=== PATIENT | female | born 1955 | race Caucasian/White ===

== ENCOUNTER 2019-12-11 12:59 | Outpatient (CLI) | payer BC, MEDICARE, SELFPAY ==
--- NOTE | 2019-12-11 13:24 | XR_ITS ---
WS: [id number] LEFT WRIST: 3 VIEW(S) TECHNIQUE: PA, oblique and lateral. HISTORY: PAIN IN LEFT HAND COMPARISON: None available. No acute fracture or dislocation. Very mild narrowing of the radiocarpal joint and the first carpometacarpal joint. No soft tissue swelling. XR/XR wrist LT min 3V* [id number] IMPRESSION: Mild osteoarthritis.
== END 2019-12-11 13:00 | disposition home or self-care (01) ==
PROVIDERS: Family Provider Family Medicine; PCP Family Medicine; Visit Provider Nurse Practitioner
DX: M19.042 Primary osteoarthritis, left hand (principal)
CPT/HCPCS: 73110

== ENCOUNTER 2020-04-04 14:51 | Emergency (ER) | payer BC, MEDICARE, SELFPAY ==
--- NOTE | 2020-04-04 14:53 | XR_ITS ---
WS: [id number] PORTABLE CHEST HISTORY: cp COMPARISON: 02/24/2015 Mild emphysema and chronic interstitial lung disease. No pneumonia. Linear scar atelectasis at the LE FT lung base. No pleural effusion or pneumothorax. Cardiac size: Normal. Mediastinum/Aorta: Normal mediastinum. No osseous abnormality seen. XR/XR chest 1V portable [id number] IMPRESSION: Chronic emphysema with LEFT basilar subsegmental atelectasis.
--- NOTE | 2020-04-04 14:53 | ECG_ITS ---
Measurements Intervals [place] Rate: 83 P: 17 TN: 141 QRS: -22 QRSD: 104 T: 81 QT: 401 QTc: 472 SINUS RHYTHM BORDERLINE LEFT AXIS DEVIATION [QRS AXIS < -20] POSSIBLE RIGHT VENTRICULAR CONDUCTION DELAY [RSR (QR) IN V1/V2] LEFT VENTRICULAR HYPERTROPHY AND ST-T CHANGE Compared to ECG 02/24/2015 16:46:58 Ventricular premature complex(es) now present Left ventricular hypertrophy now present ST (T wave) deviation now present T-wave abnormality no longer present Possible ischemia no longer present Electronically Signed On 04-05-2020 22:06:57 CDT by Malka Jones M.D. [email or web address]
[2020-04-04 14:58] VITALS: BP 123/72; PULSE 75; RESP 14; TEMP 36.6; O2SAT 98; BMI 22.2
--- NOTE | 2020-04-04 15:21 | ED_ITS ---
HPI - Chest Pain General: Chief Complaint: Chest Pain Stated Complaint: heavy chest Time Seen by Provider: 04/04/20 15:12 Source: patient Mode of arrival: ambulatory Limitations: no limitations History of Present Illness: HPI narrative: 64-year-old female who has had chest pain since last night. States the pain is been a pressure type pain in the center of her chest. She denies any shortness of breath or fever. Patient denies any worsening or improving factors. MD complaint: chest pain and chest heaviness Onset (ago): day(s) Timing of current episode: episodic Pain location: substernal and left chest Pain radiation: none Severity: moderate Quality: tightness Relieving factors: nothing Associated symptoms: Deny abdominal pain, dyspnea, fever(s), nausea or vomiting Review of Systems Const: Denies: fever(s), chills, body aches or change in appetite Eyes: Denies: blurry vision or eye discomfort ENMT: Denies: throat pain or dental pain Card: Reports: chest pain Resp: Denies: dyspnea GI: Denies: abdominal pain, nausea, vomiting or diarrhea : Denies: dysuria Musc: Denies: neck pain or back pain Skin/Breast: Denies: rash Neuro: Denies: headache(s) Psych: Denies: depression Lorenzo/Lymph: Denies: easy bruising All/Imm: Denies: urticaria PFSH ED PFSH: Family History Family/Other Hypertension CAD (coronary artery disease) Cancer Social History Smoking and tobacco status: current every day smoker cigarettes Packs smoked per day: 1 Second hand smoke exposure: No Alcohol intake: never Desire information about alcohol rehabilitation?: No Desire information about substance/drug rehabilitation?: No History of recent travel: No Current gender identity: Female Physical Exam Const: COMMON NORMALS: no acute distress, patient oriented x3 and healthy appearing HENMT: COMMON NORMALS: normocephalic and atraumatic HEAD & SCALP: normocephalic and atraumatic Eye: COMMON NORMALS: Equal, round and reactive pupils present and EOMs intact bilaterally PUPIL: Yes Equal, round and reactive pupils present Neck/C-Spine: COMMON NORMALS: full ROM and supple Chest: COMMONS NORMALS: normal inspection of the chest and normal palpation of entire chest wall Resp: COMMON NORMALS: normal respiratory effort, No retractions, No use of accessory muscles and clear to auscultation bilaterally AUSCULTATION: clear to auscultation bilaterally Cardio: COMMON NORMALS: regular rate, regular rhythm and No murmurs present (Cardio) RATE: regular rate RHYTHM: regular rhythm GI: COMMON NORMALS: Normal to inspection, nondistended, normoactive bowel sounds present, Soft to palpation, non-tender and no masses PALPATION: Yes Soft to palpation Extremity: COMMON NORMALS: normal to inspection and full ROM Neuro: COMMON NORMALS: patient oriented x3, moves all extremities and no focal motor deficits Psych: COMMON NORMALS: mental status grossly normal, Normal thought process present and cooperative THOUGHT PROCESS: Normal thought process present Skin: COMMON NORMALS: no rashes or lesions noted and no wounds GENERAL SKIN EXAM: no rashes or lesions noted Course Vital Signs: Vital signs: Vital Signs Temperature 97.8 F 04/04/20 14:58 Pulse Rate 74 04/04/20 17:12 Respiratory Rate 15 04/04/20 17:12 Blood Pressure 121/77 04/04/20 17:12 Pulse Oximetry 94 04/04/20 17:12 MDM - Chest Pain MDM Narrative: Medical decision making narrative: 171 patient's past chest pain is resolved. I spoke to her and it about her initial results and recommended admission due to her risk factors. She states she feels much improved and does not want to be admitted at this time. I did talk her into staying for 2-hour troponin level and will plan on discharging if normal. 175 patient presents with chest pain that is since resolved. Second troponin is normal as well. Patient still adamant about going home. And directed her she needs to limit activity and to follow-up with her primary care doctor in 1 to 3 days and return to the ER if worsening. She has no signs of pulmonary embolism. Lab Data: Labs: Lab Results 04/04/20 04/04/20 04/04/20 Range/Units 15:23 15:23 15:23 WBC 8.6 (4.0-10.0) 10^3/ uL RBC 4.50 (4.1-5.3) 10^6/u L Hgb 12.4 (11.5-15.3) g/dL Hct 39.6 (37.0-47.0) % MCV 88.0 (81-99) fL MCH 27.6 L (28.0-34.0) pg MCHC 31.3 (30.0-36.0) g/dL RDW 14.7 (12.1-15.1) % Plt Count 439 H (130-400) 10^3/c mm MPV 9.3 (7.4-10.4) fL Neut % (Auto) 37.5 % Lymph % (Auto) 48.7 % [place] % (Auto) 8.4 % Eos % (Auto) 4.3 % Baso % (Auto) 0.9 % Neut # (Auto) 3.2 (1.8-7.7) 10^3/u L Lymph # (Auto) 4.2 (0.8-4.8) 10^3/u L [place] # (Auto) 0.7 (0.2-0.9) 10^3/u L Eos # (Auto) 0.4 (0.0-0.8) 10^3/u L Baso # (Auto) 0.1 (0.0-0.1) 10^3/u L Nucleated RBC % (a uto) 0 % Nucleated RBCs # 0.0 /100WBC Sodium 139 (136-145) mmol/L Potassium 4.1 (3.5-5.1) mmol/L Chloride 101 (98-107) mmol/L Carbon Dioxide 24 (22-29) mmol/L Anion Gap 18.1 (5-19) BUN 18 (8-23) mg/dL Creatinine 1.1 H (0.5-0.9) mg/dL GFR Calculation 50.0 L (90-130) mL/min Glucose 100 (65-115) mg/dL Calculated Osmolal ity 285 (285-295) mOsm/k g Calcium 9.5 (8.5-10.5) mg/dL Total Bilirubin 0.2 (0.15-1.2) mg/dL AST 20 (0-32) U/L ALT 12 (0-33) U/L Alkaline Phosphata se 68 (35-105) IU/L Troponin T Baselin e 6 (0-10) ng/mL Troponin T 120 Min [place] (0-10) ng/mL Total Protein 6.6 (6.6-8.7) g/dL Albumin 4.3 (3.5-5.2) g/dL Globulin 2.3 (1.3-4.6) g/dL 05/25/20 Range/Units 17:07 WBC (4.0-10.0) 10^3/ uL RBC (4.1-5.3) 10^6/u L Hgb (11.5-15.3) g/dL Hct (37.0-47.0) % MCV (81-99) fL MCH (28.0-34.0) pg MCHC (30.0-36.0) g/dL RDW (12.1-15.1) % Plt Count (130-400) 10^3/c mm MPV (7.4-10.4) fL Neut % (Auto) % Lymph % (Auto) % [place] % (Auto) % Eos % (Auto) % Baso % (Auto) % Neut # (Auto) (1.8-7.7) 10^3/u L Lymph # (Auto) (0.8-4.8) 10^3/u L [place] # (Auto) (0.2-0.9) 10^3/u L Eos # (Auto) (0.0-0.8) 10^3/u L Baso # (Auto) (0.0-0.1) 10^3/u L Nucleated RBC % (a uto) % Nucleated RBCs # /100WBC Sodium (136-145) mmol/L Potassium (3.5-5.1) mmol/L Chloride (98-107) mmol/L Carbon Dioxide (22-29) mmol/L Anion Gap (5-19) BUN (8-23) mg/dL Creatinine (0.5-0.9) mg/dL GFR Calculation (90-130) mL/min Glucose (65-115) mg/dL Calculated Osmolal ity (285-295) mOsm/k g Calcium (8.5-10.5) mg/dL Total Bilirubin (0.15-1.2) mg/dL AST (0-32) U/L ALT (0-33) U/L Alkaline Phosphata se (35-105) IU/L Troponin T Baselin e (0-10) ng/mL Troponin T 120 Min [place] 6.00 (0-10) ng/mL Total Protein (6.6-8.7) g/dL Albumin (3.5-5.2) g/dL Globulin (1.3-4.6) g/dL Imaging Data^: CXR: Attestation: I personally reviewed and interpreted this imaging study as follows: My impression: no acute abnormality EKG Data^: EKG 1: Attestation: I personally reviewed and interpreted this EKG as follows: EKG interpretation date: 04/04/20 EKG interpretation time: 15:03 Interpretation: nsr hr [address] changes no stemi qrs 104 qtc 441 EKG 2: Attestation: I personally reviewed and interpreted this EKG as follows: EKG interpretation date: 04/04/20 EKG interpretation time: 17:15 Interpretation: nsr hr 70 no acute change from previous ekg, no stemi, Discharge Plan Discharge Patient Disposition: Home, Self-Care Clinical Impression: Chest pain Qualifiers: Chest pain type: unspecified Qualified Code(s): R07.9 - Chest pain, unspecified Condition: Stable Prescriptions: No Action gabapentin 300 mg capsule 300 mg PO TID RF: 0 dicyclomine 20 mg tablet 20 mg PO TID RF: 0 lisinopril 10 mg tablet 10 mg PO DAILY RF: 0 duloxetine 60 mg capsule,delayed release(DR/EC) 60 mg PO BID RF: 0 nitroglycerin 0.4 mg tablet, sublingual 0.4 mg SUBLINGUAL Q5M PRN (Reason: CHEST PAINS) RF: 0 cyclobenzaprine 10 mg tablet 10 mg PO TID RF: 0 lansoprazole 30 mg capsule,delayed release(DR/EC) 30 mg PO DAILY RF: 0 bupropion HCl 300 mg tablet extended release 24 hr 300 mg PO QAM RF: 0 atorvastatin [Lipitor] 40 mg tablet 40 mg PO DAILY RF: 0 naproxen sodium [Aleve] 220 mg tablet 220 mg PO BID PRN (Reason: Pain) RF: 0 Discharge Orders: Discharge Order (Routine); Ordered 04/04/20 Ordered By: Archie Anderson Referrals: Mamadou Arevalo MD [Primary Care Provider] - 1-3 days Lary Martinez DO [Family Provider] - Discharge Diet: Advance as tolerated Discharge Activity: Resume usual activity Patient Instructions: Chest Pain (ED) Coding Level of Care Code ED Gang Punch Operator for [facility] Fwd Exam Comprehensive
[2020-04-04] MEDS: aspirin 81 mg Chew Tablet 324 MG PO (15:28)
[2020-04-04] MEDS: nitroglycerin 0.4 mg sublingual Tablet SUBLINGUAL (15:28)
[2020-04-04 15:31] LABS: Basophils # 0.1 10^3/uL (0.0-0.1); Basophils % 0.9 %; Eosinophils # 0.4 10^3/uL (0.0-0.8); Eosinophils % 4.3 %; Hematocrit 39.6 % (37.0-47.0); Hemoglobin 12.4 g/dL (11.5-15.3); Lymphocytes # 4.2 10^3/uL (0.8-4.8); Lymphocytes % 48.7 %; Mean Corpuscular HGB Conc 31.3 g/dL (30.0-36.0); Mean Corpuscular Hemoglobin 27.6 pg (28.0-34.0); Mean Platelet Volume 9.3 fL (7.4-10.4); Monocytes # 0.7 10^3/uL (0.2-0.9); Monocytes % 8.4 %; Neutrophils # 3.2 10^3/uL (1.8-7.7); Neutrophils % 37.5 %; Nucleated Red Blood Cells % 0 %; Platelet Count 439 10^3/cmm (130-400); Red Cell Distribution Width 14.7 % (12.1-15.1); White Blood Count 8.6 10^3/uL (4.0-10.0)
--- NOTE | 2020-04-04 15:43 | PC.NURSE ---
Unable to document 2nd dose of nitros sublingual on JAN. Patient rates pain 3:10 after 1st dose. 0.4 mg repeated
[2020-04-04 15:45] VITALS: BP 128/61; PULSE 76; RESP 16; O2SAT 95
--- NOTE | 2020-04-04 15:48 | PC.NURSE ---
pt wanted blanket.
[2020-04-04 17:01] LABS: Alanine Aminotransferase 12 U/L (0-33); Albumin Level 4.3 g/dL (3.5-5.2); Alkaline Phosphatase 68 IU/L (35-105); Anion Gap 18.1 (5-19); Aspartate Amino Transferase 20 U/L (0-32); Blood Urea Nitrogen 18 mg/dL (8-23); Calcium 9.5 mg/dL (8.5-10.5); Carbon Dioxide 24 mmol/L (22-29); Chloride 101 mmol/L (98-107); Creatinine Clr Calc Pharmacy 40.6972; Globulin 2.3 g/dL (1.3-4.6); Glucose 100 mg/dL (65-115); Osmolality Calculated 285 mOsm/kg (285-295); Potassium 4.1 mmol/L (3.5-5.1); Sodium 139 mmol/L (136-145); Total Bilirubin 0.2 mg/dL (0.15-1.2); Total Protein 6.6 g/dL (6.6-8.7); Troponin(5th) Baseline 6 ng/mL (0-10)
[2020-04-04 17:12] VITALS: BP 121/77; PULSE 74; RESP 15; O2SAT 94
--- NOTE | 2020-04-04 17:49 | PC.NURSE ---
Read and agree with assessment
[2020-04-04 17:51] LABS: Troponin 5 2HR Delta 0 ABS# (0-10)
[2020-04-04 18:04] VITALS: BP 144/81; PULSE 92; RESP 18; O2SAT 98
--- NOTE | 2020-04-04 20:53 | ECG_ITS ---
Measurements Intervals [place] Rate: 70 P: 48 IN: 141 QRS: -25 QRSD: 105 T: 61 QT: 411 QTc: 444 SINUS RHYTHM BORDERLINE LEFT AXIS DEVIATION [QRS AXIS < -20] POSSIBLE RIGHT VENTRICULAR CONDUCTION DELAY [RSR (QR) IN V1/V2] MODERATE VOLTAGE CRITERIA FOR LVH, CONSIDER NORMAL VARIANT MODERATE T-WAVE ABNORMALITY, CONSIDER LATERAL ISCHEMIA Compared to ECG 02/24/2015 16:46:58 No significant changes Electronically Signed On 04-05-2020 22:13:57 CDT by Malka Jones M.D. [email or web address]
== END 2020-04-04 18:05 | disposition home or self-care (01) ==
PROVIDERS: Emergency Provider Emergency Medicine; Family Provider Family Medicine; PCP Family Medicine
DX: R07.9 Chest pain, unspecified (principal); F17.210 Nicotine dependence, cigarettes, uncomplicated
CPT/HCPCS: 12345; 36415; 71045; 80053; 84484; 85025; 87040; 93005; 99283; 99284

== ENCOUNTER 2020-07-26 16:39 | Emergency (ER) | payer BC, MEDICARE, SELFPAY ==
[2020-07-26] VITALS (8 sets, daily range): BP systolic 105–151; BP diastolic 58–110; PULSE 98–112; RESP 14–24; TEMP 36.9; O2SAT 84–99; BMI 21.8
[2020-07-26] MEDS: HYDROcodone-acetaminophen 5-325 mg Tablet 1 TAB PO (17:00)
--- NOTE | 2020-07-26 17:00 | XR_ITS ---
WS: [id number] EXAM: RIGHT ANKLE: 3 VIEWS DATE OF EXAMINATION: 07/26/2020, 1719 hours COMPARISON: None. HISTORY: Patient is 65 years old with ankle pain status post fall FINDINGS: There are findings of fracture and dislocation of the ankle. The talus is 100% displaced dorsally in relation to the tibial plafond. Posterior tibial malleolar fracture is displaced by several centimete rs both posteriorly and superiorly. Medial malleolar fracture stays with the talus. The distal fibula r fracture which appears to be a Gonzales B fracture also stays with the talus. There is widening of the inner syndesmotic ligament region suggesting disruption of this ligament as well. Soft tissue swelli ng around the ankle is demonstrated. Please correlate for neurovascular integrity. XR/XR ankle RT min 3V* [id number] IMPRESSION: Trimalleolar fracture dislocation as described.
[2020-07-26] MEDS: HYDROmorphone 1 mg/mL INJ 1 mL IVP (17:05)
[2020-07-26] MEDS: ondansetron 2 mg/ML SDV 2 mL 4 MG IVP (17:05)
--- NOTE | 2020-07-26 17:53 | W.ED.EXTPRO ---
HPI - Extremity Problem General: Chief complaint: Extremity Injury, Lower Stated complaint: FALL, RT FOOT AND ANKLE PAIN Time Seen by Provider: 07/26/20 17:29 Source: patient and EMS Mode of arrival: EMS Limitations: no limitations History of Present Illness: HPI Narrative: 65-year-old female who states she tripped over some sticks today and fell and injured her right ankle. She has an obvious deformity to her right ankle. She states she is unable to ambulate and states she has pain she rates a 7 out of 10. Denies hitting her head denies any other injuries. Patient does have distal pulses intact. Denies chest or abdomen pain Associated symptoms: Deny chest pain, fever(s) or rash Review of Systems Const: Denies: fever(s), chills, body aches or change in appetite Eyes: Denies: blurry vision or eye discomfort ENMT: Denies: throat pain or dental pain Card: Denies: chest pain Resp: Denies: dyspnea GI: Denies: abdominal pain, nausea, vomiting or diarrhea : Denies: dysuria Musc: Reports: extremity pain Skin/Breast: Denies: rash Neuro: Denies: headache(s) Psych: Denies: depression Lorenzo/Lymph: Denies: easy bruising All/Imm: Denies: urticaria PFSH ED PFSH: Family History Family/Other Hypertension CAD (coronary artery disease) Cancer Social History Smoking and tobacco status: current every day smoker cigarettes Packs smoked per day: 1 Second hand smoke exposure: No Alcohol intake: never Desire information about alcohol rehabilitation?: No Desire information about substance/drug rehabilitation?: No History of recent travel: No Current gender identity: Female Physical Exam Const: COMMON NORMALS: no acute distress, patient oriented x3 and healthy appearing HENMT: COMMON NORMALS: normocephalic and atraumatic HEAD & SCALP: normocephalic and atraumatic Eye: COMMON NORMALS: Equal, round and reactive pupils present and EOMs intact bilaterally PUPIL: Yes Equal, round and reactive pupils present Neck/C-Spine: COMMON NORMALS: full ROM and supple Chest: COMMONS NORMALS: normal inspection of the chest and normal palpation of entire chest wall Resp: COMMON NORMALS: normal respiratory effort, No retractions, No use of accessory muscles and clear to auscultation bilaterally AUSCULTATION: clear to auscultation bilaterally Cardio: COMMON NORMALS: regular rate, regular rhythm and No murmurs present (Cardio) RATE: regular rate RHYTHM: regular rhythm GI: COMMON NORMALS: Normal to inspection, nondistended, normoactive bowel sounds present, Soft to palpation, non-tender and no masses PALPATION: Yes Soft to palpation Extremity: NARRATIVE EXTREMITY EXAM: Obvious deformity to right ankle. She does have distal pulses intact. Neuro: COMMON NORMALS: patient oriented x3, moves all extremities and no focal motor deficits Psych: COMMON NORMALS: mental status grossly normal, Normal thought process present and cooperative THOUGHT PROCESS: Normal thought process present Skin: COMMON NORMALS: no rashes or lesions noted and no wounds GENERAL SKIN EXAM: no rashes or lesions noted Procedures Orthopedic Joint Reduction Joint #1: Time Out Performed: Yes Side: right Joint Reduction Location: ankle Analgesia: procedural sedation Shoulder Technique Used (if applicable): traction/counter-traction Post-reduction neuro exam: intact Post-reduction vascular: intact Post Reduction X-Ray Obtained: Yes Post Reduction X-Ray Results: reduced Splint Applied: Yes Patient Tolerated Procedure: well Procedural Sedation Indication: fracture/dislocation reduction ASA Class: II Time of Last PO Intake: 18:25 Preparation: equipment monitor phototypesetting applied, pulse oximeter and supplemental O2 applied IV Propofol dose (mg): 50 Patient Tolerated Procedure: well Complications: none Course Vital Signs: Vital signs: Vital Signs Temperature 98.4 F 07/26/20 16:44 Pulse Rate 99 07/26/20 18:09 Respiratory Rate 18 07/26/20 18:09 Blood Pressure 124/70 07/26/20 18:09 Pulse Oximetry 97 07/26/20 18:09 MDM - Extremity (Nontraumatic) MDM Narrative: Medical decision making narrative: Patient presents here with trimalleolar fracture from a fall. I manually reduce the fracture and patient placed in a splint. Patient is good distal sensation intact after splint placement. Patient stable for discharge and is to follow-up with Dr. Sykes. She is return if worsening. Imaging Data^: Other Xray: Attestation: I personally reviewed and interpreted this imaging study as follows: My impression: Trimalleolar fracture to right ankle with dislocation Discharge Plan Discharge Patient Disposition: Home Clinical Impression: Ankle fracture Qualifiers: Encounter type: initial encounter Fracture type: closed Laterality: right Qualified Code(s): S82.891A - Other fracture of right lower leg, initial encounter for closed fracture Condition: Stable Prescriptions: [place] 5-325 mg tablet 1 tab PO Q6H PRN (Reason: pain) Qty: 14 RF: 0 ondansetron 4 mg tablet,disintegrating 4 mg PO Q6H PRN (Reason: nausea and vomiting) Qty: 14 RF: 0 No Action gabapentin 300 mg capsule 300 mg PO TID RF: 0 dicyclomine 20 mg tablet 20 mg PO TID RF: 0 lisinopril 10 mg tablet 10 mg PO DAILY RF: 0 duloxetine 60 mg capsule,delayed release(DR/EC) 60 mg PO BID RF: 0 nitroglycerin 0.4 mg tablet, sublingual 0.4 mg SUBLINGUAL Q5M PRN (Reason: CHEST PAINS) RF: 0 cyclobenzaprine 10 mg tablet 10 mg PO TID RF: 0 lansoprazole 30 mg capsule,delayed release(DR/EC) 30 mg PO DAILY RF: 0 bupropion HCl 300 mg tablet extended release 24 hr 300 mg PO QAM RF: 0 atorvastatin [Lipitor] 40 mg tablet 40 mg PO DAILY RF: 0 naproxen sodium [Aleve] 220 mg tablet 220 mg PO BID PRN (Reason: Pain) RF: 0 Discharge Orders: Discharge Order (Routine); Ordered 07/26/20 Ordered By: Archie Anderson Referrals: Mamadou Arevalo MD [Primary Care Provider] - Bere Cristobal MD [Physician] - 1-3 days Discharge Diet: Advance as tolerated Discharge Activity: Resume usual activity Patient Instructions: Ankle Fracture (ED) Coding Level of Care Code ED Building Construction Contractor for [facility] Fwd Exam Comprehensive
[2020-07-26] MEDS: propofol 10 mg/mL SDV 20 mL 100 MG IVP (18:11)
--- NOTE | 2020-07-26 18:11 | XR_ITS ---
WS: [id number] EXAM: RIGHT ANKLE: 2 VIEWS DATE OF EXAMINATION: 07/26/2020, 1808 hours COMPARISON: Same-day examination from 1719 hours. HISTORY: Patient is 65 years old with post reduction ankle dislocation. FINDINGS: Since the earlier examination there has been interval reduction of the ankle dislocation. The talus i s now situated below the tibial plafond. Posterior tibial malleolar fracture as well as the distal fi bular fracture remain displaced. Orthopedic surgeon evaluation and treatment recommended. Fiberglass splint in place. XR/XR ankle RT 2V [id number] IMPRESSION: Interval reduction of ankle dislocation. Still some degree of displacement of f racture fragments.
--- NOTE | 2020-07-27 09:41 | DCPLANNER ---
membership manager had message to schedule a follow up appointment for patient with ortho. membership manager called the ortho clinic, spoke with Ifrah, gave clinic patients information. membership manager was told that patients information would be printed and reviewed. Clinic will call patient with appointment information.
--- NOTE | 2020-07-28 13:49 | DCPLANNER ---
Patient has a follow up appointment scheduled for 07.27.20 with ortho = patient did attend the appointment.
== END 2020-07-26 19:18 | disposition home or self-care (01) ==
PROVIDERS: Emergency Provider Emergency Medicine; PCP Family Medicine
DX: S82.851A Displaced trimalleolar fracture of right lower leg, initial encounter for closed fracture (principal); S93.04XA Dislocation of right ankle joint, initial encounter; W18.09XA Striking against other object with subsequent fall, initial encounter; F17.210 Nicotine dependence, cigarettes, uncomplicated
CPT/HCPCS: 12345; 27818; 73600; 73610; 96374; 96375; 99283; 99284; E0114; J1170; J2405; J2704

== ENCOUNTER 2020-07-27 18:16 | Inpatient (IN) | payer BC, MEDICARE, SELFPAY ==
[2020-07-27] VITALS (7 sets, daily range): BP systolic 110–149; BP diastolic 59–89; PULSE 88–106; RESP 18–22; TEMP 37.3; O2SAT 90–97; BMI 21.8
[2020-07-27] MEDS: HYDROmorphone 1 mg/mL INJ 1 mL IVP (18:54)
--- NOTE | 2020-07-27 19:19 | ED_ITS ---
HPI - Extremity Problem General: Chief complaint: Extremity Injury, Lower Stated complaint: SEVERE PAIN, ANKLE FX Time Seen by Provider: 07/27/20 18:29 History of Present Illness: HPI Narrative: This patient presents with severe pain in her right lower extremity. She was seen here yesterday for a ankle fracture dislocation. Review of Systems Const: Reports: body aches (History of fibromyalgia) Musc: Reports: extremity pain and extremity swelling PFSH ED PFSH: Medical History Arnold-Chiari malformation, type I Breast mass in female Burkitts lymphoma Cervical disc disease Chronic back pain Chronic neck pain Depression Fibromyalgia Hypercholesteremia Hypertension IBS (irritable bowel syndrome) Migraine aura without headache Other spondylosis with radiculopathy, cervical region Polymyalgia rheumatica Vitamin D deficiency Surgical History (Updated 07/27/20 @ 22:43 by Olinda Gerardo MD) H/O: hysterectomy Hx of colonoscopy Hx of tonsillectomy Family History Family/Other Hypertension CAD (coronary artery disease) Cancer Social History (Updated 07/27/20 @ 22:43 by Olinda Gerardo MD) Smoking and tobacco status: current every day smoker cigarettes Packs smoked per day: 1 Second hand smoke exposure: No Alcohol intake: never Desire information about alcohol rehabilitation?: No Desire information about substance/drug rehabilitation?: No Lives independently: Yes Housing: House History of recent travel: No Current gender identity: Female Physical Exam Const: COMMON NORMALS: patient oriented x3, no limitations and alert GENERAL APPEARANCE: cooperative HENMT: HEAD & SCALP: normal to inspection FACE & SINUS: normal facial exam Eye: GENERAL EYE: appearance normal, both eyes and all related structures Neck/C-Spine: COMMON NORMALS: supple, no meningeal signs and no JVD Chest: COMMONS NORMALS: normal inspection of the chest Resp: COMMON NORMALS: normal respiratory effort, No use of accessory muscles and clear to auscultation bilaterally AUSCULTATION: clear to auscultation bilaterally Cardio: COMMON NORMALS: no JVD, regular rate, regular rhythm and No murmurs present (Cardio) RATE: regular rate RHYTHM: regular rhythm GI: COMMON NORMALS: Normal to inspection, nondistended, normoactive bowel sounds present, Soft to palpation and non-tender INSPECTION: Yes normal to inspection AUSCULTATION: Yes normoactive bowel sounds PALPATION: Yes Soft to palpation Back/Pelvis: COMMON NORMALS: thoracic and lumbar spine normal to inspection Extremity: NARRATIVE EXTREMITY EXAM: Right lower extremity in a splint with a stirrup and posterior short leg. I remove the wrap and there was a significant amount of swelling and the splints were quite tight on the foot. There was noted extra layer of padding, just the Ortho-Glass. Pain was relieved by removing the [place] wrap's. Normal sensation and good pulses. Cap refill may have been slightly delayed prior to removing the wraps but returned to normal. Neuro: COMMON NORMALS: patient oriented x3, moves all extremities, no focal motor deficits and no sensory deficits noted SENSORIUM/ORIENTATION: Yes alert MENINGEAL SIGNS: Yes no meningeal signs Psych: COMMON NORMALS: mental status grossly normal, cooperative and normal affect Skin: COMMON NORMALS: no rashes or lesions noted and turgor normal GENERAL SKIN EXAM: no rashes or lesions noted and turgor normal Procedures Orthopedic Splinting/Casting Injury #1: Side: right Lower Extremity Injury Location: lower leg and ankle Lower Extremity Immobilizer: posterior splint (Well-padded), stirrup splint (Well-padded) and [place] wrap Course ED course: I replaced the splint which did give the patient some pain relief. She is very concerned about going home. She lives alone and does not think she will be able to get herself around. She is continuing to have severe pain. I gave her IV Dilaudid which helped some but then she threw up. I spoke with Dr. Gerardo and he suggested some p.o. Dilaudid but after she started vomiting that did not seem like a good option. She will be admitted for pain control. Vital Signs: Vital signs: Vital Signs Temperature 99.2 F 07/28/20 07:47 Pulse Rate 110 H 07/28/20 07:47 Respiratory Rate 16 07/28/20 07:47 Blood Pressure 97/52 07/28/20 07:47 Pulse Oximetry 91 07/28/20 07:47 Discharge Plan Discharge Patient Disposition: Placed in Observation Admit Provider: Olinda Gerardo Clinical Impression: Intractable pain Ankle fracture Qualifiers: Encounter type: subsequent encounter Fracture type: closed Laterality: right Fracture healing: with routine healing Qualified Code(s): S82.891D - Other fracture of right lower leg, subsequent encounter for closed fracture with routine healing Condition: Stable Referrals: Mamadou Arevalo MD [Primary Care Provider] - Discharge Date/Time: 07/27/20 23:03 Coding Level of Care Code ED Highway Construction Inspector for [facility] Fwd Exam Comprehensive
--- NOTE | 2020-07-27 19:21 | XRR_ITS ---
PROCEDURE INFORMATION: Exam: XR Right Ankle Exam date and time: 07/27/2020 7:36 PM Age: 65 years old Clinical indication: Injury or trauma; Initial encounter; Blunt trauma; Ankle; Right; Injury date: 07/26/20; Patient HX: Fall 07/26, splint replacement; Additional info: Splint replaced TECHNIQUE: Imaging protocol: XR Right ankle. Views: 3 or more views. COMPARISON: CR XR ankle RT 2V [id number] 07/26/2020 6:07 PM FINDINGS: Bones/joints: Status post closed reduction of trimalleolar fracture with prominent lateral displacement of the major distal fibular fracture fragment. Mild asymmetric widening of the medial ankle mortise. Soft tissues: Soft tissue swelling. Overlying cast obscures fine bony detail. XR/XR ankle RT min 3V* [id number] IMPRESSION: 1. Status post closed reduction of trimalleolar fracture with prominent lateral displacement of the major distal fibular fracture fragment. 2. Mild asymmetric widening of the medial ankle mortise.
[2020-07-27] MEDS: ondansetron 2 mg/ML SDV 2 mL 4 MG IVP (20:26)
[2020-07-27] MEDS: alum-mag-hydroxide-sime 30 mL UDC PO (20:26)
--- NOTE | 2020-07-27 21:12 | XRR_ITS ---
PROCEDURE INFORMATION: Exam: XR Chest, 1 View Exam date and time: 07/27/2020 9:51 PM Age: 65 years old Clinical indication: Other: Hypoxia TECHNIQUE: Imaging protocol: XR of the chest Views: 1 view. COMPARISON: CR XR chest 1V portable [id number] 04/04/2020 3:32 PM FINDINGS: Lungs: Emphysematous change and interstitial prominence. Pleural space: No pleural effusion. Heart/Mediastinum: No cardiomegaly. Bones/joints: Mild degenerative change. When correlating with the previous study, no significant interval changes are present. XR/XR chest 1V portable [id number] IMPRESSION: Stable appearance of the chest, not significantly changed from 04/04/20.
[2020-07-27] MEDS: ketorolac 30 mg/mL INJ 15 MG IVP (21:40)
--- NOTE | 2020-07-27 22:09 | PM.HP ---
Providers/Chief Complaint Primary Care Provider: Mamadou Arevalo MD Chief Complaint: SEVERE PAIN, ANKLE FX History of Present Illness Julia Arzola is a 65 year old female who is currently scheduled for an ankle surgery on 07/[address] Cristobal, came in today for intractable ankle pain. Patient is stating that she tripped over some sticks in the yard and fell, was not able to bear weight on right foot after twisting it twice, she was evaluated by Dr. Cristobal. At home she has been taking [place] but her pain was unbearable hence decided to come to the hospital. In the ER she received analgesic but her pain was not being controlled, decision was made to admit the patient for pain control. Normal hemodynamics, I will start her on Dilaudid along senna S. Patient is stating that she has irritable bowel syndrome and would not need bowel regimen. In the ER her splint was loosened slightly. Review of Systems Const: Denies: fever(s) or chills Eyes: Denies: change in vision ENMT: Denies: throat pain Card: Denies: chest pain Resp: Denies: dyspnea GI: Denies: abdominal pain : Denies: flank pain Musc: Denies: neck pain Skin/Breast: Denies: rash Neuro: Reports: difficulty walking Psych: Reports: anxiety and depression Endo: Denies: polyuria Lorenzo/Lymph: Denies: easy bruising All/Imm: Denies: urticaria Medications/Allergies Home Medications Medication Instructions Recorded Confirmed Last Taken Type atorvastatin 40 mg tablet 40 mg PO DAILY 04/04/20 07/27/20 07/27/20 History bupropion HCl 300 mg 24 hr tablet, 300 mg PO QAM 04/04/20 07/27/20 07/27/20 History extended release cyclobenzaprine 10 mg tablet 10 mg PO TID 04/04/20 07/27/20 07/27/20 History dicyclomine 20 mg tablet 20 mg PO TID 04/04/20 07/27/20 07/27/20 History duloxetine 60 mg capsule,delayed 60 mg PO BID 04/04/20 07/27/20 07/27/20 History release gabapentin 300 mg capsule 300 mg PO TID 04/04/20 07/27/20 07/27/20 History lansoprazole 30 mg capsule,delayed 30 mg PO DAILY 04/04/20 07/27/20 07/27/20 History release lisinopril 10 mg tablet 10 mg PO DAILY 04/04/20 07/27/20 07/27/20 History naproxen sodium 220 mg tablet 220 mg PO BID PRN 04/04/20 07/27/20 07/27/20 History nitroglycerin 0.4 mg sublingual 0.4 mg SUBLINGUAL Q5M PRN 04/04/20 07/27/20 04/04/20 History tablet hydrocodone-acetaminophen [[place]] 1 tab PO Q6H PRN #14 tab 07/26/20 07/27/20 07/27/20 Rx ondansetron 4 mg PO Q6H PRN #14 tab 07/26/20 07/27/20 Unknown Rx WHEEL CHAIR WITH LEG ELEVATORS #1 ea NS 07/27/20 07/27/20 Unknown Rx Allergies Allergy/AdvReac Type Severity Reaction Status Date / Time erythromycin base Allergy Mild ALGY-RASH Verified 07/27/20 18:30 Iodinated Contrast Media Allergy Mild ALGY-RASH; Verified 07/27/20 18:30 DIFFICULTY BREATHING Iodine and Iodide Containing Allergy Mild ALGY-RASH Verified 07/27/20 18:30 Produc meperidine [From Demerol] Allergy Mild ALGY-VOMITI Verified 07/27/20 18:30 NG;RASH morphine Allergy Mild ALGY-RASH;V Verified 07/27/20 18:30 OMITING Penicillins Allergy Mild ALGY-RASH Verified 07/27/20 18:30 Sulfa (Sulfonamide Allergy Mild ALGY-RASH Verified 07/27/20 18:30 Antibiotics) metronidazole [From Flagyl] Allergy Unknown UNKNOWN Verified 07/27/20 18:30 PFSH Acute PFSH: Medical History Arnold-Chiari malformation, type I Breast mass in female Burkitts lymphoma Cervical disc disease Chronic back pain Chronic neck pain Depression Fibromyalgia Hypercholesteremia Hypertension IBS (irritable bowel syndrome) Migraine aura without headache Other spondylosis with radiculopathy, cervical region Polymyalgia rheumatica Vitamin D deficiency Surgical History (Updated 07/27/20 @ 22:43 by Olidna Gerardo MD) H/O: hysterectomy Hx of colonoscopy Hx of tonsillectomy Family History Family/Other Hypertension CAD (coronary artery disease) Cancer Social History (Updated 07/27/20 @ 22:43 by Olinda Gerardo MD) Smoking and tobacco status: current every day smoker cigarettes Packs smoked per day: 1 Second hand smoke exposure: No Alcohol intake: never Desire information about alcohol rehabilitation?: No Desire information about substance/drug rehabilitation?: No Lives independently: Yes Housing: House History of recent travel: No Current gender identity: Female Vitals/I&O/Wt Last Vital Signs Temp 99.1 F 07/27/20 18:18 Pulse 88 07/27/20 20:52 Resp 22 H 07/27/20 21:00 BP 149/89 07/27/20 20:52 Pulse Ox 90 07/27/20 20:52 Weight last 48 hrs Weight 48.988 kg Physical Exam Narrative: EXAM NARRATIVE: Malnourished elderly female Seems in distress because of right ankle pain, her right ankle splint was loosened in the ER No vascular compromise S1, S2 no tachycardia heart failure Abdomen soft nontender bowel sound present EOMI, PERRLA GCS 15 No neurological deficit Lungs are clear to auscultation Appropriate mood and affect Complaining of intractable pain right ankle A&P Assessment and plan (1) Intractable pain: Status: Acute (2) Ankle fracture: Status: Acute Qualifiers: Encounter type: subsequent encounter Fracture healing: with routine healing Fracture type: closed Laterality: right Qualified Code(s): S82.891D - Other fracture of right lower leg, subsequent encounter for closed fracture with routine healing Additional A&P Information Right ankle fracture after mechanical fall Intractable pain, not responding to [place] home regimen Right ankle splint Analgesic with IV Dilaudid along senna S DVT prophylaxis with Lovenox Might ask Dr. Cristobal if we could plan for intervention while she is in the hospital if her swelling has substantially subsided We will get coagulation profile and BMP in the morning I will hold lisinopril for now 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 I would continue her antipsychotics and antidepressants at this point Will obtain an EKG in the morning to monitor QTc interval especially when using Zofran DVT prophylaxis Lovenox Cardiac diet Full code Attestations Medical Necessity Statement*: For now I am admitting patient for pain control she is scheduled for surgical intervention on Saturday, if orthopedic surgeon plans for early intervention her clinical stay might change currently I am anticipating discharge in less than 48 hours if no intervention Time Spent in Patient Care: (>than 50% of time spent in counselling and/or direct pt care on unit). 35mins Coding Level of Care Code Acute Photograph Finisher for Zeke Low Diagnoses Intractable pain R52 Ankle fracture S82.891D Encounter type: subsequent encounter Fracture healing: with routine healing Fracture type: closed Laterality: right
[2020-07-28] VITALS (11 sets, daily range): BP systolic 90–116; BP diastolic 44–60; PULSE 90–115; RESP 14–20; TEMP 36.6–37.7; O2SAT 19–93
[2020-07-28] MEDS: HYDROmorphone 1 mg/mL INJ 1 mL 2 MG IVP ×2 (01:20→10:56)
[2020-07-28] MEDS: ondansetron 2 mg/ML SDV 2 mL 4 MG IVP ×2 (01:22→20:33)
[2020-07-28] MEDS: enoxaparin 40 mg/0.4 mL Syringe SUBCUT (02:28)
[2020-07-28 06:20] LABS: INR 0.95 (0.8-1.2); Partial Thromboplastin Time 29.6 SECONDS (23.9-36.7)
[2020-07-28 06:21] LABS: Fibrinogen 464 mg/dL (174-498)
[2020-07-28 06:35] LABS: Anion Gap 15.8 (5-19); Blood Urea Nitrogen 19 mg/dL (8-23); Calcium 8.9 mg/dL (8.5-10.5); Carbon Dioxide 23 mmol/L (22-29); Chloride 103 mmol/L (98-107); Glomerular Filtration Rate 55.6 mL/min (90-130); Glucose 92 mg/dL (65-115); Osmolality Calculated 288 mOsm/kg (285-295); Potassium 3.8 mmol/L (3.5-5.1); Sodium 138 mmol/L (136-145)
[2020-07-28 07:27] LABS: Platelet Count 391 10^3/cmm (130-400)
--- NOTE | 2020-07-28 07:39 | PC.NURSE ---
In room because aide states that patient said if she does not get water she is leaving. Updated patient that she will probably have surgery today unless she drinks then she will not be able to have surgery and they might even send her home. Offered patient swabs to moisten her mouth and patient states, No I want a gallon of water I have not had anything for 2 days. Explained to patient that the surgery would more then likely fix her pain though and we should try the swabs. Patient is still wanting water. Water to be given at patient request.
--- NOTE | 2020-07-28 07:59 | PC.NURSE ---
i reported bp and low o2 to nurse weston
[2020-07-28] MEDS: gabapentin 300 mg Capsule PO ×3 (08:23→20:27)
[2020-07-28] MEDS: buPROPion XL (24 HR) 300 mg Tablet PO (08:23)
[2020-07-28] MEDS: cyclobenzaprine 10 mg Tablet PO ×3 (08:24→20:27)
[2020-07-28] MEDS: pantoprazole DR 40 mg Tablet PO (08:24)
[2020-07-28] MEDS: sennosides-docusate Tablet 1 TAB PO (08:24)
[2020-07-28] MEDS: atorvastatin 40 mg Tablet PO (08:24)
--- NOTE | 2020-07-28 09:00 | ECG_ITS ---
[facility] Test Date: 2020-07-28 Pat Name: Julia Arzola Department: Room: 276 Gender: Female College Director: : 1955 Requested By: Olinda Gerardo Order Number: [id number] Arianna MD: Elisabeth Jeffrey M.D. Measurements Intervals [place] Rate: 104 P: 50 OR: 131 QRS: -9 QRSD: 102 T: 166 QT: 335 QTc: 442 Interpretive Statements SINUS TACH[address] DEVIATION AND MODERATE T-WAVE ABNORMALITY, CONSIDER LATERAL ISCHEMIA [-0.1+ mV T WAVE IN I/aVL/V5/V6] Compared to ECG 04/04/2020 17:15:01 Sinus rhythm no longer present T-wave abnormality still present Possible ischemia still present Electronically Signed On 07-28-2020 19:47:55 CDT by Elisabeth Jeffrey M.D. [id number]
[2020-07-28] MEDS: duloxetine 60 mg Capsule PO ×2 (10:13→17:59)
[2020-07-28] MEDS: dicyclomine 20 mg Tablet PO ×3 (10:13→20:29)
--- NOTE | 2020-07-28 15:14 | P.CONIM_ITS ---
Providers/Reason For Consult Consulting Physican/Specialty*: Dr. Bere Cristobal- Orthopedic Surgery Reason for Consult*: Pain and inablility to ambulate secondary to Trimalleolar ankle fracture Attending Physician: Brittany Duron MD Primary Care Provider: Mamadou Arevalo MD History of Present Illness History of Present Illness Julia Arzola is a 65 year old female who was seen in my office with a trimalleolar ankle fracture. She returned to the emergency department last evening with intractable pain and was deemed unsafe to ambulate. She lives alone and was admitted to the hospital for pain management and is requiring IV narcaotics. Review of Systems Const: Reports: body aches (History of fibromyalgia); Denies: fever(s) or chills Eyes: Denies: change in vision ENMT: Denies: throat pain Card: Denies: chest pain Resp: Denies: dyspnea GI: Denies: abdominal pain : Denies: flank pain Musc: Reports: extremity pain and extremity swelling; Denies: neck pain Skin/Breast: Denies: rash Neuro: Reports: difficulty walking Psych: Reports: anxiety and depression Endo: Denies: polyuria Lorenzo/Lymph: Denies: easy bruising All/Imm: Denies: urticaria Meds/Allergies Home Medications and Allergies Home Medications Medication Instructions Recorded Confirmed Last Taken Type atorvastatin 40 mg tablet 40 mg PO DAILY 04/04/20 07/27/20 07/27/20 History bupropion HCl 300 mg 24 hr tablet, 300 mg PO QAM 04/04/20 07/27/20 07/27/20 History extended release cyclobenzaprine 10 mg tablet 10 mg PO TID 04/04/20 07/27/20 07/27/20 History dicyclomine 20 mg tablet 20 mg PO TID 04/04/20 07/27/20 07/27/20 History duloxetine 60 mg capsule,delayed 60 mg PO BID 04/04/20 07/27/20 07/27/20 History release gabapentin 300 mg capsule 300 mg PO TID 04/04/20 07/27/20 07/27/20 History lansoprazole 30 mg capsule,delayed 30 mg PO DAILY 04/04/20 07/27/20 07/27/20 History release lisinopril 10 mg tablet 10 mg PO DAILY 04/04/20 07/27/20 07/27/20 History naproxen sodium 220 mg tablet 220 mg PO BID PRN 04/04/20 07/27/20 07/27/20 History nitroglycerin 0.4 mg sublingual 0.4 mg SUBLINGUAL Q5M PRN 04/04/20 07/27/20 0 04/04/20 History tablet hydrocodone-acetaminophen [Mondamin] 1 tab PO Q6H PRN #14 tab 07/26/20 07/27/20 07/27/20 Rx ondansetron 4 mg PO Q6H PRN #14 tab 07/26/20 07/27/20 Unknown Rx WHEEL CHAIR WITH LEG ELEVATORS #1 ea NS 07/27/20 07/27/20 Unknown Rx Allergies Allergy/AdvReac Type Severity Reaction Status Date / Time erythromycin base Allergy Mild ALGY-RASH Verified 07/27/20 18:30 Iodinated Contrast Media Allergy Mild ALGY-RASH; Verified 07/27/20 18:30 DIFFICULTY BREATHING Iodine and Iodide Containing Allergy Mild ALGY-RASH Verified 07/27/20 18:30 Produc meperidine [From Demerol] Allergy Mild ALGY-VOMITI Verified 07/27/20 18:30 NG;RASH morphine Allergy Mild ALGY-RASH;V Verified 07/27/20 18:30 OMITING Penicillins Allergy Mild ALGY-RASH Verified 07/27/20 18:30 Sulfa (Sulfonamide Allergy Mild ALGY-RASH Verified 07/27/20 18:30 Antibiotics) metronidazole [From Flagyl] Allergy Unknown UNKNOWN Verified 07/27/20 18:30 Current Medications Current Medications Generic Name Dose Route Start Last Admin Trade Name Luisq PRN Reason Stop Dose Admin Atorvastatin Calcium 40 mg 07/28/20 09:00 07/28/20 08:24 Lipitor PO 40 mg DAILY KIM Administration Bupropion HCl 300 mg 07/28/20 06:00 07/28/20 08:23 Wellbutrin Xl (24 Hr) PO 300 mg QAM KIM Administration Cyclobenzaprine HCl 10 mg 07/28/20 09:00 07/28/20 08:24 Flexeril PO 10 mg TID KIM Administration Dicyclomine HCl 20 mg 07/28/20 09:00 07/28/20 10:13 Bentyl PO 20 mg TID KIM Administration Duloxetine HCl 60 mg 07/28/20 09:00 07/28/20 10:13 Cymbalta PO 60 mg BID KIM Administration Enoxaparin Sodium 40 mg 07/28/20 01:00 07/28/20 02:28 Lovenox SUBCUT 40 mg Q24H KIM Administration Gabapentin 300 mg 07/28/20 09:00 07/28/20 08:23 Neurontin PO 300 mg TID KIM Administration Hydromorphone HCl 2 mg 07/28/20 01:00 07/28/20 10:56 Dilaudid Inj IVP 2 mg Q4H PRN Administration Ankle pain Ondansetron HCl 4 mg 07/28/20 01:00 07/28/20 01:22 Zofran IVP 4 mg Q6H PRN Administration NAUSEA AND VOMITING Pantoprazole Sodium 40 mg 07/28/20 09:00 07/28/20 08:24 Protonix PO 40 mg DAILY KIM Administration Senna/Docusate Sodium 1 tab 07/28/20 09:00 07/28/20 08:24 Senna-S PO 1 tab DAILY KIM Administration PFSH Acute PFSH: Medical History (Updated 07/28/20 @ 15:18 by Bere Cristobal MD) Arnold-Chiari malformation, type I Breast mass in female Burkitts lymphoma Cervical disc disease Chronic back pain Chronic neck pain Depression Fibromyalgia Hypercholesteremia Hypertension IBS (irritable bowel syndrome) Migraine aura without headache Other spondylosis with radiculopathy, cervical region Polymyalgia rheumatica Vitamin D deficiency Surgical History H/O: hysterectomy Hx of colonoscopy Hx of tonsillectomy Family History Family/Other Hypertension CAD (coronary artery disease) Cancer Social History Smoking and tobacco status: current every day smoker cigarettes Packs smoked per day: 1 Second hand smoke exposure: No Alcohol intake: never Desire information about alcohol rehabilitation?: No Desire information about substance/drug rehabilitation?: No Lives independently: Yes Housing: House History of recent travel: No Current gender identity: Female Dietary Habits: Current diet type/program: regular Caffeine: Yes Exercise: Physical activity functional status: independent ambulation and normal ROM and activity Personal Safety: Do you feel safe at home: Yes Victim of physical abuse: No Victim of emotional abuse: No Victim of sexual abuse: No Would you like help information on resources?: No Vitals/I&O/Wt Last Vital Signs Temp 98.6 F 07/28/20 11:00 Pulse 115 H 07/28/20 11:00 Resp 16 07/28/20 11:00 BP 105/58 07/28/20 11:00 Pulse Ox 89 L 07/28/20 11:00 07/28/20 07/28/20 07/28/20 06:59 14:59 22:59 Intake Total 360 / 360 Balance 360 / 360 Weight last 48 hrs Weight 108 lb Physical Exam Const: COMMON NORMALS: no acute distress, average body habitus, patient oriented x3 and alert GENERAL APPEARANCE: cooperative ORIENTATION/CONSCIOUSNESS: Yes awake HENMT: COMMON NORMALS: normocephalic and atraumatic HEAD & SCALP: normocephalic and atraumatic Eye: GENERAL EYE: appearance normal, both eyes and all related structures Chest: COMMONS NORMALS: normal inspection of the chest Resp: COMMON NORMALS: normal respiratory effort EFFORT & INSPECTION: Yes able to speak in complete sentences and Yes symmetric chest movement Extremity: RIGHT LOWER EXTREMITY: Yes foot & digits Right ankle: Yes inspection (Splint is in place.), Yes palpation (Patient complains of pain to palpation anywhere about the right lower extremity below the knee), Yes ROM (Not evaluated) and Yes neurovascular exam (Appears intact) Neuro: COMMON NORMALS: patient oriented x3 SENSORIUM/ORIENTATION: Yes alert Psych: COMMON NORMALS: mental status grossly normal APPEARANCE: Yes grossly normal ATTITUDE: Yes calm and Yes engaged ATTENTION/CONCENTRATION: Yes attention grossly intact Skin: COMMON NORMALS: no rashes or lesions noted GENERAL SKIN EXAM: no rashes or lesions noted A&P Assessment and plan (1) Closed trimalleolar fracture of right ankle: Patient was seen in my office earlier on the day of admission. She subsequently returned to the emergency department stating she was in severe pain. Once again, her splint was readjusted, but she was not felt safe to return home and that she was unable to ambulate and required IV narcotics for pain management. The patient therefore was brought into the hospital. We will plan to proceed with operative intervention as originally scheduled. This is planned for tomorrow, . Status: Acute Consult Attestations Medical Necessity Statement: Pain requiring IV narcotics, ambulatory instability and deemed unsafe for independent home living. Coding Level of Care Code Acute Quality Assurance Qa Lab Technician for Zeke Low Diagnoses Closed trimalleolar fracture of right ankle S82.851A
--- NOTE | 2020-07-28 15:17 | PC.CHAP ---
Pastoral Care Encounter/Spiritual Assessment Type of Contact [] Declined print graphic designer visit [] Patient/Family/Request visit [] Outpatient visit [] Follow-up visit [] Physician referral [] Code/Alert [x] Routine visit [] Staff referral [] Actively dying [] Patient sleeping [] Family support [] [] Out of room [] Palliative care [] [x] Receiving care in room [] Pre-surgical visit [] Trauma [] Long length of stay [] ICU visit [] Other: Relational/Emotional Strength [] Patient feels connected with others/family/visitors/staff [x] Distress [] Loneliness/isolation [] Abandonment Spirituality of Patient [] Person of Asuncion [] Attends Jew of their Asuncion [] Believes in Prayer [] Reads Bible or Mandaen materials [] There are Spiritual issues to be addressed Field Sales Associate Interventions [] Prayer [] Active listening [] Non-anxious presence [] Spiritual/emotional support [] Crisis/trauma care [] Spiritual counseling [] Bereavement support [] Provided bereavement packet [] Provided Bible/devotional materials [] Provided toy/stuffed animal, coloring book to patient or family member [] Provided Communion [] Anointing/[place] [] Salvation [] Completed spiritual assessment [] Other: Impact on Illness or Injury [] Angry [] Fearful [] Anxious [] Often cries [] Exhaustion [] Unable to work [] Unable to attend uatsdin [] Unable to walk/stand [] Unable to read [] Unable to drive [] Unable to eat/drink [] Unable to sleep [] Unable to be with family [] Patient intubated [] Other: Summary Was unable to communicate her feeings Time spent with patient 10 mins
[2020-07-28] MEDS: HYDROmorphone 1 mg/mL INJ 1 mL IVP ×2 (16:14→20:33)
--- NOTE | 2020-07-28 17:18 | PM.PN ---
Subjective Subjective: Interval history: seen at 12 pm earlier today. 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: no focal neuro deficits Data : 07/28/20 04:53 07/28/20 04:53 A&P Assessment and plan (1) Trimalleolar fracture of ankle, closed: Status: Acute (2) Ankle fracture: Status: Acute Qualifiers: Encounter type: subsequent encounter Fracture healing: with routine healing Fracture type: closed Laterality: right Qualified Code(s): S82.891D - Other fracture of right lower leg, subsequent encounter for closed fracture with routine healing (3) Intractable pain: Status: Acute (4) Hypertension: Status: Acute Additional A&P Information Right ankle fracture after mechanical fall Intractable pain, not responding well to opiates alone Add toradol 15mg q8h prn Right ankle splint already placed Consult placed with Dr. Cristobal, likely surgery tomorrow NPO after midnight, IVF D5NS @75cc/hr post midnight tmax noted to be 99.8, no localizing signs of infection, CXR without infiltrates, check UA. Check CBC with am labs change to inpatient admission, patient would need surgery, post op monitoring and PT/OT and optimal pain control 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 Continue home medications for the same SInus tachycardia: add metoprolol 2.5 mg iv q4h prn DVT prophylaxis : Lovenox Cardiac diet, NPO post midniht Full code Attestations Medical Necessity Statement*: needs optimal pain control, ankle surgery likely tomorrow morning Coding Level of Care Code Acute Office Asst for g Fwd Diagnoses Trimalleolar fracture of ankle, closed S82.853A Ankle fracture S82.893D Encounter type: subsequent encounter Fracture healing: with routine healing Fracture type: closed Laterality: right Intractable pain R52 Hypertension I10
[2020-07-28] MEDS: cefTRIAXone 1,000 MG in sodium chloride 0.9% (plus) 50 ML 100 MG IV (22:58)
[2020-07-28] MEDS: dextrose 5%-sod chloride 0.9% 1,000 ML 75 ML IV (23:01)
[2020-07-29] VITALS (10 sets, daily range): BP systolic 92–111; BP diastolic 42–64; PULSE 91–104; RESP 17–20; TEMP 36.3–37.7; O2SAT 91–95
[2020-07-29] MEDS: enoxaparin 40 mg/0.4 mL Syringe SUBCUT (00:17)
--- NOTE | 2020-07-29 01:03 | PC.NURSE ---
O2 SATS Having trouble keeping O2 sat up tonight. Dropped into low 80's and required O2 up to 5l NC to get into low 90's. Have had discussion with pt and enc cough and deep breathing. Says she is a smoker and has been getting SOB with exertion for some time now. Provided IS for pt to start using. She is worried about surgery. Have also discussed reasoning for not receiving more IV Dilaudid for pain. Going to get a dose of IV Toradol
[2020-07-29 01:06] LABS: Add Urine Microscopic? YES; Bacteria Urine 1+ /hpf; Bilirubin Urine Neg (Negative); Blood Urine Neg (Negative); Glucose Urine UA Norm (Normal); Ketones Urine 1+ (Negative); Leukocyte Esterase Urine Negative (Negative); Nitrate Urine Negative (Negative); Protein Urine Neg (Negative); RBC Urine 0-4 /hpf (0-2); Specific Gravity, Urine 1.025 (1.005-1.030); Squamous Epithelial Cell Urine 0-4 /hpf (0-5); Urine Appearance SL Hazy (CLEAR); Urine Color Dark Yellow (Yellow); Urobilinogen Urine Norm (Negative); pH Urine 5 (5-7)
[2020-07-29] MEDS: ketorolac 30 mg/mL INJ 15 MG IVP (01:14)
[2020-07-29] MEDS: ipratropium-albuterol 3 mL Neb INHALATION (01:20)
[2020-07-29 02:31] LABS: Hematocrit 29.2 % (37.0-47.0); Hemoglobin 8.9 g/dL (11.5-15.3); Mean Corpuscular HGB Conc 30.5 g/dL (30.0-36.0); Mean Corpuscular Hemoglobin 27.1 pg (28.0-34.0); Platelet Count 327 10^3/cmm (130-400); Red Blood Count 3.28 10^6/uL (4.1-5.3); White Blood Count 9.8 10^3/uL (4.0-10.0)
[2020-07-29 03:12] LABS: Alanine Aminotransferase 15 U/L (0-33); Albumin Level 3.2 g/dL (3.5-5.2); Alkaline Phosphatase 39 IU/L (35-105); Anion Gap 13.1 (5-19); Aspartate Amino Transferase 27 U/L (0-32); Blood Urea Nitrogen 27 mg/dL (8-23); Calcium 8.2 mg/dL (8.5-10.5); Carbon Dioxide 25 mmol/L (22-29); Chloride 96 mmol/L (98-107); Creatinine Clr Calc Pharmacy 48.1942; Globulin 2.8 g/dL (1.3-4.6); Glomerular Filtration Rate 62.8 mL/min (90-130); Glucose 101 mg/dL (65-115); Osmolality Calculated 275 mOsm/kg (285-295); Potassium 4.1 mmol/L (3.5-5.1); Sodium 130 mmol/L (136-145); Total Bilirubin 0.2 mg/dL (0.15-1.2)
[2020-07-29 04:07] LABS: Slide Review Slide Review Perform
[2020-07-29 04:08] LABS: Absolute Eosinophils 0.3 10^3/cmm (0.0-0.7); Absolute Segmented Neutrophil 2.8 10/cmm (1.6-7.1); Band Neutrophils Absolute 2.2 10^3/cmm (0.0-1.2); Eosinophils 4 %; Lymphocytes 34 %; Monocytes Absolute 0.6 10^3/cmm (0.1-0.6); Platelet Estimate Normal (Normal); Segmented Neutrophils 29 %; Total Cells Counted 100 (0-100)
[2020-07-29] MEDS: HYDROmorphone 1 mg/mL INJ 1 mL 0.5 MG IVP (04:09)
[2020-07-29] MEDS: buPROPion XL (24 HR) 300 mg Tablet PO (06:01)
--- NOTE | 2020-07-29 11:41 | PC.NURSE ---
Patient is requesting to speak with the surgeon before signing the consent. Patient washed with the cleansing wipes.
--- NOTE | 2020-07-29 12:01 | PC.NURSE ---
Patient to surgery at this time.
--- NOTE | 2020-07-29 12:20 | XRR_ITS ---
PROCEDURE INFORMATION: Exam: XR Chest, 1 View Exam date and time: 07/29/2020 12:30 PM Age: 65 years old Clinical indication: Shortness of breath TECHNIQUE: Imaging protocol: XR of the chest Views: 1 view. COMPARISON: CR XR chest 1V portable [id number] 07/27/2020 9:42 PM FINDINGS: Lungs: Parenchymal densities are present in the right perihilar region and right upper lobe and the left lower lobe these findings were not present on prior examination and are consistent with pneumonia Pleural space: Unremarkable. No pleural effusion. No pneumothorax. Heart/Mediastinum: Unremarkable. No cardiomegaly. Bones/joints: Unremarkable. XR/XR chest 1V portable [id number] IMPRESSION: Right upper lobe and left lower lobe pneumonia
--- NOTE | 2020-07-29 12:32 | ANES.PREANE2 ---
Pre-Anesthetic Assessment Pre-Anesthetic Assessment: Height/Weight: Height 1.5 m Weight 48.988 kg Temp Pulse Resp BP Pulse Ox 98.8 F 102 H 17 111/56 91 07/29/20 07:00 07/29/20 08:57 07/29/20 08:57 07/29/20 07:00 07/29/20 08:57 Proposed Procedure: Operation Date: 07/29/20 13:00 Proposed Procedures p ORIF Ankle trimalleolar(Right) - Bere Cristobal MD Last intake: NPO > 8 hrs Social: Social History: Tobacco Exam: Pre-Anes Outpt Exam: alert, oriented x 3, clear to auscultation bilaterally and regular rate & rhythm Airway: Cervical ROM: WNL MP: 3 Dentition: Other (no teeth) Pulmonary: Comments: Heavy smoker - has been satting low 90s on 3-5 L NC development of b/l consolidation in setting of high O2 requirements - will need to have several days of antibiotics and retest for covid CV/HEM: CV/HEM: HTN GI: GI: GERD Metabolic: Metabolic: Hyperlipidemia Comments: hx burkitt's lymphoma Musc/skel: Musc/skel: Fibromyalgia Anesthetic Plan: ASA status: 3 Anesthesia: Regional (specify below) Risk of > 500 ml blood loss (7ml/kg in children): No Meds/Allergies Current Medications: Current Medications Generic Name Dose Route Start Last Admin Trade Name Freq PRN Reason Stop Dose Admin Albuterol/Ipratrop ium 3 ml 07/28/20 22:30 07/29/20 01:20 Duoneb INHALATION 3 ml Q4H.RESPIRATORY P RN Administration SHORTNESS OF JOHNNIE TH Atorvastatin Calci um 40 mg 07/28/20 09:00 07/28/20 08:24 Lipitor PO 40 mg DAILY KIM Administration Bupropion HCl 300 mg 07/28/20 06:00 07/29/20 06:01 Wellbutrin Xl (2 4 Hr) PO 300 mg QAM KIM Administration Cyclobenzaprine HC l 10 mg 07/28/20 09:00 07/28/20 20:27 Flexeril PO 10 mg TID KIM Administration Dicyclomine HCl 20 mg 07/28/20 09:00 07/28/20 20:29 Bentyl PO 20 mg TID KIM Administration Duloxetine HCl 60 mg 07/28/20 09:00 07/28/20 17:59 Cymbalta PO 60 mg BID KIM Administration Enoxaparin Sodium 40 mg 07/28/20 01:00 07/29/20 00:17 Lovenox SUBCUT 40 mg Q24H KIM Administration Gabapentin 300 mg 07/28/20 09:00 07/28/20 20:27 Neurontin PO 300 mg TID KIM Administration Hydromorphone HCl 0.5 mg 07/29/20 03:51 07/29/20 04:09 Dilaudid Inj IVP 0.5 mg Q4H PRN Administration severe pain Ceftriaxone Sodium 1,000 mg/ 50 mls @ 100 mls/ hr 07/28/20 22:30 07/28/20 22:58 Sodium Chloride IV 100 mls/hr Q24H KIM Administration Protocol Dextrose/Sodium Ch loride 1,000 mls @ 75 ml s/hr 07/29/20 00:01 07/28/20 23:01 Dextrose 5%-Sod Chloride 0.9% IV 75 mls/hr .[id number] KIM Administration Ketorolac Trometha mine 15 mg 07/28/20 22:28 07/29/20 01:14 Toradol IVP 08/02/20 22:27 15 mg Q8H PRN Administration MODERATE PAIN Ondansetron HCl 4 mg 07/28/20 01:00 07/28/20 20:33 Zofran IVP 4 mg Q6H PRN Administration NAUSEA AND VOMITI NG Pantoprazole Sodiu m 40 mg 07/28/20 09:00 07/28/20 08:24 Protonix PO 40 mg DAILY KIM Administration Senna/Docusate Sod ium 1 tab 07/28/20 09:00 07/28/20 08:24 Senna-S PO 1 tab DAILY KIM Administration PFSH Anesthesia PFSH: Medical History (Updated 07/28/20 @ 22:36 by Brittany Duron MD) Arnold-Chiari malformation, type I Breast mass in female Burkitts lymphoma Cervical disc disease Chronic back pain Chronic neck pain Depression Fibromyalgia Hypercholesteremia Hypertension IBS (irritable bowel syndrome) Migraine aura without headache Other spondylosis with radiculopathy, cervical region Polymyalgia rheumatica Vitamin D deficiency Surgical History H/O: hysterectomy Hx of colonoscopy Hx of tonsillectomy Family History Family/Other Hypertension CAD (coronary artery disease) Cancer Social History Smoking and tobacco status: current every day smoker cigarettes Packs smoked per day: 1 Second hand smoke exposure: No Alcohol intake: never Desire information about alcohol rehabilitation?: No Desire information about substance/drug rehabilitation?: No Lives independently: Yes Housing: House History of recent travel: No Current gender identity: Female Data Anesthesia CBC & Chem 7: 07/29/20 01:46 07/29/20 01:46 Other Labs: Laboratory Results - last 48 hr 07/28/20 07/28/20 07/29/20 04:53 04:53 00:20 WBC RBC Hgb Hct MCV MCH MCHC RDW Plt Count 391 MPV Lymph % (Auto) [place] % (Auto) Lymph # (Auto) [place] # (Auto) Total Counted Absolute Neutrophils Segmented Neutrophils Abs Segm Neuts (Man) Band Neutrophils Abs Band Neuts (Man) Lymphocytes (Manual) Monocytes (Manual) Absolute Monocytes Eosinophils (Manual) Absolute Eosinophils Metamyelocytes Nucleated RBCs Platelet Estimate PT 12.90 INR 0.95 APTT 29.6 Fibrinogen 464 Sodium 138 Potassium 3.8 Chloride 103 Carbon Dioxide 23 Anion Gap 15.8 BUN 19 Creatinine 1.0 H GFR Calculation 55.6 L Glucose 92 Calculated Osmolality 288 Calcium 8.9 Total Bilirubin AST ALT Alkaline Phosphatase Total Protein Albumin Globulin Urine Color Dark yellow Urine Appearance Sl hazy Urine pH 5 Ur Specific [place] 1.025 Urine Protein Neg Urine Glucose (UA) Norm Urine Ketones 1+ H Urine Blood Neg Urine Nitrate Negative Urine Bilirubin Neg Urine Urobilinogen Norm Ur Leukocyte Esterase Negative Urine RBC 0-4 H Urine WBC 5-10 H Ur Squamous Epith Cells 0-4 H Amorphous Sediment Not Reportable Urine Bacteria 1+ H 07/29/20 07/29/20 01:46 01:46 WBC 9.8 RBC 3.28 L Hgb 8.9 L Hct 29.2 L MCV 89.0 MCH 27.1 L MCHC 30.5 RDW 16.0 H Plt Count 327 MPV 10.0 Lymph % (Auto) Not Reportable [place] % (Auto) Not Reportable Lymph # (Auto) Not Reportable [place] # (Auto) Not Reportable Total Counted 100 Absolute Neutrophils 5.0 Segmented Neutrophils 29 Abs Segm Neuts (Man) 2.8 Band Neutrophils 22.0 Abs Band Neuts (Man) 2.2 H Lymphocytes (Manual) 34 Monocytes (Manual) 6.0 Absolute Monocytes 0.6 Eosinophils (Manual) 4 Absolute Eosinophils 0.3 Metamyelocytes 5.0 Nucleated RBCs 1.0 Platelet Estimate Normal PT INR APTT Fibrinogen Sodium 130 L Potassium 4.1 Chloride 96 L Carbon Dioxide 25 Anion Gap 13.1 BUN 27 H Creatinine 0.9 GFR Calculation 62.8 L Glucose 101 Calculated Osmolality 275 L Calcium 8.2 L Total Bilirubin 0.2 AST 27 ALT 15 Alkaline Phosphatase 39 Total Protein 6.0 L Albumin 3.2 L Globulin 2.8 Urine Color Urine Appearance Urine pH Ur Specific [place] Urine Protein Urine Glucose (UA) Urine Ketones Urine Blood Urine Nitrate Urine Bilirubin Urine Urobilinogen Ur Leukocyte Esterase Urine RBC Urine WBC Ur Squamous Epith Cells Amorphous Sediment Urine Bacteria Micro: Microbiology 07/29/20 01:46 Blood Culture - Preliminary Blood SPECIMEN COLLECTED 07/29/20 01:48 Blood Culture - Preliminary Blood SPECIMEN COLLECTED Cardiac Studies: No Data to Display
[2020-07-29 12:48] LABS: ABG PCO2 37.8 mmHg (35-45); Alveolar-Arterial Oxygen Gradi 0.2 mmHg (5-10); Arterial Blood Gas Hematocrit 26.9 % (37-47); Base Excess ABG -1.2 mmol/L (-2.0-2.0); Blood Gas Operator Identificat GD; Blood Gas Sample Site Brachial, left; Blood Gas Sample Type Arterial; Carboxyhemoglobin 1.1 %THgb (0.4-20.1); HCO3 ABG 23.4 mmol/L (22-26); HGB O2 Sat 96.4 % (95-100); Ionized Calcium Level - ABG 1.2 mmol/L (1.1-1.4); Methemoglobin 1.1 % (0.4-1.5); Oxygen Device SIMPLE MASK; Oxygen Saturation ABG 98.6; Potassium Level - ABG 3.9 mmol/L (3.5-5.0); Total Hemoglobin 8.8 g/dL (12-16)
--- NOTE | 2020-07-29 13:12 | CT_ITS ---
WS: [id number] CT CHEST ANGIOGRAPHY WITH REFORMATS HISTORY: evalute for PE TECHNIQUE: Contiguous axial images are obtained through the chest during arterial injection of intrav enous contrast. Images are reconstructed to evaluate the pulmonary arteries. MIP imaging also reviewe d. All CT scans at [facility] use at least one of these dose optimization techniques: aut omated exposure control; mA and/or kV adjustment per patient size (includes targeted exams where dose is matched to clinical indication); or iterative reconstruction. CONTRAST: Visipaque 320; 95 mL IV. DLP: 495.01 mGy.cm COMPARISON: 07/29/2020 Good opacification of the pulmonary arteries. No filling defects are identified. Beyond the segmental branches opacification in the lower lung blood is limited due to airspace disease. Normal-sized tho racic aorta. Very mild enlargement of the LEFT heart chambers. No pericardial effusion. Multi lobar scattered groundglass areas of opacification. Increasing areas of consolidation in the lo wer lungs bilaterally. Airspace disease has significantly progressed since 07/27/2020. Mediastinal and hilar lymphadenopathy. Largest lymph node at the RIGHT hilum measures 1.5 cm transver sely. There is additional adenopathy RIGHT paratracheal, para-aortic, LEFT paratracheal, subcarinal a nd bilateral hilar. Mild thickening of the distal esophagus. Moderate size hiatal hernia. Mildly distended gallbladder. No adjacent inflammation or wall thickening. Moderate degenerative disc disease and endplate sclerosis at T9 8. CT/CT angio chest PE protcl [id number] IMPRESSION: 1. No pulmonary embolism. 2. Bilateral pulmonary opacifications and groundglass opacifications, signific antly progressed since 07/27/2020. Correlate for possible Covid 19 if that has n ot been obtained already. Otherwise multifocal pneumonia and additional interst itial edema. 3. Mediastinal and hilar lymphadenopathy may be reactive.
[2020-07-29] MEDS: hydrocortisone 100 mg/2 mL SDV IVP (13:49)
[2020-07-29] MEDS: diphenhydrAMINE 50 mg/mL SDV 1mL IVP (13:50)
[2020-07-29] MEDS: iodixanol 320 mg/mL 100mL Btl IV (14:50)
[2020-07-29] MEDS: FUROsemide 10 mg/mL SDV 2mL 20 MG IVP (14:59)
--- NOTE | 2020-07-29 15:30 | USCV_ITS ---
[facility] Age: 65 Gender: F : 1955 Exam Date: 07/29/2020 16:27 Ordering Phys: Brittany Duron MD Technologist: Cary Villalta [place] [facility] [place]: [place] EF BP: / HR: 101 Rhythm: Sinus Technical Quality: LIMITED WINDOWS - TECH DIFFICULT MEASUREMENTS (Male / Female) Normal Values 2D ECHO LV Diastolic Diameter PLAX 2.2 cm 4.2 - 5.9 / 3.9 - 5.3 cm LV Systolic Diameter PLAX 1.6 cm LV Chamber Size 1.8 cm IVS Diastolic Thickness 1.2 cm 0.6 - 1.0 / 0.6 - 0.9 cm IVS Systolic Thickness 1.3 cm LVPW Diastolic Thickness 1.2 cm 0.6 - 1.0 / 0.6 - 0.9 cm LVPW Systolic Thickness 1.5 cm RV Chamber Size 2.3 cm LVOT Diameter 2.0 cm LV Ejection Fraction 2D Teich 55.1 % LV Ejection Fraction MOD 2C 53.8 % LV Ejection Fraction 2C AL 53.3 % LA Width 2.7 cm LA Height 3.5 cm RA Width 3.2 cm RA Height 2.8 cm DOPPLER AV Peak Velocity 157.0 cm/s LVOT Peak Velocity 116.0 cm/s AV Area Cont Eq vti 2.8 cm squared AV Area Cont Eq pk 2.3 cm squared MV Area PHT 5.0 cm squared Mitral E to A Ratio 0.7 MV E' Velocity 13.0 cm/s Mitral E to MV E' Ratio 9.0 Mitral E to LV E' Lateral Ratio 8.2 Mitral E to LV E' Septal Ratio 10.0 TR Peak Velocity 145.0 cm/s TR Peak Gradient 8.4 mmHg TV Peak E Velocity 64.0 cm/s Right Atrial Pressure 3.0 mmHg Pulmonary Artery Systolic Pressu 11.4 mmHg FINDINGS Left Ventricle Normal left ventricular size, systolic function and wall thickness, with no regional wall motion abnormalities. LVEF is 55 to 60%. Normal left ventricular wall thickness. Grade 1 diastolic dysfunction is noted. Right Ventricle The right ventricle is normal in size and function. Right Atrium The right atrium is normal in size. Left Atrium The left atrium is enlarged. Mitral Valve Structurally normal mitral valve without significant stenosis or prolapse. There is no mitral regurgitation. Aortic Valve Grossly normal. No significant aortic stenosis or regurgitation is noted. Tricuspid Valve Tricuspid valve is not well-visualized. Pulmonic Valve Pulmonic valve is not well-visualized. Pericardium Normal pericardium without effusion. Aorta Normal ascending aorta dimension. CONCLUSIONS Technically limited study. Grossly LV systolic function is normal with EF of 55 to 60%. Grade 1 diastolic dysfunction. Joshua Banks MD (Electronically Signed) Final Date: 29 July 2020 18:30 S
--- NOTE | 2020-07-29 16:09 | PC.NURSE ---
Patient returned from surgery at this time.
--- NOTE | 2020-07-29 16:39 | PM.PN ---
Subjective Subjective: Interval history: Patient was planned to undergo an ankle repair surgery today, however she was noted to have escalating oxygen requirement up to 5 L/min this morning therefore the surgery was deferred. She underwent a CTA of the chest to evaluate for cause of new hypoxia and increasing oxygen requirements. This study was negative for PE, however showed developing consolidation and possible pleural effusion. There was also additional concern for possible covert pneumonia, however patient did test negative on the PCR recently on the . She is endorsing some cough today. T-max was 99.8 overnight. Ceftriaxone had been added at that time. She is received 20 mg of IV Lasix to help her diurese. She does not report any history of COPD, however chest x-ray and CT is showing emphysematous changes. She states that her primary has asked her to be on inhalers in the past but she has not taken it before. Medications: Reviewed: Yes Vitals/I&O/Wt Last Vital Signs Temp 98.1 F 07/29/20 16:06 Pulse 98 07/29/20 16:06 Resp 20 H 07/29/20 16:06 BP 111/60 07/29/20 16:06 Pulse Ox 91 07/29/20 16:06 07/29/20 07/29/20 07/29/20 06:59 14:59 22:59 Intake Total 200 / 920 Output Total 350 / 650 Balance -150 / 270 Weight last 48 hrs Weight 48.988 kg Physical Exam Narrative: EXAM NARRATIVE: GEN: Awake, alert and oriented, no acute distress CVS: S1S2 N RS: CTA B/L Abd: Soft, nt/nd , bs+ PODODERMATOLOGIST: no focal neuro deficits Data : 07/29/20 01:46 07/29/20 01:46 Micro: Microbiology 07/29/20 01:46 Blood Culture - Preliminary Blood SPECIMEN COLLECTED 07/29/20 01:48 Blood Culture - Preliminary Blood SPECIMEN COLLECTED A&P Assessment and plan (1) Trimalleolar fracture of ankle, closed: Status: Acute (2) Ankle fracture: Status: Acute Qualifiers: Encounter type: subsequent encounter Fracture healing: with routine healing Fracture type: closed Laterality: right Qualified Code(s): S82.891D - Other fracture of right lower leg, subsequent encounter for closed fracture with routine healing (3) Intractable pain: Status: Acute (4) Hypertension: Status: Acute (5) Hypoxia: Status: Acute (6) COPD (chronic obstructive pulmonary disease): Status: Acute Additional A&P Information Newly developed hypoxic respiratory failure requiring up to 5 L/min nasal cannula which is a new requirement for patient Several etiologies include COPD exacerbation given emphysematous changes seen on chest x-ray. Add duo nebs every 4 hour respiratory inhalation. Start steroids without Pred 30 IV every 8 hour then taper over the next 2 to 3 days. Also possible that patient may be retaining fluid secondary to fluid resuscitation since admission. Check BNP. Lasix 20 mg IV given in the PACU. CTA chest negative for PE. Radiology concern for possible covert pneumonia, recent PCR was negative on the , however there may be a time lag on 2 positivity therefore we will repeat this testing. Maintain isolation precautions until this testing is obtained. Cardiogram to estimate EF. Denies any chest pain, no acute ST-T changes on EKG. Empiric ceftriaxone and azithromycin added for empiric pneumonia treatment Right ankle fracture after mechanical fall Intractable pain, not responding well to opiates alone Add toradol 15mg q8h prn Right ankle splint already placed Plan was to have patient have surgery today, however this has now been deferred because of new increased oxygen requirement. 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 Continue home medications for the same SInus tachycardia: add metoprolol 2.5 mg iv q4h prn DVT prophylaxis : Lovenox Full code Attestations Medical Necessity Statement*: New hypoxia, newly developed chest infiltrates, cancellation surgery Coding Level of Care Code Acute Telecommunications Technician for [facility] Diagnoses Trimalleolar fracture of ankle, closed S82.853A Ankle fracture S82.891D Encounter type: subsequent encounter Fracture healing: with routine healing Fracture type: closed Laterality: right Intractable pain R52 Hypertension I10 Hypoxia R09.02 COPD (chronic obstructive pulmonary disease) J44.9
[2020-07-29 17:45] LABS: Troponin T (5th) Once 8 ng/L (0-10)
[2020-07-29] MEDS: levoFLOXacin 750 mg Tablet PO (18:21)
[2020-07-29] MEDS: sodium chloride 0.9% 1,000 ML 30 ML IV (18:22)
--- NOTE | 2020-07-29 18:34 | P.PN_ITS ---
Subjective Subjective: Interval history: The patient was brought to the holding area for surgery today. She was found to have respiratory issues, and the hospitalist team evaluated her. X-ray imaging shows probable pneumonia, and the patient was canceled for several days of IV antibiotics prior to proceeding with operative intervention. Medications: Reviewed: Yes Vitals/I&O/Wt Last Vital Signs Temp 98.1 F 07/29/20 16:06 Pulse 98 07/29/20 16:06 Resp 20 H 07/29/20 16:06 BP 111/60 07/29/20 16:06 Pulse Ox 91 07/29/20 16:06 07/29/20 07/29/20 07/29/20 06:59 14:59 22:59 Intake Total 200 / 920 100 / 100 Output Total 350 / 650 Balance -150 / 270 100 / 100 Physical Exam Const: COMMON NORMALS: no acute distress, average body habitus, patient oriented x3 and alert GENERAL APPEARANCE: cooperative ORIENTATION/CONSCIOUSNESS: Yes awake HENMT: COMMON NORMALS: normocephalic and atraumatic HEAD & SCALP: normocephalic and atraumatic Eye: GENERAL EYE: appearance normal, both eyes and all related structures Chest: COMMONS NORMALS: normal inspection of the chest Resp: COMMON NORMALS: normal respiratory effort EFFORT & INSPECTION: Yes able to speak in complete sentences and Yes symmetric chest movement Extremity: RIGHT LOWER EXTREMITY: Yes foot & digits (Remains in a splint for elevation. Neurovascular status remains intact.) Neuro: COMMON NORMALS: patient oriented x3 SENSORIUM/ORIENTATION: Yes alert Psych: COMMON NORMALS: mental status grossly normal APPEARANCE: Yes grossly normal ATTITUDE: Yes calm and Yes engaged ATTENTION/CONCENTRATION: Yes attention grossly intact Skin: COMMON NORMALS: no rashes or lesions noted GENERAL SKIN EXAM: no rashes or lesions noted Data : 07/29/20 01:46 07/29/20 01:46 Micro: Microbiology 07/29/20 01:46 Blood Culture - Preliminary Blood SPECIMEN COLLECTED 07/29/20 01:48 Blood Culture - Preliminary Blood SPECIMEN COLLECTED A&P Assessment and plan (1) Closed trimalleolar fracture of right ankle: Surgery was scheduled for today, however, upon presentation to the preoperative area, the patient was found to have fever and decreased oxygenation. Chest x-ray demonstrated consolidation consistent with pneumonia. Per the hospitalist team, her surgery will be put on hold until at least 2 to 3 days of IV antibiotics. We have rescheduled her for August 02. Status: Acute Attestations Medical Necessity Statement*: Per hospitalist team Coding Level of Care Code Acute Flight Engineer Performance Qualified for [facility] Diagnoses Closed trimalleolar fracture of right ankle S82.851A
--- NOTE | 2020-07-29 19:10 | PC.NURSE ---
report to Clementine ABBOTT
[2020-07-29] MEDS: gabapentin 300 mg Capsule PO (20:15)
[2020-07-29] MEDS: dicyclomine 20 mg Tablet PO (20:15)
[2020-07-29] MEDS: cyclobenzaprine 10 mg Tablet PO (20:15)
[2020-07-29] MEDS: cefTRIAXone 1,000 MG in sodium chloride 0.9% (plus) 50 ML 100 MG IV (22:52)
[2020-07-30] VITALS (10 sets, daily range): BP systolic 98–127; BP diastolic 62–84; PULSE 83–96; RESP 16–18; TEMP 36.7–37.2; O2SAT 91–95
[2020-07-30] MEDS: enoxaparin 40 mg/0.4 mL Syringe SUBCUT (00:19)
[2020-07-30] MEDS: ketorolac 30 mg/mL INJ 15 MG IVP ×3 (00:20→22:02)
[2020-07-30] MEDS: buPROPion XL (24 HR) 300 mg Tablet PO (05:53)
[2020-07-30] MEDS: HYDROmorphone 1 mg/mL INJ 1 mL 0.5 MG IVP ×3 (06:08→16:20)
[2020-07-30 07:04] LABS: NT Pro B Type Natriuretic Pept 1840 pg/mL (0-125)
--- NOTE | 2020-07-30 07:54 | P.PN_ITS ---
Subjective Subjective: Interval history: oxygen saturation down to 84% earlier this mornign when patient removed 02 accidentally, has been counselled to keep it on. No acute events otherwise. COVID PCR remains pending Medications: Reviewed: Yes Vitals/I&O/Wt Last Vital Signs Temp 98.9 F 07/30/20 04:06 Pulse 90 07/30/20 04:06 Resp 18 07/30/20 04:06 BP 119/69 07/30/20 04:06 Pulse Ox 91 07/30/20 04:06 07/29/20 07/30/20 07/30/20 22:59 06:59 14:59 Intake Total 100 / 100 480 / 580 Output Total 300 / 300 400 / 700 Balance -200 / -200 80 / -120 Physical Exam Narrative: EXAM NARRATIVE: GEN: Awake, alert and oriented, no acute distress CVS: S1S2 N RS: CTA B/L Abd: Soft, nt/nd , bs+ SENIOR MAINFRAME PROGRAMMER ANALYST: no focal neuro deficits Data : 07/29/20 01:46 07/29/20 01:46 Micro: Microbiology 07/29/20 18:30 Legionella Urinary Antigen - Final Urine,Voided 07/29/20 01:46 Blood Culture - Preliminary Blood NEGATIVE TO DATE 07/29/20 01:48 Blood Culture - Preliminary Blood NEGATIVE TO DATE A&P Assessment and plan (1) Trimalleolar fracture of ankle, closed: Status: Acute (2) Ankle fracture: Status: Acute Qualifiers: Encounter type: subsequent encounter Fracture healing: with routine healing Fracture type: closed Laterality: right Qualified Code(s): S82.891D - Other fracture of right lower leg, subsequent encounter for closed fracture with routine healing (3) Intractable pain: Status: Acute (4) Hypertension: Status: Acute (5) Hypoxia: Status: Acute (6) COPD (chronic obstructive pulmonary disease): Status: Acute Additional A&P Information # hypoxic respiratory failure requiring up to 5 L/min nasal cannula which is a new requirement for patient Several possible etiologies include COPD exacerbation given emphysematous changes seen on chest x-ray. Duo nebs every 4 hour respiratory inhalation. Started steroids without Pred 30 IV every 8 hour then taper over the next 2 to 3 days. Also possible that patient may be retaining fluid secondary to fluid resuscitation since admission. Total lasix 40mg iv given yesterday, will repeat 20mg iv today. BNP elavted at 1800. Echo with Gr1 diastolic dysfnction, LVEF normal. CTA chest negative for PE. Radiology concern for possible covid pneumonia, recent PCR was negative on the , however there may be a time lag on 2 positivity therefore we will repeat this testing. Maintain isolation precautio ns until this testing is obtained. Denies any chest pain, no acute ST-T changes on EKG. Empiric Levaquin added for pneumonia treatment Blood cx negative to date Right ankle fracture after mechanical fall Intractable pain, on opiates and toradol Right ankle splint already placed Plan was to have patient have surgery 07/29, however this has now been deferred because of new increased oxygen requirement. Likely to go back to OR on [facility] if active medical issues resolve. Patient states she will be unable to go home without the surgery as she is currently unable to ambulate and lives alone, the refore cannot perform ADLs. Once surgery is done, she plans to move to [place] to live with her , with whom she has recently reconciled after being separted for a few years 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 Continue home medications for the same SInus tachycardia: metorpolol prn for now DVT prophylaxis : Lovenox Full code Attestations Medical Necessity Statement*: hypoxic respiratory failure, ankle fracture, need for optimization prior to planned surgery Coding Level of Care Code Acute Security Control Assessor for [facility] Diagnoses Trimalleolar fracture of ankle, closed S82.853A Ankle fracture S82.891D Encounter type: subsequent encounter Fracture healing: with routine healing Fracture type: closed Laterality: right Intractable pain R52 Hypertension I10 Hypoxia R09.02 COPD (chronic obstructive pulmonary disease) J44.9
[2020-07-30] MEDS: gabapentin 300 mg Capsule PO ×3 (08:33→20:39)
[2020-07-30] MEDS: cyclobenzaprine 10 mg Tablet PO ×3 (08:33→20:39)
[2020-07-30] MEDS: dicyclomine 20 mg Tablet PO ×3 (08:33→20:39)
[2020-07-30] MEDS: atorvastatin 40 mg Tablet PO (08:33)
[2020-07-30] MEDS: duloxetine 60 mg Capsule PO ×2 (08:33→17:36)
[2020-07-30] MEDS: pantoprazole DR 40 mg Tablet PO (08:34)
[2020-07-30] MEDS: azithromycin 250 mg Tablet 500 MG PO (08:34)
--- NOTE | 2020-07-30 12:59 | PM.MISC ---
Miscellaneous Note Purpose of Documentation: Rounds Visit Note: Patient is seen in her bed. She is eating well. She is still awaiting final COVID status. She appears better with regards to her pneumonia. We are planning surgical intervention on August 02 provided she is medically cleared at that time.
[2020-07-30] MEDS: levoFLOXacin 750 mg Tablet PO (14:24)
[2020-07-30] MEDS: FUROsemide 10 mg/mL SDV 2mL 20 MG IVP (17:36)
--- NOTE | 2020-07-30 18:20 | PC.NURSE ---
SHIFT SUMMARY PATIENT'S PAIN HAS BEEN CONTROLLED TODAY. SPLINT STILL IN PLACE WITH RIGHT LEG ELEVATED. PATIENT HAD 500ML OF URINE OUTPUT. PATIENT WAS TAKING OXYGEN OFF AND LEAVING OFF. THIS NURSE CHECKED OXYGEN SATURATION WITHOUT OXYGEN IN PLACE AND SATURATION WAS 84%. THIS NURSE ASKED PATIENT TO KEEP OXYGEN ON AND EDUCATED THE PATIENT OF THE IMPORTANCE. PATIENT STATED SHE UNDERSTOOD AND HAS KEPT HER OXYGEN ON SINCE THAT TIME. CONTINUING TO MONITOR.
[2020-07-31] VITALS (11 sets, daily range): BP systolic 105–151; BP diastolic 63–72; PULSE 55–89; RESP 16–20; TEMP 36.6–37.6; O2SAT 90–95
[2020-07-31] MEDS: enoxaparin 40 mg/0.4 mL Syringe SUBCUT (01:44)
[2020-07-31] MEDS: buPROPion XL (24 HR) 300 mg Tablet PO (06:01)
[2020-07-31] MEDS: ketorolac 30 mg/mL INJ 15 MG IVP ×2 (06:15→14:13)
[2020-07-31] MEDS: cyclobenzaprine 10 mg Tablet PO ×3 (07:07→20:40)
[2020-07-31] MEDS: gabapentin 300 mg Capsule PO ×2 (07:07→14:13)
[2020-07-31] MEDS: atorvastatin 40 mg Tablet PO (07:07)
[2020-07-31] MEDS: pantoprazole DR 40 mg Tablet PO (07:08)
[2020-07-31] MEDS: duloxetine 60 mg Capsule PO ×2 (07:08→17:55)
[2020-07-31] MEDS: azithromycin 250 mg Tablet 500 MG PO (07:08)
[2020-07-31] MEDS: dicyclomine 20 mg Tablet PO ×3 (07:10→20:41)
[2020-07-31 07:11] LABS: Basophils # 0.1 10^3/uL (0.0-0.1); Basophils % 0.4 %; Eosinophils # 0.1 10^3/uL (0.0-0.8); Eosinophils % 0.8 %; Hematocrit 30.1 % (37.0-47.0); Hemoglobin 9.1 g/dL (11.5-15.3); Lymphocytes # 1.9 10^3/uL (0.8-4.8); Lymphocytes % 10.8 %; Mean Corpuscular HGB Conc 30.2 g/dL (30.0-36.0); Mean Corpuscular Hemoglobin 26.8 pg (28.0-34.0); Mean Corpuscular Volume 88.5 fL (81-99); Mean Platelet Volume 10.1 fL (7.4-10.4); Monocytes % 5.8 %; Neutrophils # 14.06 10^3/uL (1.8-7.7); Neutrophils % 80.9 %; Nucleated Red Blood Cells % 0.2 %; Platelet Count 367 10^3/cmm (130-400); Red Cell Distribution Width 16.5 % (12.1-15.1); White Blood Count 17.4 10^3/uL (4.0-10.0)
[2020-07-31 07:31] LABS: Alanine Aminotransferase 11 U/L (0-33); Albumin Level 2.7 g/dL (3.5-5.2); Alkaline Phosphatase 51 IU/L (35-105); Aspartate Amino Transferase 15 U/L (0-32); Blood Urea Nitrogen 41 mg/dL (8-23); Calcium 9.4 mg/dL (8.5-10.5); Carbon Dioxide 21 mmol/L (22-29); Chloride 101 mmol/L (98-107); Globulin 3.5 g/dL (1.3-4.6); Glomerular Filtration Rate 49.8 mL/min (90-130); Glucose 139 mg/dL (65-115); Osmolality Calculated 288 mOsm/kg (285-295); Sodium 133 mmol/L (136-145); Total Bilirubin 0.2 mg/dL (0.15-1.2); Total Protein 6.2 g/dL (6.6-8.7)
[2020-07-31 08:03] LABS: Anion Gap 15.3 (5-19); Potassium 4.3 mmol/L (3.5-5.1)
[2020-07-31] MEDS: oxyCODONE 5 mg IR Tab/Cap PO ×2 (09:10→20:44)
--- NOTE | 2020-07-31 11:21 | PC.SOCIAL ---
Pg 2 IMM Explained to pt Pg 2 IMM via phone. Pt verbally understands. No questions voiced. Provided the nurse a copy to give to pt. Signed, dated, & timed a copy & placed in chart.
[2020-07-31] MEDS: HYDROmorphone 1 mg/mL INJ 1 mL 0.5 MG IVP (11:22)
--- NOTE | 2020-07-31 11:55 | P.PN_ITS ---
Subjective Subjective: Interval history: Patient states her breathing is improving today. Remains in oxygen saturation and containing sats of 95%. Covert PCR is pending. Noted leukocytosis of 17, likely from steroids. Medications: Reviewed: Yes Vitals/I&O/Wt Last Vital Signs Temp 98.6 F 07/31/20 11:09 Pulse 89 07/31/20 11:09 Resp 16 07/31/20 11:22 BP 126/65 07/31/20 11:09 Pulse Ox 95 07/31/20 11:09 07/30/20 07/31/20 07/31/20 22:59 06:59 14:59 Intake Total 250 / 670 Output Total 800 / 1000 300 / 1300 200 / 200 Balance -550 / -330 -300 / -630 -200 / -200 Physical Exam Narrative: EXAM NARRATIVE: GEN: Awake, alert and oriented, no acute distress CVS: S1S2 N RS: CTA B/L Abd: Soft, nt/nd , bs+ FLOWER POT PRESS OPERATOR: no focal neuro deficits Data : 07/31/20 06:53 07/31/20 06:53 Micro: Microbiology 07/30/20 10:50 Urine Culture - Preliminary Urine,Voided 07/29/20 18:30 Legionella Urinary Antigen - Final Urine,Voided Bacterial Antigens - Final A&P Assessment and plan (1) Trimalleolar fracture of ankle, closed: Status: Acute (2) Ankle fracture: Status: Acute Qualifiers: Encounter type: subsequent encounter Fracture healing: with routine he aling Fracture type: closed Laterality: right Qualified Code(s): S82.891D - Other fracture of right lower leg, subsequent encounter for closed fracture with routine healing (3) Intractable pain: Status: Acute (4) Hypertension: Status: Acute (5) Hypoxia: Status: Acute (6) COPD (chronic obstructive pulmonary disease): Status: Acute Additional A&P Information # hypoxic respiratory failure requiring up to 5 L/min nasal cannula which is a new requirement for patient Several possible etiologies include COPD exacerbation given emphysematous changes seen on chest x-ray. Duo nebs every 4 hour respiratory inhalation. Was on methylprednisolone 30 mg IV every 8, discontinued today as respiratory status appears to be improving. Also possible that patient may be retaining fluid secondary to fluid resuscitation since admission. Additional 20 mg iv today. BNP elavted at 1800. Echo with Gr1 diastolic dysfnction, LVEF normal. CTA chest negative for PE. Radiology concern for possible covid pneumonia, recent PCR was negative on the , however there may be a time lag on 2 positivity therefore we will repeat this testing. Maintain isolation precautions until this testing is obtained. Denies any chest pain, no acute ST-T changes on EKG. Empiric Levaquin added for pneumonia treatment Blood cx negative to date Right ankle fracture after mechanical fall Intractable pain, on opiates and toradol. Change IV Dilaudid to p.o. [place]. Right ankle splint already placed Plan was to have patient have surgery 07/29, however this has now been deferred because of new increased oxygen requirement. Likely to go back to OR on [facility] if active medical issues resolve. Patient states she will be unable to go home w ithout the surgery as she is currently unable to ambulate and lives alone, therefore cannot perform ADLs. Once surgery is done, she plans to move to [place] to live with her , with whom she has recently reconciled after being separted for a few years. Also amenable to SNF if needed at that point. 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 Continue home medications for the same SInus tachycardia: This is now resolved. Overnight heart rate was noted to be 55. Will discontinue PRN metoprolol. Leukocytosis up to 17, likely related to margination from steroids as otherwise no signs of worsening infection. Patient remains afebrile and hemodynamically stable. Clinically appears to be improving DVT prophylaxis : Lovenox Full code Attestations Medical Necessity Statement*: Respiratory status appears to be improving, discontinue steroids and monitor closely Coding Level of Care Code Acute Deli Department Manager for [facility] Diagnoses Trimalleolar fracture of ankle, closed S82.853A Ankle fracture S82.891D Encounter type: subsequent encounter Fracture healing: with routine healing Fracture type: closed Laterality: right Intractable pain R52 Hypertension I10 Hypoxia R09.02 COPD (chronic obstructive pulmonary disease) J44.9
[2020-07-31] MEDS: HYDROcodone-acetaminophen 5-325 mg Tablet 1 TAB PO (17:55)
[2020-07-31] MEDS: FUROsemide 10 mg/mL SDV 2mL 20 MG IVP (17:56)
[2020-08-01] VITALS (13 sets, daily range): BP systolic 116–158; BP diastolic 62–73; PULSE 67–82; RESP 16–18; TEMP 36.7–37.4; O2SAT 92–97
[2020-08-01 04:15] LABS: Basophils % 0.2 %; Eosinophils # 0.1 10^3/uL (0.0-0.8); Eosinophils % 0.4 %; Hemoglobin 9.1 g/dL (11.5-15.3); Lymphocytes # 3.2 10^3/uL (0.8-4.8); Lymphocytes % 19.4 %; Mean Corpuscular HGB Conc 32.5 g/dL (30.0-36.0); Mean Corpuscular Hemoglobin 27.4 pg (28.0-34.0); Mean Corpuscular Volume 84.3 fL (81-99); Mean Platelet Volume 10.3 fL (7.4-10.4); Monocytes # 1.3 10^3/uL (0.2-0.9); Monocytes % 7.9 %; Neutrophils # 11.51 10^3/uL (1.8-7.7); Neutrophils % 69.3 %; Nucleated Red Blood Cells # 0.1 /100WBC; Nucleated Red Blood Cells % 0.4 %; Platelet Count 365 10^3/cmm (130-400); Red Blood Count 3.32 10^6/uL (4.1-5.3); Red Cell Distribution Width 16.2 % (12.1-15.1); White Blood Count 16.6 10^3/uL (4.0-10.0)
[2020-08-01 04:41] LABS: Alanine Aminotransferase 12 U/L (0-33); Albumin Level 2.8 g/dL (3.5-5.2); Alkaline Phosphatase 58 IU/L (35-105); Anion Gap 12.9 (5-19); Aspartate Amino Transferase 11 U/L (0-32); Blood Urea Nitrogen 43 mg/dL (8-23); Calcium 9.5 mg/dL (8.5-10.5); Carbon Dioxide 25 mmol/L (22-29); Chloride 102 mmol/L (98-107); Globulin 3.3 g/dL (1.3-4.6); Glomerular Filtration Rate 49.8 mL/min (90-130); Glucose 127 mg/dL (65-115); Osmolality Calculated 294 mOsm/kg (285-295); Potassium 3.9 mmol/L (3.5-5.1); Sodium 136 mmol/L (136-145); Total Bilirubin 0.2 mg/dL (0.15-1.2); Total Protein 6.1 g/dL (6.6-8.7)
[2020-08-01] MEDS: buPROPion XL (24 HR) 300 mg Tablet PO (06:05)
--- NOTE | 2020-08-01 07:54 | PC.RESP ---
Smoking Cessation information sent to patient.
[2020-08-01] MEDS: oxyCODONE 5 mg IR Tab/Cap PO ×3 (08:04→21:57)
[2020-08-01] MEDS: atorvastatin 40 mg Tablet PO (08:04)
[2020-08-01] MEDS: duloxetine 60 mg Capsule PO ×2 (08:04→17:36)
[2020-08-01] MEDS: cyclobenzaprine 10 mg Tablet PO ×3 (08:04→20:38)
[2020-08-01] MEDS: pantoprazole DR 40 mg Tablet PO (08:04)
[2020-08-01] MEDS: dicyclomine 20 mg Tablet PO ×3 (08:54→20:38)
[2020-08-01 09:57] LABS: Coronavirus Lab Test PTC Negative
[2020-08-01] MEDS: ketorolac 30 mg/mL INJ 15 MG IVP (10:51)
--- NOTE | 2020-08-01 11:19 | PC.NURSE ---
rcvd verbal order from Dr Sandoval to discontinue isolation precautions because Covid test was negative.
[2020-08-01] MEDS: ipratropium-albuterol 3 mL Neb INHALATION ×2 (11:30→20:46)
[2020-08-01] MEDS: HYDROcodone-acetaminophen 5-325 mg Tablet 1 TAB PO (13:11)
[2020-08-01 14:01] LABS: Lyme AB Screen <0.90 index
[2020-08-01] MEDS: levoFLOXacin 750 mg Tablet PO (14:34)
[2020-08-01] MEDS: magnesium hydroxide 30 mL UDC PO (15:27)
[2020-08-01] MEDS: FUROsemide 10 mg/mL SDV 2mL 20 MG IVP (17:36)
[2020-08-01] MEDS: docusate sodium 100 mg Capsule PO (17:36)
--- NOTE | 2020-08-01 18:22 | P.PN_ITS ---
Subjective Subjective: Interval history: The patient is doing well. She is ready for the surgery. A little bit anxious. Denies any uncontrolled pain. Denies chest pain. Denies shortness of breath or cough. No fever or chills. Medications: Reviewed: Yes Medication Review Details: Generic Name Dose Route Start Last Admin Trade Name Freq PRN Reason Stop Dose Admin Hydrocodone Bitart /Acetaminophen 1 tab 07/31/20 16:56 08/01/20 13:11 [place] 5-325 Mg PO 1 tab Q4H PRN Administration MODERATE PAIN Albuterol/Ipratrop ium 3 ml 07/28/20 22:30 08/01/20 11:30 Duoneb INHALATION 3 ml Q4H.RESPIRATORY P RN Administration SHORTNESS OF JOHNNIE TH Atorvastatin Calci um 40 mg 07/28/20 09:00 08/01/20 08:04 Lipitor PO 40 mg DAILY KIM Administration Bupropion HCl 300 mg 07/28/20 06:00 08/01/20 06:05 Wellbutrin Xl (2 4 Hr) PO 300 mg QAM KIM Administration Cyclobenzaprine HC l 10 mg 07/28/20 09:00 08/01/20 14:34 Flexeril PO 10 mg TID KIM Administration Dicyclomine HCl 20 mg 07/28/20 09:00 08/01/20 14:34 Bentyl PO 20 mg TID KIM Administration Docusate Sodium 100 mg 08/01/20 18:00 08/01/20 17:36 Colace PO 100 mg BID KIM Administration Duloxetine HCl 60 mg 07/28/20 09:00 08/01/20 17:36 Cymbalta PO 60 mg BID KIM Administration Furosemide 20 mg 07/29/20 18:00 08/01/20 17:36 Lasix IVP 20 mg Q24H KIM Administration Hydromorphone HCl 0.5 mg 07/29/20 03:51 07/31/20 11:22 Dilaudid Inj IVP 0.5 mg Q4H PRN Administration severe pain Ketorolac Trometha mine 15 mg 07/31/20 16:56 08/01/20 10:51 Toradol IVP 08/02/20 22:27 15 mg Q12H PRN Administration MODERATE PAIN Levofloxacin 750 mg 08/01/20 16:00 08/01/20 14:34 Levaquin PO 750 mg Q48H KIM Administration Protocol Magnesium Hydroxid e 30 ml 08/01/20 10:29 08/01/20 15:27 Milk Of Magnesia PO 30 ml Q8H PRN Administration CONSTIPATION Ondansetron HCl 4 mg 07/28/20 01:00 07/28/20 20:33 Zofran IVP 4 mg Q6H PRN Administration NAUSEA AND VOMITI NG Oxycodone HCl 5 mg 07/30/20 12:53 08/01/20 17:37 Oxycodone Ir PO 5 mg Q4H PRN Administration MODERATE PAIN Pantoprazole Sodiu m 40 mg 07/28/20 09:00 08/01/20 08:04 Protonix PO 40 mg DAILY KIM Administration Vitals/I&O/Wt Last Vital Signs Temp 98.2 F 08/01/20 15:44 Pulse 74 08/01/20 15:44 Resp 16 08/01/20 17:37 BP 147/72 08/01/20 15:44 Pulse Ox 96 08/01/20 17:37 08/01/20 08/01/20 08/01/20 06:59 14:59 22:59 Intake Total 600 / 600 Balance 600 / 600 Physical Exam Narrative: EXAM NARRATIVE: Awake alert oriented. No acute distress. Mood and affect are appropriate. Responses are adequate. Skin is warm and dry. Moist mucous membranes. Neck no JVD Lungs clear to auscultation bilaterally. No respiratory distress Heart S1, S2, regular Abdomen soft, nontender, bowel sounds are present Extremities no peripheral cyanosis. The right lower extremity is in immobilization cast. The dressing is dry and clean. Data : 08/01/20 03:34 08/01/20 03:34 Micro: Microbiology 07/30/20 10:50 Urine Culture - Final Urine,Voided A&P Assessment and plan (1) Trimalleolar fracture of ankle, closed: Status: Acute (2) Ankle fracture: Status: Acute Qualifiers: Encounter type: subsequent encounter Fracture healing: with routine healing Fracture type: closed Laterality: right Qualified Code(s): S82.891D - Other fracture of right lower leg, subsequent encounter for closed fracture with routine healing (3) Intractable pain: Status: Acute (4) Hypertension: Status: Acute (5) Hypoxia: Status: Acute (6) COPD (chronic obstructive pulmonary disease): Status: Acute Additional A&P Information # hypoxic respiratory failure requiring up to 5 L/min nasal cannula which is a n ew requirement for patient Several possible etiologies include COPD exacerbation given emphysematous changes seen on chest x-ray. Duo nebs every 4 hour respiratory inhalation. Was on methylprednisolone 30 mg IV every 8, discontinued today as respiratory status appears to be improving. Also possible that patient may be retaining fluid secondary to fluid resuscitation since admission. Additional 20 mg iv today. BNP elavted at 1800. Echo with Gr1 diastolic dysfnction, LVEF normal. CTA chest negative for PE. Radiology concern for possible covid pneumonia, recent PCR was negative on the , however there may be a time lag on 2 positivity therefore we will repeat this testing. Maintain isolation precautions until this testing is obtained. Denies any chest pain, no acute ST-T changes on EKG. Empiric Levaquin added for pneumonia treatment Blood cx negative to date Right ankle fracture after mechanical fall Intractable pain, on opiates and toradol. Change IV Dilaudid to p.o. [place]. Right ankle splint already placed Plan was to have patient have surgery 07/29, however this has now been deferred because of new increased oxygen requirement. Likely to go back to OR on [facility] if active medical issues resolve. Patient states she will be unable to go home without the surgery as she is currently unable to ambulate and lives alone, therefore cannot perform ADLs. Once surgery is done, she plans to move to [place] to live with her , with whom she has recently reconciled after being separted for a few years. Also amenable to SNF if needed at that point. 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 Continue home medications for the same SInus tachycardia: This is now resolved. Overnight heart rate was noted to be 55. Will discontinue PRN metoprolol. Leukocytosis up to 17, likely related to margination from steroids as otherwise no signs of worsening infection. Patient remains afebrile and hemodynamically stable. Clinically appears to be improving DVT prophylaxis : Lovenox Full code [place] Acute hypoxic respiratory failure probably combination of COPD acute exacerbation and suspected pneumonia and fluid overload. Currently improved and stable. Steroids are discontinued. Continue respiratory treatments and levofloxacin for suspected pneumonia. Mild diastolic congestive heart failure. Improved symptoms. Continue furosemide. Echo is reviewed. Medically cleared for the surgery. Overall risk is intermediate. However the patient is currently in most optimized cardiac condition for the surgery. Will need outpatient follow-up with a marketing strategy manager. DVT prophylaxis. She is on Lovenox which I will stop today prior to her surgery. Possible CKD. I will stop her ketorolac. We will continue other pain medications. We will continue monitoring her renal function. GI prophylaxis. She is on Protonix. Anemia. We will monitor this. Some worsening is expected due to fracture and the surgery. The plan of care was discussed with the patient, multidisciplinary team. They verbalized understanding and agreement. Attestations Medical Necessity Statement*: Remaining in the hospital for upcoming surgery. Coding Level of Care Code Acute Test Deskman for [facility] Fwd Diagnoses Trimalleolar fracture of ankle, closed S82.853A Ankle fracture S82.891D Encounter type: subsequent encounter Fracture healing: with routine healing Fracture type: closed Laterality: right Intractable pain R52 Hypertension I10 Hypoxia R09.02 COPD (chronic obstructive pulmonary disease) J44.9
[2020-08-02] VITALS (18 sets, daily range): BP systolic 113–167; BP diastolic 60–82; PULSE 72–94; RESP 12–20; TEMP 36.4–37.3; O2SAT 92–99
--- NOTE | 2020-08-02 | XR_ITS ---
WS: [id number] INTRAOPERATIVE TECHNIQUE: 4 Spot fluoroscopic images for intraoperative purposes. FLUOROSCOPY TIME: 157.8 seconds CLINICAL INFORMATION: ROBERTA PICS COMPARISON: None. FINDINGS: Intraoperative changes plate and screw fixation distal fibula and lateral malleolus. Screw fixation a cross the tibial plafond and medial malleolus. XR/XR ankle RT 1V [id number] IMPRESSION: Images obtained for intraoperative purposes.
--- NOTE | 2020-08-02 | SCC_ITS ---
Procedure Done: Open reduction internal fixation right trimalleolar ankle fracture utilizing the Iqra lateral fibular 3 hole plate as well as two4.0 headed screws with washers to fix the medial malleolus and one 4.0 headless screw with washer from medial to lateral to fix the medial cortex above the medial malleolus 157.8 seconds of fluoroscopic guidance, for a cumulative dose of 2.80 mGy, was provided to Dr. Cristobal by the radiology department. C-arm images of the RIGHT ankle were saved for the patient's permanent record. JEREMIAS
[2020-08-02] MEDS: buPROPion XL (24 HR) 300 mg Tablet PO (05:37)
[2020-08-02] MEDS: docusate sodium 100 mg Capsule PO (07:49)
[2020-08-02] MEDS: cyclobenzaprine 10 mg Tablet PO ×2 (07:49→20:36)
[2020-08-02] MEDS: duloxetine 60 mg Capsule PO (07:49)
[2020-08-02] MEDS: magnesium hydroxide 30 mL UDC PO (07:50)
[2020-08-02] MEDS: oxyCODONE 5 mg IR Tab/Cap PO (07:50)
[2020-08-02] MEDS: dicyclomine 20 mg Tablet PO ×2 (07:50→20:36)
[2020-08-02] MEDS: pantoprazole DR 40 mg Tablet PO (07:50)
[2020-08-02] MEDS: atorvastatin 40 mg Tablet PO (07:50)
--- NOTE | 2020-08-02 08:47 | PC.NURSE ---
Patient complains of pain in right leg. Oxycodone given for pain. Patient assisted to BSC. Patient has still not had BM. Miralax and Colace given for constipation. Patient assisted back to bed by commercial loan underwriter and leg elevated. Call light within reach, bedside table within reach.
[2020-08-02] MEDS: ipratropium-albuterol 3 mL Neb INHALATION (09:15)
--- NOTE | 2020-08-02 09:25 | PC.SOCIAL ---
IMM Updated Page 2 of IMM updated and given to patient. Initialed, dated, and timed and placed back in chart.
[2020-08-02] MEDS: fentaNYL 50 mcg/mL INJ 2mL 100 MCG IVP (13:50)
[2020-08-02] MEDS: midazolam 1 mg/mL INJ 2 mL 2 MG IVP (13:50)
[2020-08-02] MEDS: sodium chloride 0.9% 1,000 ML 30 ML IV (14:00)
--- NOTE | 2020-08-02 14:00 | ANES.PAUD2 ---
Pre-Anesthetic Update Pre-Anesthetic Assessment: Date of Surgery/Procedure: 08/02/20 Preop Diagnosis: Comminuted trimalleolar ankle fracture dislocation Proposed Procedure: Operation Date: 07/29/20 18:15 Proposed Procedures p ORIF Ankle trimalleolar(Right) - Bere Cristobal MD Operation Date: 08/02/20 15:05 Proposed Procedures p ORIF Ankle trimalleolar(Right) - Bere Cristobal MD Any changes to Pre-Anesthetic Assessment?: Yes Changes from Pre-Anesthetic Assessment: improved respiratory status Last Intake: Intake Last Liquid Date 08/01/20 Last Liquid Time 23:59 Last Solid Date 08/01/20 Last Solid Time 18:30 Labs Last 48hrs: Laboratory Results - last 48 hr 07/29/20 07/30/20 08/01/20 16:46 09:01 03:34 WBC 16.6 H RBC 3.32 L Hgb 9.1 L Hct 28.0 L MCV 84.3 MCH 27.4 L MCHC 32.5 D RDW 16.2 H Plt Count 365 MPV 10.3 Neut % (Auto) 69.3 Lymph % (Auto) 19.4 [place] % (Auto) 7.9 Eos % (Auto) 0.4 Baso % (Auto) 0.2 Neut # (Auto) 11.51 H Lymph # (Auto) 3.2 [place] # (Auto) 1.3 H Eos # (Auto) 0.1 Baso # (Auto) 0.0 Nucleated RBC % (a uto) 0.4 Nucleated RBCs # 0.1 Sodium Potassium Chloride Carbon Dioxide Anion Gap BUN Creatinine GFR Calculation Glucose Calculated Osmolal ity Calcium Total Bilirubin AST ALT Alkaline Phosphata se Total Protein Albumin Globulin Lyme Ab (Western B lot) <0.90 Nasal/Oral COVID-1 9 PCR Negative 08/01/20 03:34 WBC RBC Hgb Hct MCV MCH MCHC RDW Plt Count MPV Neut % (Auto) Lymph % (Auto) [place] % (Auto) Eos % (Auto) Baso % (Auto) Neut # (Auto) Lymph # (Auto) [place] # (Auto) Eos # (Auto) Baso # (Auto) Nucleated RBC % (a uto) Nucleated RBCs # Sodium 136 Potassium 3.9 Chloride 102 Carbon Dioxide 25 Anion Gap 12.9 BUN 43 H Creatinine 1.1 H GFR Calculation 49.8 L Glucose 127 H Calculated Osmolal ity 294 Calcium 9.5 Total Bilirubin 0.2 AST 11 ALT 12 Alkaline Phosphata se 58 Total Protein 6.1 L Albumin 2.8 L Globulin 3.3 Lyme Ab (Western B lot) Nasal/Oral COVID-1 9 PCR Vitals: Temperature 97.5 F L 08/02/20 13:36 Temperature Source Temporal Artery S can 08/02/20 13:36 Pulse Rate 81 08/02/20 13:36 Pulse Rhythm 08/02/20 07:56 Pulse Strength 3+ Normal 08/02/20 07:56 Respiratory Rate 20 H 08/02/20 13:36 Respiratory Effort Non-Labored 08/02/20 07:56 Respiratory Depth Normal 08/02/20 07:56 Respiratory Patter n 08/02/20 07:56 Blood Pressure 133/71 08/02/20 13:36 Blood Pressure Nadeen n 91 08/02/20 13:36 Blood Pressure Pos ition Semi Fowlers 08/01/20 04:00 Pulse Oximetry 95 08/02/20 13:36 Oxygen Delivery Me thod 08/02/20 13:36 Oxygen Flow Rate 2 08/02/20 13:36 Sepsis Recent Feve r Within 48 Hours No 07/27/20 18:18 Exam: Pre-Anes Outpt Exam: alert, oriented x 3, clear to auscultation bilaterally and regular rate & rhythm Cardiac Studies: No Data to Display
--- NOTE | 2020-08-02 14:01 | ANES.PROC ---
Anesthesia Procedures Procedure/Date: 08/02/20 Nerve Block ^: Nerve Block 1: Main Anesthesia: general anesthesia Time Out Performed: Yes Consent: requested by attending/covering physician, from patient, from other, risks and benefits reviewed and patient agrees to proceed Nerve block location: popliteal (R) Anesthesia monitors applied: pulse oximetry, EKG, BP cuff and oxygen Nerve block position: supine Anesthetic Used: ropivicaine 0.5% and with decadron (4 mg) Amount of anesthesia used (mL): 30 Ultrasound used to: recognize landmarks Nerve Stimulator Used?: No Interscalene/Femoral BLK: 4 stimuplex 21 g needle used for position and inplane approach, visualize local anesthetic spread and no vascular puncture identified Injection: neg aspiration of heme and paresthesia +/- Patient Tolerated Procedure: well and no complications Complications: none
--- NOTE | 2020-08-02 15:52 | P.PN_ITS ---
Subjective Subjective: Interval history: The patient is doing well. No significant changes or events. Denies any uncontrolled pain. Denies chest pain. Denies shortness of breath or cough. No fever or chills. Medications: Reviewed: Yes Vitals/I&O/Wt Last Vital Signs Temp 97.5 F L 08/02/20 13:36 Pulse 81 08/02/20 13:36 Resp 20 H 08/02/20 13:36 BP 133/71 08/02/20 13:36 Pulse Ox 95 08/02/20 13:36 08/02/20 08/02/20 08/02/20 06:59 14:59 22:59 Output Total 400 / 1300 650 / 650 Balance -400 / -340 -650 / -650 Physical Exam Narrative: EXAM NARRATIVE: Awake alert oriented. No acute distress. Mood and affect are appropriate. Responses are adequate. Skin is warm and dry. Moist mucous membranes. Neck no JVD Lungs clear to auscultation bilaterally. No respiratory distress Heart S1, S2, regular Abdomen soft, nontender, bowel sounds are present Extremities no peripheral cyanosis. The right lower extremity is in immobilization cast. The dressing is dry and clean. Data : 08/01/20 03:34 08/01/20 03:34 A&P Assessment and plan (1) Trimalleolar fracture of ankle, closed: Status: Acute (2) Ankle fracture: Status: Acute Qualifiers: Encounter type: subsequent encounter Fracture healing: with routine healing Fracture type: closed Laterality: right Qualified Code(s): S82.891D - Other fracture of right lower leg, subsequent encounter for closed fracture with routine healing (3) Intractable pain: Status: Acute (4) Hypertension: Status: Acute (5) Hypoxia: Status: Acute (6) COPD (chronic obstructive pulmonary disease): Status: Acute Additional A&P Information # hypoxic respiratory failure requiring up to 5 L/min nasal cannula which is a new requirement for patient Several possible etiologies include COPD exacerbation given emphysematous changes seen on chest x-ray. Duo nebs every 4 hour respiratory inhalation. Was on methylprednisolone 30 mg IV every 8, discontinued today as respiratory status appears to be improving. Also possible that patient may be retaining fluid secondary to fluid resuscitation since admission. Additional 20 mg iv today. BNP elavted at 1800. Echo with Gr1 diastolic dysfnction, LVEF normal. CTA chest negative for PE. Radiology concern for possible covid pneumonia, recent PCR was negative on the , however there may be a time lag on 2 positivity therefore we will repeat this testing. Maintain isolation precautions until this testing is obtained. Denies any chest pain, no acute ST-T changes on EKG. Empiric Levaquin added for pneumonia treatment Blood cx negative to date Right ankle fracture after mechanical fall Intractable pain, on opiates and toradol. Change IV Dilaudid to p.o. [place]. Right ankle splint already placed Plan was to have patient have surgery 07/29, however this has now been deferred because of new increased oxygen requirement. Likely to go back to OR on [facility] if active medical issues resolve. Patient states she will be unable to go home without the surgery as she is currently unable to ambulate and lives alone, therefore cannot perform ADLs. Once surgery is done, she plans to move to [place] to live with her , with whom she has recently reconciled after being separted for a few years. Also amenable to SNF if needed at that po int. 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 Continue home medications for the same SInus tachycardia: This is now resolved. Overnight heart rate was noted to be 55. Will discontinue PRN metoprolol. Leukocytosis up to 17, likely related to margination from steroids as otherwise no signs of worsening infection. Patient remains afebrile and hemodynamically stable. Clinically appears to be improving DVT prophylaxis : Lovenox Full code [place] Acute hypoxic respiratory failure probably combination of COPD acute exacerbation and suspected pneumonia and fluid overload. Currently improved and stable. Steroids are discontinued. Continue respiratory treatments and levofloxacin for suspected pneumonia. Mild diastolic congestive heart failure. Improved symptoms. Continue f urosemide. Echo is reviewed. Will need outpatient follow-up with a mattress and foundation sewer. Ankle fracture. Successfully underwent open reduction and internal fixation by Dr. Sykes. Will need placement assessment. Will ask case management consult. Continue pain management. Nonweightbearing through the surgical extremity. DVT prophylaxis. We will resume Lovenox tomorrow. Discussed with Dr. Rich. Possible CKD. Continue monitoring renal function. GI prophylaxis. She is on Protonix. Anemia. We will monitor this. Some worsening is expected due to fracture and the surgery. The plan of care was discussed with the patient, multidisciplinary team. They verbalized understanding and agreement. Attestations Medical Necessity Statement*: Patient requires inpatient hospitalization for plan of care. Coding Level of Care Code Acute Pharmacoepidemiologist for [facility] Fwd Diagnoses Trimalleolar fracture of ankle, closed S82.853A Ankle fracture S82.891D Encounter type: subsequent encounter Fracture healing: with routine healing Fracture type: closed Laterality: right Intractable pain R52 Hypertension I10 Hypoxia R09.02 COPD (chronic obstructive pulmonary disease) J44.9
[2020-08-02] MEDS: vancomycin 1,000 MG in sodium chloride 0.9% 250 ML 250 MG IV ×2 (16:30→20:35)
--- NOTE | 2020-08-02 16:48 | P.HPUD_ITS ---
Surgery/Procedure H&P Update DATE OF PROCEDURE: August 02, 2020 DATE H&P PERFORMED: 07/27/20 H&P UPDATE INFORMATION: I have reviewed H&P completed within last 30 days, I have examined patient prior to procedure, No changes to prior documentation and H&P is in [facility] EMR on date indicated PREOP DIAGNOSIS: Comminuted trimalleolar ankle fracture dislocation PRIMARY INDICATION FOR PROCEDURE: Right trimalleolar ankle fracture PLANNED PROCEDURE: Operation Date: 08/02/20 15:05 Proposed Procedures p ORIF Ankle trimalleolar(Right) - Bere Cristobal MD Related Problem List Diagnoses (1) Closed trimalleolar fracture of right ankle: Qualifiers: Encounter type: initial encounter Qualified Code(s): S82.851A - Displaced trimalleolar fracture of right lower leg, initial encounter for closed fracture
[2020-08-02] MEDS: vancomycin 1,000 MG SDV 1000 MG IRRIGATION (18:20)
[2020-08-02] MEDS: silvasorb gel 44.4 mL 1 APPLIC TOPICAL (18:35)
--- NOTE | 2020-08-02 19:07 | P.OP_ITS ---
Operative Report Date of procedure: August 02, 2020 Pre-op Diagnosis: Comminuted right trimalleolar ankle fracture dislocation Post-op diagnosis: same Post-op Findings: Significant comminution of the medial malleolus extending up into the distal tibia Procedure Done: Open reduction internal fixation right trimalleolar ankle fracture utilizing the [place] lateral fibular 3 hole plate as well as two4.0 headed screws with washers to fix the medial malleolus and one 4.0 headless screw with washer from medial to lateral to fix the medial cortex above the medial malleolus Specimens removed/disposition: None Pathology: none sent Surgeon: Bere Cristobal [employer] Inspector: [facility] OR technicians Anesthesia: General (ASA 3, intubated with preoperative regional block, supplemental) Estimated blood loss (mL): 25 Tourniquet time (min): 65 Tourniquet time: At 250 mmHg IV fluids (mL): 1,300 Urine output (mL): 0 Complications: None Findings: Severe osteopenia throughout the right ankle. Additionally, there were large fracture blisters anteriorly about the ankle. These were unroofed and treated with silver sorb. There was significant comminution of the fracture particularly medially. There is a question of extension up into the more distal tibia, however, the patient's skin condition would not allow for medial plate placement. The fracture did appear stable. Condition: stable Disposition: PACU (Then return to floor.) Brief History: This 65-year-old woman presented to my office in severe pain following a fall resulting in a trimalleolar ankle fracture dislocation. Patient was treated in the emergency department. Subsequently, she was splinted and she was to have surgery last week. The day prior to surgery, the patient came to the hospital with intractable pain, and she subsequently was admitted. Symptoms worsen and she was diagnosed with pneumonia treated by the hospitalist team. Today, she was felt to be recovered enough to proceed with surgical intervention. Therefore she underwent the open reduction internal fixation outlined above. Procedure: Patient was seen in the preoperative holding area and leg was marked. Patient was brought to the operating theater and placed on the operating room table. After undergoing adequate general intubated anesthesia, asa 3, the patient's right lower extremity was prepped and draped in usual fashion utilizing DuraPrep. The leg was draped free. Fluoroscopy was used throughout the surgical procedure. We did have a tourniquet high on the right lower extremity. This was elevated to 250 mmHg and total tourniquet time was 65 minutes. Tourniquet elevation followed exsanguination of the leg. A surgical pause was performed. At the time of the surgical pause we identified the site and side of surgery as well as the patient's identity and availability of equipment. We also confirmed appropriate administration of IV antibiotics, vancomycin 1 g. Following the above, an incision was made centering over the patient's distal fibular fracture. The incision was continued proximally and distally as necessary to allow access to the fracture. Upon entry into this area, the bone was noted to be quite osteopenic. There was significant hematoma as anticipated secondary to the age of the patient's fracture as well. We were able to reduce the fracture anatomically. This was held with a clamp while we contoured a plate to appropriately fit the patient's lateral malleolar fracture. The [place] 3- hole lateral fibular plate plate was attached with standard technique. We used a combination of locking as well as one nonlocking screw. Once the plate was appropriately attached, we irrigated the wound. We then closed the wound with 0 Vicryl in the fascial tissues, 2-0 Monocryl in the subcutaneous tissues, and the skin was closed with skin dion. Attention was then directed to the medial aspect of the ankle. Once again, we used fluoroscopy to determine the appropriate level of the incision as well as palpation over the fracture. K wires were placed from the tip of the malleolus into the distal tibia. An incision was made around these K wires so that we could place a headed screw with washer. 2 guidewires were placed in appropriate position as visualized in AP and lateral planes. We were then able to place cannulated screws, each with a washer over the guidewire to hold the medial malleolus as well as the distal tibial medial wall nicely reduced. This latter was accomplished by using a third cannulated screw with washer from medial to lateral close to the joint level. Throughout the surgical procedure and at the conclusion of the procedure we did use fluoroscopy. Fluoroscopy was utilized to determine appropriate positioning of the plate as well as the fractures. At the conclusion we did obtain AP and lateral images demonstrating the fracture was anatomically reduced. The medial small incisions were closed with skin dion. Sterile dressing was placed consisting of Xeroform gauze, 4 x 4's, sterile soft roll and an Kingsley wrap. Over the unroofed fracture blisters, we placed silver sorb followed by Adaptic. This was covered with a sterile soft roll and Kingsley wrap along with the incisions. The patient was placed in a Cam Walker boot and is to remain nonweightbearing. The procedure was well tolerated without complication. Tourniquet time was 65 minutes at 250 mmHg. The patient will be discharged to the floor for further medical management to follow-up in my office as scheduled. Associated Problem List Diagnoses (1) Closed trimalleolar fracture of right ankle: Qualifiers: Encounter type: initial encounter Qualified Code(s): S82.851A - Displaced trimalleolar fracture of right lower leg, initial encounter for closed fracture
--- NOTE | 2020-08-02 19:20 | PM.PACU ---
PACU note Post-Anesthesia Exam: awake and vital signs stable Disposition: back to floor
[2020-08-02 21:05] LABS: Glucose Point of Care 136 mg/dL (70-110)
[2020-08-03] VITALS (12 sets, daily range): BP systolic 109–130; BP diastolic 47–67; PULSE 69–81; RESP 16–20; TEMP 36.9–37; O2SAT 90–97
[2020-08-03] MEDS: HYDROmorphone 1 mg/mL INJ 1 mL 0.5 MG IVP ×2 (03:46→19:20)
[2020-08-03] MEDS: acetaminophen 500 mg Tablet 1000 MG PO ×2 (03:47→11:24)
[2020-08-03 05:23] LABS: Basophils % 0.2 %; Eosinophils % 0.1 %; Hematocrit 28.7 % (37.0-47.0); Lymphocytes # 3.1 10^3/uL (0.8-4.8); Lymphocytes % 20.9 %; Mean Corpuscular HGB Conc 31.4 g/dL (30.0-36.0); Mean Corpuscular Hemoglobin 26.6 pg (28.0-34.0); Mean Corpuscular Volume 84.9 fL (81-99); Mean Platelet Volume 9.8 fL (7.4-10.4); Monocytes # 1.2 10^3/uL (0.2-0.9); Monocytes % 8.5 %; Neutrophils # 9.35 10^3/uL (1.8-7.7); Neutrophils % 64.1 %; Nucleated Red Blood Cells % 0.1 %; Platelet Count 445 10^3/cmm (130-400); Red Blood Count 3.38 10^6/uL (4.1-5.3); Red Cell Distribution Width 16.4 % (12.1-15.1); White Blood Count 14.6 10^3/uL (4.0-10.0)
--- NOTE | 2020-08-03 05:39 | PC.NURSE ---
time temp hr rr o2 bp 1930 97.9 75 18 92 124/67 1999 97.8 81 18 98 146/68 2029 98.7 74 18 91 137/59 0230 98.1 76 18 96 118/66
[2020-08-03 05:50] LABS: Anion Gap 12.9 (5-19); Blood Urea Nitrogen 23 mg/dL (8-23); Calcium 8.1 mg/dL (8.5-10.5); Carbon Dioxide 24 mmol/L (22-29); Chloride 103 mmol/L (98-107); Glucose 114 mg/dL (65-115); Phosphorus 4.6 mg/dL (2.5-4.5); Potassium 4.9 mmol/L (3.5-5.1); Sodium 135 mmol/L (136-145)
[2020-08-03 05:52] LABS: Magnesium 2.3 mg/dL (1.7-2.3)
[2020-08-03] MEDS: buPROPion XL (24 HR) 300 mg Tablet PO (05:57)
[2020-08-03] MEDS: calcium carbonate 500 mg Chew Tablet PO (05:57)
[2020-08-03 06:13] LABS: Slide Review Slide Review Perform
--- NOTE | 2020-08-03 06:41 | ANE.PACU2 ---
Inpatient post-anesthesia follow up: Airway intact: Yes Vital signs: Temperature 97.8 F Pulse Rate [Apical ] 106 Pulse Rate 69 Respiratory Rate 18 Blood Pressure [Ri ght Arm] 110/87 Blood Pressure 123/67 Pulse Oximetry 96 Oxygen Delivery Me thod Nasal Cannula Oxygen Flow Rate 2 Fraction of Inspir ed Oxygen Hydration adequate: Yes Nausea and vomiting: No Pain level: 2 Mental status: Baseline Additional Comments: nerve block still providing some relief
[2020-08-03 07:58] LABS: Add Urine Microscopic? NO
[2020-08-03] MEDS: HYDROcodone-acetaminophen 5-325 mg Tablet 1 TAB PO ×2 (08:03→20:49)
[2020-08-03] MEDS: magnesium hydroxide 30 mL UDC PO ×2 (08:03→21:10)
[2020-08-03] MEDS: duloxetine 60 mg Capsule PO ×2 (08:03→18:25)
[2020-08-03] MEDS: cyclobenzaprine 10 mg Tablet PO ×3 (08:03→20:49)
[2020-08-03] MEDS: docusate sodium 100 mg Capsule PO ×2 (08:04→18:25)
[2020-08-03] MEDS: aspirin 325 mg EC Tablet PO (08:04)
[2020-08-03] MEDS: dicyclomine 20 mg Tablet PO ×3 (08:04→20:51)
[2020-08-03] MEDS: pantoprazole DR 40 mg Tablet PO (08:05)
[2020-08-03] MEDS: atorvastatin 40 mg Tablet PO (08:05)
[2020-08-03 08:24] LABS: Bilirubin Urine Neg (Negative); Blood Urine Neg (Negative); Glucose Urine UA Norm (Normal); Ketones Urine Negative (Negative); Leukocyte Esterase Urine Negative (Negative); Nitrate Urine Negative (Negative); Protein Urine Neg (Negative); Specific Gravity, Urine 1.015 (1.005-1.030); Urine Appearance Clear (CLEAR); Urine Color Yellow (Yellow); Urobilinogen Urine Norm (Negative); pH Urine 6.5 (5-7)
[2020-08-03] MEDS: oxyCODONE 5 mg IR Tab/Cap PO ×3 (13:15→23:46)
--- NOTE | 2020-08-03 14:29 | PM.PN ---
Subjective Subjective: Interval history: status post ORIF for 3 malleolar ankle fracture. Postoperative day 1. The patient is doing well. No significant changes or events. Denies any uncontrolled pain. Denies chest pain. Denies shortness of breath or cough. No fever or chills. Medications: Reviewed: Yes Vitals/I&O/Wt Last Vital Signs Temp 98.6 F 08/03/20 07:26 Pulse 79 08/03/20 13:04 Resp 17 08/03/20 13:15 BP 129/67 08/03/20 07:26 Pulse Ox 95 08/03/20 13:15 08/02/20 08/03/20 08/03/20 22:59 06:59 14:59 Intake Total 1550 / 1550 300 / 1850 360 / 360 Output Total 25 / 5 350 / 1025 550 / 550 Balance 1525 / 875 -50 / 825 -190 / -190 Physical Exam Narrative: EXAM NARRATIVE: Awake alert oriented. No acute distress. Mood and affect are appropriate. Responses are adequate. Skin is warm and dry. Moist mucous membranes. Neck no JVD Lungs clear to auscultation bilaterally. No respiratory distress Heart S1, S2, regular Abdomen soft, nontender, bowel sounds are present Extremities no peripheral cyanosis. The right lower extremity is in immobilization cast. The dressing is dry and clean. Data : 08/03/20 05:10 08/03/20 05:10 Micro: Microbiology 07/29/20 01:46 Blood Culture - Final Blood NO GROWTH AFTER 5 DAYS 07/29/20 01:48 Blood Culture - Final Blood NO GROWTH AFTER 5 DAYS A&P Assessment and plan (1) Trimalleolar fracture of ankle, closed: Status: Acute (2) Ankle fracture: Status: Acute Qualifiers: Encounter type: subsequent encounter Fracture healing: with routine healing Fracture type: closed Laterality: right Qualified Code(s): S82.891D - Other fracture of right lower leg, subsequent encounter for closed fracture with routine healing (3) Intractable pain: Status: Acute (4) Hypertension: Status: Acute (5) Hypoxia: Status: Acute (6) COPD (chronic obstructive pulmonary disease): Status: Acute Additional A&P Information # hypoxic respiratory failure requiring up to 5 L/min nasal cannula which is a new requirement for patient Several possible etiologies include COPD exacerbation given emphysematous changes seen on chest x-ray. Duo nebs every 4 hour respiratory inhalation. Was on methylprednisolone 30 mg IV every 8, discontinued today as respiratory status appears to be improving. Also possible that patient may be retaining fluid secondary to fluid resuscitation since admission. Additional 20 mg iv today. BNP elavted at 1800. Echo with Gr1 diastolic dysfnction, LVEF normal. CTA chest negative for PE. Radiology concern for possible covid pneumonia, recent PCR was negative on the , however there may be a time lag on 2 positivity therefore we will repeat this testing. Maintain isolation precautions until this testing is obtained. Denies any chest pain, no acute ST-T changes on EKG. Empiric Levaquin added for pneumonia treatment Blood cx negative to date Right ankle fracture after mechanical fall Intractable pain, on opiates and toradol. Change IV Dilaudid to p.o. [place]. Right ankle splint already placed Plan was to have patient have surgery 07/29, however this has now been deferred because of new increased oxygen requirement. Likely to go back to OR on [facility] if active medical issues resolve. Patient states she will be unable to go home without the surgery as she is currently unable to ambulate and lives alone, therefore cannot perform ADLs. Once surgery is done, she plans to move to [place] to live with her , with whom she has recently reconciled after being separted for a few years. Also amenable to SNF if needed at that point. 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 Continue home medications for the same SInus tachycardia: This is now resolved. Overnight heart rate was noted to be 55. Will discontinue PRN metoprolol. Leukocytosis up to 17, likely related to margination from steroids as otherwise no signs of worsening infection. Patient remains afebrile and hemodynamically stable. Clinically appears to be improving DVT prophylaxis : Lovenox Full code [place] Acute hypoxic respiratory failure probably combination of COPD acute exacerbation and suspected pneumonia and fluid overload. Currently improved and stable. Steroids are discontinued. Continue respiratory treatments and levofloxacin for suspected pneumonia. Mild diastolic congestive heart failure. Improved symptoms. Continue furosemide. Echo is reviewed. Will need outpatient follow-up with a street contractor. Ankle fracture. postoperative day 1. Successfully underwent open reduction and internal fixation by Dr. Sykes. Will need placement assessment. case management is working on her rehabilitation placement. Continue pain management. Nonweightbearing through the surgical extremity. DVT prophylaxis. on aspirin per Dr. Sykes. Possible CKD. Continue monitoring renal function. GI prophylaxis. She is on Protonix. Anemia. stable. The plan of care was discussed with the patient, multidisciplinary team. They verbalized understanding and agreement. Attestations Medical Necessity Statement*: Will be discharged when acute rehabilitation facility is arranged. Coding Level of Care Code Acute Industry Segment Specialist for [facility] Diagnoses Trimalleolar fracture of ankle, closed S82.853A Ankle fracture S82.891D Encounter type: subsequent encounter Fracture healing: with routine healing Fracture type: closed Laterality: right Intractable pain R52 Hypertension I10 Hypoxia R09.02 COPD (chronic obstructive pulmonary disease) J44.9
[2020-08-03] MEDS: levoFLOXacin 750 mg Tablet PO (15:38)
[2020-08-03] MEDS: vancomycin 1,000 MG in sodium chloride 0.9% 250 ML 250 MG IV (15:38)
[2020-08-03 16:17] LABS: E. Chaffeensis AB IGG <1:64; E. Chaffeensis AB IGM <1:20
[2020-08-03 17:18] LABS: RMSF IGG NOT DETECTED; RMSF IGM NOT DETECTED
[2020-08-03] MEDS: ondansetron 2 mg/ML SDV 2 mL 4 MG IVP (21:03)
[2020-08-04] VITALS (14 sets, daily range): BP systolic 108–134; BP diastolic 61–69; PULSE 77–89; RESP 16–22; TEMP 36.5–37.1; O2SAT 89–98
[2020-08-04] MEDS: HYDROmorphone 1 mg/mL INJ 1 mL 0.5 MG IVP ×3 (03:07→15:31)
[2020-08-04] MEDS: HYDROmorphone 1 mg/mL INJ 1 mL IVP (04:04)
[2020-08-04 05:12] LABS: Albumin Level 3.1 g/dL (3.5-5.2); Anion Gap 11.9 (5-19); Blood Urea Nitrogen 19 mg/dL (8-23); Calcium 8.9 mg/dL (8.5-10.5); Carbon Dioxide 27 mmol/L (22-29); Chloride 102 mmol/L (98-107); Glomerular Filtration Rate 55.6 mL/min (90-130); Glucose 95 mg/dL (65-115); Potassium 3.9 mmol/L (3.5-5.1); Sodium 137 mmol/L (136-145)
[2020-08-04 05:13] LABS: Magnesium 2.3 mg/dL (1.7-2.3)
[2020-08-04 05:24] LABS: D Dimer 1.25 ug/mIFEU (0-0.59)
[2020-08-04] MEDS: buPROPion XL (24 HR) 300 mg Tablet PO (06:39)
[2020-08-04] MEDS: oxyCODONE 5 mg IR Tab/Cap PO ×3 (07:41→21:36)
[2020-08-04] MEDS: FUROsemide 20 mg Tablet PO (08:40)
[2020-08-04] MEDS: dicyclomine 20 mg Tablet PO ×3 (08:40→22:07)
[2020-08-04] MEDS: atorvastatin 40 mg Tablet PO (08:40)
[2020-08-04] MEDS: pantoprazole DR 40 mg Tablet PO (08:40)
[2020-08-04] MEDS: cyclobenzaprine 10 mg Tablet PO ×3 (08:40→21:36)
[2020-08-04] MEDS: duloxetine 60 mg Capsule PO ×2 (08:41→17:33)
[2020-08-04] MEDS: docusate sodium 100 mg Capsule PO ×2 (08:41→17:33)
[2020-08-04] MEDS: enoxaparin 40 mg/0.4 mL Syringe SUBCUT (08:54)
--- NOTE | 2020-08-04 10:43 | PC.SOCIAL ---
IMM Update Pg. 2 of IMM updated and reviewed with patient who verbalized understanding. Copy provided.
--- NOTE | 2020-08-04 11:45 | PC.NURSE ---
rcvd order from Dr Sandoval for regular diet.
--- NOTE | 2020-08-04 11:46 | USCV_ITS ---
[facility] Age: 65 Gender: F : 1955 Exam Date: 08/04/2020 14:40 Ordering Phys: Tirso Sandoval MD Technologist: Supa Cox [place] [facility] [place]: CHECK FOR DVT PROCEDURES: Venous duplex imaging was performed in only the right lower extremity. The following venous structures were evaluated: common femoral vein, profunda vein, proximal portion of the greater saphenous vein, superficial femoral vein, and the popliteal vein. In addition, the posterior tibial and peroneal trunk were evaluated. Serial compression, augmentation maneuvers, and spectral Doppler flow evaluation were performed. FINDINGS: Normal 2-D Doppler and augmentation and compressibility throughout the lower extremity venous structures. Additional imaging through the proximal calf veins also reveals no thrombus. Limited evaluation of the greater saphenous vein is patent with no thrombus.. CONCLUSIONS No evidence of right lower extremity DVT. Randal Chapman MD (Electronically Signed) Final Date: 04 August 2020 15:47 S
--- NOTE | 2020-08-04 11:53 | PM.PN ---
Subjective Subjective: Interval history: status post ORIF for 3 malleolar ankle fracture. Postoperative day 2. The patient reports increased pain in the surgical area. No other significant changes or events. Denies chest pain. Denies shortness of breath or cough. No fever or chills. Medications: Reviewed: Yes Medication Review Details: Generic Name Dose Route Start Last Admin Trade Name Freq PRN Reason Stop Dose Admin Acetaminophen 1,000 mg 08/02/20 20:14 08/04/20 11:52 Tylenol PO Not Given Q8H KIM Hydrocodone Bitart /Acetaminophen 1 tab 07/31/20 16:56 08/03/20 20:49 [place] 5-325 Mg PO 1 tab Q4H PRN Administration MODERATE PAIN Albuterol/Ipratrop ium 3 ml 07/28/20 22:30 08/02/20 09:15 Duoneb INHALATION 3 ml Q4H.RESPIRATORY P RN Administration SHORTNESS OF JOHNNIE TH Atorvastatin Calci um 40 mg 07/28/20 09:00 08/04/20 08:40 Lipitor PO 40 mg DAILY KIM Administration Bupropion HCl 300 mg 07/28/20 06:00 08/04/20 06:39 Wellbutrin Xl (2 4 Hr) PO 300 mg QAM KIM Administration Calcium Carbonate 500 mg 08/03/20 05:48 08/03/20 05:57 Tums PO 500 mg Q4H PRN Administration INDIGESTION Cyclobenzaprine HC l 10 mg 07/28/20 09:00 08/04/20 08:40 Flexeril PO 10 mg TID KIM Administration Dicyclomine HCl 20 mg 07/28/20 09:00 08/04/20 08:40 Bentyl PO 20 mg TID KIM Administration Docusate Sodium 100 mg 08/01/20 18:00 08/04/20 08:41 Colace PO 100 mg BID KIM Administration Duloxetine HCl 60 mg 07/28/20 09:00 08/04/20 08:41 Cymbalta PO 60 mg BID KIM Administration Enoxaparin Sodium 40 mg 08/04/20 08:45 08/04/20 08:54 Lovenox SUBCUT 40 mg Q24H KIM Administration Furosemide 20 mg 08/04/20 08:00 08/04/20 08:40 Lasix PO 20 mg DAILY@0800 KIM Administration Hydromorphone HCl 0.5 mg 07/29/20 03:51 08/04/20 08:41 Dilaudid Inj IVP 0.5 mg Q4H PRN Administration severe pain Levofloxacin 750 mg 08/01/20 16:00 08/03/20 15:38 Levaquin PO 750 mg Q48H KIM Administration Protocol Magnesium Hydroxid e 30 ml 08/01/20 10:29 08/03/20 21:10 Milk Of Magnesia PO 30 ml Q8H PRN Administration CONSTIPATION Ondansetron HCl 4 mg 07/28/20 01:00 08/03/20 21:03 Zofran IVP 4 mg Q6H PRN Administration NAUSEA AND VOMITI NG Oxycodone HCl 5 mg 07/30/20 12:53 08/04/20 11:50 Oxycodone Ir PO 5 mg Q4H PRN Administration MODERATE PAIN Pantoprazole Sodiu m 40 mg 07/28/20 09:00 08/04/20 08:40 Protonix PO 40 mg DAILY KIM Administration Vitals/I&O/Wt Last Vital Signs Temp 98.4 F 08/04/20 11:33 Pulse 87 08/04/20 11:33 Resp 17 08/04/20 11:50 BP 112/65 08/04/20 11:33 Pulse Ox 92 08/04/20 11:50 08/03/20 08/04/20 08/04/20 22:59 06:59 14:59 Intake Total 240 / 600 Output Total 425 / 425 Balance 240 / 50 -425 / -425 Physical Exam Narrative: EXAM NARRATIVE: Awake alert oriented. No acute distress. Mood and affect are appropriate. Responses are adequate. Skin is warm and dry. Moist mucous membranes. Neck no JVD Lungs clear to auscultation bilaterally. No respiratory distress Heart S1, S2, regular Abdomen soft, nontender, bowel sounds are present Extremities no peripheral cyanosis. The right lower extremity is in dry and clean dressed. Data : 08/03/20 05:10 08/04/20 04:23 A&P Assessment and plan (1) Trimalleolar fracture of ankle, closed: Status: Acute (2) Ankle fracture: Status: Acute Qualifiers: Encounter type: subsequent encounter Fracture healing: with routine healing Fracture type: closed Laterality: right Qualified Code(s): S82.891D - Other fracture of right lower leg, subsequent encounter for closed fracture with routine healing (3) Intractable pain: Status: Acute (4) Hypertension: Status: Acute (5) Hypoxia: Status: Acute (6) COPD (chronic obstructive pulmonary disease): Status: Acute Additional A&P Information # hypoxic respiratory failure requiring up to 5 L/min nasal cannula which is a new requirement for patient Several possible etiologies include COPD exacerbation given emphysematous changes seen on chest x-ray. Duo nebs every 4 hour respiratory inhalation. Was on methylprednisolone 30 mg IV every 8, discontinued today as respiratory status appears to be improving. Also possible that patient may be retaining fluid secondary to fluid resuscitation since admission. Additional 20 mg iv today. BNP elavted at 1800. Echo with Gr1 diastolic dysfnction, LVEF normal. CTA chest negative for PE. Radiology concern for possible covid pneumonia, recent PCR was negative on the , however there may be a time lag on 2 positivity therefore we will repeat this testing. Maintain isolation precautions until this testing is obtained. Denies any chest pain, no acute ST-T changes on EKG. Empiric Levaquin added for pneumonia treatment Blood cx negative to date Right ankle fracture after mechanical fall Intractable pain, on opiates and toradol. Change IV Dilaudid to p.o. [place]. Right ankle splint already placed Plan was to have patient have surgery 07/29, however this has now been deferred because of new increased oxygen requirement. Likely to go back to OR on [facility] if active medical issues resolve. Patient states she will be unable to go home without the surgery as she is currently unable to ambulate and lives alone, therefore cannot perform ADLs. Once surgery is done, she plans to move to [place] to live with her , with whom she has recently reconciled after being separted for a few years. Also amenable to SNF if needed at that point. 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 Continue home medications for the same SInus tachycardia: This is now resolved. Overnight heart rate was noted to be 55. Will discontinue PRN metoprolol. Leukocytosis up to 17, likely related to margination from steroids as otherwise no signs of worsening infection. Patient remains afebrile and hemodynamically stable. Clinically appears to be improving DVT prophylaxis : Lovenox Full code [place] Acute hypoxic respiratory failure probably combination of COPD acute exacerbation and suspected pneumonia and fluid overload. Currently improved and stable. Steroids are discontinued. Continue respiratory treatments and levofloxacin for suspected pneumonia. Mild diastolic congestive heart failure. Improved symptoms. Continue furosemide. Echo is reviewed. Will need outpatient follow-up with a cat cracker operator. Ankle fracture. postoperative day 2. Successfully underwent open reduction and internal fixation by Dr. Sykes. Will need placement assessment. case management is working on her rehabilitation placement. Continue pain management. Nonweightbearing through the surgical extremity. DVT prophylaxis. Doppler ultrasound is ordered due to concerns of possible DVT. Changing her from aspirin to Lovenox. Possible CKD. Slightly worsened creatinine. Maintain oral hydration. Continue monitoring renal function. GI prophylaxis. She is on Protonix. Anemia. stable. The plan of care was discussed with the patient, multidisciplinary team. They verbalized understanding and agreement. 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
--- NOTE | 2020-08-04 16:26 | PC.OT ---
Therapist attempted treatment around 2:00 and pt was getting an ultra sound on her right leg for suspicion of DVT. OT came back at 4:25 and pt declined treatment today stating I've really been through it today . Will try treatment again tomorrow. Co sign: CYNTHIA Varma/Chantelle
[2020-08-04] MEDS: acetaminophen 500 mg Tablet 1000 MG PO (21:36)
[2020-08-05] VITALS (11 sets, daily range): BP systolic 113–147; BP diastolic 56–77; PULSE 68–83; RESP 12–18; TEMP 36.3–37; O2SAT 92–100
[2020-08-05] MEDS: HYDROmorphone 1 mg/mL INJ 1 mL 0.5 MG IVP (01:29)
[2020-08-05] MEDS: lidocaine 2% viscous 15 ML, aluminum-mag hydrox-simethicon 30 ML, sucralfate oral liq 1 GM PO (02:16)
[2020-08-05] MEDS: acetaminophen 500 mg Tablet 1000 MG PO ×2 (05:08→12:04)
[2020-08-05] MEDS: buPROPion XL (24 HR) 300 mg Tablet PO (05:08)
[2020-08-05 06:45] LABS: Albumin Level 2.6 g/dL (3.5-5.2); Blood Urea Nitrogen 16 mg/dL (8-23); Calcium 9.2 mg/dL (8.5-10.5); Chloride 99 mmol/L (98-107); Glomerular Filtration Rate 55.6 mL/min (90-130); Glucose 93 mg/dL (65-115); Phosphorus 4.7 mg/dL (2.5-4.5); Sodium 134 mmol/L (136-145)
[2020-08-05 06:47] LABS: Magnesium 2.4 mg/dL (1.7-2.3)
[2020-08-05 07:05] LABS: Carbon Dioxide 23 mmol/L (22-29)
[2020-08-05] MEDS: pantoprazole DR 40 mg Tablet PO (08:13)
[2020-08-05] MEDS: enoxaparin 40 mg/0.4 mL Syringe SUBCUT (08:13)
[2020-08-05] MEDS: cyclobenzaprine 10 mg Tablet PO ×3 (08:13→20:51)
[2020-08-05] MEDS: oxyCODONE 5 mg IR Tab/Cap PO ×3 (08:13→16:22)
[2020-08-05] MEDS: FUROsemide 20 mg Tablet PO (08:13)
[2020-08-05] MEDS: docusate sodium 100 mg Capsule PO ×2 (08:13→17:21)
[2020-08-05] MEDS: atorvastatin 40 mg Tablet PO (08:13)
[2020-08-05] MEDS: duloxetine 60 mg Capsule PO ×2 (08:13→17:21)
[2020-08-05] MEDS: dicyclomine 20 mg Tablet PO ×3 (08:47→20:51)
[2020-08-05] MEDS: HYDROcodone-acetaminophen 5-325 mg Tablet 1 TAB PO ×2 (13:44→20:50)
[2020-08-05] MEDS: levoFLOXacin 750 mg Tablet PO (16:22)
--- NOTE | 2020-08-05 18:28 | P.PN_ITS ---
Subjective Subjective: Interval history: Doing well. The pain is well controlled. Denies any other complaints. No chest pain, shortness of breath, cough, palpitations Vitals/I&O/Wt Last Vital Signs Temp 98.5 F 08/07/20 15:20 Pulse 72 08/07/20 15:20 Resp 18 08/07/20 15:20 BP 117/64 08/07/20 15:20 Pulse Ox 99 08/07/20 15:20 08/07/20 08/07/20 08/07/20 06:59 14:59 22:59 Intake Total 240 / 1450 680 / 680 360 / 1040 Output Total 300 / 1800 Balance -60 / -350 680 / 680 360 / 1040 Physical Exam Narrative: EXAM NARRATIVE: Awake alert oriented. No acute distress. Mood and affect are appropriate. Responses are adequate. Skin is warm and dry. Moist mucous membranes. Neck no JVD Lungs clear to auscultation bilaterally. No respiratory distress Heart S1, S2, regular Abdomen soft, nontender, bowel sounds are present Extremities no peripheral cyanosis. The right lower extremity is in dry and clean dressed. Data : 08/03/20 05:10 08/05/20 04:30 A&P Assessment and plan (1) Trimalleolar fracture of ankle, closed: Status: Acute (2) Ankle fracture: Status: Acute Qualifiers: Encounter type: subsequent encounter Fracture healing: with routine healing Fracture type: closed Laterality: right Qualified Code(s): S82.891D - Other fracture of right lower leg, subsequent encounter for closed fracture with routine healing (3) Intractable pain: Status: Acute (4) Hypertension: Status: Acute (5) Hypoxia: Status: Acute (6) COPD (chronic obstructive pulmonary disease): Status: Acute Additional A&P Information # hypoxic respiratory failure requiring up to 5 L/min nasal cannula which is a new requirement for patient Several possible etiologies include COPD exacerbation given emphysematous changes seen on chest x-ray. Duo nebs every 4 hour respiratory inhalation. Was on methylprednisolone 30 mg IV every 8, discontinued today as respiratory status appears to be improving. Also possible that patient may be retaining fluid secondary to fluid resuscitation since admission. Additional 20 mg iv today. BNP elavted at 1800. Echo with Gr1 diastolic dysfnction, LVEF normal. CTA chest negative for PE. Radiology concern for possible covid pneumonia, recent PCR was negative on the , however there may be a time lag on 2 positivity therefore we will repeat this testing. Maintain isolation precautions until this testing is obtained. Denies any chest pain, no acute ST-T changes on EKG. Empiric Levaquin added for pneumonia treatment Blood cx negative to date Right ankle fracture after mechanical fall Intractable pain, on opiates and toradol. Change IV Dilaudid to p.o. [place]. Right ankle splint already placed Plan was to have patient have surgery 07/29, however this has now been deferred because of new increased oxygen requirement. Likely to go back to OR on [facility] if active medical issues resolve. Patient states she will be unable to go home without the surgery as she is currently unable to ambulate and lives alone, therefore cannot perform ADLs. Once surgery is done, she plans to move to [place] to live with her , with whom she has recently reconciled after being separted for a few years. Also amenable to SNF if needed at that point. 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 Continue home medications for the same SInus tachycardia: This is now resolved. Overnight heart rate was noted to be 55. Will discontinue PRN metoprolol. Leukocytosis up to 17, likely related to margination from steroids as otherwise no signs of worsening infection. Patient remains afebrile and hemodynamically stable. Clinically appears to be improving DVT prophylaxis : Lovenox Full code [place] Acute hypoxic respiratory failure probably combination of COPD acute exacerbation and suspected pneumonia and fluid overload. Currently improved and stable. Steroids and antibiotic are discontinued. Continue respiratory treatme nts and supplemental oxygen. Pending placement to acute rehab facility Mild diastolic congestive heart failure. Improved symptoms. Continue furosemide. Echo is reviewed. Will need outpatient follow-up with a senior construction manager. Ankle fracture. Successfully underwent open reduction and internal fixation by Dr. Sykes. Pending placement to acute rehab facility. Continue pain management. PT OT per Ortho instructions DVT prophylaxis. Doppler ultrasound was ordered due to concerns of possible D VT. It came back negative. Continue Lovenox. Possible CKD. Stable creatinine currently. GI prophylaxis. She is on Protonix. Anemia. stable. The plan of care was discussed with the patient, multidisciplinary team. They verbalized understanding and agreement. Attestations Medical Necessity Statement*: Pending placement to acute rehab facility Coding Level of Care Code Acute Clinical Science Liaison for Chg Fwd Diagnoses Trimalleolar fracture of ankle, closed S82.853A Ankle fracture S82.892F Encounter type: subsequent encounter Fracture healing: with routine healing Fracture type: closed Laterality: right Intractable pain R52 Hypertension I10 Hypoxia R09.02 COPD (chronic obstructive pulmonary disease) J44.9
[2020-08-05] MEDS: ipratropium-albuterol 3 mL Neb INHALATION (20:13)
[2020-08-06] VITALS (11 sets, daily range): BP systolic 117–155; BP diastolic 62–74; PULSE 60–78; RESP 12–18; TEMP 36.6–37.2; O2SAT 93–99
[2020-08-06] MEDS: oxyCODONE 5 mg IR Tab/Cap PO ×3 (02:12→15:55)
[2020-08-06] MEDS: buPROPion XL (24 HR) 300 mg Tablet PO (06:15)
[2020-08-06] MEDS: acetaminophen 500 mg Tablet 1000 MG PO ×3 (06:15→20:59)
[2020-08-06] MEDS: cyclobenzaprine 10 mg Tablet PO ×3 (08:24→21:00)
[2020-08-06] MEDS: duloxetine 60 mg Capsule PO ×2 (08:24→18:00)
[2020-08-06] MEDS: atorvastatin 40 mg Tablet PO (08:24)
[2020-08-06] MEDS: pantoprazole DR 40 mg Tablet PO (08:24)
[2020-08-06] MEDS: FUROsemide 20 mg Tablet PO (08:24)
[2020-08-06] MEDS: docusate sodium 100 mg Capsule PO ×2 (08:24→18:00)
[2020-08-06] MEDS: enoxaparin 40 mg/0.4 mL Syringe SUBCUT (08:26)
[2020-08-06] MEDS: dicyclomine 20 mg Tablet PO ×3 (08:28→21:00)
--- NOTE | 2020-08-06 10:23 | PC.SOCIAL ---
IMM Update Pg. 2 of IMM updated with patient and copy provided.
--- NOTE | 2020-08-06 14:55 | P.PN_ITS ---
Subjective Subjective: Interval history: status post ORIF for trimalleolar ankle fracture. Postoperative day 3. The patient reports improved pain in the surgical area. No other significant changes or events. Denies chest pain. Denies shortness of breath or cough. No fever or chills. Medications: Reviewed: Yes Medication Review Details: Generic Name Dose Route Start Last Admin Trade Name Freq PRN Reason Stop Dose Admin Acetaminophen 1,000 mg 08/02/20 20:14 08/06/20 12:13 Tylenol PO 1,000 mg Q8H KIM Administration Hydrocodone Bitart /Acetaminophen 1 tab 07/31/20 16:56 08/05/20 20:50 Kathryn 5-325 Mg PO 1 tab Q4H PRN Administration MODERATE PAIN Albuterol/Ipratrop ium 3 ml 07/28/20 22:30 08/05/20 20:13 Duoneb INHALATION 3 ml Q4H.RESPIRATORY P RN Administration SHORTNESS OF JOHNNIE TH Atorvastatin Calci um 40 mg 07/28/20 09:00 08/06/20 08:24 Lipitor PO 40 mg DAILY KIM Administration Bupropion HCl 300 mg 07/28/20 06:00 08/06/20 06:15 Wellbutrin Xl (2 4 Hr) PO 300 mg QAM KIM Administration Calcium Carbonate 500 mg 08/03/20 05:48 08/03/20 05:57 Tums PO 500 mg Q4H PRN Administration INDIGESTION Cyclobenzaprine HC l 10 mg 07/28/20 09:00 08/06/20 08:24 Flexeril PO 10 mg TID KIM Administration Dicyclomine HCl 20 mg 07/28/20 09:00 08/06/20 08:28 Bentyl PO 20 mg TID KIM Administration Docusate Sodium 100 mg 08/01/20 18:00 08/06/20 08:24 Colace PO 100 mg BID KIM Administration Duloxetine HCl 60 mg 07/28/20 09:00 08/06/20 08:24 Cymbalta PO 60 mg BID KIM Administration Enoxaparin Sodium 40 mg 08/04/20 08:45 08/06/20 08:26 Lovenox SUBCUT 40 mg Q24H KIM Administration Furosemide 20 mg 08/04/20 08:00 08/06/20 08:24 Lasix PO 20 mg DAILY@0800 KIM Administration Hydromorphone HCl 0.5 mg 07/29/20 03:51 08/05/20 01:29 Dilaudid Inj IVP 0.5 mg Q4H PRN Administration severe pain Magnesium Hydroxid e 30 ml 08/01/20 10:29 08/03/20 21:10 Milk Of Magnesia PO 30 ml Q8H PRN Administration CONSTIPATION Ondansetron HCl 4 mg 07/28/20 01:00 08/03/20 21:03 Zofran IVP 4 mg Q6H PRN Administration NAUSEA AND VOMITI NG Oxycodone HCl 5 mg 07/30/20 12:53 08/06/20 08:49 Oxycodone Ir PO 5 mg Q4H PRN Administration MODERATE PAIN Pantoprazole Sodiu m 40 mg 07/28/20 09:00 08/06/20 08:24 Protonix PO 40 mg DAILY KIM Administration Vitals/I&O/Wt Last Vital Signs Temp 98.9 F 08/06/20 11:51 Pulse 65 08/06/20 11:51 Resp 18 08/06/20 11:51 BP 155/74 08/06/20 11:51 Pulse Ox 99 08/06/20 11:51 08/05/20 08/06/20 08/06/20 22:59 06:59 14:59 Intake Total 240 / 600 840 / 1440 450 / 450 Output Total 450 / 1400 600 / 2000 1100 / 1100 Balance -210 / -800 240 / -560 -650 / -650 Physical Exam Narrative: EXAM NARRATIVE: Awake alert oriented. No acute distress. Mood and affect are appropriate. Responses are adequate. Skin is warm and dry. Moist mucous membranes. Neck no JVD Lungs clear to auscultation bilaterally. No respiratory distress Heart S1, S2, regular Abdomen soft, nontender, bowel sounds are present Extremities no peripheral cyanosis. The right lower extremity is in dry and clean dressed. Data : 08/03/20 05:10 08/05/20 04:30 A&P Assessment and plan (1) Trimalleolar fracture of ankle, closed: Status: Acute (2) Ankle fracture: Status: Acute Qualifiers: Encounter type: subsequent encounter Fracture healing: with routine healing Fracture type: closed Laterality: right Qualified Code(s): S82.891D - Other fracture of right lower leg, subsequent encounter for closed fracture with routine healing (3) Intractable pain: Status: Acute (4) Hypertension: Status: Acute (5) Hypoxia: Status: Acute (6) COPD (chronic obstructive pulmonary disease): Status: Acute Additional A&P Information # hypoxic respiratory failure requiring up to 5 L/min nasal cannula which is a new requirement for patient Several possible etiologies include COPD exacerbation given emphysematous changes seen on chest x-ray. Duo nebs every 4 hour respiratory inhalation. Was on methylprednisolone 30 mg IV every 8, discontinued today as respiratory status appears to be improving. Also possible that patient may be retaining fluid secondary to fluid resuscitation since admission. Additional 20 mg iv today. BNP elavted at 1800. Echo with Gr1 diastolic dysfnction, LVEF normal. CTA chest negative for PE. Radiology concern for possible covid pneumonia, recent PCR was negative on the , however there may be a time lag on 2 positivity therefore we will repeat this testing. Maintain isolation precautions until this testing is obtained. Denies any chest pain, no acute ST-T changes on EKG. Empiric Levaquin added for pneumonia treatment Blood cx negative to date Right ankle fracture after mechanical fall Intractable pain, on opiates and toradol. Change IV Dilaudid to p.o. [place]. Right ankle splint already placed Plan was to have patient have surgery 07/29, however this has now been deferred because of new increased oxygen requirement. Likely to go back to OR on [facility] if active medical issues resolve. Patient states she will be unable to go home without the surgery as she is currently unable to ambulate and lives alone, therefore cannot perform ADLs. Once surgery is done, she plans to move to [place] to live with her , with whom she has recently reconciled after being separted for a few years. Also amenable to SNF if needed at that point. 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 Continue home medications for the same SInus tachycardia: This is now resolved. Overnight heart rate was noted to be 55. Will discontinue PRN metoprolol. Leukocytosis up to 17, likely related to margination from steroids as otherwise no signs of worsening infection. Patient remains afebrile and hemodynamically stable. Clinically appears to be improving DVT prophylaxis : Lovenox Full code [place] Acute hypoxic respiratory failure probably combination of COPD acute exacerbation and suspected pneumonia and fluid overload. Currently improved and stable. Steroids and antibiotic are discontinued. Continue respiratory treatments and supplemental oxygen. Mild diastolic congestive heart failure. Improved symptoms. Continue furosemide. Echo is reviewed. Will need outpatient follow-up with a planning associate. Ankle fracture. postoperative day 3. Successfully underwent open reduction and internal fixation by Dr. Sykes. Pending placement to acute rehab facility. Continue pain management. Nonweightbearing through the surgical extremity. DVT prophylaxis. Doppler ultrasound was ordered due to concerns of possible DVT. It came back negative. Continue Lovenox. Possible CKD. Stable creatinine currently. GI prophylaxis. She is on Protonix. Anemia. stable. The plan of care was discussed with the patient, multidisciplinary team. They verbalized understanding and agreement. Attestations Medical Necessity Statement*: Waiting for insurance approval for acute rehab placement. Coding Level of Care Code Acute Electronic Scanner Operator for Zeke Low Diagnoses Trimalleolar fracture of ankle, closed S82.853A Ankle fracture S82.891D Encounter type: subsequent encounter Fracture healing: with routine healing Fracture type: closed Laterality: right Intractable pain R52 Hypertension I10 Hypoxia R09.02 COPD (chronic obstructive pulmonary disease) J44.9
[2020-08-06] MEDS: HYDROcodone-acetaminophen 5-325 mg Tablet 1 TAB PO (21:06)
[2020-08-06] MEDS: calcium carbonate 500 mg Chew Tablet PO (21:07)
[2020-08-07] VITALS (7 sets, daily range): BP systolic 105–137; BP diastolic 62–72; PULSE 69–81; RESP 16–20; TEMP 36.8–37.1; O2SAT 95–99
[2020-08-07] MEDS: buPROPion XL (24 HR) 300 mg Tablet PO (04:56)
--- NOTE | 2020-08-07 04:58 | PC.NURSE ---
08/07/20 0414 acetaminophen 1000 mg Q8H dose not administered due to maximum dosage of 4g per 24 hours already reached.
--- NOTE | 2020-08-07 06:45 | PC.NURSE ---
this nurse went to the patient's room to assist patient to bedside commode, upon entering the room this nurse noticed a pill bottle sitting on the bedside table. This nurse informed the patient that policy does not allow for home meds to be kept in patient rooms. This nurse asked if the patient had any more medications in the room and patient said yes in my blue bag This nurse explained to the patient that the meds would be put into the pixis with her name on them and would be returned at discharge. The patient agreed to allow this nurse to lock up meds. Patient denied taking any home medications in her room. Patient also had previously told nurse during assessment that she did not smoke cigarettes, upon inspecting the contents of the blue bag cigarettes were found. 10 hydrocodone 5 mg tablets counted with Charlotte Horner RN. home meds locked in [employer].
[2020-08-07] MEDS: enoxaparin 40 mg/0.4 mL Syringe SUBCUT (08:02)
[2020-08-07] MEDS: docusate sodium 100 mg Capsule PO ×2 (08:03→17:52)
[2020-08-07] MEDS: atorvastatin 40 mg Tablet PO (08:03)
[2020-08-07] MEDS: FUROsemide 20 mg Tablet PO (08:03)
[2020-08-07] MEDS: cyclobenzaprine 10 mg Tablet PO ×3 (08:03→19:56)
[2020-08-07] MEDS: duloxetine 60 mg Capsule PO ×2 (08:03→17:52)
[2020-08-07] MEDS: pantoprazole DR 40 mg Tablet PO (08:03)
[2020-08-07] MEDS: dicyclomine 20 mg Tablet PO ×3 (08:06→19:56)
[2020-08-07] MEDS: HYDROcodone-acetaminophen 5-325 mg Tablet 1 TAB PO (08:11)
[2020-08-07] MEDS: HYDROcodone-acetaminophen 5-325 mg Tablet PO ×2 (13:29→19:55)
--- NOTE | 2020-08-07 15:39 | PM.PN ---
Subjective Subjective: Interval history: status post ORIF for trimalleolar ankle fracture. Postoperative day 4. Currently having acute pain in the surgical area after physical therapy.we will controlled with medications. No other significant changes or events. Denies chest pain. Denies shortness of breath or cough. No fever or chills. Medications: Reviewed: Yes Vitals/I&O/Wt Last Vital Signs Temp 98.5 F 08/07/20 15:20 Pulse 72 08/07/20 15:20 Resp 18 08/07/20 15:20 BP 117/64 08/07/20 15:20 Pulse Ox 99 08/07/20 15:20 08/07/20 08/07/20 08/07/20 06:59 14:59 22:59 Intake Total 240 / 1450 680 / 680 Output Total 300 / 1800 Balance -60 / -350 680 / 680 Physical Exam Narrative: EXAM NARRATIVE: Awake alert oriented. No acute distress. Mood and affect are appropriate. Responses are adequate. Skin is warm and dry. Moist mucous membranes. Neck no JVD Lungs clear to auscultation bilaterally. No respiratory distress Heart S1, S2, regular Abdomen soft, nontender, bowel sounds are present Extremities no peripheral cyanosis. The right lower extremity is in dry and clean dressed. Data : 08/03/20 05:10 08/05/20 04:30 A&P Assessment and plan (1) Trimalleolar fracture of ankle, closed: Status: Acute (2) Ankle fracture: Status: Acute Qualifiers: Encounter type: subsequent encounter Fracture healing: with routine healing Fracture type: closed Laterality: right Qualified Code(s): S82.891D - Other fracture of right lower leg, subsequent encounter for closed fracture with routine healing (3) Intractable pain: Status: Acute (4) Hypertension: Status: Acute (5) Hypoxia: Status: Acute (6) COPD (chronic obstructive pulmonary disease): Status: Acute Additional A&P Information # hypoxic respiratory failure requiring up to 5 L/min nasal cannula which is a new requirement for patient Several possible etiologies include COPD exacerbation given emphysematous changes seen on chest x-ray. Duo nebs every 4 hour respiratory inhalation. Was on methylprednisolone 30 mg IV every 8, discontinued today as respiratory status appears to be improving. Also possible that patient may be retaining fluid secondary to fluid resuscitation since admission. Additional 20 mg iv today. BNP elavted at 1800. Echo with Gr1 diastolic dysfnction, LVEF normal. CTA chest negative for PE. Radiology concern for possible covid pneumonia, recent PCR was negative on the , however there may be a time lag on 2 positivity therefore we will repeat this testing. Maintain isolation precautions until this testing is obtained. Denies any chest pain, no acute ST-T changes on EKG. Empiric Levaquin added for pneumonia treatment Blood cx negative to date Right ankle fracture after mechanical fall Intractable pain, on opiates and toradol. Change IV Dilaudid to p.o. [place]. Right ankle splint already placed Plan was to have patient have surgery 07/29, however this has now been deferred because of new increased oxygen requirement. Likely to go back to OR on [facility] if active medical issues resolve. Patient states she will be unable to go home without the surgery as she is currently unable to ambulate and lives alone, therefore cannot perform ADLs. Once surgery is done, she plans to move to [place] to live with her , with whom she has recently reconciled after being separted for a few years. Also amenable to SNF if needed at that point. 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 Continue home medications for the same SInus tachycardia: This is now resolved. Overnight heart rate was noted to be 55. Will discontinue PRN metoprolol. Leukocytosis up to 17, likely related to margination from steroids as otherwise no signs of worsening infection. Patient remains afebrile and hemodynamically stable. Clinically appears to be improving DVT prophylaxis : Lovenox Full code [place] Acute hypoxic respiratory failure probably combination of COPD acute exacerbation and suspected pneumonia and fluid overload. Currently improved and stable. Steroids and antibiotic are discontinued. Continue respiratory treatments and supplemental oxygen. Mild diastolic congestive heart failure. Improved symptoms. Continue furosemide. Echo is reviewed. Will need outpatient follow-up with a sql server dba. Ankle fracture. postoperative day 4. Successfully underwent open reduction and internal fixation by Dr. Sykes. Pending placement to acute rehab facility. Continue pain management. PT OT per Ortho instructions DVT prophylaxis. Doppler ultrasound was ordered due to concerns of possible DVT. It came back negative. Continue Lovenox. Possible CKD. Stable creatinine currently. GI prophylaxis. She is on Protonix. Anemia. stable. The plan of care was discussed with the patient, multidisciplinary team. They verbalized understanding and agreement. Attestations Medical Necessity Statement*: Still waiting for insurance authorization for rehab placement. Hopefully tomorrow. Coding Level of Care Code Acute Tracing Lathe Set Up Operator for marta Fwd Diagnoses Trimalleolar fracture of ankle, closed S82.853A Ankle fracture S82.891D Encounter type: subsequent encounter Fracture healing: with routine healing Fracture type: closed Laterality: right Intractable pain R52 Hypertension I10 Hypoxia R09.02 COPD (chronic obstructive pulmonary disease) J44.9
[2020-08-08 05:21] LABS: Basophils % 0.5 %; Eosinophils # 0.3 10^3/uL (0.0-0.8); Eosinophils % 3.2 %; Hematocrit 32.1 % (37.0-47.0); Hemoglobin 9.8 g/dL (11.5-15.3); Lymphocytes # 3.2 10^3/uL (0.8-4.8); Lymphocytes % 38.4 %; Mean Corpuscular HGB Conc 30.5 g/dL (30.0-36.0); Mean Corpuscular Hemoglobin 26.6 pg (28.0-34.0); Mean Platelet Volume 9.3 fL (7.4-10.4); Monocytes # 0.8 10^3/uL (0.2-0.9); Neutrophils # 3.94 10^3/uL (1.8-7.7); Neutrophils % 46.9 %; Nucleated Red Blood Cells % 0 %; Platelet Count 706 10^3/cmm (130-400); Red Blood Count 3.69 10^6/uL (4.1-5.3); White Blood Count 8.4 10^3/uL (4.0-10.0)
[2020-08-08] MEDS: buPROPion XL (24 HR) 300 mg Tablet PO (05:34)
[2020-08-08 05:50] LABS: Magnesium 2.5 mg/dL (1.7-2.3)
[2020-08-08 06:12] LABS: Albumin Level 3.3 g/dL (3.5-5.2); Anion Gap 14.1 (5-19); Blood Urea Nitrogen 14 mg/dL (8-23); Calcium 9.2 mg/dL (8.5-10.5); Carbon Dioxide 25 mmol/L (22-29); Chloride 100 mmol/L (98-107); Glomerular Filtration Rate 55.6 mL/min (90-130); Glucose 102 mg/dL (65-115); Phosphorus 4.2 mg/dL (2.5-4.5); Potassium 4.1 mmol/L (3.5-5.1); Sodium 135 mmol/L (136-145)
[2020-08-08] MEDS: HYDROcodone-acetaminophen 5-325 mg Tablet PO ×3 (06:20→19:09)
[2020-08-08 07:17] VITALS: BP 120/72; PULSE 74; RESP 18; TEMP 36.8; O2SAT 94
[2020-08-08 08:06] VITALS: PULSE 72; RESP 16; O2SAT 96
[2020-08-08] MEDS: pantoprazole DR 40 mg Tablet PO (08:21)
[2020-08-08] MEDS: enoxaparin 40 mg/0.4 mL Syringe SUBCUT (08:21)
[2020-08-08] MEDS: cyclobenzaprine 10 mg Tablet PO ×3 (08:21→20:47)
[2020-08-08] MEDS: atorvastatin 40 mg Tablet PO (08:21)
[2020-08-08] MEDS: FUROsemide 20 mg Tablet PO (08:21)
[2020-08-08] MEDS: duloxetine 60 mg Capsule PO ×2 (08:21→17:43)
[2020-08-08] MEDS: docusate sodium 100 mg Capsule PO ×2 (08:21→17:43)
[2020-08-08] MEDS: dicyclomine 20 mg Tablet PO ×3 (08:21→20:47)
--- NOTE | 2020-08-08 11:14 | PC.NURSE ---
patient refuses enema. notified Dr Duron. Rcvd order from Dr Duron for miralax. magnetic tape typewriter operator put orders in for miralax.
[2020-08-08] MEDS: polyethylene glycol 3350 Pkt 17 gm PO (11:33)
[2020-08-08 11:35] VITALS: BP 101/65; PULSE 80; RESP 20; TEMP 36.9; O2SAT 96
[2020-08-08 15:08] VITALS: BP 94/58; PULSE 77; RESP 18; TEMP 36.8; O2SAT 96
[2020-08-08] MEDS: magnesium hydroxide 30 mL UDC PO (16:30)
--- NOTE | 2020-08-08 17:02 | PC.NURSE ---
notified Dr Duron that patient has not had BM yet and is requesting additional pain medications.
--- NOTE | 2020-08-08 17:31 | P.PN_ITS ---
Subjective Subjective: Interval history: no new complaints, on 1lpm NC today, on RA drops to 88%, feels well otherwise Medications: Reviewed: Yes Vitals/I&O/Wt Last Vital Signs Temp 98.3 F 08/08/20 15:08 Pulse 77 08/08/20 15:08 Resp 18 08/08/20 15:08 BP 94/58 08/08/20 15:08 Pulse Ox 96 08/08/20 15:08 08/08/20 08/08/20 08/08/20 06:59 14:59 22:59 Intake Total 200 / 1440 360 / 360 Output Total 400 / 400 400 / 800 Balance 200 / 1440 -40 / -40 -400 / -440 Physical Exam Narrative: EXAM NARRATIVE: GEN: Awake, alert and oriented, no acute distress CVS: S1S2 N RS: CTA B/L Abd: Soft, nt/nd , bs+ BOND MANAGER: no focal neuro deficits Data : 08/08/20 04:50 08/08/20 04:50 A&P Assessment and plan (1) Trimalleolar fracture of ankle, closed: Status: Acute (2) Ankle fracture: Status: Acute Qualifiers: Encounter type: subsequent encounter Fracture healing: with routine healing Fracture type: closed Laterality: right Qualified Code(s): S82.891D - Other fracture of right lower leg, subsequent encounter for closed fracture with routine healing (3) Intractable pain: Status: Acute (4) Hypertension: Status: Acute (5) Hypoxia: Status: Acute (6) COPD (chronic obstructive pulmonary disease): Status: Acute Additional A&P Information # hypoxic respiratory failure, now improving Several possible etiologies include COPD exacerbation given emphysematous changes seen on chest x-ray Duo nebs every 4 hour respiratory inhalation. Was on methylprednisolone 30 mg IV every 8, discontinued subsequenlty. Treated for pneumonia additionally CTA chest negative for PE. COVID PCR negative Right ankle fracture after mechanical fall, POD 5, Successfully underwent open reduction and internal fixation by Dr. Sykes. Pending placement to acute rehab facility. Continue pain management. PT OT per Ortho instructions. 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 Continue home medications for the same DVT prophylaxis : Lovenox Full code Attestations Medical Necessity Statement*: Awaiting placement at SNF, improving Coding Level of Care Code Acute Planning Lead for g Fwd Diagnoses Trimalleolar fracture of ankle, closed S82.854X Ankle fracture S82.183G Encounter type: subsequent encounter Fracture healing: with routine healing Fracture type: closed Laterality: right Intractable pain R52 Hypertension I10 Hypoxia R09.02 COPD (chronic obstructive pulmonary disease) J44.9
[2020-08-08 20:00] VITALS: BP 108/72; PULSE 83; RESP 20; TEMP 36.9; O2SAT 96
[2020-08-09] VITALS (8 sets, daily range): BP systolic 95–132; BP diastolic 58–66; PULSE 70–85; RESP 14–20; TEMP 36.4–36.9; O2SAT 90–97
[2020-08-09] MEDS: HYDROcodone-acetaminophen 5-325 mg Tablet PO ×4 (02:21→21:04)
[2020-08-09] MEDS: magnesium hydroxide 30 mL UDC PO (02:22)
[2020-08-09] MEDS: buPROPion XL (24 HR) 300 mg Tablet PO (05:19)
--- NOTE | 2020-08-09 06:37 | PC.NURSE ---
SHIFT SUMMARY Has done well tonight. c/o pain in right foot and has received po Hydrocodone. Dressing/cam boot in place to right foot. Is hoping to get to go to shelter today. Has still not had a BM. Given another dose of MOM per pt request tonight.
[2020-08-09] MEDS: pantoprazole DR 40 mg Tablet PO (08:25)
[2020-08-09] MEDS: duloxetine 60 mg Capsule PO ×2 (08:58→18:08)
[2020-08-09] MEDS: dicyclomine 20 mg Tablet PO ×3 (08:58→22:27)
[2020-08-09] MEDS: cyclobenzaprine 10 mg Tablet PO ×3 (08:58→22:27)
[2020-08-09] MEDS: FUROsemide 20 mg Tablet PO (08:59)
[2020-08-09] MEDS: atorvastatin 40 mg Tablet PO (08:59)
[2020-08-09] MEDS: docusate sodium 100 mg Capsule PO ×2 (08:59→18:08)
[2020-08-09] MEDS: enoxaparin 40 mg/0.4 mL Syringe SUBCUT (08:59)
--- NOTE | 2020-08-09 15:12 | PC.OT ---
OT treatment attempted twice today. Once this morning and she declined but said to come back in the afternoon. When attempted again in the afternoon pt declined stating I don't want to do it now therapist explained that they wouldn't be able to come back later and pt stated understanding of this. Will try treatment again tomorrow. Co sign: CYNTHIA Varma/Chantelle
--- NOTE | 2020-08-09 17:54 | PM.PN ---
Subjective Subjective: Interval history: Patient continues to feel well. On 1 L/min nasal cannula. She is feeling well except for some pain at the site. We were told that she could discharge today in the shelter where she was supposed to go had authorization to receive her, however it appears she was later declined. Medications: Reviewed: Yes Vitals/I&O/Wt Last Vital Signs Temp 97.5 F L 08/09/20 15:11 Pulse 85 08/09/20 15:11 Resp 16 08/09/20 15:11 BP 102/65 08/09/20 15:11 Pulse Ox 97 08/09/20 15:11 08/09/20 08/09/20 08/09/20 06:59 14:59 22:59 Intake Total 240 / 600 480 / 480 Output Total 750 / 1550 300 / 300 Balance -510 / -950 180 / 180 Physical Exam Narrative: EXAM NARRATIVE: GEN: Awake, alert and oriented, no acute distress CVS: S1S2 N RS: CTA B/L Abd: Soft, nt/nd , bs+ CAN MARKER: no focal neuro deficits Data : 08/08/20 04:50 08/08/20 04:50 A&P Assessment and plan (1) Trimalleolar fracture of ankle, closed: Status: Acute (2) Ankle fracture: Status: Acute Qualifiers: Encounter type: subsequent encounter Fracture healing: with routine healing Fracture type: closed Laterality: right Qualified Code(s): S82.891D - Other fracture of right lower leg, subsequent encounter for closed fracture with routine healing (3) Intractable pain: Status: Acute (4) Hypertension: Status: Acute (5) Hypoxia: Status: Acute (6) COPD (chronic obstructive pulmonary disease): Status: Acute Additional A&P Information # hypoxic respiratory failure, now improving Several possible etiologies include COPD exacerbation given emphysematous changes seen on chest x-ray Duo nebs every 4 hour respiratory inhalation. Was on methylprednisolone 30 mg IV every 8, discontinued subsequenlty. Treated for pneumonia additionally CTA chest negative for PE. COVID PCR negative Respiratory status now stable, she is requiring 1 L/min nasal cannula oxygen, which I suspect is secondary to underlying COPD. Once she is discharged we would encourage follow-up with PCP to get PFTs Right ankle fracture after mechanical fall, POD 5, Successfully underwent open reduction and internal fixation by Dr. Sykes. Pending placement to acute rehab facility. Continue pain management. PT OT per Ortho instructions. was originally planned to be discharged today, however subsequently it appears transfer was declined. 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 Continue home medications for the same DVT prophylaxis : Lovenox Disposition patient is awaiting placement at acute rehab facility. She lives by herself. She is to be strictly nonweightbearing per Ortho instructions. She is unable to get around and ambulate by herself to take care of her daily needs at home. She has no family that can live with her or take care of her at this present time therefore SNF would be most appropriate Full code Attestations Medical Necessity Statement*: pending disposiiton and SNF placement Coding Level of Care Code Acute Book Jacket Cover Machine Operator for Zeke Low Diagnoses Trimalleolar fracture of ankle, closed S82.853A Ankle fracture S82.891D Encounter type: subsequent encounter Fracture healing: with routine healing Fracture type: closed Laterality: right Intractable pain R52 Hypertension I10 Hypoxia R09.02 COPD (chronic obstructive pulmonary disease) J44.9
[2020-08-10] VITALS (8 sets, daily range): BP systolic 98–126; BP diastolic 60–68; PULSE 71–85; RESP 14–20; TEMP 36.6–37.2; O2SAT 90–99
[2020-08-10] MEDS: calcium carbonate 500 mg Chew Tablet PO (03:39)
[2020-08-10] MEDS: HYDROcodone-acetaminophen 5-325 mg Tablet PO ×3 (03:39→18:19)
[2020-08-10] MEDS: buPROPion XL (24 HR) 300 mg Tablet PO (06:28)
[2020-08-10] MEDS: duloxetine 60 mg Capsule PO ×2 (08:47→18:17)
[2020-08-10] MEDS: dicyclomine 20 mg Tablet PO ×3 (08:47→21:59)
[2020-08-10] MEDS: docusate sodium 100 mg Capsule PO ×2 (08:47→18:17)
[2020-08-10] MEDS: enoxaparin 40 mg/0.4 mL Syringe SUBCUT (08:47)
[2020-08-10] MEDS: pantoprazole DR 40 mg Tablet PO (08:47)
[2020-08-10] MEDS: atorvastatin 40 mg Tablet PO (08:47)
[2020-08-10] MEDS: FUROsemide 20 mg Tablet PO (08:47)
[2020-08-10] MEDS: cyclobenzaprine 10 mg Tablet PO ×3 (08:47→21:59)
--- NOTE | 2020-08-10 09:32 | PC.OT ---
OT Note: discussed with patient for 15 min the importance of therapy to regain strength to be able to go home. Patient reported she is unsure if she should go home or go to a SNF prior to returning home. Therapist told patient that social services manager will be in contact with her to discuss discharge planning. Patient refused therapy this morning reported she just finished with physical therapy and requested that OT should try again in the afternoon. Patient verbalized understanding of the importance of regaining strength prior to returning home because she feels she may not be able to complete her ADLs and IADLs at home independently.
--- NOTE | 2020-08-10 10:44 | DCPLANNER ---
Pg 2 of IM updated and reviewed with pt. No questions, copy provided.
--- NOTE | 2020-08-10 16:13 | PM.PN ---
Subjective Subjective: Interval history: Patient continues to feel well. Trial of weaning off oxygen to room air this morning at rest. Patient getting frustarted with delays in transition to SNF, states she wants to return home, however also states that since she is to b enon weight bearing it would not be possible for her to manage ADLs such as getting groceries, making meals, taking care of 5 year old grandson by herself. Medications: Reviewed: Yes Medication Review Details: Generic Name Dose Route Start Last Admin Trade Name Freq PRN Reason Stop Dose Admin Acetaminophen 1,000 mg 08/02/20 20:14 08/06/20 12:13 Tylenol PO 1,000 mg Q8H KIM Administration Hydrocodone Bitart /Acetaminophen 1 tab 07/31/20 16:56 08/05/20 20:50 [place] 5-325 Mg PO 1 tab Q4H PRN Administration MODERATE PAIN Albuterol/Ipratrop ium 3 ml 07/28/20 22:30 08/05/20 20:13 Duoneb INHALATION 3 ml Q4H.RESPIRATORY P RN Administration SHORTNESS OF JOHNNIE TH Atorvastatin Calci um 40 mg 07/28/20 09:00 08/06/20 08:24 Lipitor PO 40 mg DAILY KIM Administration Bupropion HCl 300 mg 07/28/20 06:00 08/06/20 06:15 Wellbutrin Xl (2 4 Hr) PO 300 mg QAM KIM Administration Calcium Carbonate 500 mg 08/03/20 05:48 08/03/20 05:57 Tums PO 500 mg Q4H PRN Administration INDIGESTION Cyclobenzaprine HC l 10 mg 07/28/20 09:00 08/06/20 08:24 Flexeril PO 10 mg TID KIM Administration Dicyclomine HCl 20 mg 07/28/20 09:00 08/06/20 08:28 Bentyl PO 20 mg TID KIM Administration Docusate Sodium 100 mg 08/01/20 18:00 08/06/20 08:24 Colace PO 100 mg BID KIM Administration Duloxetine HCl 60 mg 07/28/20 09:00 08/06/20 08:24 Cymbalta PO 60 mg BID KIM Administration Enoxaparin Sodium 40 mg 08/04/20 08:45 08/06/20 08:26 Lovenox SUBCUT 40 mg Q24H KIM Administration Furosemide 20 mg 08/04/20 08:00 08/06/20 08:24 Lasix PO 20 mg DAILY@0800 KIM Administration Hydromorphone HCl 0.5 mg 07/29/20 03:51 08/05/20 01:29 Dilaudid Inj IVP 0.5 mg Q4H PRN Administration severe pain Magnesium Hydroxid e 30 ml 08/01/20 10:29 08/03/20 21:10 Milk Of Magnesia PO 30 ml Q8H PRN Administration CONSTIPATION Ondansetron HCl 4 mg 07/28/20 01:00 08/03/20 21:03 Zofran IVP 4 mg Q6H PRN Administration NAUSEA AND VOMITI NG Oxycodone HCl 5 mg 07/30/20 12:53 08/06/20 08:49 Oxycodone Ir PO 5 mg Q4H PRN Administration MODERATE PAIN Pantoprazole Sodiu m 40 mg 07/28/20 09:00 08/06/20 08:24 Protonix PO 40 mg DAILY KIM Administration Vitals/I&O/Wt Last Vital Signs Temp 98.7 F 08/10/20 15:10 Pulse 80 08/10/20 15:10 Resp 18 08/10/20 15:10 BP 100/64 08/10/20 15:10 Pulse Ox 93 08/10/20 15:10 08/10/20 08/10/20 08/10/20 06:59 14:59 22:59 Intake Total 360 / 360 Output Total 0 / 300 Balance 0 / 180 360 / 360 Physical Exam Narrative: EXAM NARRATIVE: GEN: Awake, alert and oriented, no acute distress CVS: S1S2 N RS: CTA B/L Abd: Soft, nt/nd , bs+ COMPLEX MANAGER: no focal neuro deficits Data : 08/08/20 04:50 08/08/20 04:50 A&P Assessment and plan (1) Trimalleolar fracture of ankle, closed: Status: Acute (2) Ankle fracture: Status: Acute Qualifiers: Encounter type: subsequent encounter Fracture healing: with routine healing Fracture type: closed Laterality: right Qualified Code(s): S82.891D - Other fracture of right lower leg, subsequent encounter for closed fracture with routine healing (3) Intractable pain: Status: Acute (4) Hypertension: Status: Acute (5) Hypoxia: Status: Acute (6) COPD (chronic obstructive pulmonary disease): Status: Acute Additional A&P Information # hypoxic respiratory failure, now improved Several possible etiologies include COPD exacerbation given emphysematous changes seen on chest x-ray Duo nebs every 4 hour respiratory inhalation. Was on methylprednisolone 30 mg IV every 8, discontinued subsequenlty. Treated for pneumonia additionally, no current active signs of infection CTA chest negative for PE. COVID PCR negative Respiratory status now stable, she is requiring 1 L/min nasal cannula oxygen,attempts to wean down to room air this morning. Once she is discharged we would encourage follow-up with PCP to get PFTs # Right ankle fracture after mechanical fall, POD 5, Successfully underwent open reduction and internal fixation by Dr. Cristobal. Pending placement to acute rehab facility. Continue pain management. PT OT per Ortho instructions. # 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 Continue home medications for the same DVT prophylaxis : Lovenox Disposition patient is awaiting placement at acute rehab facility. Full code Attestations Medical Necessity Statement*: awaiting SNF placement given patient likely to have restricted ADLs if discharged home, needs ongoing PT/OT Coding Level of Care Code Acute Desk Maker for [facility] Fwd Diagnoses Trimalleolar fracture of ankle, closed S82.853A Ankle fracture S82.891D Encounter type: subsequent encounter Fracture healing: with routine healing Fracture type: closed Laterality: right Intractable pain R52 Hypertension I10 Hypoxia R09.02 COPD (chronic obstructive pulmonary disease) J44.9
[2020-08-11] VITALS (8 sets, daily range): BP systolic 99–109; BP diastolic 60–67; PULSE 74–90; RESP 16–18; TEMP 36.6–37.1; O2SAT 92–98
[2020-08-11] MEDS: HYDROcodone-acetaminophen 5-325 mg Tablet PO ×4 (00:44→21:44)
[2020-08-11] MEDS: buPROPion XL (24 HR) 300 mg Tablet PO (06:41)
[2020-08-11] MEDS: ipratropium-albuterol 3 mL Neb INHALATION (07:50)
[2020-08-11] MEDS: pantoprazole DR 40 mg Tablet PO (08:50)
[2020-08-11] MEDS: dicyclomine 20 mg Tablet PO ×3 (08:50→21:44)
[2020-08-11] MEDS: enoxaparin 40 mg/0.4 mL Syringe SUBCUT (08:50)
[2020-08-11] MEDS: duloxetine 60 mg Capsule PO ×2 (08:50→17:23)
[2020-08-11] MEDS: FUROsemide 20 mg Tablet PO (08:50)
[2020-08-11] MEDS: atorvastatin 40 mg Tablet PO (08:50)
[2020-08-11] MEDS: cyclobenzaprine 10 mg Tablet PO ×3 (08:50→21:44)
[2020-08-11] MEDS: docusate sodium 100 mg Capsule PO ×2 (08:51→17:23)
--- NOTE | 2020-08-11 12:10 | PC.CHAP ---
Pastoral Care Encounter/Spiritual Assessment Type of Contact [] Declined cloth carrier visit [] Patient/Family/Request visit [] Outpatient visit [] Follow-up visit [] Physician referral [] Code/Alert [x] Routine visit [] Staff referral [] Actively dying [] Patient sleeping [] Family support [] [] Out of room [] Palliative care [] [x] Receiving care in room [] Pre-surgical visit [] Trauma [] Long length of stay [] ICU visit [] Other: Relational/Emotional Strength [x] Patient feels connected with others/family/visitors/staff [] Distress [] Loneliness/isolation [] Abandonment Spirituality of Patient [x] Person of Asuncion [] Attends Episcopalian of their Asuncion [x] Believes in Prayer [] Reads Bible or Taoism materials [] There are Spiritual issues to be addressed Media Coordinator Interventions [x] Prayer [x] Active listening [x] Non-anxious presence [x] Spiritual/emotional support [] Crisis/trauma care [x] Spiritual counseling [] Bereavement support [] Provided bereavement packet [] Provided Bible/devotional materials [] Provided toy/stuffed animal, coloring book to patient or family member [] Provided Communion [] Anointing/[place] [] Salvation [x] Completed spiritual assessment [] Other: Impact on Illness or Injury [] Angry [] Fearful [x] Anxious [] Often cries [] Exhaustion [] Unable to work [] Unable to attend yazidi [] Unable to walk/stand [] Unable to read [] Unable to drive [] Unable to eat/drink [] Unable to sleep [] Unable to be with family [] Patient intubated [] Other: Summary Has surgery on ankle she was in pain, Has a good attitude hops to go home soon Time spent with patient 10 mins
--- NOTE | 2020-08-11 12:16 | PC.CHAP ---
Pastoral Care Encounter/Spiritual Assessment Type of Contact [] Declined director of web marketing visit [] Patient/Family/Request visit [] Outpatient visit [] Follow-up visit [] Physician referral [] Code/Alert [x] Routine visit [] Staff referral [] Actively dying [] Patient sleeping [] Family support [] [] Out of room [] Palliative care [] [x] Receiving care in room [] Pre-surgical visit [] Trauma [] Long length of stay [] ICU visit [] Other: Relational/Emotional Strength [x] Patient feels connected with others/family/visitors/staff [] Distress [] Loneliness/isolation [] Abandonment Spirituality of Patient [x] Person of Asuncion [] Attends Jehovah'S Witness of their Asuncion [x] Believes in Prayer [] Reads Bible or Christian materials [] There are Spiritual issues to be addressed Medical Or Surgical Instrument Maker Interventions [x] Prayer [x] Active listening [x] Non-anxious presence [x] Spiritual/emotional support [] Crisis/trauma care [x] Spiritual counseling [] Bereavement support [] Provided bereavement packet [] Provided Bible/devotional materials [] Provided toy/stuffed animal, coloring book to patient or family member [] Provided Communion [] Anointing/[place] [] Salvation [x] Completed spiritual assessment [] Other: Impact on Illness or Injury [] Angry [] Fearful [x] Anxious [] Often cries [] Exhaustion [] Unable to work [] Unable to attend synagogue [] Unable to walk/stand [] Unable to read [] Unable to drive [] Unable to eat/drink [] Unable to sleep [] Unable to be with family [] Patient intubated [] Other: Summary He is feeling better in some pain has a good attitude going home tomorrow, has a son to help her Time spent with patient 10 mins
--- NOTE | 2020-08-11 13:51 | PM.PN ---
Subjective Subjective: Interval history: Patient remains in the hospital secondary to COVID concerns at the outlying intermediate facility, and the feeling has been, appropriately so, that she would not be able to manage well at home. Today, she has worked with physical therapy. She is 2 weeks from her surgical intervention. She is able to safely use a scooter. Plans are being made for discharge to home if she is unable to be transferred to an appropriate intermediate unit. Medications: Reviewed: Yes Medication Review Details: Generic Name Dose Route Start Last Admin Trade Name Freq PRN Reason Stop Dose Admin Acetaminophen 1,000 mg 08/02/20 20:14 08/06/20 12:13 Tylenol PO 1,000 mg Q8H KIM Administration Hydrocodone Bitart /Acetaminophen 1 tab 07/31/20 16:56 08/05/20 20:50 [place] 5-325 Mg PO 1 tab Q4H PRN Administration MODERATE PAIN Albuterol/Ipratrop ium 3 ml 07/28/20 22:30 08/05/20 20:13 Duoneb INHALATION 3 ml Q4H.RESPIRATORY P RN Administration SHORTNESS OF JOHNNIE TH Atorvastatin Calci um 40 mg 07/28/20 09:00 08/06/20 08:24 Lipitor PO 40 mg DAILY KIM Administration Bupropion HCl 300 mg 07/28/20 06:00 08/06/20 06:15 Wellbutrin Xl (2 4 Hr) PO 300 mg QAM KIM Administration Calcium Carbonate 500 mg 08/03/20 05:48 08/03/20 05:57 Tums PO 500 mg Q4H PRN Administration INDIGESTION Cyclobenzaprine HC l 10 mg 07/28/20 09:00 08/06/20 08:24 Flexeril PO 10 mg TID KIM Administration Dicyclomine HCl 20 mg 07/28/20 09:00 08/06/20 08:28 Bentyl PO 20 mg TID KIM Administration Docusate Sodium 100 mg 08/01/20 18:00 08/06/20 08:24 Colace PO 100 mg BID KIM Administration Duloxetine HCl 60 mg 07/28/20 09:00 08/06/20 08:24 Cymbalta PO 60 mg BID KIM Administration Enoxaparin Sodium 40 mg 08/04/20 08:45 08/06/20 08:26 Lovenox SUBCUT 40 mg Q24H KIM Administration Furosemide 20 mg 08/04/20 08:00 08/06/20 08:24 Lasix PO 20 mg DAILY@0800 KIM Administration Hydromorphone HCl 0.5 mg 07/29/20 03:51 08/05/20 01:29 Dilaudid Inj IVP 0.5 mg Q4H PRN Administration severe pain Magnesium Hydroxid e 30 ml 08/01/20 10:29 08/03/20 21:10 Milk Of Magnesia PO 30 ml Q8H PRN Administration CONSTIPATION Ondansetron HCl 4 mg 07/28/20 01:00 08/03/20 21:03 Zofran IVP 4 mg Q6H PRN Administration NAUSEA AND VOMITI NG Oxycodone HCl 5 mg 07/30/20 12:53 08/06/20 08:49 Oxycodone Ir PO 5 mg Q4H PRN Administration MODERATE PAIN Pantoprazole Sodiu m 40 mg 07/28/20 09:00 08/06/20 08:24 Protonix PO 40 mg DAILY KIM Administration Vitals/I&O/Wt Last Vital Signs Temp 97.9 F 08/11/20 07:41 Pulse 77 08/11/20 07:54 Resp 17 08/11/20 07:52 BP 103/61 08/11/20 07:41 Pulse Ox 92 08/11/20 13:10 08/10/20 08/11/20 08/11/20 22:59 06:59 14:59 Intake Total 360 / 720 360 / 1080 580 / 580 Output Total 100 / 100 825 / 925 Balance 260 / 620 -465 / 155 580 / 580 Physical Exam Const: COMMON NORMALS: no acute distress, average body habitus, patient oriented x3 and alert GENERAL APPEARANCE: cooperative ORIENTATION/CONSCIOUSNESS: Yes awake HENMT: COMMON NORMALS: normocephalic and atraumatic HEAD & SCALP: normocephalic and atraumatic Eye: GENERAL EYE: appearance normal, both eyes and all related structures Chest: COMMONS NORMALS: normal inspection of the chest Resp: COMMON NORMALS: normal respiratory effort EFFORT & INSPECTION: Yes able to speak in complete sentences and Yes symmetric chest movement Extremity: RIGHT LOWER EXTREMITY: Yes foot & digits Right ankle: Yes inspection (Incision is benign and well-healed. [place] are intact. There is fracture blistering across the anterior aspect of the ankle.), Yes palpation (The ankle is tender to palpation.), Yes ROM (Limited secondary to fracture.) and Yes neurovascular exam (Intact.) Neuro: COMMON NORMALS: patient oriented x3 SENSORIUM/ORIENTATION: Yes alert Psych: COMMON NORMALS: mental status grossly normal APPEARANCE: Yes grossly normal ATTITUDE: Yes calm and Yes engaged ATTENTION/CONCENTRATION: Yes attention grossly intact Skin: COMMON NORMALS: no rashes or lesions noted GENERAL SKIN EXAM: no rashes or lesions noted Data : 08/08/20 04:50 08/08/20 04:50 A&P Assessment and plan (1) Closed trimalleolar fracture of right ankle: Incisions appear benign. There is no evidence of infection. To save the patient a visit to the office, we will plan for staple removal today with Steri-Strips. The patient is to remain nonweightbearing until she is seen and evaluated in the office. Plans are being made for her discharge to home if we are unable to place her in a intermediate facility. This is been difficult secondary to COVID concerns. The patient is working with physical therapy with a scooter, and she does appear safe with this mode of transportation. Status: Acute Qualifiers: Encounter type: initial encounter Qualified Code(s): S82.851A - Displaced trimalleolar fracture of right lower leg, initial encounter for closed fracture Attestations Medical Necessity Statement*: Patient has been participating in formal physical therapy to assess safety concerns. Coding Level of Care Code Acute Hot Baller for Zeke Low Diagnoses Closed trimalleolar fracture of right ankle S82.851A Encounter type: initial encounter
--- NOTE | 2020-08-11 14:28 | PC.NURSE ---
DRESSING CHANGE DR. BRANDON ROUNDED THIS AFTERNOON. SHE REQUESTED ANNA TO BE REMOVED ON SURGICAL INCISIONS AND STERI-STRIPS TO BE PLACED. FRANCISCO J ABBOTT REMOVED ANNA AND PLACED STERI-STRIPS. AN OPTIFOAM WAS PLACED ON TOP OF FOOT WHERE SURGICAL BOOT HAS RUBBED SKIN. SMALLER BOOT PLACED.
[2020-08-11] MEDS: calcium carbonate 500 mg Chew Tablet PO (15:06)
--- NOTE | 2020-08-11 15:23 | PC.OT ---
As agreed yesterday with pt, OT arrived at 8:30 am to decide what time she wants a shower and pt requested OT return at 1:30. At 1:30 pt states she is to tired and requests OT return at 3:00. At 3:00 pt declined treatment even after encouragement and education. Will attempt treatment again tomorrow. Co sign: CYNTHIA Varma/Chantelle
--- NOTE | 2020-08-11 17:32 | P.PN_ITS ---
Subjective Subjective: Interval history: remains admitted as awaiting SNF transfer. patient expresses frustration at still being in the hospital Medications: Reviewed: Yes Medication Review Details: Generic Name Dose Route Start Last Admin Trade Name Freq PRN Reason Stop Dose Admin Acetaminophen 1,000 mg 08/02/20 20:14 08/06/20 12:13 Tylenol PO 1,000 mg Q8H KIM Administration Hydrocodone Bitart /Acetaminophen 1 tab 07/31/20 16:56 08/05/20 20:50 [place] 5-325 Mg PO 1 tab Q4H PRN Administration MODERATE PAIN Albuterol/Ipratrop ium 3 ml 07/28/20 22:30 08/05/20 20:13 Duoneb INHALATION 3 ml Q4H.RESPIRATORY P RN Administration SHORTNESS OF JOHNNIE TH Atorvastatin Calci um 40 mg 07/28/20 09:00 08/06/20 08:24 Lipitor PO 40 mg DAILY KIM Administration Bupropion HCl 300 mg 07/28/20 06:00 08/06/20 06:15 Wellbutrin Xl (2 4 Hr) PO 300 mg QAM KIM Administration Calcium Carbonate 500 mg 08/03/20 05:48 08/03/20 05:57 Tums PO 500 mg Q4H PRN Administration INDIGESTION Cyclobenzaprine HC l 10 mg 07/28/20 09:00 08/06/20 08:24 Flexeril PO 10 mg TID KIM Administration Dicyclomine HCl 20 mg 07/28/20 09:00 08/06/20 08:28 Bentyl PO 20 mg TID KIM Administration Docusate Sodium 100 mg 08/01/20 18:00 08/06/20 08:24 Colace PO 100 mg BID KIM Administration Duloxetine HCl 60 mg 07/28/20 09:00 08/06/20 08:24 Cymbalta PO 60 mg BID KIM Administration Enoxaparin Sodium 40 mg 08/04/20 08:45 08/06/20 08:26 Lovenox SUBCUT 40 mg Q24H KIM Administration Furosemide 20 mg 08/04/20 08:00 08/06/20 08:24 Lasix PO 20 mg DAILY@0800 KIM Administration Hydromorphone HCl 0.5 mg 07/29/20 03:51 08/05/20 01:29 Dilaudid Inj IVP 0.5 mg Q4H PRN Administration severe pain Magnesium Hydroxid e 30 ml 08/01/20 10:29 08/03/20 21:10 Milk Of Magnesia PO 30 ml Q8H PRN Administration CONSTIPATION Ondansetron HCl 4 mg 07/28/20 01:00 08/03/20 21:03 Zofran IVP 4 mg Q6H PRN Administration NAUSEA AND VOMITI NG Oxycodone HCl 5 mg 07/30/20 12:53 08/06/20 08:49 Oxycodone Ir PO 5 mg Q4H PRN Administration MODERATE PAIN Pantoprazole Sodiu m 40 mg 07/28/20 09:00 08/06/20 08:24 Protonix PO 40 mg DAILY KIM Administration Vitals/I&O/Wt Last Vital Signs Temp 98.3 F 08/11/20 15:12 Pulse 89 08/11/20 15:12 Resp 18 08/11/20 15:12 BP 109/67 08/11/20 15:12 Pulse Ox 95 08/11/20 15:12 08/11/20 08/11/20 08/11/20 06:59 14:59 22:59 Intake Total 360 / 1080 580 / 580 Output Total 825 / 925 Balance -465 / 155 580 / 580 Physical Exam Narrative: EXAM NARRATIVE: GEN: Awake, alert and oriented, no acute distress CVS: S1S2 N RS: CTA B/L Abd: Soft, nt/nd , bs+ ENVIRONMENTAL COMPLIANCE INSPECTOR: no focal neuro deficits Data : 08/08/20 04:50 08/08/20 04:50 A&P Assessment and plan (1) Trimalleolar fracture of ankle, closed: Status: Acute (2) Ankle fracture: Status: Acute Qualifiers: Encounter type: subsequent encounter Fracture healing: with routine healing Fracture type: closed Laterality: right Qualified Code(s): S82.891D - Other fracture of right lower leg, subsequent encounter for closed fracture with routine healing (3) Intractable pain: Status: Acute (4) Hypertension: Status: Acute (5) Hypoxia: Status: Acute (6) COPD (chronic obstructive pulmonary disease): Status: Acute Additional A&P Information # Right ankle fracture after mechanical fall, Successfully underwent open reduction and internal fixation by Dr. Cristobal. Pending placement to acute rehab facility. However this is been extremely challenging given covert concerns and inability to be accepted at any facility till now. Patient does understandably very upset and frustrated at this course of events. We will get a repeat orthopedic assessment today. Patient appears to be stable with a scooter and is working with physical therapy. States that she would wish to return home with a scooter and wheelchair to be able to ambulate. He will hire extra help to be with her at home in order to arrange for meals and help her within the house. # hypoxic respiratory failure, now improved Several possible etiologies include COPD exacerbation given emphysematous changes seen on chest x-ray Duo nebs every 4 hour respiratory inhalation. Was on methylprednisolone 30 mg IV every 8, discontinued subsequenlty. Treated for pneumonia additionally, no current active signs of infection CTA chest negative for PE. COVID PCR negative Respiratory status now stable, she has been able to be weaned off of oxygen s uccessfully. Recommend PFTs as outpatient # 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 Continue home medications for the same DVT prophylaxis : Lovenox Disposition: Patient stable for discharge, however has been unable to be placed at the SNF till date. We are now considering discharge home with appropriate mobility and safety devices such as a scooter. Full code Attestations Medical Necessity Statement*: Pending disposition Coding Level of Care Code Acute Instrumentation Manager for marta Low Diagnoses Trimalleolar fracture of ankle, closed S82.853A Ankle fracture S82.891D Encounter type: subsequent encounter Fracture healing: with routine healing Fracture type: closed Laterality: right Intractable pain R52 Hypertension I10 Hypoxia R09.02 COPD (chronic obstructive pulmonary disease) J44.9
[2020-08-12 00:26] VITALS: BP 101/63; PULSE 86; RESP 12; TEMP 36.9; O2SAT 92
[2020-08-12 04:11] VITALS: BP 105/62; PULSE 82; RESP 12; TEMP 36.9; O2SAT 92
[2020-08-12] MEDS: HYDROcodone-acetaminophen 5-325 mg Tablet PO (06:10)
[2020-08-12] MEDS: buPROPion XL (24 HR) 300 mg Tablet PO (06:10)
[2020-08-12 07:37] VITALS: BP 119/65; PULSE 84; RESP 18; TEMP 36.5; O2SAT 92
[2020-08-12] MEDS: dicyclomine 20 mg Tablet PO (08:14)
[2020-08-12] MEDS: duloxetine 60 mg Capsule PO (08:14)
[2020-08-12] MEDS: atorvastatin 40 mg Tablet PO (08:14)
[2020-08-12] MEDS: pantoprazole DR 40 mg Tablet PO (08:14)
[2020-08-12] MEDS: FUROsemide 20 mg Tablet PO (08:14)
[2020-08-12] MEDS: enoxaparin 40 mg/0.4 mL Syringe SUBCUT (08:14)
[2020-08-12] MEDS: docusate sodium 100 mg Capsule PO (08:14)
[2020-08-12] MEDS: cyclobenzaprine 10 mg Tablet PO (08:14)
[2020-08-12] MEDS: calcium carbonate 500 mg Chew Tablet PO (10:32)
[2020-08-12 11:45] VITALS: BP 127/68; PULSE 79; RESP 18; TEMP 36.9; O2SAT 90
--- NOTE | 2020-08-12 11:48 | DCPLANNER ---
Pg 2 of IM updated and reviewed with pt. No questions, she is delighted to be leaving today. Copy provided.
[2020-08-12 13:46] VITALS: BP 127/68; PULSE 79; RESP 18; TEMP 36.9; O2SAT 90
--- NOTE | 2020-08-13 19:40 | PM.DCS ---
Discharge Providers Date of Admission: 07/28/20 22:30 Date of Discharge: August 13, 2020 Attending Provider at Admission: Olinda Gerardo MD Attending Provider at Discharge: Brittany Duron MD Primary Care Provider: Mamadou Arevalo MD Diagnoses at Discharge Discharge Diagnosis (1) Trimalleolar fracture of ankle, closed: Status: Acute (2) Ankle fracture: Status: Acute Qualifiers: Encounter type: subsequent encounter Fracture healing: with routine healing Fracture type: closed Laterality: right Qualified Code(s): S82.891D - Other fracture of right lower leg, subsequent encounter for closed fracture with routine healing (3) Intractable pain: Status: Acute (4) Hypertension: Status: Acute (5) Hypoxia: Status: Acute (6) COPD (chronic obstructive pulmonary disease): Status: Acute Reason for Visit Reason for Visit: SEVERE PAIN, ANKLE FX Hospital Course Discharge Summary: Julia Arzola is a 65 year old female who presented with intractable pain poorly controlled with opiates after sustaining a mechanical fall resulting in ankle fracture. # Right ankle fracture after mechanical fall Successfully underwent open reduction and internal fixation by Dr. Cristobal. Was being planned to discharge to SNF, however this was extremely challenging given covis concerns and inability to be accepted at any facility till now. She recived PT/OT during her admission course. She eventually elected to return home. Patient appears to be stable with a scooter and is working with physical therapy. States that she would wish to return home with a scooter and wheelchair to be able to ambulate. SHe will hire extra help to be with her at home in order to arrange for meals and help her within the house. # hypoxic respiratory failure, now improved Several possible etiologies include COPD exacerbation given emphysematous changes seen on chest x-ray Duo nebs every 4 hour respiratory inhalation. Was on methylprednisolone 30 mg IV every 8, discontinued subsequenlty. Treated for pneumonia additionally, no current active signs of infection CTA chest negative for PE. COVID PCR negative Respiratory status now stable, she has been able to be weaned off of oxygen successfully. Recommend PFTs as outpatient # 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 Continue home medications for the same Physical Exam Narrative: EXAM NARRATIVE: GEN: Awake, alert and oriented, no acute distress CVS: S1S2 N RS: CTA B/L Abd: Soft, nt/nd , bs+ [employer]: no focal neuro deficits Discharge Data Data Completed and Pending: Completed Studies During Hospitalization Category Date Time Status CT angio chest PE protcl [id number] Stat Cat Scan 07/29/20 13:12 Completed XR ankle RT 1V 73 [id number] Routine Exams 08/02/20 Completed XR ankle RT min 3 V* [id number] Stat Exams 07/27/20 19:21 Completed XR chest 1V hernán ble [id number] Routine Exams 07/29/20 12:20 Completed XR chest 1V hernán ble [id number] Stat Exams 07/27/20 21:12 Completed CV echo complete* [id number] Routine Ultrasound 07/29/20 15:30 [place] [id number] Routin e Ultrasound 08/04/20 11:46 Completed Vitals: Last Vital Signs Temp 98.5 F 08/12/20 13:46 Pulse 79 08/12/20 13:46 Resp 18 08/12/20 13:46 BP 127/68 08/12/20 13:46 Pulse Ox 90 08/12/20 13:46 Discharge Plan Discharge Patient Disposition: Home Health Service Condition: Stable Prescriptions: New Milk of Magnesia 400 mg/5 mL Suspension 30 ml PO Q8H PRN (Reason: Constipation) 30 Days Qty: 30 RF: 0 calcium carbonate 200 mg calcium (500 mg) Tablet,Chewable 500 mg PO Q4H PRN (Reason: Indigestion) Qty: 0 RF: 0 docusate sodium 100 mg Capsule 100 mg PO BID Qty: 0 RF: 0 Advair Diskus 250-50 mcg/dose blister with device 1 inh INHALATION BID 30 Days Qty: 60 RF: 0 Continued gabapentin 300 mg capsule 300 mg PO TID RF: 0 dicyclomine 20 mg tablet 20 mg PO TID RF: 0 duloxetine 60 mg capsule,delayed release(DR/EC) 60 mg PO BID RF: 0 nitroglycerin 0.4 mg tablet, sublingual 0.4 mg SUBLINGUAL Q5M PRN (Reason: CHEST PAINS) RF: 0 cyclobenzaprine 10 mg tablet 10 mg PO TID RF: 0 lansoprazole 30 mg capsule,delayed release(DR/EC) 30 mg PO DAILY RF: 0 bupropion HCl 300 mg tablet extended release 24 hr 300 mg PO QAM RF: 0 atorvastatin [Lipitor] 40 mg tablet 40 mg PO DAILY RF: 0 (DME) WHEEL CHAIR WITH LEG ELEVATORS See Rx Instructions .Route .MEDSUPPLY Qty: 1 RF: 0 hydrocodone-acetaminophen [[place]] 5-325 mg tablet 1 tab PO Q6H PRN (Reason: pain) Qty: 14 RF: 0 ondansetron 4 mg tablet,disintegrating 4 mg PO Q6H PRN (Reason: nausea and vomiting) Qty: 14 RF: 0 Discontinued lisinopril 10 mg tablet 10 mg PO DAILY RF: 0 naproxen sodium [Aleve] 220 mg tablet 220 mg PO BID PRN (Reason: Pain) RF: 0 Discharge Orders: Discharge Order (Routine); Ordered 08/12/20 Ordered By: Bere Cristobal Other Ambulatory Orders: DME: Miscellaneous (Order) Location: None Selected Ordered By: Brittany Duron Referrals: [facility] [place] [Outside] [facility] [place] Home Care ([facility]) [Outside] Mamadou Arevalo MD [Primary Care Provider] - (Please call Dr Arevalo's office at [phone] to set up an appointment to be see within one week.) Bere Cristobal MD [Physician] - 08/18/20 11:30 am Discharge Diet: Usual diet Discharge Activity: Limit activity as instructed, Use walker/crutches as instructed, As per PT/OT instructions and Oxygen as instructed Activity Restrictions/Additional Instructions: Elevate right lower extremity. Non-weight bearing right lower extremity. Change dressing prn. Wear boot at all times. Discharge Date/Time: 08/12/20 13:10 Discharge Attestations Time Spent in Discharge Care*: greater than 30 min Specific Discharge Activities: Specific discharge activities: educating patient, discussing with correctional case manager/social workers/dc planners and documenting/other paperwork Quality Metrics Clinical Quality Measures During this hospital stay, did patient experience: None Coding Level of Care Code Acute Or Director for [facility] Fwd Diagnoses Trimalleolar fracture of ankle, closed S82.853A Ankle fracture S82.893L Encounter type: subsequent encounter Fracture healing: with routine healing Fracture type: closed Laterality: right Intractable pain R52 Hypertension I10 Hypoxia R09.02 COPD (chronic obstructive pulmonary disease) J44.9
== END 2020-08-12 13:10 | disposition home health service (06) | DRG 492 ==
LOC: ER 21:50 → MEDSURG 23:02
PROVIDERS: Anesthesiology; Internal Medicine; Specialist; Admitting Provider Internal Medicine; PCP Family Medicine; Visit Provider Student in an Organized Health Care Education/Training Program
PROC: 0SSF04Z Reposition Right Ankle Joint with Internal Fixation Device, Open Approach (ICD-10-PCS; principal; 2020-08-02 15:05)
DX: S82.851A Displaced trimalleolar fracture of right lower leg, initial encounter for closed fracture (principal); J96.01 Acute respiratory failure with hypoxia; J18.9 Pneumonia, unspecified organism; I50.30 Unspecified diastolic (congestive) heart failure; I13.0 Hypertensive heart and chronic kidney disease with heart failure and stage 1 through stage 4 chronic kidney disease, or unspecified chronic kidney disease; F32.2 Major depressive disorder, single episode, severe without psychotic features; J44.0 Chronic obstructive pulmonary disease with (acute) lower respiratory infection; J44.1 Chronic obstructive pulmonary disease with (acute) exacerbation; R00.0 Tachycardia, unspecified; W19.XXXA Unspecified fall, initial encounter; N18.9 Chronic kidney disease, unspecified; Y92.007 Garden or yard of unspecified non-institutional (private) residence as the place of occurrence of the external cause; M79.7 Fibromyalgia; G89.29 Other chronic pain; M54.9 Dorsalgia, unspecified; M54.2 Cervicalgia; M35.3 Polymyalgia rheumatica; F17.210 Nicotine dependence, cigarettes, uncomplicated; Z20.828 Contact with and (suspected) exposure to other viral communicable diseases
CPT/HCPCS: 12345; 36415; 36416; 36600; 71045; 71275; 73600; 73610; 76000; 80048; 80051; 80053; 80069; 81001; 81003; 82810; 82962; 83735; 83880; 83986; 84484; 85007; 85025; 85049; 85378; 85384; 85610; 85730; 86403; 86618; 86666; 86757; 87040; 87086; 87449; 87635; 93005; 93306; 93971; 94640; 96372; 96374; 96375; 97110; 97116; 97161; 97164; 97165; 97530; 97535; 99283; C1713; G0378; J0131; J0330; J0696; J1100; J1170; J1200; J1650; J1720; J1885; J1940; J2250; J2370; J2405; J2704; J2710; J2795; J2920; J3010; J3370; J3490; J7030; J7050; Q0144; Q9967

== ENCOUNTER → 2020-08-18 11:23 | Outpatient (BNVA) | payer BC, MEDICARE, SELFPAY | PROVIDERS: PCP Family Medicine; Visit Provider Specialist | DX: S82.851A Displaced trimalleolar fracture of right lower leg, initial encounter for closed fracture (principal); X58.XXXA Exposure to other specified factors, initial encounter; Z98.890 Other specified postprocedural states | CPT/HCPCS: 73610 ==

== ENCOUNTER → 2020-09-12 14:09 | Outpatient (BNVA) | payer BC, MEDICARE, SELFPAY | PROVIDERS: PCP Family Medicine; Visit Provider Specialist | DX: S82.851A Displaced trimalleolar fracture of right lower leg, initial encounter for closed fracture (principal); X58.XXXA Exposure to other specified factors, initial encounter; M76.61 Achilles tendinitis, right leg | CPT/HCPCS: 73610 ==

== ENCOUNTER 2020-09-24 18:58 | Emergency (ER) | payer BC, MEDICARE, SELFPAY ==
[2020-09-24 19:13] VITALS: BP 138/86; PULSE 115; RESP 18; TEMP 37; O2SAT 97; BMI 21.8
--- NOTE | 2020-09-24 19:31 | XRR_ITS ---
PROCEDURE INFORMATION: Exam: XR Right Foot Complete Exam date and time: 09/24/2020 8:32 PM Age: 65 years old Clinical indication: Injury or trauma; Fall; Blunt trauma; Foot; Right; Injury details: Int fix ankle FX 8 weeks ago; Prior surgery; Surgery date: 1-6 months; Additional info: 8 weeks post op triaml FX, fell on it tonight TECHNIQUE: Imaging protocol: XR Right foot. Views: 3 or more views. COMPARISON: CR (LOW EXM, ) 09/12/2020 2:15 PM FINDINGS: Bones/joints: Stable trimalleolar fracture of the right ankle with compression plate and screw fixation of the distal fibula fracture as well as screw arthrodesis of the distal tibia fractures. Satisfactory anatomic alignment and apposition for healing. Ankle mortise intact. Osteopenia/osteoporosis. Soft tissues: Unremarkable. XR/XR foot RT min 3V* [id number] IMPRESSION: Stable trimalleolar fracture right ankle status post ORIF.
[2020-09-24] MEDS: HYDROcodone-acetaminophen 5-325 mg Tablet 1 TAB PO (19:42)
--- NOTE | 2020-09-24 20:29 | XRR_ITS ---
PROCEDURE INFORMATION: Exam: XR Right Ankle Exam date and time: 09/24/2020 8:32 PM Age: 65 years old Clinical indication: Injury or trauma; Fall; Blunt trauma; Right; Prior surgery; Surgery date: 1-6 months; Surgery type: Int fix ankle FX 8 weeks ago; Additional info: Pain TECHNIQUE: Imaging protocol: XR Right ankle. Views: 3 or more views. COMPARISON: CR (LOW EXM, ) 09/12/2020 2:15 PM FINDINGS: Bones/joints: Stable trimalleolar fracture of the right ankle with compression plate and screw fixation of the distal fibula fracture as well as screw arthrodesis of the distal tibia fractures. Satisfactory anatomic alignment and apposition for healing. Ankle mortise intact. Osteopenia/osteoporosis. Soft tissues: Unremarkable. XR/XR ankle RT min 3V* [id number] IMPRESSION: Stable trimalleolar fracture right ankle status post ORIF.
--- NOTE | 2020-09-24 20:30 | ED_ITS ---
HPI - Extremity Problem General: Chief complaint: Extremity Injury, Lower Stated complaint: R ANKLE INJURY, COVID+/IN COVID TRIAGE Time Seen by Provider: 09/24/20 19:02 History of Present Illness: HPI Narrative: This patient is a 65-year-old female who comes in today with right foot and ankle pain. About 8 weeks ago she had a trimalleolar fracture and had surgery with Dr. Sykes. She has been having issues with pain since then. She said the boot causes her pain so she was not wearing it today. She was outside on her scooter and fell. She said she stepped right down on the right foot and now is having severe pain along the lateral aspect of the foot and around the Achilles area. She said she does not have any pain medicine at home. She took 2 Tylenol but said they do not help her because she has had a history of cancer and has taken a lot of pain medicine in the past. She also has been diagnosed with Covid. She had a procedure scheduled this week and had a Covid test done on Saturday simply as a preop precaution. On Saturday she found out that she was positive. Also on Saturday she started having some cough and shortness of breath. She has not really had a fever. Her was also sick before that she thinks she probably got it from him. Complaint: extremity pain Onset (ago): hour(s) (2) Pain Consistency: constant Location: right and lower extremity Severity scale (1-10): >10 Quality: aching and sharp Relieving factors: nothing Exacerbating factors: range of motion, weight bearing and palpation Associated symptoms: Reports myalgias (Cough fatigue); Deny chest pain, fever(s) or rash Context: recent surgery/procedure and other (Positive Covid test on Saturday) Review of Systems General: Reports: 10 or more systems reviewed and unremarkable except in HPI and below Const: Reports: fatigue and malaise; Denies: fever(s) or chills Eyes: Denies: change in vision ENMT: Denies: odynophagia Card: Denies: chest pain or swelling of feet/ankles Resp: Reports: dyspnea and non-productive cough; Denies: productive cough GI: Denies: abdominal pain, nausea or vomiting : Denies: flank pain or difficulty voiding Musc: Reports: extremity pain and limited range of motion; Denies: neck pain or back pain Skin/Breast: Denies: rash Neuro: Denies: headache(s), numbness in extremities or weakness in extremities Lorenzo/Lymph: Denies: easy bruising or easy bleeding PFSH ED PFSH: Medical History (Updated 09/26/20 @ 13:23 by JESUS Mendoza) Arnold-Chiari malformation, type I Breast mass in female Burkitts lymphoma Cervical disc disease Chronic back pain Chronic neck pain Depression Fibromyalgia Hypercholesteremia Hypertension IBS (irritable bowel syndrome) Migraine aura without headache Other spondylosis with radiculopathy, cervical region Polymyalgia rheumatica Vitamin D deficiency Surgical History H/O: hysterectomy Hx of colonoscopy Hx of tonsillectomy Family History Family/Other Hypertension CAD (coronary artery disease) Cancer Social History Smoking and tobacco status: current every day smoker cigarettes Packs smoked per day: 1 Second hand smoke exposure: No Alcohol intake: never Desire information about alcohol rehabilitation?: No Desire information about substance/drug rehabilitation?: No Lives independently: Yes Housing: House History of recent travel: No Current gender identity: Female Physical Exam Const: COMMON NORMALS: patient oriented x3, no limitations and alert GENERAL APPEARANCE: cooperative and comfortable HENMT: HEAD & SCALP: normal to inspection FACE & SINUS: normal facial exam Eye: GENERAL EYE: appearance normal, both eyes and all related structures Neck/C-Spine: COMMON NORMALS: supple, no meningeal signs and no JVD Chest: COMMONS NORMALS: normal inspection of the chest Resp: COMMON NORMALS: normal respiratory effort, No use of accessory muscles and clear to auscultation bilaterally AUSCULTATION: clear to auscultation bilaterally Cardio: COMMON NORMALS: no JVD, regular rate, regular rhythm and No murmurs present (Cardio) RATE: regular rate RHYTHM: regular rhythm GI: COMMON NORMALS: Normal to inspection, nondistended, normoactive bowel sounds present, Soft to palpation and non-tender INSPECTION: Yes normal to inspection AUSCULTATION: Yes normoactive bowel sounds PALPATION: Yes Soft to palpation Back/Pelvis: COMMON NORMALS: thoracic and lumbar spine normal to inspection Extremity: GENERAL: Yes normal exam except as noted RIGHT LOWER EXTREMITY: Yes foot & digits and Yes foot & digits (Limited range of motion, healing surgical incisions. ) Right foot and digits: Yes other (Tender to palpation mainly over the lateral foot and around the Achilles te) Neuro: COMMON NORMALS: patient oriented x3, moves all extremities, no focal motor deficits and no sensory deficits noted SENSORIUM/ORIENTATION: Yes alert MENINGEAL SIGNS: Yes no meningeal signs Psych: COMMON NORMALS: mental status grossly normal, cooperative and normal affect Skin: COMMON NORMALS: no rashes or lesions noted and turgor normal GENERAL SKIN EXAM: no rashes or lesions noted and turgor normal Course ED course: This patient had a trimalleolar fracture and surgical repair nearly 2 months ago. She fell on it today without her boot on and had increased pain. X-rays did not show any new injuries or fractures. She also is Covid positive but seems to be doing pretty well from that standpoint. She did not require any oxygen or other interventions while here. Vital Signs: Vital signs: Vital Signs Temperature 98.6 F 09/24/20 19:13 Pulse Rate 78 09/24/20 21:49 Respiratory Rate 16 09/24/20 21:49 Blood Pressure 134/78 09/24/20 21:49 Pulse Oximetry 99 09/24/20 21:49 Discharge Plan Discharge Patient Disposition: Home Clinical Impression: Postoperative pain, COVID-19 Condition: Stable Prescriptions: New hydrocodone-acetaminophen 5-325 mg tablet 1 tab PO Q4H PRN (Reason: pain) Qty: 10 RF: 0 No Action gabapentin 300 mg capsule 300 mg PO TID RF: 0 dicyclomine 20 mg tablet 20 mg PO TID RF: 0 duloxetine 60 mg capsule,delayed release(DR/EC) 60 mg PO BID RF: 0 nitroglycerin 0.4 mg tablet, sublingual 0.4 mg SUBLINGUAL Q5M PRN (Reason: CHEST PAINS) RF: 0 cyclobenzaprine 10 mg tablet 10 mg PO TID RF: 0 lansoprazole 30 mg capsule,delayed release(DR/EC) 30 mg PO DAILY RF: 0 bupropion HCl 300 mg tablet extended release 24 hr 300 mg PO QAM RF: 0 atorvastatin [Lipitor] 40 mg tablet 40 mg PO DAILY RF: 0 (DME) WHEEL CHAIR WITH LEG ELEVATORS See Rx Instructions .Route .MEDSUPPLY Qty: 1 RF: 0 hydrocodone-acetaminophen [[place]] 5-325 mg tablet 1 tab PO Q6H PRN (Reason: pain) 10 Days Qty: 30 RF: 0 (DME) Walker with front wheels See Rx Instructions .Route .MEDSUPPLY Qty: 1 RF: 0 ondansetron 4 mg tablet,disintegrating 4 mg PO Q6H PRN (Reason: nausea and vomiting) Qty: 14 RF: 0 calcium carbonate 200 mg calcium (500 mg) Tablet,Chewable 500 mg PO Q4H PRN (Reason: Indigestion) Qty: 0 RF: 0 docusate sodium 100 mg Capsule 100 mg PO BID Qty: 0 RF: 0 Discharge Orders: Discharge Order (Routine); Ordered 09/24/20 Ordered By: Gricel Eng Referrals: Mamadou Arevalo MD [Primary Care Provider] - Bere Cristobal MD [Physician] - Discharge Diet: Usual diet Discharge Activity: Resume usual activity Patient Instructions: Viral Syndrome (ED), Arthralgia (ED) Activity Restrictions/Additional Instructions: Continue to restrict activity as directed. Do not bear weight on your foot unless instructed to do so by Dr. Cristobal. Follow-up with her if not improving. Use the prescribed pain medicine only as needed for severe pain. Coding Level of Care Code ED Extension Service Agent for [facility] Fwd Exam Comprehensive
[2020-09-24 20:52] VITALS: BP 132/78; PULSE 78; RESP 16; O2SAT 99
[2020-09-24 21:49] VITALS: BP 134/78; PULSE 78; RESP 16; O2SAT 99
== END 2020-09-24 21:50 | disposition home or self-care (01) ==
PROVIDERS: Emergency Provider Emergency Medicine; PCP Family Medicine
DX: G89.18 Other acute postprocedural pain (principal); U07.1 COVID-19; I10 Essential (primary) hypertension; F17.210 Nicotine dependence, cigarettes, uncomplicated
CPT/HCPCS: 12345; 73610; 73630; 99281; 99283

== ENCOUNTER → 2020-10-05 10:21 | Outpatient (BNVA) | payer BC, MEDICARE, SELFPAY | PROVIDERS: PCP Family Medicine; Visit Provider Specialist | DX: S82.851A Displaced trimalleolar fracture of right lower leg, initial encounter for closed fracture (principal); Z98.890 Other specified postprocedural states; X58.XXXA Exposure to other specified factors, initial encounter | CPT/HCPCS: 73610 ==

== ENCOUNTER → 2020-10-20 15:37 | Outpatient (BNVA) | payer BC, MEDICARE, SELFPAY | PROVIDERS: PCP Nurse Practitioner; Referring Provider Nurse Practitioner; Visit Provider Nurse Practitioner Family | DX: R31.9 Hematuria, unspecified (principal) | CPT/HCPCS: 81003; 87086; 88112 ==

== ENCOUNTER → 2020-10-26 14:23 | Outpatient (BNVA) | payer BC, MEDICARE, SELFPAY | PROVIDERS: PCP Nurse Practitioner; Visit Provider Specialist | DX: S82.851A Displaced trimalleolar fracture of right lower leg, initial encounter for closed fracture (principal); S82.853A Displaced trimalleolar fracture of unspecified lower leg, initial encounter for closed fracture; X58.XXXA Exposure to other specified factors, initial encounter | CPT/HCPCS: 73610 ==

== ENCOUNTER 2020-11-01 14:37 | Emergency (ER) | payer BC, MEDICARE, SELFPAY ==
--- NOTE | 2020-11-01 14:42 | XRR_ITS ---
PROCEDURE INFORMATION: Exam: XR Chest, 1 View Exam date and time: 11/01/2020 3:14 PM Age: 65 years old Clinical indication: Condition or disease; Other: Covid; Cough and dyspnea; Prior surgery; Additional info: Dyspnea/cough TECHNIQUE: Imaging protocol: XR of the chest Views: 1 view. COMPARISON: CR XR chest 1V portable [id number] 07/29/2020 12:39 PM FINDINGS: Lungs: Mildly hyperaerated lungs consistent with deep inspiratory effort vs reactive airway disease vs mild COPD . Near complete resolution of bilateral pulmonary opacities with mild residual in the medial lung bases consistent with residual and/or recurrent mild bibasilar pneumonia. Pleural space: Unremarkable. No pleural effusion. No pneumothorax. Heart/Mediastinum: Unremarkable. No cardiomegaly. Bones/joints: Moderate thoracic spondylosis. XR/XR chest 1V portable [id number] IMPRESSION: 1. Mildly hyperaerated lungs consistent with deep inspiratory effort vs reactive airway disease vs mild COPD . 2. Near complete resolution of bilateral pulmonary opacities with mild residual in the medial lung bases consistent with residual and/or recurrent mild bibasilar pneumonia.
[2020-11-01 14:45] VITALS: BP 110/80; PULSE 104; RESP 16; TEMP 36.7; O2SAT 96; BMI 21.8
--- NOTE | 2020-11-01 14:51 | W.ED.GENADLT ---
HPI - General Adult General: Chief complaint: General Medical Stated complaint: WEAK/ SOB/ COVID + A MONTH AGO Time Seen by Provider: 11/01/20 14:37 History of Present Illness: HPI narrative: 65-year-old female presents emergency room with a complaint of generalized weakness and aching. She tells me she tested positive for Covid about a month ago she tested as part of the screening process before a pulmonary function test was in [place] she does not recall the date other than saying it was a month ago. Recently here she is complaining of shortness of breath and generally not feeling well being very weak. She had a ankle fracture on the right in July she has a wound that is healing on the lateral aspect of the right ankle. There is no sign of swelling erythema or drainage she has not had any falls or recent injuries. Onset (ago): hour(s) Severity: mild Quality: aching Pain Consistency: constant Relieving factors: none Exacerbating factors: none Associated symptoms: Reports decreased appetite, dyspnea, malaise, short of breath and weakness; Deny chest pain, confusion, cough, diaphoresis, fevers/chills, headache(s), nausea, rash, palpitations, seizures, syncope or vomiting Review of Systems Const: Reports: malaise; Denies: diaphoresis ENMT: Denies: throat pain, ear or mastoid pain, nasal discharge or nasal congestion Card: Denies: chest pain, palpitations or syncope Resp: Reports: dyspnea GI: Denies: nausea or vomiting : Denies: flank pain, difficulty voiding, dysuria, urinary frequency or urinary urgency Skin/Breast: Denies: rash Neuro: Denies: headache(s) or confusion [facility] ED PFSH: Medical History Arnold-Chiari malformation, type I Breast mass in female Burkitts lymphoma Cervical disc disease Chronic back pain Chronic neck pain Depression Fibromyalgia Gross hematuria Hypercholesteremia Hypertension IBS (irritable bowel syndrome) Migraine aura without headache Other spondylosis with radiculopathy, cervical region Polymyalgia rheumatica Vitamin D deficiency Surgical History H/O: hysterectomy Hx of colonoscopy Hx of tonsillectomy Family History Family/Other Hypertension CAD (coronary artery disease) Cancer Social History Smoking and tobacco status: current every day smoker cigarettes Packs smoked per day: 1 Second hand smoke exposure: No Alcohol intake: never Desire information about alcohol rehabilitation?: No Desire information about substance/drug rehabilitation?: No Lives independently: Yes Housing: House History of recent travel: No Current gender identity: Female Physical Exam Const: COMMON NORMALS: no acute distress GENERAL APPEARANCE: cooperative and comfortable ORIENTATION/CONSCIOUSNESS: Yes awake, Yes oriented to person, Yes oriented to place and Yes oriented to time HENMT: COMMON NORMALS: normocephalic, atraumatic and hearing grossly normal bilaterally HEAD & SCALP: normocephalic and atraumatic Neck/C-Spine: COMMON NORMALS: no JVD Resp: COMMON NORMALS: normal respiratory effort, No retractions, No use of accessory muscles and clear to auscultation bilaterally AUSCULTATION: clear to auscultation bilaterally Cardio: COMMON NORMALS: no JVD, regular rate, regular rhythm and No murmurs present (Cardio) RATE: regular rate RHYTHM: regular rhythm GI: COMMON NORMALS: Soft to palpation and No hepatosplenomegaly present AUSCULTATION: Yes normoactive bowel sounds PALPATION: Yes Soft to palpation, No Tenderness to palpation present (GI), No Guarding due to palpation present (GI) and Yes No hepatosplenomegaly present Extremity: COMMON NORMALS: normal to inspection, capillary refill normal, no clubbing, cyanosis or edema, no calf tenderness and no pedal edema Neuro: SENSORIUM/ORIENTATION: Yes oriented to person, Yes oriented to place and Yes oriented to time Skin: COMMON NORMALS: no rashes or lesions noted GENERAL SKIN EXAM: no rashes or lesions noted Course Vital Signs: Vital signs: Vital Signs Temperature 98.1 F 11/01/20 14:45 Pulse Rate 98 11/01/20 17:56 Respiratory Rate 20 H 11/01/20 17:56 Blood Pressure 138/72 11/01/20 17:56 Pulse Oximetry 92 11/01/20 17:56 MDM - General Adult MDM Narrative: Medical decision making narrative: Care turned over to Dr. Anderson at change of shift see his notes for final diagnosis and disposition. Lab Data: Labs: Lab Results 11/01/20 11/01/20 11/01/20 Range/Units 12:00 12:00 12:00 WBC 10.6 H (4.0-10.0) 10^3/ uL RBC 4.83 (4.1-5.3) 10^6/u L Hgb 11.6 (11.5-15.3) g/dL Hct 37.7 (37.0-47.0) % MCV 78.1 L (81-99) fL MCH 24.0 L (28.0-34.0) pg MCHC 30.8 (30.0-36.0) g/dL RDW 16.7 H (12.1-15.1) % Plt Count 553 H (130-400) 10^3/c mm MPV 9.5 (7.4-10.4) fL Neut % (Auto) 53.0 % Lymph % (Auto) 30.7 % Mcclain % (Auto) 9.3 % Eos % (Auto) 6.1 % Baso % (Auto) 0.3 % Neut # (Auto) 5.62 (1.8-7.7) 10^3/u L Lymph # (Auto) 3.2 (0.8-4.8) 10^3/u L Mcclain # (Auto) 1.0 H (0.2-0.9) 10^3/u L Eos # (Auto) 0.6 (0.0-0.8) 10^3/u L Baso # (Auto) 0.0 (0.0-0.1) 10^3/u L Nucleated RBC % (a uto) 0 % Nucleated RBCs # 0.0 /100WBC D-Dimer 0.90 H (0-0.59) ug/mIFE U Sodium 140 (136-145) mmol/L Potassium 4.2 (3.5-5.1) mmol/L Chloride 102 (98-107) mmol/L Carbon Dioxide 24 (22-29) mmol/L Anion Gap 18.2 (5-19) BUN 20 (8-23) mg/dL Creatinine 0.9 (0.5-0.9) mg/dL GFR Calculation 62.8 L (90-130) mL/min Glucose 95 (65-115) mg/dL Calculated Osmolal ity 292 (285-295) mOsm/k g Calcium 10.0 (8.5-10.5) mg/dL Total Bilirubin 0.2 (0.15-1.2) mg/dL AST 18 (0-32) U/L ALT 10 (0-33) U/L Alkaline Phosphata se 80 (35-105) IU/L Creatine Kinase 126 (26-192) U/L Total Protein 7.3 (6.6-8.7) g/dL Albumin 3.7 (3.5-5.2) g/dL Globulin 3.6 (1.3-4.6) g/dL Urine Color (Yellow) Urine Appearance (CLEAR) Urine pH (5-7) Ur Specific Gravit y (1.005-1.030) Urine Protein (Negative) Urine Glucose (UA) (Normal) Urine Ketones (Negative) Urine Blood (Negative) Urine Nitrate (Negative) Urine Bilirubin (Negative) Urine Urobilinogen (Negative) mg/dL Ur Leukocyte [place]our[place] ase (Negative) Urine RBC (0-2) /hpf Urine WBC (0-5) /hpf Ur Squamous Epith Cells (0-5) /hpf Amorphous Sediment Urine Bacteria (NONE) /hpf 11/01/ Range/Units 15:46 WBC (4.0-10.0) 10^3/ uL RBC (4.1-5.3) 10^6/u L Hgb (11.5-15.3) g/dL Hct (37.0-47.0) % MCV (81-99) fL MCH (28.0-34.0) pg MCHC (30.0-36.0) g/dL RDW (12.1-15.1) % Plt Count (130-400) 10^3/c mm MPV (7.4-10.4) fL Neut % (Auto) % Lymph % (Auto) % Mcclain % (Auto) % Eos % (Auto) % Baso % (Auto) % Neut # (Auto) (1.8-7.7) 10^3/u L Lymph # (Auto) (0.8-4.8) 10^3/u L Mcclain # (Auto) (0.2-0.9) 10^3/u L Eos # (Auto) (0.0-0.8) 10^3/u L Baso # (Auto) (0.0-0.1) 10^3/u L Nucleated RBC % (a uto) % Nucleated RBCs # /100WBC D-Dimer (0-0.59) ug/mIFE U Sodium (136-145) mmol/L Potassium (3.5-5.1) mmol/L Chloride (98-107) mmol/L Carbon Dioxide (22-29) mmol/L Anion Gap (5-19) BUN (8-23) mg/dL Creatinine (0.5-0.9) mg/dL GFR Calculation (90-130) mL/min Glucose (65-115) mg/dL Calculated Osmolal ity (285-295) mOsm/k g Calcium (8.5-10.5) mg/dL Total Bilirubin (0.15-1.2) mg/dL AST (0-32) U/L ALT (0-33) U/L Alkaline Phosphata se (35-105) IU/L Creatine Kinase (26-192) U/L Total Protein (6.6-8.7) g/dL Albumin (3.5-5.2) g/dL Globulin (1.3-4.6) g/dL Urine Color Brown (Yellow) Urine Appearance Hazy A (CLEAR) Urine pH 6.5 (5-7) Ur Specific Gravit y 1.015 (1.005-1.030) Urine Protein 2+ H (Negative) Urine Glucose (UA) Norm (Normal) Urine Ketones 1+ H (Negative) Urine Blood 3+ H (Negative) Urine Nitrate Negative (Negative) Urine Bilirubin 1+ H (Negative) Urine Urobilinogen 4+ H (Negative) mg/dL Ur Leukocyte [place]our[place] ase 1+ H (Negative) Urine RBC Too numerous to c nt H (0-2) /hpf Urine WBC 15-25 H (0-5) /hpf Ur Squamous Epith Cells 5-10 H (0-5) /hpf Amorphous Sediment Not Reportable Urine Bacteria 1+ H (NONE) /hpf Discharge Plan Discharge Prescriptions: No Action gabapentin 300 mg capsule 300 mg PO TID@1030,1500,2200 RF: 0 dicyclomine 20 mg tablet 20 mg PO TID RF: 0 duloxetine 60 mg capsule,delayed release(DR/EC) 60 mg PO BID@1030,2200 RF: 0 nitroglycerin 0.4 mg tablet, sublingual 0.4 mg SUBLINGUAL Q5M PRN (Reason: CHEST PAINS) RF: 0 cyclobenzaprine 10 mg tablet 10 mg PO TID@1030,1200,2200 RF: 0 lansoprazole 30 mg capsule,delayed release(DR/EC) 30 mg PO DAILY@1030 RF: 0 bupropion HCl 300 mg tablet extended release 24 hr 300 mg PO DAILY@1030 RF: 0 (DME) WHEEL CHAIR WITH LEG ELEVATORS See Rx Instructions .Route .MEDSUPPLY Qty: 1 RF: 0 (DME) Walker with front wheels See Rx Instructions .Route .MEDSUPPLY Qty: 1 RF: 0 ondansetron 4 mg tablet,disintegrating 4 mg PO Q6H PRN (Reason: nausea and vomiting) Qty: 14 RF: 0 Macrobid 100 mg capsule 100 mg PO BID@1030,2200 RF: 0 calcium carbonate 200 mg calcium (500 mg) Tablet,Chewable 500 mg PO Q4H PRN (Reason: Indigestion) Qty: 0 RF: 0 Coding Level of Care Code ED Ironer Hand for Chg Fwd Exam Comprehensive
[2020-11-01 17:11] LABS: Basophils % 0.3 %; Eosinophils # 0.6 10^3/uL (0.0-0.8); Eosinophils % 6.1 %; Hematocrit 37.7 % (37.0-47.0); Hemoglobin 11.6 g/dL (11.5-15.3); Lymphocytes # 3.2 10^3/uL (0.8-4.8); Lymphocytes % 30.7 %; Mean Corpuscular HGB Conc 30.8 g/dL (30.0-36.0); Mean Corpuscular Volume 78.1 fL (81-99); Mean Platelet Volume 9.5 fL (7.4-10.4); Monocytes % 9.3 %; Neutrophils # 5.62 10^3/uL (1.8-7.7); Nucleated Red Blood Cells % 0 %; Platelet Count 553 10^3/cmm (130-400); Red Blood Count 4.83 10^6/uL (4.1-5.3); Red Cell Distribution Width 16.7 % (12.1-15.1); White Blood Count 10.6 10^3/uL (4.0-10.0)
[2020-11-01 17:38] LABS: Alanine Aminotransferase 10 U/L (0-33); Albumin Level 3.7 g/dL (3.5-5.2); Alkaline Phosphatase 80 IU/L (35-105); Anion Gap 18.2 (5-19); Aspartate Amino Transferase 18 U/L (0-32); Blood Urea Nitrogen 20 mg/dL (8-23); Carbon Dioxide 24 mmol/L (22-29); Chloride 102 mmol/L (98-107); Creatine Phosphokinase 126 U/L (26-192); Creatinine Clr Calc Pharmacy 48.1942; Globulin 3.6 g/dL (1.3-4.6); Glomerular Filtration Rate 62.8 mL/min (90-130); Glucose 95 mg/dL (65-115); Osmolality Calculated 292 mOsm/kg (285-295); Potassium 4.2 mmol/L (3.5-5.1); Sodium 140 mmol/L (136-145); Total Bilirubin 0.2 mg/dL (0.15-1.2); Total Protein 7.3 g/dL (6.6-8.7)
[2020-11-01 17:56] VITALS: BP 138/72; PULSE 98; RESP 20; O2SAT 92
--- NOTE | 2020-11-01 18:00 | CTR_ITS ---
PROCEDURE INFORMATION: Exam: CT Angiography Chest With Contrast Exam date and time: 11/01/2020 6:09 PM Age: 65 years old Clinical indication: Abnormal findings; Abnormal diagnostic tests; Elevated d-dimer; Shortness of breath; Additional info: Dyspnea /elevated d dimer TECHNIQUE: Imaging protocol: Computed tomographic angiography of the chest with intravenous contrast. 3D rendering (Not supervised by radiologist): MIP and/or 3D reconstructed images were created by the technologist. Radiation optimization: All CT scans at this facility use at least one of these dose optimization techniques: automated exposure control; mA and/or kV adjustment per patient size (includes targeted exams where dose is matched to clinical indication); or iterative reconstruction. Contrast material: VISI 320; Contrast volume: 82 ml; Contrast route: INTRAVENOUS (IV); COMPARISON: CT angio chest PE protcl [id number] 07/29/2020 2:38 PM RADIATION DOSE METRICS: Total DLP (mGy-cm): 481.12 FINDINGS: Pulmonary arteries: No pulmonary embolus or aortic dissection. Aorta: Unremarkable. No aortic aneurysm. No aortic dissection. Great vessels off aortic arch: Calcification of the thoracic aorta and/or great vessels consistent with atherosclerotic vessel disease. Lungs: Moderate centrilobular emphysema. Mild bibasilar atelectasis and/or pneumonia and/or scarring with near complete resolution of previously noted significant bilateral pulmonary opacities. Pleural space: Unremarkable. No pneumothorax. No pleural effusion. Heart: Significant interval decrease in heart size suggesting possible [place]'s disease versus other abnormality. Possible hypertrophic left ventricular hypertrophy. Correlation with nonemergent echocardiogram may be helpful. Interval appearance of small anterior pericardial fluid collection. Severe calcified coronary artery disease. Lymph nodes: Continued borderline to mild right hilar adenopathy which may be reactive. Liver: Stable low attenuation focus in the liver measuring < 5mm which is too small to characterize. Bones/joints: Unremarkable. No acute fracture. Soft tissues: Unremarkable. CT/CT angio chest PE protcl [id number] IMPRESSION: 1. Moderate centrilobular emphysema. 2. Mild bibasilar atelectasis and/or pneumonia and/or scarring with near complete resolution of previously noted significant bilateral pulmonary opacities. 3. Significant interval decrease in heart size suggesting possible [place]'s disease versus other abnormality. 4. Possible hypertrophic left ventricular hypertrophy. Correlation with nonemergent echocardiogram may be helpful. 5. Interval appearance of small anterior pericardial fluid collection. 6. Severe calcified coronary artery disease. 7. No pulmonary embolus or aortic dissection. Radiation Dose CTDIVOL = (mGy): DLP = 481.12 (mGy-cm)
[2020-11-01 18:29] LABS: Blood Urine 3+ (Negative); Glucose Urine UA Norm (Normal); Ketones Urine 1+ (Negative); Protein Urine 2+ (Negative); Specific Gravity, Urine 1.015 (1.005-1.030); Urine Appearance Hazy (CLEAR); Urine Color Brown (Yellow); pH Urine 6.5 (5-7)
[2020-11-01] MEDS: diphenhydrAMINE 50 mg/mL SDV 1mL IVP (18:29)
[2020-11-01] MEDS: hydrocortisone 100 mg/2 mL SDV IVP (18:29)
[2020-11-01 18:30] LABS: Add Urine Culture? Yes; Add Urine Microscopic? YES; Bacteria Urine 1+ /hpf; Bilirubin Urine 1+ (Negative); Leukocyte Esterase Urine 1+ (Negative); Nitrate Urine Negative (Negative); RBC Urine TOO NUMEROUS TO CNT /hpf (0-2); Urobilinogen Urine 4+ mg/dL (Negative); WBC Urine 15-25 /hpf (0-5)
[2020-11-01] MEDS: iodixanol 320 mg/mL 100mL Btl IV (19:11)
[2020-11-01 21:09] VITALS: BP 134/79; PULSE 87; RESP 18; O2SAT 99
== END 2020-11-01 21:11 | disposition home or self-care (01) ==
PROVIDERS: Family Medicine; Emergency Provider Emergency Medicine; PCP Nurse Practitioner
DX: R53.1 Weakness (principal); I10 Essential (primary) hypertension; F17.210 Nicotine dependence, cigarettes, uncomplicated
CPT/HCPCS: 12345; 71045; 71275; 80053; 81001; 82550; 85025; 85378; 87086; 96374; 96375; 99282; 99283; J1200; J1720; Q9967

== ENCOUNTER 2020-11-08 10:18 | Outpatient (CLI) | payer BC, MEDICARE, SELFPAY ==
--- NOTE | 2020-11-08 10:28 | CT_ITS ---
WS: [id number] CT ABDOMEN PELVIS TECHNIQUE: Noncontrast CT of the abdomen and pelvis with coronal and sagittal reformatted images. CLINICAL INFORMATION: GROSS HEMATURIA COMPARISON: CT 10 ,019 DLP: 463.[address] scans at [facility] use at least one of these dose optimization techniques: automat ed exposure control; mA and/or kV adjustment per patient size (includes targeted exams where dose is matched to clinical indication); or iterative reconstruction. FINDINGS: Moderate esophageal hiatal hernia. Prior hysterectomy. Right ventral abdominal wall mesh hernia repai r is unchanged. Noncontrast liver is normal. 6 mm low-attenuation lesion in dome of the liver likely hepatic cyst. Gisselle ng bases are well aerated. Subsegmental atelectasis in the lingula and right middle lobe. Noncontrast spleen is normal. Noncontrast pancreas is normal. Adrenal glands are normal. Aortic calcification. M oderate constipation. No evidence of high-grade small or large bowel obstruction. Gallbladder is decompressed. Adrenal glands are normal. No hydronephrosis in either kidney. No obstru cting renal or ureteral calculi. No periaortic or retroperitoneal lymphadenopathy. No pelvic lymphade nopathy. No inguinal lymphadenopathy. Bladder is decompressed. Stable hemangioma L2 vertebral body. CT/CT kidney stone [id number] IMPRESSION: 1. No obstructing renal or ureteral calculi. No hydronephrosis. 2. Noncontrast kidneys are unremarkable. 3. Tiny low-attenuation lesion in the dome of the liver likely hepatic cyst me asuring 6 mm. 4. Moderate esophageal hiatal hernia. 5. Mild aortic calcification. 6. Prior right ventral abdominal wall mesh hernia repair.
== END 2020-11-08 10:19 | disposition home or self-care (01) ==
LOC: RAD 10:25
PROVIDERS: PCP Nurse Practitioner; Visit Provider Urology
DX: R31.0 Gross hematuria (principal); K44.9 Diaphragmatic hernia without obstruction or gangrene; I70.0 Atherosclerosis of aorta
CPT/HCPCS: 74176; 81003

== ENCOUNTER 2020-11-24 15:16 | Observation (INO) | payer BC, MEDICARE, SELFPAY ==
[2020-11-15 15:20] VITALS: BMI 21.2
[2020-11-15 16:25] LABS: Alanine Aminotransferase 7 U/L (0-33); Albumin Level 3.7 g/dL (3.5-5.2); Alkaline Phosphatase 82 IU/L (35-105); Anion Gap 14.9 (5-19); Aspartate Amino Transferase 17 U/L (0-32); Blood Urea Nitrogen 14 mg/dL (8-23); Carbon Dioxide 25 mmol/L (22-29); Chloride 103 mmol/L (98-107); Globulin 3.1 g/dL (1.3-4.6); Glomerular Filtration Rate 49.8 mL/min (90-130); Glucose 97 mg/dL (65-115); Osmolality Calculated 288 mOsm/kg (285-295); Potassium 3.9 mmol/L (3.5-5.1); Sodium 139 mmol/L (136-145); Total Bilirubin 0.2 mg/dL (0.15-1.2); Total Protein 6.8 g/dL (6.6-8.7)
[2020-11-24] VITALS (16 sets, daily range): BP systolic 99–199; BP diastolic 65–102; PULSE 65–96; RESP 12–24; TEMP 36.2–37.1; O2SAT 78–100
--- NOTE | 2020-11-24 10:39 | XR_ITS ---
WS: [id number] Chest 2 views, 11/24/2020 Clinical Data: diagnosed bladder cancer Comparison: Portable chest, 11/01/2020. Findings: No nodules, masses or effusions are seen. The heart is normal. The pulmonary vascularity is not increased. No pneumonia or pneumothorax is seen. The aortic arch and descending aorta show mild tortuosity XR/XR chest 2V* [id number] Impression: Atherosclerosis.
--- NOTE | 2020-11-24 10:39 | ECG_ITS ---
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 Teacher: TYRESE RENTERIAB: 1955 Requested By: Wilbert Mascorro Order Number: [id number] Arianna MD: HEATH ROSS Measurements Intervals [place] Rate: 91 P: 50 OH: 137 QRS: -27 QRSD: 119 T: 62 QT: 382 QTc: 470 Interpretive Statements SINUS RHYTHM LEFT VENTRICULAR HYPERTROPHY AND ST-T CHANGE [VOLTAGE CRITERIA PLUS ST/T ABNORMALITY] WARNING: DATA QUALITY MAY AFFECT INTERPRETATION Compared to ECG 07/28/2020 09:16:59 Left ventricular hypertrophy now present ST (T wave) deviation now present Sinus tachycardia no longer present T-wave abnormality no longer present Possible ischemia no longer present Electronically Signed On 11-24-2020 20:30:35 DURABLE MEDICAL EQUIPMENT TECHNICIAN by HEATH ROSS [email or web address] general [email or web address] lady [email or web address] mercy [id number]
--- NOTE | 2020-11-24 11:39 | W.PM.OPSUD ---
Surgery/Procedure H&P Update DATE OF PROCEDURE: November 24, 2020 DATE H&P PERFORMED: 11/15/20 H&P UPDATE INFORMATION: I have reviewed H&P completed within last 30 days, I have examined patient prior to procedure and No changes to prior documentation PREOP DIAGNOSIS: screening colonoscopy PLANNED PROCEDURE: Operation Date: 11/24/20 12:00 Proposed Procedures p Transurethral Resection Bladder Tumor 69465 c67.9(Not Applicable) - Wilbert Mascorro MD s Cystoscopy(Not Applicable) - Wilbert Mascorro MD s Colonoscopy 63215 Z12.11(Not Applicable) - Anselmo Tripp MD
--- NOTE | 2020-11-24 11:54 | ANES.PREANE2 ---
Pre-Anesthetic Assessment Pre-Anesthetic Assessment: Height/Weight: Height 1.5 m Weight 47.627 kg Temp Pulse Resp BP Pulse Ox 97.8 F 96 18 151/77 98 11/24/20 10:45 11/24/20 10:45 11/24/20 10:45 11/24/20 10:45 11/24/20 10:45 Preop Diagnosis: screening colonoscopy Proposed Procedure: Operation Date: 11/24/20 12:00 Proposed Procedures p Transurethral Resection Bladder Tumor 18019 c67.9(Not Applicable) - Wilbert Mascorro MD s Cystoscopy(Not Applicable) - Wilbert Mascorro MD s Colonoscopy 42118 Z12.11(Not Applicable) - Anselmo Tripp MD Was Beta Ian taken within 24 hours: N/A Last intake: Intake Last Liquid Date 11/23/20 Last Liquid Time 23:00 Last Solid Date 11/22/20 Last Solid Time 18:00 Social: Social History: Tobacco and No alcohol Exam: Pre-Anes Outpt Exam: alert, oriented x 3 and regular rate & rhythm Airway: Submandibular: WNL Cervical ROM: WNL MP: 2 Dentition: False Pulmonary: Pulmonary: COPD CV/HEM: CV/HEM: Angina (Stable) and CAD Comments: Stents GI: GI: GERD Neuropsych: Neuropsych: Depression Anesthetic Plan: ASA status: 3 Anesthesia: General Risk of > 500 ml blood loss (7ml/kg in children): No PFSH Anesthesia PFSH: Medical History (Updated 11/16/20 @ 16:42 by Anselmo Tripp MD) Arnold-Chiari malformation, type I Burkitts lymphoma Cervical disc disease Chronic back pain Depression Fibromyalgia Hypercholesteremia Hypertension IBS (irritable bowel syndrome) Migraine aura without headache Other spondylosis with radiculopathy, cervical region Polymyalgia rheumatica Vitamin D deficiency Surgical History (Updated 11/16/20 @ 16:42 by Anselmo Tripp MD) H/O hernia repair H/O tubal ligation H/O: hysterectomy History of ankle surgery Hx of section Hx of colonoscopy Hx of tonsillectomy Family History (Updated 11/15/20 @ 16:54 by Lubna Guerrero LPN) Family/Other Hypertension CAD (coronary artery disease) Cancer Mother , at age 83 Heart attack Father , unknown No problems noted. Denies family history of Anesthesia complication Bleeding disorder Social History (Updated 11/15/20 @ 16:54 by Lubna Guerrero LPN) Smoking and tobacco status: current every day smoker cigarettes Packs smoked per day: 1 Second hand smoke exposure: No Alcohol intake: never Desire information about alcohol rehabilitation?: No Desire information about substance/drug rehabilitation?: No Lives independently: Yes Housing: House Marital status: Current occupational status: disabled History of recent travel: No Current gender identity: Female Data Anesthesia CBC & Chem 7: 11/15/20 15:40 11/15/20 15:40 Cardiac Studies: No Data to Display
[2020-11-24] MEDS: sodium chloride 0.9% 1,000 ML 30 ML IV (12:02)
--- NOTE | 2020-11-24 12:20 | P.HPUD_ITS ---
Surgery/Procedure H&P Update DATE OF PROCEDURE: November 24, 2020 DATE H&P PERFORMED: 11/08/20 H&P UPDATE INFORMATION: I have reviewed H&P completed within last 30 days, I have examined patient prior to procedure, No changes to prior documentation and H&P is in [facility] EMR on date indicated PREOP DIAGNOSIS: Bladder Cancer PLANNED PROCEDURE: Operation Date: 11/24/20 12:00 Proposed Procedures p Transurethral Resection Bladder Tumor 76579 c67.9(Not Applicable) - Wilbert Mascorro MD s Cystoscopy(Not Applicable) - Wilbert Mascorro MD s Colonoscopy 42767 Z12.11(Not Applicable) - Anselmo Tripp MD
--- NOTE | 2020-11-24 12:20 | W.PM.OPSUD ---
Surgery/Procedure H&P Update DATE OF PROCEDURE: November 24, 2020 DATE H&P PERFORMED: 11/08/20 H&P UPDATE INFORMATION: I have reviewed H&P completed within last 30 days, I have examined patient prior to procedure, No changes to prior documentation and H&P is in [facility] EMR on date indicated PREOP DIAGNOSIS: Bladder Cancer PLANNED PROCEDURE: Operation Date: 11/24/20 12:00 Proposed Procedures p Transurethral Resection Bladder Tumor 02592 c67.9(Not Applicable) - Wilbert Mascorro MD s Cystoscopy(Not Applicable) - Wilbert Mascorro MD s Colonoscopy 25080 Z12.11(Not Applicable) - Anselmo Tripp MD
[2020-11-24] MEDS: levofloxacin-dextrose 5 % 500 MG/100 ML PREMIX 100 MG IV (12:21)
--- NOTE | 2020-11-24 13:19 | PM.OP ---
Operative Report Date of procedure: November 24, 2020 Pre-op Diagnosis: Bladder Cancer Post-op diagnosis: same Procedure Done: 1. Cystoscopy, transurethral section of bladder tumor large Specimens removed/disposition: Trigone, posterior bladder floor, circumferential bladder neck tumor Pathology: Bladder tumor mostly samples from the trigone Surgeon: Ludwin Anesthesia: General Estimated blood loss: Minimal Urine output: Not measured Complications: None Findings: Mid trigone involvement with papillary tumor no clear evidence of deep involvement. Several areas of the posterior floor cephalad to the trigone also involved and fulgurated. Circumferential tumor at the bladder neck mostly treated with fulguration. Condition: stable Disposition: PACU Brief History: Ms. 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 Trigone was involved in circumferential bladder neck involvement was noted. Admitted for TURBT. Procedure: After routine preoperative evaluation examination and obtaining of informed consent she was taken to the operating suite on 11/24/2020 where general anesthesia was administered without difficulty after appropriate timeout was performed, SCDs confirmed to be functioning, preoperative antibiotics administered, beta-lorene protocol confirmed. Prepped and draped in usual sterile fashion in dorsolithotomy position paying careful attention to avoiding pressure points. 21 Jordanian cystoscope was introduced into the urethral meatus and advanced into the bladder to videoscopy. The bladder was examined with both 30 and 70 degree lenses. Findings as above. The urethra was dilated with Kam sounds and easily accommodated 30 Jordanian. 25 Jordanian continuous-flow resectoscope sheath with [place] obturator in place was advanced blindly into the bladder without difficulty. The gyrus bipolar system was utilized for resection with the super loop for resection and the button probe for fulguration of the base. The orifices were not involved in the tumor and were lateral to the bulk of the trigone tumor that was extending onto the bladder neck and out onto the posterior floor. This tumor was resected with the super loop down to the base with some deep sampling taken. The tumor that was extending to the bladder neck was also resected with the super loop. Several areas along the bladder neck were was resected as well. The button probe was then utilized to fulgurate and vaporize multiple areas along the circumferential aspect of the bladder neck with complete obliteration all visible tumor. There was an extension off of the left bladder neck onto the posterior floor that was also fulgurated to completion. The orifices were confirmed to be well away from the fulguration/resection sites. All visible tumor was treated. The area on the dome previously noted to did not appear to be as suspicious. All chips were evacuated from the bladder with an Briefcase evacuator, final inspection revealed hemostatic resection sites, no residual tumor was identified. Bladder was drained with a 24 Jordanian three-way [place] catheter 30 cc in the balloon and light CBI was run with clear reflux. She tolerated procedure well without complications and was awakened in the operating room and returned recovery room in stable condition. Plans: 1. Admit to observation status to [facility]. 2. Mitomycin tomorrow morning. 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
--- NOTE | 2020-11-24 14:04 | SUR.PHASEI ---
SUGAMMADEX ADMINISTERED PER SARITA HUTCHINSON. O2 SAT QUICKLY RETURNS WITHIN NORMAL LIMITS WITH 10 LPM VIA SIMPLE MASK
--- NOTE | 2020-11-24 14:54 | ANE.PACU2 ---
Inpatient post-anesthesia follow up: Airway intact: Yes Vital signs: Temperature 97.5 F Pulse Rate 68 Respiratory Rate 17 Blood Pressure 123/78 Pulse Oximetry 97 Oxygen Delivery Me thod Nasal Cannula Oxygen Flow Rate 2 Fraction of Inspir ed Oxygen Hydration adequate: Yes Nausea and vomiting: No Pain level: 3 Mental status: Baseline
[2020-11-24] MEDS: HYDROcodone-acetaminophen 5-325 mg Tablet 1 TAB PO ×2 (16:23→21:33)
[2020-11-24] MEDS: gabapentin 300 mg Capsule PO ×2 (16:23→21:33)
[2020-11-24] MEDS: dicyclomine 20 mg Tablet PO ×2 (16:23→21:33)
--- NOTE | 2020-11-24 18:09 | PC.NURSE ---
pt velasquez had 550 output while on medsur floor. around 2400 input total from current bags that was transferred up with pt after surgery. bladder scan show 0 ml in bladder. flow is patent.
[2020-11-24] MEDS: duloxetine 60 mg Capsule PO (21:33)
[2020-11-24] MEDS: cyclobenzaprine 10 mg Tablet PO (21:33)
[2020-11-25 04:28] VITALS: BP 108/59; PULSE 83; RESP 17; TEMP 36.5; O2SAT 95
--- NOTE | 2020-11-25 06:52 | PC.NURSE ---
PATIENT TOLERATED CBI WELL THROUGHOUT THE NIGHT. MARTINEZ BAG CONTENTS MAINTAINED A CLEAR LIGHT YELLOW THROUGHOUT THE SHIFT. PAIN COMPLAINED 1 TIME OF PRESSURE IN HERE BLADDER, MARTINEZ REPOSITIONED AND PATIENT REPORTED RELIEF.
--- NOTE | 2020-11-25 07:07 | PC.NURSE ---
THIS FOUND THAT THE INTERVENTION FOR IV LINE MAINTAINCE WAS NOT ACTIVE. THIS NURSE PERFROMED Q 2 IV MONITORING THROUGHOUT THE SHIFT WITH NO ISSUE.
--- NOTE | 2020-11-25 07:26 | PC.NURSE ---
Dr. Mascorro at bedside, clamped irrigation, instilled mitomycin through syringe push into catheter, clamped catheter drain system and instructed to hold for an hour, if patient unable to tolerate can drain before hour. Patient denies further discomfort at this time.
[2020-11-25 07:33] VITALS: PULSE 82; O2SAT 94
--- NOTE | 2020-11-25 07:38 | P.DS_ITS ---
Discharge Providers Date of Admission: 11/24/20 15:16 Date of Discharge: November 25, 2020 Attending Provider at Admission: Wilbert Mascorro MD Attending Provider at Discharge: Wilbert Mascorro MD Primary Care Provider: Erik Matt Diagnoses at Discharge Discharge Diagnosis (1) Bladder cancer: Status: Acute Qualifiers: Bladder location: overlapping sites Qualified Code(s): C67.8 - Malignant neoplasm of overlapping sites of bladder Reason for Visit Reason for Visit: cystoscopy and resection of bladder tumor Hospital Course Hospital Course She was admitted on the day of procedure which went well. She had a large amount of tumor involving the trigone but not either orifice. Tumor extended onto the posterior floor and into the bladder neck. No overt urethral involvement. All visible tumor was resected or fulgurated. Postoperative day #1 she underwent instillation of MITOMYCIN into the bladder and was held for an hour and drained. Catheter remained in place and after confirmation of adequate clearing of the urine she was discharged the morning of postoperative day #1. Follow-up is planned for next week for voiding trial and pathology report check. She will be trained in [facility] as well. Physical Exam Const: COMMON NORMALS: no acute distress and alert GENERAL APPEARANCE: well kempt and well developed ORIENTATION/CONSCIOUSNESS: not confused HENMT: COMMON NORMALS: normocephalic and atraumatic HEAD & SCALP: normocephalic and atraumatic Resp: COMMON NORMALS: normal respiratory effort EFFORT & INSPECTION: No labored and No Actively coughing Extremity: COMMON NORMALS: no clubbing, cyanosis or edema Neuro: SENSORIUM/ORIENTATION: Yes alert Psych: COMMON NORMALS: mental status grossly normal, Normal thought process present and cooperative APPEARANCE: Yes grossly normal and Yes well kempt ATTITUDE: Yes calm and Yes engaged THOUGHT PROCESS: Normal thought process present Urinary Catheter Management^: 3-way Urethral CBI: Cath Placed During This Visit: yes Reason for Continuing Indwelling Catheter: Perioperative Use in Selected Surgeries Urinary Catheter Date of Insertion: 11/24/20 Urinary Catheter Time of Insertion: 13:07 Discharge Data Data Completed and Pending: Completed Studies During Hospitalization Category Date Time Status XR chest 2V* 7104 6 Routine Exams 11/24/20 10:39 Completed Pending at discharge Category Date Time Status Pathology: Surgic al [PTH] Routine Pth 11/24/20 14:03 Ordered Procedures Performed: Intravesical chemotherapy instillation with MITOMYCIN Vitals: Last Vital Signs Temp 97.7 F 11/25/20 04:28 Pulse 82 11/25/20 07:33 Resp 17 11/25/20 04:28 BP 108/59 11/25/20 04:28 Pulse Ox 94 11/25/20 07:33 Discharge Plan Discharge Patient Disposition: Home Condition: Stable Prescriptions: [place] 5-325 mg tablet 1 tab PO Q8H PRN (Reason: pain) Qty: 18 RF: 0 Continued gabapentin 300 mg capsule 300 mg PO TID@1030,1500,2200 RF: 0 dicyclomine 20 mg tablet 20 mg PO TID RF: 0 duloxetine 60 mg capsule,delayed release(DR/EC) 60 mg PO BID@1030,2200 RF: 0 nitroglycerin 0.4 mg tablet, sublingual 0.4 mg SUBLINGUAL Q5M PRN (Reason: CHEST PAINS) RF: 0 cyclobenzaprine 10 mg tablet 10 mg PO TID@1030,1200,2200 RF: 0 lansoprazole 30 mg capsule,delayed release(DR/EC) 30 mg PO DAILY@1030 RF: 0 bupropion HCl 300 mg tablet extended release 24 hr 300 mg PO DAILY@1030 RF: 0 (DME) Walker with front wheels See Rx Instructions .Route .MEDSUPPLY Qty: 1 RF: 0 Discharge Orders: Discharge Order (Routine); Ordered 11/25/20 Ordered By: Wilbert Mascorro Referrals: Wilbert Mascorro MD [Physician] - 12/09/20 9:30 am (Voiding trial, [facility] instruction) Discharge Diet: Usual diet Discharge Activity: Limit activity as instructed Patient Instructions: Hydrocodone/Acetaminophen (By mouth), [place] Catheter Care, Transurethral Resection of Bladder Tumors (GEN), Urinary Leg Bag (GEN) Activity Restrictions/Additional Instructions: 1. No lifting >10 pounds for 2 to 3 weeks. 2. The catheter will be maintained until follow-up visit in my office. We will do a voiding trial at that time and training in [facility]. 3. Hopefully the pathology report will be available at that time. Discharge Attestations Time Spent in Discharge Care*: greater than 30 min Quality Metrics Clinical Quality Measures During this hospital stay, did patient experience: None Coding Level of Care Code Acute Mash Preparatory Operator for g Fwd Exam Detailed Diagnoses Bladder cancer C67.8 Bladder location: overlapping sites
[2020-11-25 08:00] VITALS: BP 127/63; PULSE 87; RESP 18; TEMP 36.9; O2SAT 94
[2020-11-25] MEDS: dicyclomine 20 mg Tablet PO (08:35)
--- NOTE | 2020-11-25 08:37 | PC.NURSE ---
Addendum entered by Wanda Davila RN 11/25/20 08:38: 0826 Original Note: catheter placed back to free gravity drainage bag, patient denies pain or discomfort, placed stat lock and teaching completed on leg bag, cath bag, cath care, and stat lock, verbalized understanding.
[2020-11-25] MEDS: gabapentin 300 mg Capsule PO (09:57)
[2020-11-25] MEDS: buPROPion XL (24 HR) 300 mg Tablet PO (09:57)
[2020-11-25] MEDS: pantoprazole DR 40 mg Tablet PO (09:57)
[2020-11-25] MEDS: duloxetine 60 mg Capsule PO (09:57)
[2020-11-25] MEDS: cyclobenzaprine 10 mg Tablet PO (09:57)
[2020-11-25] MEDS: HYDROcodone-acetaminophen 5-325 mg Tablet 1 TAB PO (09:58)
--- NOTE | 2020-11-25 10:11 | PC.NURSE ---
[place] catheter bag replaced by leg bag for discharge home, 200mL of clear purple urine noted in bag, leg bag placed clear pale yellow urine noted, no signs of bleeding.
[2020-11-25 11:01] VITALS: BP 127/63; PULSE 87; RESP 18; TEMP 36.9; O2SAT 94
--- NOTE | 2020-11-25 11:03 | PC.NURSE ---
discharge instructions completed with patient, verbalized understanding, denies further questions, prescription sent with patient, belongings sent with patient.
--- NOTE | 2020-11-25 15:36 | PC.RESP ---
Smoking Cessation and Pulmonary Rehab information sent to patient.
== END 2020-11-25 11:03 | disposition home or self-care (01) ==
LOC: MEDSURG 15:21
PROVIDERS: Surgery; Admitting Provider Urology; PCP Family Medicine; Visit Provider Urology
PROC: 0TBB8ZZ Excision of Bladder, Via Natural or Artificial Opening Endoscopic (ICD-10-PCS; CPT 52240; principal; 2020-11-24 12:00)
PROC: 0TJB8ZZ Inspection of Bladder, Via Natural or Artificial Opening Endoscopic (ICD-10-PCS; CPT 52000; 2020-11-24 12:00)
PROC: 0DJD8ZZ Inspection of Lower Intestinal Tract, Via Natural or Artificial Opening Endoscopic (ICD-10-PCS; CPT 45378; 2020-11-24 12:00)
DX: C67.8 Malignant neoplasm of overlapping sites of bladder (principal); Z12.11 Encounter for screening for malignant neoplasm of colon; M79.7 Fibromyalgia; I10 Essential (primary) hypertension; F17.210 Nicotine dependence, cigarettes, uncomplicated
CPT/HCPCS: 52240; 12345; 36415; 71046; 80053; 88305; 93005; G0378; J1956; J2405; J2704; J2710; J3010; J3490; J7030; J9280

== ENCOUNTER → 2020-12-30 11:20 | Outpatient (BNVA) | payer BC, MEDICARE, SELFPAY | PROVIDERS: PCP Family Medicine; Visit Provider Urology | DX: C67.8 Malignant neoplasm of overlapping sites of bladder (principal); N30.90 Cystitis, unspecified without hematuria; N30.80 Other cystitis without hematuria | CPT/HCPCS: 81003 ==

== ENCOUNTER → 2021-01-06 10:37 | Outpatient (BNVA) | payer BC, MEDICARE, SELFPAY | PROVIDERS: PCP Family Medicine; Visit Provider Urology | DX: C67.8 Malignant neoplasm of overlapping sites of bladder (principal) | CPT/HCPCS: 81003 ==

== ENCOUNTER → 2021-01-13 11:26 | Outpatient (BNVA) | payer BC, MEDICARE, SELFPAY | PROVIDERS: PCP Family Medicine; Visit Provider Urology | DX: C67.8 Malignant neoplasm of overlapping sites of bladder (principal) | CPT/HCPCS: 81003 ==

== ENCOUNTER → 2021-01-20 10:45 | Outpatient (BNVA) | payer BC, MEDICARE, SELFPAY | PROVIDERS: PCP Family Medicine; Visit Provider Urology | DX: C67.8 Malignant neoplasm of overlapping sites of bladder (principal) | CPT/HCPCS: 81003 ==

== ENCOUNTER → 2021-01-27 12:09 | Outpatient (BNVA) | payer BC, MEDICARE, SELFPAY | PROVIDERS: PCP Family Medicine; Visit Provider Urology | DX: C67.8 Malignant neoplasm of overlapping sites of bladder (principal) | CPT/HCPCS: 81003 ==

== ENCOUNTER 2021-02-10 12:53 | Outpatient (CLI) | payer BC, MEDICARE, SELFPAY ==
--- NOTE | 2021-02-10 13:26 | XR_ITS ---
WS: [id number] Chest 2 views, 02/10/2021 Clinical Data: LEFT SIDED CHEST WALL PAIN Comparison: PA and lateral chest, 11/24/2010. Findings: No nodules, masses or effusions are seen. The heart is normal. The pulmonary vascularity is not increased. No pneumonia or pneumothorax is seen. The aortic arch and descending aorta shows mild tortuosity. XR/XR chest 2V* 11670 Impression: Atherosclerosis.
--- NOTE | 2021-02-10 13:27 | XR_ITS ---
WS: [id number] Cervical spine, 4 views, 02/10/2021 Clinical Data: CHRONIC NECK PAIN Comparison: Cervical spine, 10/16/2019. Findings: No compression fractures are seen. There is degenerative disc narrowing at C5-C6 with anter ior and posterior spurring.. There is no prevertebral soft tissue swelling. The odontoid is unremarka ble. The soft tissues of the neck and the lung apices are normal. XR/XR cervical spine 3V* 92201 Impression: Degenerative disc narrowing with spurring at C5-C6.
--- NOTE | 2021-02-10 13:28 | XR_ITS ---
WS: [id number] Left shoulder, 2 views, 02/10/2021 Clinical Data: ACUTE PAIN LEFT SHOULDER Comparison: None. Findings: No fractures or dislocations are seen. The AC joint is normal. The adjacent left clavicle, left scapu la and ribs are normal. The soft tissues are unremarkable. XR/XR shoulder LT min 2V* 33132 Impression: Negative left shoulder.
== END 2021-02-10 12:54 | disposition home or self-care (01) ==
LOC: RAD 13:11
PROVIDERS: PCP Family Medicine; Visit Provider Family Medicine
DX: R07.89 Other chest pain (principal); M25.512 Pain in left shoulder; M54.2 Cervicalgia; I70.90 Unspecified atherosclerosis
CPT/HCPCS: 71046; 72040; 73030; 81003

== ENCOUNTER → 2021-02-22 15:33 | Outpatient (BNVA) | payer BC, MEDICARE, SELFPAY | PROVIDERS: PCP Family Medicine; Visit Provider Specialist | DX: S82.891D Other fracture of right lower leg, subsequent encounter for closed fracture with routine healing (principal); X58.XXXA Exposure to other specified factors, initial encounter | CPT/HCPCS: 73610 ==

== ENCOUNTER 2021-03-15 08:51 | Outpatient (CLI) | payer BC, MEDICARE, SELFPAY ==
--- NOTE | 2021-03-15 08:55 | NM_ITS ---
WS: [id number] NUCLEAR MEDICINE BONE SCAN 3 PHASE Radiopharmaceutical: 24.9 Tc-99m MDP mCi IV Injection site: Postinjection imaging delay: 2 hr CLINICAL INFORMATION: S82.853A - Displaced trimalleolar fracture of unspecified lower leg, initial en counter for closed fracture COMPARISON: Radiograph February 22, 2021 FINDINGS: Prior right ankle radiograph reviewed. Postoperative changes plate and screw fixation dista l fibula lateral malleolus with screw fixation across the medial malleolus and tibial plafond. Slight increased blood flow and blood pool activity about the right ankle specifically the distal tib ial plafond and fibula likely due to bony remodeling from relatively recent hardware fixation. Promin ent diffuse increased bony uptake on the delayed images involving the right ankle at the distal tibia l plafond and extending into the talar dome and proximal tarsal bones. Degenerative type uptake involving both first MTP joints bilaterally. Degenerative uptake involving t he mid thoracic spine and left mid cervical spine dorsally. Degenerative type uptake involving both A C joints. Soft tissue contours: Normal. Kidneys: Normal. Other findings: None. NM/NM bone 3 phase 06178 IMPRESSION: 1. Slightly increased blood flow and blood pool activity involving the right a nkle more specifically about the tibial plafond and fibula in the area of hardw are fixation likely due to bony remodeling 2. Diffuse increased bony activity on the delayed images involving the right a nkle at the medial and lateral malleolus, talar dome, and extending into the pr oximal tarsal bones. Diffuse activity is suggestive of bony remodeling from jarred dware fixation with associated stress reaction involving the talus and tarsal b ones. Osteomyelitis would be less likely. 3. Otherwise degenerative uptake as described above.
== END 2021-03-15 08:52 | disposition home or self-care (01) ==
PROVIDERS: PCP Family Medicine; Visit Provider Specialist
DX: S82.851A Displaced trimalleolar fracture of right lower leg, initial encounter for closed fracture (principal); X58.XXXA Exposure to other specified factors, initial encounter
CPT/HCPCS: 78315; A9561

== ENCOUNTER → 2021-04-11 15:51 | Outpatient (BNVA) | payer BC, MEDICARE, SELFPAY | PROVIDERS: PCP Family Medicine; Visit Provider Urology | DX: C67.8 Malignant neoplasm of overlapping sites of bladder (principal); R31.0 Gross hematuria | CPT/HCPCS: 81003; 87086 ==

== ENCOUNTER 2021-04-26 12:28 | Observation (INO) | payer BC, MEDICARE, SELFPAY ==
[2021-04-26] VITALS (10 sets, daily range): BP systolic 134–165; BP diastolic 68–108; PULSE 75–98; RESP 15–25; TEMP 36.8–36.9; O2SAT 95–98; BMI 23.2
--- NOTE | 2021-04-26 12:40 | ECG_ITS ---
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 Measurements Intervals [place] Rate: 88 P: 21 MT: 136 QRS: -19 QRSD: 109 T: 118 QT: 333 QTc: 404 Interpretive Statements SINUS RHYTHM LEFT VENTRICULAR HYPERTROPHY AND ST-T CHANGE [VOLTAGE CRITERIA PLUS ST/T ABNORMALITY] Compared to ECG 11/24/2020 11:37:30 No significant changes Electronically Signed On 04-26-2021 17:46:27 CDT by Elisabeth Jeffrey M.D. [email or web address]2 [employer] Groupriverview [email or web address].[id number] f
--- NOTE | 2021-04-26 13:45 | XR_ITS ---
WS: [id number] Exam: XR chest 1V portable [id number] Date/Time of Exam: 04/26/2021 1:49 PM Reason For Exam: CP Comparison 11/01/2020. The lungs are fully expanded and clear. Cardiomediastinal structures appear normal. Mild pulmonary pa renchymal scarring along the left heart border is stable in appearance. No pleural effusions. The med iastinum and osseous thorax are unremarkable. XR/XR chest 1V portable [id number] IMPRESSION: 1. No acute cardiopulmonary finding. 2. Chronic pulmonary parenchymal scarring along the left heart border.
[2021-04-26 14:14] LABS: Basophils # 0.1 10^3/uL (0.0-0.1); Eosinophils # 0.1 10^3/uL (0.0-0.8); Eosinophils % 1.5 %; Hematocrit 39.3 % (37.0-47.0); Hemoglobin 11.9 g/dL (11.5-15.3); Lymphocytes # 4.4 10^3/uL (0.8-4.8); Lymphocytes % 53.6 %; Mean Corpuscular HGB Conc 30.3 g/dL (30.0-36.0); Mean Corpuscular Hemoglobin 23.9 pg (28.0-34.0); Mean Corpuscular Volume 79.1 fL (81-99); Mean Platelet Volume 9.1 fL (7.4-10.4); Monocytes # 0.9 10^3/uL (0.2-0.9); Monocytes % 11.4 %; Neutrophils # 2.68 10^3/uL (1.8-7.7); Neutrophils % 32.4 %; Nucleated Red Blood Cells % 0 %; Platelet Count 529 10^3/cmm (130-400); Red Blood Count 4.97 10^6/uL (4.1-5.3); Red Cell Distribution Width 18.2 % (12.1-15.1); White Blood Count 8.3 10^3/uL (4.0-10.0)
--- NOTE | 2021-04-26 14:26 | PC.PHAR ---
pt states she takes care of her own medications-pt states she did have a advair diskus inhaler last filled on 08/18/2020 but states she doesnt have it anymore-notes are made in the pharmacy comments -pt states she hasnt picked up her rx from the pharmacy for the cipro ext med history shows last filled on 04/18/21 5d/s-pt states sometimes she has to take prevacid bid but mainly takes 30 mg daily
[2021-04-26 14:42] LABS: Troponin(5th) Baseline 11 ng/L (0-10)
[2021-04-26 14:43] LABS: Alanine Aminotransferase 11 U/L (0-33); Albumin Level 4.3 g/dL (3.5-5.2); Alkaline Phosphatase 89 IU/L (35-105); Anion Gap 14.4 (5-19); Aspartate Amino Transferase 20 U/L (0-32); Blood Urea Nitrogen 16 mg/dL (8-23); Calcium 9.2 mg/dL (8.5-10.5); Carbon Dioxide 25 mmol/L (22-29); Chloride 103 mmol/L (98-107); Globulin 2.7 g/dL (1.3-4.6); Glomerular Filtration Rate 62.8 mL/min (90-130); Glucose 73 mg/dL (65-115); Osmolality Calculated 286 mOsm/kg (285-295); Potassium 4.4 mmol/L (3.5-5.1); Sodium 138 mmol/L (136-145); Total Bilirubin 0.2 mg/dL (0.15-1.2)
--- NOTE | 2021-04-26 16:09 | ED_ITS ---
HPI - Chest Pain General: Chief Complaint: Chest Pain Stated Complaint: CHEST PAINS Time Seen by Provider: 04/26/21 13:42 History of Present Illness: HPI narrative: Patient is complaining of midsternal chest pain there is a pressure or tightness that woke her up out of her sleep today radiated to her back then up her right neck up to her ear she says it was about an 8 out of a 10 she had some leftover nitro from several years ago that she took 2 of them and the pain resolved. She denied any shortness of breath. She denies any gallbladder symptoms all she had yesterday was cottage cheese and some pineapple at 5 PM she denies any epigastric pain or nausea. She has had similar chest discomfort before and was told many years ago that she had 2 heart attacks that one of her lab values was off she was unable to do a chemical stress test so they did an angiogram that said they saw some small blockages and they could not see to part of her heart but they did not feel there was anything significant there for a stent. Patient continues to smoke she was on blood pressure medication until several months ago when they took her off of it when she broke her ankle because they said she did not need it anymore she does have high cholesterol she has a strong family history with her mom having several heart attacks as well as numerous family members. She does not know her father very well or his history. Review of Systems Narrative: General: denies fatigue, fever or chills HEENT: denies ear pain, denies nasal congestion, denies vision changes, denies sore throat Neck: denies masses or pain Resp: denies cough, denies shortness of breath, denies pleuritic pain Cardio: denies current chest pain, denies edema, see HPI GI: denies abdominal pain, denies N/V/D, denies black/tarry or bloody stools : denies hematuria, denies dysuria Neuro: denies headache, denies dizziness, denies motor or sensory changes Musculoskeletal: denies pain, denies swelling Skin: denies rashes Psych: denies SI or HI Endocrine: denies thyroid symptoms, denies lymphadenopathy all over ROS reviewed and patient denies [facility] PFSH: Medical History Arnold-Chiari malformation, type I Burkitts lymphoma Cervical disc disease Chronic back pain Depression Fibromyalgia Hypercholesteremia Hypertension IBS (irritable bowel syndrome) Migraine aura without headache Other spondylosis with radiculopathy, cervical region Polymyalgia rheumatica Vitamin D deficiency Surgical History H/O hernia repair H/O tubal ligation H/O: hysterectomy History of ankle surgery Hx of section Hx of colonoscopy Hx of tonsillectomy Family History Family/Other Hypertension CAD (coronary artery disease) Cancer Mother , at age 83 Heart attack Father , unknown No problems noted. Denies family history of Anesthesia complication Bleeding disorder Social History Smoking and tobacco status: current every day smoker cigarettes Packs smoked per day: 1 Second hand smoke exposure: No Alcohol intake: never Desire information about alcohol rehabilitation?: No Desire information about substance/drug rehabilitation?: No Lives independently: Yes Housing: House Marital status: Current occupational status: disabled History of recent travel: No Current gender identity: Female Physical Exam Narrative: EXAM NARRATIVE: General: a/o/3, no distress Head: atraumatic HEENT: normal eyes, normal conjunctiva, normal hearing, normal external nose, normal mouth, mucous membranes moist Neck: FROM, trachea midline Chest: normal expansion, no gross deformities Resp: normal speech, no retractions, no accessory muscle use, CTA bilaterally Cardio: regular rate and rhythm and no murmur, no peripheral edema, normal peripheral pulses GI: soft, flat non tender, no guarding normal BS : deferred Musculoskeletal: FROM, no pain or gross deformities Neuro: a/o appropriate for age, no gross motor or sensory deficits, CN II-XII grossly intact, normal coordination, normal speech Skin: no rashes Psych: cooperative, normal mood and effect Course Vital Signs: Vital signs: Vital Signs Temperature 98.4 F 04/26/21 12:35 Pulse Rate 81 04/26/21 13:40 Respiratory Rate 18 04/26/21 13:40 Blood Pressure 142/108 04/26/21 13:40 Pulse Oximetry 95 04/26/21 13:40 MDM - Chest Pain MDM Narrative: Medical decision making narrative: Patient denies any current chest pain here in the emergency department. She was initially not given any aspirin because she says it upsets her stomach and she had no current chest pain Her EKG was done on 04/26/2021 at 1245 should was a sinus rhythm normal rate she does have evidence of LVH it was similar to 11/24/[address] there is [address] acute ST elevations or depressions Patient's friend now has shown up in the emergency department and tells us that patient did have chest pain while she was here in the emergency department it was in the center of her chest pressure and tightness not as intense as this morning it resolved on its own. She denies any radiation of the other chest pain she had here in the ER. I did encourage her to allow us to give her some aspirin and chewable she was a little hesitant since she says it upsets her stomach. Patient's initial troponin is negative however she had another episode of chest pain here in the ER therefore she will need at least a 2-hour troponin if not a 6-hour troponin she has multiple risk factors I think patient is downplaying her chest discomfort she continues to smoke strong family history I feel we should admit her for further work-up her EKG does show LVH and I think she at least needs an echo serial troponins and a consult with cardiology. I spoke to the hospital list Dr. Rendon who accepts the patient for admission Medical Records: Attestation: I reviewed the patient's medical records. Lab Data: Attestation: I reviewed the patient's lab results. Labs: Lab Results 04/26/21 04/26/21 04/26/21 Range/Units 14:09 14:09 14:09 WBC 8.3 (4.0-10.0) 10^3/ uL RBC 4.97 (4.1-5.3) 10^6/u L Hgb 11.9 (11.5-15.3) g/dL Hct 39.3 (37.0-47.0) % MCV 79.1 L (81-99) fL MCH 23.9 L (28.0-34.0) pg MCHC 30.3 (30.0-36.0) g/dL RDW 18.2 H (12.1-15.1) % Plt Count 529 H (130-400) 10^3/c mm MPV 9.1 (7.4-10.4) fL Neut % (Auto) 32.4 % Lymph % (Auto) 53.6 % [place] % (Auto) 11.4 % Eos % (Auto) 1.5 % Baso % (Auto) 1.0 % Neut # (Auto) 2.68 (1.8-7.7) 10^3/u L Lymph # (Auto) 4.4 (0.8-4.8) 10^3/u L [place] # (Auto) 0.9 (0.2-0.9) 10^3/u L Eos # (Auto) 0.1 (0.0-0.8) 10^3/u L Baso # (Auto) 0.1 (0.0-0.1) 10^3/u L Nucleated RBC % (a uto) 0 % Nucleated RBCs # 0.0 /100WBC Sodium 138 (136-145) mmol/L Potassium 4.4 (3.5-5.1) mmol/L Chloride 103 (98-107) mmol/L Carbon Dioxide 25 (22-29) mmol/L Anion Gap 14.4 (5-19) BUN 16 (8-23) mg/dL Creatinine 0.9 (0.5-0.9) mg/dL GFR Calculation 62.8 L (90-130) mL/min Glucose 73 (65-115) mg/dL Calculated Osmolal ity 286 (285-295) mOsm/k g Calcium 9.2 (8.5-10.5) mg/dL Total Bilirubin 0.2 (0.15-1.2) mg/dL AST 20 (0-32) U/L ALT 11 (0-33) U/L Alkaline Phosphata se 89 (35-105) IU/L Troponin T Baselin e 11 H (0-10) ng/L Total Protein 7.0 (6.6-8.7) g/dL Albumin 4.3 (3.5-5.2) g/dL Globulin 2.7 (1.3-4.6) g/dL Discharge Plan Discharge Patient Disposition: Placed in Observation Clinical Impression: Chest pain Condition: Stable Prescriptions: No Action dicyclomine 20 mg tablet 20 mg PO QAM RF: 0 duloxetine 60 mg capsule,delayed release(DR/EC) 60 mg PO BID RF: 0 nitroglycerin 0.4 mg tablet, sublingual 0.4 mg SUBLINGUAL Q5M PRN (Reason: CHEST PAINS) RF: 0 cyclobenzaprine 10 mg tablet 10 mg PO TID PRN (Reason: Muscle Spasm) RF: 0 lansoprazole 30 mg capsule,delayed release(DR/EC) 30 mg PO DAILY RF: 0 bupropion HCl 300 mg tablet extended release 24 hr 300 mg PO DAILY@1030 RF: 0 gabapentin 300 mg capsule 900 mg PO TID RF: 0 (DME) Walker with front wheels See Rx Instructions .Route .MEDSUPPLY Qty: 1 RF: 0 Tylenol Extra Strength 500 mg Tablet 1,000 mg PO PRN RF: 0 ciprofloxacin HCl 500 mg tablet 500 mg PO BID RF: 0 Referrals: Erik Matt [Primary Care Provider] - Coding Level of Care Code ED Allied Health Teacher for Zeke Low
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
--- NOTE | 2021-04-26 16:49 | PC.NURSE ---
attempted to call report to CSU at [phone], nurse will call back.
[2021-04-26 17:04] LABS: Troponin 5 2HR 10.27 ng/L (0-10)
[2021-04-26 17:12] LABS: Troponin 5 2HR Delta -0.73 ABS# (0-10)
--- NOTE | 2021-04-26 17:17 | PC.NURSE ---
Report called to [facility] CSU nurse. No further questions.
--- NOTE | 2021-04-26 17:30 | PC.NURSE ---
From ER Received pt from ER. Denies any chest pain. Alert, orientedx4. Oriented pt to staff. call light provided.
[2021-04-26] MEDS: duloxetine 60 mg Capsule PO (18:31)
[2021-04-26] MEDS: pantoprazole DR 40 mg Tablet PO (18:32)
[2021-04-26] MEDS: lidocaine 2% viscous 15 ML, aluminum-mag hydrox-simethicon 30 ML, sucralfate oral liq 1 GM PO (18:32)
[2021-04-26] MEDS: enoxaparin 40 mg/0.4 mL Syringe SUBCUT (18:35)
[2021-04-26] MEDS: aspirin 81 mg Chew Tablet 324 MG PO (18:35)
--- NOTE | 2021-04-26 19:10 | PC.NURSE ---
Received report from MILENA Bradley. Patient resting in bed talking on the phone. Patient denies any chest pain at this time. Patient denies pain or other needs. No distress observed.
[2021-04-26] MEDS: gabapentin 300 mg Capsule 900 MG PO (20:15)
[2021-04-26] MEDS: cyclobenzaprine 10 mg Tablet PO (20:15)
[2021-04-26] MEDS: atorvastatin 40 mg Tablet PO (20:16)
[2021-04-27 04:00] VITALS: BP 124/76; PULSE 92; RESP 22; TEMP 36.6; O2SAT 96
--- NOTE | 2021-04-27 04:14 | PC.NURSE ---
Patient resting with eyes closed. Noted patient to have decreased SpO2 levels while snoring dropping into the low 70s at times. Informed RT. NC was placed at 2 L. Patient SpO2 currently 98%.
[2021-04-27 05:22] LABS: Basophils # 0.1 10^3/uL (0.0-0.1); Basophils % 1.3 %; Eosinophils # 0.2 10^3/uL (0.0-0.8); Eosinophils % 2.3 %; Hematocrit 37.9 % (37.0-47.0); Hemoglobin 11.1 g/dL (11.5-15.3); Lymphocytes # 4.1 10^3/uL (0.8-4.8); Lymphocytes % 58.9 %; Mean Corpuscular HGB Conc 29.3 g/dL (30.0-36.0); Mean Corpuscular Hemoglobin 23.7 pg (28.0-34.0); Mean Platelet Volume 9.5 fL (7.4-10.4); Monocytes # 0.8 10^3/uL (0.2-0.9); Monocytes % 11.4 %; Neutrophils # 1.82 10^3/uL (1.8-7.7); Nucleated Red Blood Cells % 0 %; Platelet Count 472 10^3/cmm (130-400); Red Blood Count 4.68 10^6/uL (4.1-5.3); Red Cell Distribution Width 18.4 % (12.1-15.1)
[2021-04-27 05:42] LABS: Chol HDL Ratio 8.09 mg/dL (0.0-4.40); Cholesterol 267 mg/dL (0-200); HDL Cholesterol 33 mg/dL (60-100); LDL Cholesterol Calculated 184 mg/dL (50-129); LDL HDL Ratio 5.58 RATIO (0.00-3.22); Triglycerides 252 mg/dL (0-150)
[2021-04-27] MEDS: dicyclomine 20 mg Tablet PO (05:44)
[2021-04-27 05:51] LABS: Alanine Aminotransferase 11 U/L (0-33); Albumin Level 3.7 g/dL (3.5-5.2); Alkaline Phosphatase 83 IU/L (35-105); Aspartate Amino Transferase 21 U/L (0-32); Blood Urea Nitrogen 16 mg/dL (8-23); Calcium 8.8 mg/dL (8.5-10.5); Carbon Dioxide 22 mmol/L (22-29); Chloride 103 mmol/L (98-107); Globulin 2.6 g/dL (1.3-4.6); Glomerular Filtration Rate 55.6 mL/min (90-130); Glucose 109 mg/dL (65-115); Magnesium 2.1 mg/dL (1.7-2.3); Osmolality Calculated 286 mOsm/kg (285-295); Phosphorus 4.1 mg/dL (2.5-4.5); Sodium 137 mmol/L (136-145); Thyroid Stimulating Hormone 0.63 uIU/mL (0.27-4.20); Total Bilirubin 0.2 mg/dL (0.15-1.2); Total Protein 6.3 g/dL (6.6-8.7)
[2021-04-27 06:00] VITALS: PULSE 85
--- NOTE | 2021-04-27 06:50 | PC.NURSE ---
Bedside rounding with 2 nurses performed. Patient A&Ox4. Patient denies any pain at this time. Call light within reach, bed in low locked position. Nurse to continue to monitor.
[2021-04-27 07:36] VITALS: BP 124/76; PULSE 67; RESP 18; TEMP 36.6; O2SAT 95
[2021-04-27] MEDS: duloxetine 60 mg Capsule PO (08:00)
[2021-04-27] MEDS: aspirin 81 mg EC Tablet PO (08:00)
[2021-04-27] MEDS: pantoprazole DR 40 mg Tablet PO (08:00)
[2021-04-27] MEDS: gabapentin 300 mg Capsule 900 MG PO ×2 (08:00→14:37)
--- NOTE | 2021-04-27 09:30 | PC.NURSE ---
Dr. Ty notified that patient procedure history fax was received from [facility]. No new orders received at this time.
[2021-04-27] MEDS: buPROPion XL (24 HR) 300 mg Tablet PO (10:33)
--- NOTE | 2021-04-27 11:26 | PC.CHAP ---
Pastoral Care Encounter/Spiritual Assessment Type of Contact [] Declined judge's clerk visit [] Patient/Family/Request visit [] Outpatient visit [] Follow-up visit [] Physician referral [] Code/Alert [x] Routine visit [] Staff referral [] Actively dying [] Patient sleeping [] Family support [] [] Out of room [] Palliative care [] [x] Receiving care in room [] Pre-surgical visit [] Trauma [] Long length of stay [] ICU visit [] Other: Relational/Emotional Strength [x] Patient feels connected with others/family/visitors/staff [] Distress [] Loneliness/isolation [] Abandonment Spirituality of Patient [x] Person of Asuncion [] Attends Druze of their Asuncion [x] Believes in Prayer [] Reads Bible or Mosque materials [] There are Spiritual issues to be addressed Obstetric Assistant Interventions [x] Prayer [x] Active listening [x] Non-anxious presence [x] Spiritual/emotional support [] Crisis/trauma care [x] Spiritual counseling [] Bereavement support [] Provided bereavement packet [] Provided Bible/devotional materials [] Provided toy/stuffed animal, coloring book to patient or family member [] Provided Communion [] Anointing/[place] [] Salvation [x] Completed spiritual assessment [] Other: Impact on Illness or Injury [] Angry [] Fearful [x] Anxious [] Often cries [] Exhaustion [] Unable to work [] Unable to attend episcopalian [] Unable to walk/stand [] Unable to read [] Unable to drive [] Unable to eat/drink [] Unable to sleep [] Unable to be with family [] Patient intubated [] Other: Summary chest pains feeling better wants to go home soon has a good attitude Time spent with patient 10 mins
[2021-04-27 11:27] VITALS: BP 157/71; PULSE 90; RESP 15; O2SAT 97
[2021-04-27] MEDS: amlodipine 5 mg Tablet PO (11:28)
--- NOTE | 2021-04-27 12:02 | PM.CONSULT ---
Providers/Reason For Consult Consulting Physician/Specialty*: Dr. Jones, cardiology Reason for Consult*: Chest pain Attending Physician: Ruben Ty MD Primary Care Provider: Erik Matt History of Present Illness History of Present Illness Julia Aceves is a 65 year old female who presented with chief complaint of chest discomfort. She has gives history of waking up with retrosternal chest discomfort that radiated to both sides of her chest as well as her back. She has history of hypertension but had an ankle surgery in July of last year and because of low blood pressure her antihypertensives were discontinued. She does not usually check her blood pressure at home. She has recently been in the process of moving from [place] to [place] and thinks that she might have overexerted herself on day prior to her symptoms. She complains of having some chills the night of the symptoms. She has history of migraines but none lately. Complains of intermittent tingling in her upper extremities. Since arrival to the ER she has had few chest twinges but no persistent episodes of chest discomfort. She has chronic active history of smoking and has smoked 1/2 pack/day since age 13. Her maternal grand father and his siblings with heart disease and maternal aunt with heart issues per patient. Blood pressure on arrival was. Baseline troponin T of 11 that at 2 hours decreased to 10.27. EKG on arrival showed sinus rhythm at 88 bpm. Normal axis. Left ventricular hypertrophy and ST-T wave changes. EKG this morning with sinus rhythm with borderline left axis deviation. Left ventricular hypertrophy and secondary ST-T wave changes. At the time of evaluation patient did not have any chest pain. Review of Systems Const: Denies: fever(s), chills, fatigue or malaise Eyes: Denies: eye discomfort ENMT: Denies: nasal congestion Card: Reports: chest pain; Denies: palpitations, irregular heart rhythm, edema, lightheadedness or syncope Resp: Denies: dyspnea, productive cough or wheezing GI: Denies: abdominal pain, nausea, vomiting, hematemesis, diarrhea, constipation or melena : Denies: dysuria or urinary frequency Musc: Reports: back pain Skin/Breast: Denies: rash Neuro: Denies: headache(s), dizziness or vertigo Endo: Denies: polyuria or polydipsia Lorenzo/Lymph: Denies: easy bleeding or petechiae All/Imm: Denies: facial swelling or acute wheezing Meds/Allergies Home Medications and Allergies Home Medications Medication Instructions Recorded Confirmed Last Taken Type bupropion HCl 300 mg 24 hr tablet, 300 mg PO DAILY@1030 04/04/20 04/26/21 04/25/21 History extended release cyclobenzaprine 10 mg tablet 10 mg PO TID PRN 04/04/20 04/26/21 04/25/21 History dicyclomine 20 mg tablet 20 mg PO QAM 04/04/20 04/26/21 04/25/21 History duloxetine 60 mg capsule,delayed 60 mg PO BID 04/04/20 04/26/21 11/23/20 History release lansoprazole 30 mg capsule,delayed 30 mg PO DAILY 04/04/20 04/26/21 04/25/21 History release nitroglycerin 0.4 mg sublingual 0.4 mg SUBLINGUAL Q5M PRN 04/04/20 04/26/21 04/26/21 06:20 History tablet Walker with front wheels #1 ea NS 09/12/20 04/26/21 Unknown Rx gabapentin 300 mg capsule 900 mg PO TID cap 01/13/21 04/26/21 04/25/21 History acetaminophen [Tylenol Extra 1,000 mg PO PRN 04/26/21 04/26/21 04/25/21 History Strength] ciprofloxacin HCl 500 mg PO BID 04/26/21 04/26/21 Unknown History Allergies Allergy/AdvReac Type Severity Reaction Status Date / Time erythromycin base Allergy Mild ALGY-RASH Verified 02/22/21 15:41 Iodinated Contrast Media Allergy Mild ALGY-RASH; Verified 02/22/21 15:41 DIFFICULTY BREATHING Iodine and Iodide Containing Allergy Mild ALGY-RASH Verified 02/22/21 15:41 Produc meperidine [From Demerol] Allergy Mild ALGY-VOMITI Verified 02/22/21 15:41 NG;RASH morphine Allergy Mild ALGY-RASH;V Verified 02/22/21 15:41 OMITING Penicillins Allergy Mild ALGY-RASH Verified 01/27/21 12:05 Sulfa (Sulfonamide Allergy Mild ALGY-RASH Verified 01/27/21 12:05 Antibiotics) metronidazole [From Flagyl] Allergy Unknown UNKNOWN Verified 11/15/20 16:50 Current Medications Current Medications Generic Name Dose Route Start Last Admin Trade Name Freq PRN Reason Stop Dose Admin Amlodipine Besylate 5 mg 04/27/21 11:00 04/27/21 11:28 Amlodipine 5 Mg Tablet PO 5 mg DAILY KIM Administration Aspirin 81 mg 04/27/21 09:00 04/27/21 08:00 Aspirin 81 Mg Ec Tablet PO 81 mg DAILY KIM Administration Atorvastatin Calcium 40 mg 04/26/21 21:00 04/26/21 20:16 Atorvastatin 40 Mg Tablet PO 40 mg BEDTIME KIM Administration Bupropion HCl 300 mg 04/27/21 10:30 04/27/21 10:33 Bupropion Xl (24 Hr) 300 Mg Tablet PO 300 mg DAILY@1030 KIM Administration Cyclobenzaprine HCl 10 mg 04/26/21 18:19 04/26/21 20:15 Cyclobenzaprine 10 Mg Tablet PO 10 mg TID PRN Administration Muscle Spasm Dicyclomine HCl 20 mg 04/27/21 06:00 04/27/21 05:44 Dicyclomine 20 Mg Tablet PO 20 mg QAM KMI Administration Duloxetine HCl 60 mg 04/26/21 18:45 04/27/21 08:00 Duloxetine 60 Mg Capsule PO 60 mg BID KIM Administration Enoxaparin Sodium 40 mg 04/26/21 18:30 04/26/21 18:35 Enoxaparin 40 Mg/0.4 Ml Syringe SUBCUT 40 mg Q24H KIM Administration Gabapentin 900 mg 04/26/21 21:00 04/27/21 08:00 Gabapentin 300 Mg Capsule PO 900 mg TID KIM Administration Pantoprazole Sodium 40 mg 04/26/21 19:00 04/27/21 08:[address] 40 Mg Tablet PO 40 mg BID KIM Administration PFSH Acute PFSH: Medical History (Updated 04/27/21 @ 14:06 by Malka Jones MD) Arnold-Chiari malformation, type I Burkitts lymphoma Cervical disc disease Chronic back pain Depression Fibromyalgia Hypercholesteremia Hypertension IBS (irritable bowel syndrome) Migraine aura without headache Other spondylosis with radiculopathy, cervical region Polymyalgia rheumatica Vitamin D deficiency Surgical History H/O hernia repair H/O tubal ligation H/O: hysterectomy History of ankle surgery Hx of section Hx of colonoscopy Hx of tonsillectomy Family History Family/Other Hypertension CAD (coronary artery disease) Cancer Mother , at age 83 Heart attack Father , unknown No problems noted. Denies family history of Anesthesia complication Bleeding disorder Social History Smoking and tobacco status: current every day smoker cigarettes Packs smoked per day: 1 Second hand smoke exposure: No Alcohol intake: never Desire information about alcohol rehabilitation?: No Desire information about substance/drug rehabilitation?: No Lives independently: Yes Housing: House Marital status: Current occupational status: disabled History of recent travel: No Current gender identity: Female Vitals/I&O/Wt Last Vital Signs Temp 97.9 F 04/27/21 07:36 Pulse 90 04/27/21 11:27 Resp 15 04/27/21 11:27 BP 157/71 04/27/21 11:27 Pulse Ox 97 04/27/21 11:27 04/26/21 04/27/21 04/27/21 22:59 06:59 14:59 Intake Total 100 / 100 240 / 240 Balance 100 / 100 240 / 240 Weight last 48 hrs Weight 115 lb Physical Exam Narrative: EXAM NARRATIVE: GENERAL: Averagely built and averagely nourished in no acute distress HEENT: Extraocular movement intact. Pupils equal round reactive to light. No pallor or icterus. NECK: central trachea, No JVD. No carotid bruit. CARDIOVASCULAR SYSTEM: S1-S2 regular. No S3 or S4 present. Grade 3/6 murmur in aortic area RESPIRATORY SYSTEM: Chest clear to auscultation. No wheezes rhonchi or rubs heard. No use of accessory muscles. ABDOMEN: Soft, nontender and nondistended. Normal bowel sounds present. EXTREMITIES: No cyanosis or clubbing. No edema. No signs of chronic venous insufficiency. EDGE STAINER: Patient is alert oriented ?3. No focal neurological deficits. SKIN: Normal turgor and temperature. No breakdown, rash or nail changes noted. PSYCH: Normal insight and judgment. Data Labs: Other Labs: Lipid panel with total cholesterol of 267, triglyceride 252, calculated LDL of 184 and HDL 33. TSH 0.63. Other Data: Attestation for Other Data: I personally reviewed and interpreted the following: Other data: Chest x-ray with no acute findings. Transthoracic echocardiogram 27 April 2021 CONCLUSIONS 1. Normal left ventricular size and low normal systolic function with no regional wall motion abnormalities. Left ventricular ejection fraction is estimated at 50-55 %. Abnormal septal motion consistent with conduction abnormality. Grade I diastolic dysfunction (abnormal relaxation filling pattern), normal to mildly elevated filling pressures. 2. Normal right ventricular size and systolic function. 3. Mild mitral valve regurgitation. 4. Moderate aortic valve regurgitation. 5. Pulmonary artery pressure estimated at 26 mmHg. Records from [facility]: Echocardiogram 29 Mar 2016: Normal left ventricle size and systolic function. No regional wall motion abnormality. LVEF 55%. Normal right ventricle systolic function. Cardiac catheterization 05 Apr 2016: Normal left main. Mild plaque with no stenosis greater than 20% noted in the LAD and circumflex. Mid RCA 20% stenosis and distal RCA somewhat tubular stenosis of 20%. Dominant RCA and patent PDA. LVEF of 55 to 60% with trivial mitral regurgitation. A&P Assessment and plan (1) Chest pain: EKG without any significant changes. Troponins negative. Echocardiogram with low normal left ventricular systolic function and no regional wall motion abnormality. -Blood pressure is uncontrolled ranging 140s to 160s systolically on arrival. -No further cardiac testing warranted at this point. -Records from [facility] were reviewed. -Patient is stable to be discharged from cardiac standpoint. -Continue aspirin statin and amlodipine on discharge. Status: Acute Qualifiers: Chest pain type: unspecified Qualified Code(s): R07.9 - Chest pain, unspecified (2) Hypertension: See above. Patient was advised to keep a blood pressure and heart rate log for next 2 weeks. -Follow-up in 2 to 4 weeks with me at [place] Status: Acute Qualifiers: Hypertension type: essential hypertension Qualified Code(s): I10 - Essential (primary) hypertension (3) Hypercholesteremia: Status: Acute Additional A&P Information Mild CAD Left ventricle hypertrophy Moderate aortic valve regurgitation Chronic active smoker Chronic back pain Arthritis Thank you for allowing me to participate in patient's care. Please feel free to call with questions or concerns. Stable to discharge from cardiac standpoint. Consult Attestations Time Spent in Patient Care: Greater than 35 minutes (>than 50% of time spent in counselling and/or direct pt care on unit). Coding Level of Care Code Acute Mortgage Sales Manager for [facility] Fwd Diagnoses Chest pain R07.9 Chest pain type: unspecified Hypertension I10 Hypertension type: essential hypertension Hypercholesteremia E78.00
--- NOTE | 2021-04-27 12:26 | ECG_ITS ---
[facility] Test Date: 2021-04-27 Pat Name: Julia Arzola Department: Room: 107 Gender: Female Payroll Manager: : 1955 Requested By: Malka Jones Order Number: [id number] Keller MD: Joshua Banks M.D. Measurements Intervals [place] Rate: 89 P: 20 IN: 134 QRS: -25 QRSD: 106 T: 121 QT: 362 QTc: 442 Interpretive Statements SINUS RHYTHM BORDERLINE LEFT AXIS DEVIATION [QRS AXIS < -20] LEFT VENTRICULAR HYPERTROPHY AND ST-T CHANGE [VOLTAGE CRITERIA PLUS ST/T ABNORMALITY] Compared to ECG 04/26/2021 12:45:37 No significant changes Electronically Signed On 04-27-2021 18:29:18 CDT by Joshua Banks M.D. [id number]
[2021-04-27 14:00] VITALS: PULSE 88
--- NOTE | 2021-04-27 14:10 | PC.NUTR ---
Nutrition assessment completed due to MST score of 3 for weight loss and decreased appetite. Elevated chol/trig/LDL and low HDL noted. Provided nutrition education r/t cholesterol/heart healthy diet. See RD assessment for further details.
--- NOTE | 2021-04-27 14:39 | P.DS_ITS ---
Discharge Providers Date of Admission: 04/26/21 16:07 Date of Discharge: April 27, 2021 Attending Provider at Admission: Ruben Ty MD Attending Provider at Discharge: Ruben Ty MD Primary Care Provider: Erik Matt Diagnoses at Discharge Discharge Diagnosis (1) Chest pain: Status: Acute Qualifiers: Chest pain type: unspecified Qualified Code(s): R07.9 - Chest pain, unspecified (2) Hypertension: Status: Acute Qualifiers: Hypertension type: essential hypertension Qualified Code(s): I10 - Essential (primary) hypertension (3) Hypercholesteremia: Status: Acute Reason for Visit Reason for Visit: CHEST PAINS Hospital Course Hospital Course Julia Arzola is a 65 year old female with a past medical history of hypertension, hyperlipidemia, depression, anxiety, chronic pain, who presents to [facility] due to complaints of chest pain. Patient was admitted to [facility] for chest pain, she did not have any repeat episode of chest pain here in the hospital, EKG no acute ST-T wave changes, no significant delta troponin, cardiac echo showed no wall motion abnormalities, she had a negative cardiac catheterization in 2016 at [facility], she had a reported anaphylactic reaction to adenosine, thus repeat stress testing was not pursued. As she remained symptom-free, no significant delta troponin, no significant telemetry events, cardiology was consulted. Patient was seen by cardiology, patient medically stable to be discharged home. Discharged on aspirin, statin, nitro as needed for chest pain, Norvasc for blood pressure control. Patient should follow-up with cardiology as outpatient in a few weeks, if she has recurrent chest pain go to the emergency room. Follow with primary care provider for recheck blood pressure. Physical Exam Const: COMMON NORMALS: no acute distress and patient oriented x3 Resp: COMMON NORMALS: normal respiratory effort, No retractions, No use of accessory muscles and clear to auscultation bilaterally AUSCULTATION: clear to auscultation bilaterally Cardio: COMMON NORMALS: regular rate, regular rhythm, S1 normal heart sound present and S2 normal heart sound present RATE: regular rate RHYTHM: regular rhythm HEART SOUNDS: S1 normal heart sound present and S2 normal heart sound present GI: COMMON NORMALS: Normal to inspection, nondistended, normoactive bowel sounds present, Soft to palpation and non-tender PALPATION: Yes Soft to palpation Extremity: COMMON NORMALS: no pedal edema Neuro: COMMON NORMALS: patient oriented x3 Psych: COMMON NORMALS: mental status grossly normal Discharge Data Data Completed and Pending: Completed Studies During Hospitalization Category Date Time Status XR chest 1V hernán ble [id number] Stat Exams 04/26/21 13:45 Completed CV echo complete* [id number] Routine Ultrasound 04/27/21 18:19 Completed Pending at discharge Category Date Time Status Complete Blood Co unt w/Auto AM LABS Lab 04/28/21 04:00 Ordered Complete Blood Co unt w/Auto AM LABS Lab 04/29/21 04:00 Ordered Comprehensive Met abolic Panel AM LA BS Lab 04/28/21 04:00 Ordered Comprehensive Met abolic Panel AM LA BS Lab 04/29/21 04:00 Ordered Magnesium AM LABS Lab 04/28/21 04:00 Ordered Magnesium AM LABS Lab 04/29/21 04:00 Ordered Phosphorus AM LAB S Lab 04/28/21 04:00 Ordered Phosphorus AM LAB S Lab 04/29/21 04:00 Ordered Labs from last 24 hours 04/27/21 04/27/21 04/27/21 04:38 04:38 04:38 WBC 7.0 RBC 4.68 Hgb 11.1 L Hct 37.9 MCV 81.0 MCH 23.7 L MCHC 29.3 L RDW 18.4 H Plt Count 472 H MPV 9.5 Neut % (Auto) 26.0 Lymph % (Auto) 58.9 [place] % (Auto) 11.4 Eos % (Auto) 2.3 Baso % (Auto) 1.3 Neut # (Auto) 1.82 Lymph # (Auto) 4.1 [place] # (Auto) 0.8 Eos # (Auto) 0.2 Baso # (Auto) 0.1 Nucleated RBC % (a uto) 0 Nucleated RBCs # 0.0 Sodium 137 Potassium 4.0 Chloride 103 Carbon Dioxide 22 Anion Gap 16.0 BUN 16 Creatinine 1.0 H GFR Calculation 55.6 L Glucose 109 Calculated Osmolal ity 286 Calcium 8.8 Phosphorus 4.1 Magnesium 2.1 Total Bilirubin 0.2 AST 21 ALT 11 Alkaline Phosphata se 83 Troponin T Baselin e Troponin T 120 Min [place] Delta Troponin T Total Protein 6.3 L Albumin 3.7 Globulin 2.6 Triglycerides 252 H Cholesterol 267 H LDL Cholesterol, C alc 184 H HDL Cholesterol 33 L LDL/HDL Ratio 5.58 H Cholesterol/HDL Ra estephania 8.09 H TSH 0.63 04/26/21 04/26/21 04/26/21 16:24 14:09 14:09 WBC RBC Hgb Hct MCV MCH MCHC RDW Plt Count MPV Neut % (Auto) Lymph % (Auto) [place] % (Auto) Eos % (Auto) Baso % (Auto) Neut # (Auto) Lymph # (Auto) [place] # (Auto) Eos # (Auto) Baso # (Auto) Nucleated RBC % (a uto) Nucleated RBCs # Sodium 138 Potassium 4.4 Chloride 103 Carbon Dioxide 25 Anion Gap 14.4 BUN 16 Creatinine 0.9 GFR Calculation 62.8 L Glucose 73 Calculated Osmolal ity 286 Calcium 9.2 Phosphorus Magnesium Total Bilirubin 0.2 AST 20 ALT 11 Alkaline Phosphata se 89 Troponin T Baselin e 11 H Troponin T 120 Min [place] 10.27 H Delta Troponin T -0.73 L Total Protein 7.0 Albumin 4.3 Globulin 2.7 Triglycerides Cholesterol LDL Cholesterol, C alc HDL Cholesterol LDL/HDL Ratio Cholesterol/HDL Ra estephania TSH Vitals: Last Vital Signs Temp 97.9 F 04/27/21 07:36 Pulse 90 04/27/21 11:27 Resp 15 04/27/21 11:27 BP 157/71 04/27/21 11:27 Pulse Ox 97 04/27/21 11:27 Discharge Plan Discharge Patient Disposition: Home Condition: Stable Prescriptions: New atorvastatin 40 mg Tablet 40 mg PO BEDTIME 30 Days Qty: 30 RF: 0 amlodipine 5 mg Tablet 5 mg PO DAILY 30 Days Qty: 30 RF: 0 aspirin 81 mg Tablet,Delayed Release (Dr/Ec) 81 mg PO DAILY 30 Days Qty: 30 RF: 0 Continued dicyclomine 20 mg tablet 20 mg PO QAM RF: 0 duloxetine 60 mg capsule,delayed release(DR/EC) 60 mg PO BID RF: 0 cyclobenzaprine 10 mg tablet 10 mg PO TID PRN (Reason: Muscle Spasm) RF: 0 lansoprazole 30 mg capsule,delayed release(DR/EC) 30 mg PO DAILY RF: 0 bupropion HCl 300 mg tablet extended release 24 hr 300 mg PO DAILY@1030 RF: 0 gabapentin 300 mg capsule 900 mg PO TID RF: 0 (DME) Walker with front wheels See Rx Instructions .Route .MEDSUPPLY Qty: 1 RF: 0 Tylenol Extra Strength 500 mg Tablet 1,000 mg PO PRN RF: 0 nitroglycerin 0.4 mg tablet, sublingual 0.4 mg SUBLINGUAL Q5M PRN (Reason: CHEST PAINS) 30 Days Qty: 30 RF: 0 Discontinued ciprofloxacin HCl 500 mg tablet 500 mg PO BID RF: 0 Discharge Orders: Discharge Order (Routine); Ordered 04/27/21 Ordered By: Ruben Ty Referrals: Erik Matt [Primary Care Provider] - 05/05/21 11:00 am (You have a hospital [facility] with Dr. Matt on May 05 at 11:00am) Malka Jones MD [Physician] - 05/25/21 2:30 am (Please follow up with Dr. Jones on May 25 at 2:30 pm. If you have any conflicts with this appointment, please call to reschedule. Thank you. ) Discharge Diet: Cardiac Discharge Activity: Resume usual activity Patient Instructions: Aspirin (By mouth), Amlodipine (By mouth), Atorvastatin (By mouth), Chest Pain Stoplight, Opioid Safety Activity Restrictions/Additional Instructions: -If you have recurrent chest pain please go to the emergency room -Please follow-up with primary care for blood pressure check in 1 to 2 weeks -Follow-up with cardiology in 1 month Discharge Attestations Time Spent in Discharge Care*: less than 30 min Quality Metrics Clinical Quality Measures During this hospital stay, did patient experience: None Coding Level of Care Code Acute g [facility] note Diagnoses Chest pain R07.9 Chest pain type: unspecified Hypertension I10 Hypertension type: essential hypertension Hypercholesteremia E78.00
--- NOTE | 2021-04-27 14:48 | PC.NURSE ---
Discharge instructions given per the physician's orders. Patient verbalized understanding of teaching and did not have any further questions. IV has been removed. Patient dressed self. D/C medications to be delivered to bedside by pharmacy.
[2021-04-27 14:53] VITALS: BP 158/76
--- NOTE | 2021-04-27 18:19 | USCV_ITS ---
[facility] Age: 65 Gender: F : 1955 Exam Date: 04/27/2021 06:40 Ordering Phys: Ruben Ty MD Technologist: Liliana Gomez Exam Location: [facility] Indication: Shortness of breath BP: 124 / 76 HR: 65 Rhythm: Sinus Technical Quality: Adequate MEASUREMENTS (Male / Female) Normal Values 2D ECHO LV Diastolic Diameter PLAX 2.7 cm 4.2 - 5.9 / 3.9 - 5.3 cm LV Systolic Diameter PLAX 2.2 cm LV Chamber Size 4.2 cm IVS Diastolic Thickness 1.9 cm 0.6 - 1.0 / 0.6 - 0.9 cm IVS Systolic Thickness 1.4 cm LVPW Diastolic Thickness 1.3 cm 0.6 - 1.0 / 0.6 - 0.9 cm LVPW Systolic Thickness 1.7 cm RV Chamber Size 1.9 cm LVOT Diameter 1.8 cm LV Ejection Fraction 2D Teich 39.6 % LV Ejection Fraction MOD 2C 42.0 % LV Ejection Fraction 2C AL 44.7 % LA Diameter 2.9 cm LA Width 2.2 cm LA Height 4.5 cm RA Width 2.1 cm RA Height 3.8 cm Aorta at Sinotubular Diameter 2.3 cm M-MODE LV Diastolic Diameter MM 5.4 cm 4.2 - 5.9 / 3.9 - 5.3 cm LV Systolic Diameter MM 3.9 cm LV Ejection Fraction MM Teich 54.4 % IVS Diastolic Thickness MM 1.2 cm 0.6 - 1.0 / 0.6 - 0.9 cm IVS Systolic Thickness MM 1.7 cm LVPW Diastolic Thickness MM 1.5 cm 0.6 - 1.0 / 0.6 - 0.9 cm LVPW Systolic Thickness MM 1.6 cm Aortic Annulus Diameter 3.0 cm LA Ao Ratio MM 1.2 MV E Point Septal Separation 0.7 cm DOPPLER AV Peak Velocity 122.0 cm/s LVOT Peak Velocity 104.0 cm/s AV Area Cont Eq vti 2.4 cm squared AV Area Cont Eq pk 2.3 cm squared MV Area PHT 4.5 cm squared Mitral E to A Ratio 0.5 MV E' Velocity 33.0 cm/s Mitral E to MV E' Ratio 10.9 Mitral E to LV E' Lateral Ratio 8.7 Mitral E to LV E' Septal Ratio 14.7 TR Peak Velocity 239.0 cm/s TR Peak Gradient 22.8 mmHg TV Peak E Velocity 51.0 cm/s Right Atrial Pressure 3.0 mmHg Pulmonary Artery Systolic Pressu 25.8 mmHg PV Peak Velocity 62.0 cm/s RV Acceleration Time 0.1 s RV Ejection Time 0.3 s RV AcT/ET 0.4 FINDINGS Left Ventricle Normal left ventricular size and low normal systolic function with no regional wall motion abnormalities. Left ventricular ejection fraction is estimated at 50-55 %. Abnormal septal motion consistent with conduction abnormality. Grade I diastolic dysfunction (abnormal relaxation filling pattern), normal to mildly elevated filling pressures. Right Ventricle Normal right ventricular size and systolic function. Right ventricular systolic pressure 25.8 mmHg. Right Atrium Normal right atrial size. Right atrial pressure estimated at 3 mmHg. Left Atrium Normal left atrial size. Mitral Valve Structurally normal mitral valve. No mitral valve stenosis. Mild mitral valve regurgitation. Aortic Valve Aortic valve not well visualized. Probably trileaflet aortic valve. No aortic stenosis. Moderate aortic valve regurgitation. Tricuspid Valve Structurally normal tricuspid valve. Trace tricuspid valve regurgitation. Pulmonic Valve Pulmonic valve not well visualized. Pericardium No pericardial effusion. Aorta Normal-sized aortic root. Normal-sized inferior vena cava. CONCLUSIONS 1. Normal left ventricular size and low normal systolic function with no regional wall motion abnormalities. Left ventricular ejection fraction is estimated at 50-55 %. Abnormal septal motion consistent with conduction abnormality. Grade I diastolic dysfunction (abnormal relaxation filling pattern), normal to mildly elevated filling pressures. 2. Normal right ventricular size and systolic function. 3. Mild mitral valve regurgitation. 4. Moderate aortic valve regurgitation. 5. Pulmonary artery pressure estimated at 26 mmHg. Malka Jones MD (Electronically Signed) Final Date: 27 April 2021 13:51 S
--- NOTE | 2021-04-28 20:21 | PC.RESP ---
Smoking Cessation and Pulmonary Rehab information sent to patient.
== END 2021-04-27 15:40 | disposition home or self-care (01) ==
LOC: ER 16:47 → CSU 17:13
PROVIDERS: Admitting Provider Family Medicine; Emergency Provider Emergency Medicine; PCP Family Medicine; Visit Provider Family Medicine
DX: R07.9 Chest pain, unspecified (principal); C67.8 Malignant neoplasm of overlapping sites of bladder; J44.9 Chronic obstructive pulmonary disease, unspecified; I10 Essential (primary) hypertension; E78.00 Pure hypercholesterolemia, unspecified; Z79.82 Long term (current) use of aspirin; F41.9 Anxiety disorder, unspecified; F32.9 Major depressive disorder, single episode, unspecified; M79.7 Fibromyalgia; Z82.49 Family history of ischemic heart disease and other diseases of the circulatory system; M19.90 Unspecified osteoarthritis, unspecified site
CPT/HCPCS: 36415; 71045; 80053; 80061; 83735; 84100; 84443; 84484; 85025; 93005; 93306; 94664; 96372; 99285; G0378; J1650

== ENCOUNTER 2021-05-11 17:23 | Emergency (ER) | payer BC, MEDICARE, SELFPAY ==
[2021-05-11 17:23] VITALS: BP 132/78; PULSE 83; RESP 14; TEMP 36.6; O2SAT 95; BMI 23.2
--- NOTE | 2021-05-11 17:38 | ECG_ITS ---
[facility] Test Date: 2021-05-11 Pat Name: Julia Arzola Department: Room: Gender: Female [place] [employer]: : 1955 Requested By: Zay Gomez Order Number: [id number] Keller MD: Joshua Banks M.D. Measurements Intervals Sarah Rate: 75 P: 53 VT: 130 QRS: -16 QRSD: 108 T: 11 QT: 417 QTc: 469 Interpretive Statements SINUS RHYTHM LEFT VENTRICULAR HYPERTROPHY AND ST-T CHANGE [VOLTAGE CRITERIA PLUS ST/T ABNORMALITY] Compared to ECG 04/27/2021 13:39:16 No significant changes Electronically Signed On 05-11-2021 20:27:37 CDT by Joshua Banks M.D. [email or web address]
--- NOTE | 2021-05-11 17:38 | XRR_ITS ---
PROCEDURE INFORMATION: Exam: XR Chest Exam date and time: 05/11/2021 5:38 PM Age: 65 years old Clinical indication: Sternal or substernal pain; Additional info: Cp TECHNIQUE: Imaging protocol: XR of the chest. Views: 1 view. COMPARISON: CR XR chest 1V portable [id number] 04/26/2021 1:46 PM FINDINGS: Lungs: Unremarkable. No consolidation. Pleural spaces: Unremarkable. No pleural effusion. No pneumothorax. Heart/Mediastinum: Unremarkable. No cardiomegaly. Bones/joints: Unremarkable. XR/XR chest 1V portable [id number] IMPRESSION: No acute findings.
--- NOTE | 2021-05-11 17:51 | W.ED.CHESTPA ---
HPI - Chest Pain General: Chief Complaint: Chest Pain Stated Complaint: chest pain, now resolved Time Seen by Provider: 05/11/21 17:31 History of Present Illness: HPI narrative: The patient is a 65-year-old female with past medical history hypertension, hypercholesterolemia who comes to the ER complaining of midsternal chest pain that radiated to both sides of her neck. She says she was carrying something heavy when it started and she sat down for 30 minutes and the pain did not go away so she took 2 nitros and the pain resolved. She had a similar episode on 26 April and was admitted, had normal troponins, normal echocardiogram and sent home. She is to see Dr. Jones on May 25 Associated symptoms: Deny abdominal pain, dyspnea or palpitations Review of Systems General: Reports: 10 or more systems reviewed and unremarkable except in HPI and below Const: Denies: fatigue Eyes: Denies: change in vision, blurry vision or eye redness ENMT: Denies: throat pain, swelling of lips/tongue, ear or mastoid pain or nasal congestion Card: Denies: chest pain, palpitations, irregular heart rhythm, edema, dyspnea on exertion or orthopnea Resp: Denies: dyspnea, productive cough or non-productive cough GI: Denies: abdominal pain, diarrhea or GI cramping : Denies: flank pain, difficulty voiding, urinary frequency or urinary urgency Musc: Denies: neck pain, back pain, extremity pain, joint pain, joint redness, limited range of motion or muscle weakness Skin/Breast: Denies: rash, pruritus, erythema, skin pain or skin tenderness Neuro: Denies: headache(s), numbness in extremities, weakness in extremities, sensory changes, difficulty walking, dizziness, confusion or Slurred speech present Psych: Denies: anxiety or depression Endo: Denies: polyuria All/Imm: Denies: urticaria, throat swelling or tongue swelling PFS ED PFSH: Medical History (Updated 05/11/21 @ 22:18 by Zay Gomez MD) Arnold-Chiari malformation, type I Burkitts lymphoma Cervical disc disease Chronic back pain Depression Fibromyalgia Hypercholesteremia Hypertension IBS (irritable bowel syndrome) Migraine aura without headache Other spondylosis with radiculopathy, cervical region Polymyalgia rheumatica Vitamin D deficiency Surgical History H/O hernia repair H/O tubal ligation H/O: hysterectomy History of ankle surgery Hx of section Hx of colonoscopy Hx of tonsillectomy Family History Family/Other Hypertension CAD (coronary artery disease) Cancer Mother , at age 83 Heart attack Father , unknown No problems noted. Denies family history of Anesthesia complication Bleeding disorder Social History Smoking and tobacco status: current every day smoker cigarettes Packs smoked per day: 1 Second hand smoke exposure: No Alcohol intake: never Desire information about alcohol rehabilitation?: No Desire information about substance/drug rehabilitation?: No Lives independently: Yes Housing: House Marital status: Current occupational status: disabled History of recent travel: No Current gender identity: Female Physical Exam Const: COMMON NORMALS: no acute distress, average body habitus, patient oriented x3, no limitations, healthy appearing, alert and well nourished GENERAL APPEARANCE: cooperative, comfortable, well kempt and well developed ORIENTATION/CONSCIOUSNESS: Yes awake, Yes oriented to person, Yes oriented to place and Yes oriented to time HENMT: COMMON NORMALS: normocephalic, external ears normal and Normal external nose present HEAD & SCALP: normal to inspection and normocephalic NOSE: Normal external nose present EXTERNAL EAR: Yes external ears normal MOUTH: Normal oral and palatal mucosa present THROAT: posterior oropharynx normal Eye: COMMON NORMALS: Equal, round and reactive pupils present and EOMs intact bilaterally GENERAL EYE: appearance normal, both eyes and all related structures PUPIL: Yes Equal, round and reactive pupils present Neck/C-Spine: COMMON NORMALS: full ROM, no lymphadenopathy, no meningeal signs and no JVD GENERAL: Yes normal visual inspection Lymph: LYMPHATIC: no lymphadenopathy noted Chest: COMMONS NORMALS: normal inspection of the chest and normal palpation of entire chest wall Resp: COMMON NORMALS: normal respiratory effort, No retractions, No use of accessory muscles, clear to auscultation bilaterally and percussion normal EFFORT & INSPECTION: Yes able to speak in complete sentences AUSCULTATION: clear to auscultation bilaterally PERCUSSION: percussion normal Cardio: COMMON NORMALS: no JVD, regular rate, regular rhythm, S1 normal heart sound present, S2 normal heart sound present and Peripheral pulses 2+ throughout RATE: regular rate RHYTHM: regular rhythm HEART SOUNDS: S1 normal heart sound present and S2 normal heart sound present PERIPHERAL PULSES: Peripheral pulses 2+ throughout GI: COMMON NORMALS: Normal to inspection, nondistended, normoactive bowel sounds present, Soft to palpation, non-tender and no masses INSPECTION: Yes normal to inspection PALPATION: Yes Soft to palpation : COMMON NORMALS: Yes no CVA tenderness BLADDER/KIDNEY EXAM: Yes no CVA tenderness Back/Pelvis: COMMON NORMALS: no CVA tenderness, thoracic and lumbar spine normal to inspection, no thoracic nor lumbar tenderness and thoraco-lumbar ROM normal Extremity: COMMON NORMALS: normal to inspection, full ROM, capillary refill normal, no joint enlargement and no pedal edema GENERAL: Yes normal exam except as noted Neuro: COMMON NORMALS: patient oriented x3, CN's II-XII intact bilaterally, moves all extremities, no focal motor deficits, no sensory deficits noted and gait normal SENSORIUM/ORIENTATION: Yes alert, Yes oriented to person, Yes oriented to place and Yes oriented to time MENINGEAL SIGNS: Yes no meningeal signs Psych: COMMON NORMALS: mental status grossly normal, Normal thought process present, cooperative, normal affect and speech normal APPEARANCE: Yes well kempt ATTITUDE: Yes calm SPEECH: Yes normal speech THOUGHT PROCESS: Normal thought process present Skin: COMMON NORMALS: no rashes or lesions noted GENERAL SKIN EXAM: no rashes or lesions noted Course Vital Signs: Vital signs: Vital Signs Temperature 97.9 F 05/11/21 17:23 Pulse Rate 86 05/11/21 18:23 Respiratory Rate 17 05/11/21 18:23 Blood Pressure 129/69 05/11/21 18:23 Pulse Oximetry 97 05/11/21 18:23 MDM - Chest Pain MDM Narrative: Medical decision making narrative: The patient came in complaining of slightly atypical chest pain midsternal radiating to both sides of her neck. She has been here seen here for this before recently with another negative cardiac work-up. Today's work-up is negative including 2 troponins and normal EKGs. She has an appointment with Dr. Jones on May 25 and this is still an appropriate follow-up plan. She has nitro at home and is on a statin. Blood pressure good control. Lab Data: Labs: Lab Results 05/11/21 05/11/2121 Range/Units 18:55 19:13 19:13 WBC 9.6 (4.0-10.0) 10^3/ uL RBC 4.36 (4.1-5.3) 10^6/u L Hgb 10.4 L (11.5-15.3) g/dL Hct 34.5 L (37.0-47.0) % MCV 79.1 L (81-99) fL MCH 23.9 L (28.0-34.0) pg MCHC 30.1 (30.0-36.0) g/dL RDW 18.3 H (12.1-15.1) % Plt Count 495 H (130-400) 10^3/c mm MPV 9.4 (7.4-10.4) fL Neut % (Auto) 59.4 % Lymph % (Auto) 32.2 % [place] % (Auto) 6.1 % Eos % (Auto) 1.1 % Baso % (Auto) 1.0 % Neut # (Auto) 5.69 (1.8-7.7) 10^3/u L Lymph # (Auto) 3.1 (0.8-4.8) 10^3/u L [place] # (Auto) 0.6 (0.2-0.9) 10^3/u L Eos # (Auto) 0.1 (0.0-0.8) 10^3/u L Baso # (Auto) 0.1 (0.0-0.1) 10^3/u L Nucleated RBC % (a uto) 0 % Nucleated RBCs # 0.0 /100WBC Sodium 140 (136-145) mmol/L Potassium 4.1 (3.5-5.1) mmol/L Chloride 103 (98-107) mmol/L Carbon Dioxide 25 (22-29) mmol/L Anion Gap 16.1 (5-19) BUN 12 (8-23) mg/dL Creatinine 0.9 (0.5-0.9) mg/dL GFR Calculation 62.8 L (90-130) mL/min Glucose 87 (65-115) mg/dL Calculated Osmolal ity 289 (285-295) mOsm/k g Calcium 9.0 (8.5-10.5) mg/dL Total Bilirubin 0.2 (0.15-1.2) mg/dL AST 21 (0-32) U/L ALT 13 (0-33) U/L Alkaline Phosphata se 86 (35-105) IU/L Troponin T Baselin e (0-10) ng/L Troponin T 120 Min yoselin (0-10) ng/L Delta Troponin T (0-10) ABS# NT-Pro-B Natriuret Pep 333 H (0-125) pg/mL Total Protein 6.4 L (6.6-8.7) g/dL Albumin 4.0 (3.5-5.2) g/dL Globulin 2.4 (1.3-4.6) g/dL Urine Color Yellow (Yellow) Urine Appearance Clear (CLEAR) Urine pH 6.5 (5-7) Ur Specific Gravit y 1.015 (1.005-1.030) Urine Protein Neg (Negative) Urine Glucose (UA) Norm (Normal) Urine Ketones Negative (Negative) Urine Blood Neg (Negative) Urine Nitrate Negative (Negative) Urine Bilirubin Neg (Negative) Urine Urobilinogen Norm (Negative) mg/dL Ur Leukocyte [place] Negative (Negative) 05/11/21 05/11/21 Range/Units 19:13 21:16 WBC (4.0-10.0) 10^3/ uL RBC (4.1-5.3) 10^6/u L Hgb (11.5-15.3) g/dL Hct (37.0-47.0) % MCV (81-99) fL MCH (28.0-34.0) pg MCHC (30.0-36.0) g/dL RDW (12.1-15.1) % Plt Count (130-400) 10^3/c mm MPV (7.4-10.4) fL Neut % (Auto) % Lymph % (Auto) % [place] % (Auto) % Eos % (Auto) % Baso % (Auto) % Neut # (Auto) (1.8-7.7) 10^3/u L Lymph # (Auto) (0.8-4.8) 10^3/u L [place] # (Auto) (0.2-0.9) 10^3/u L Eos # (Auto) (0.0-0.8) 10^3/u L Baso # (Auto) (0.0-0.1) 10^3/u L Nucleated RBC % (a uto) % Nucleated RBCs # /100WBC Sodium (136-145) mmol/L Potassium (3.5-5.1) mmol/L Chloride (98-107) mmol/L Carbon Dioxide (22-29) mmol/L Anion Gap (5-19) BUN (8-23) mg/dL Creatinine (0.5-0.9) mg/dL GFR Calculation (90-130) mL/min Glucose (65-115) mg/dL Calculated Osmolal ity (285-295) mOsm/k g Calcium (8.5-10.5) mg/dL Total Bilirubin (0.15-1.2) mg/dL AST (0-32) U/L ALT (0-33) U/L Alkaline Phosphata se (35-105) IU/L Troponin T Baselin e 8 (0-10) ng/L Troponin T 120 Min yoselin 6.20 (0-10) ng/L Delta Troponin T -1.80 L (0-10) ABS# NT-Pro-B Natriuret Pep (0-125) pg/mL Total Protein (6.6-8.7) g/dL Albumin (3.5-5.2) g/dL Globulin (1.3-4.6) g/dL Urine Color (Yellow) Urine Appearance (CLEAR) Urine pH (5-7) Ur Specific Gravit y (1.005-1.030) Urine Protein (Negative) Urine Glucose (UA) (Normal) Urine Ketones (Negative) Urine Blood (Negative) Urine Nitrate (Negative) Urine Bilirubin (Negative) Urine Urobilinogen (Negative) mg/dL Ur Leukocyte [place] (Negative) Discharge Plan Discharge Patient Disposition: Home Clinical Impression: Chest pain Condition: Stable Prescriptions: No Action dicyclomine 20 mg tablet 20 mg PO QAM RF: 0 duloxetine 60 mg capsule,delayed release(DR/EC) 60 mg PO BID RF: 0 cyclobenzaprine 10 mg tablet 10 mg PO TID PRN (Reason: Muscle Spasm) RF: 0 lansoprazole 30 mg capsule,delayed release(DR/EC) 30 mg PO DAILY RF: 0 bupropion HCl 300 mg tablet extended release 24 hr 300 mg PO DAILY@1030 RF: 0 gabapentin 300 mg capsule 900 mg PO TID RF: 0 (DME) Walker with front wheels See Rx Instructions .Route .MEDSUPPLY Qty: 1 RF: 0 acetaminophen [Tylenol Extra Strength] 500 mg Tablet 1,000 mg PO PRN RF: 0 atorvastatin 40 mg Tablet 40 mg PO BEDTIME 30 Days Qty: 30 RF: 0 amlodipine 5 mg Tablet 5 mg PO DAILY 30 Days Qty: 30 RF: 0 aspirin 81 mg Tablet,Delayed Release (Dr/Ec) 81 mg PO DAILY 30 Days Qty: 30 RF: 0 nitroglycerin 0.4 mg tablet, sublingual 0.4 mg SUBLINGUAL Q5M PRN (Reason: CHEST PAINS) 30 Days Qty: 30 RF: 0 Aleve 220 mg Capsule 220 mg PO BID PRN (Reason: Pain) RF: 0 Discharge Orders: Discharge ED (Routine); Ordered 05/11/21 Ordered By: Zay Gomez Referrals: Erik Matt [Primary Care Provider] - Discharge Diet: Advance as tolerated Discharge Activity: Resume usual activity Patient Instructions: Chest Pain (ED), Opioid Safety Activity Restrictions/Additional Instructions: You have had an episode of chest pain resolved by 2 nitroglycerin. Your work-up here in the ER has been normal. You have had 2 normal EKGs and normal troponin checks as well. Please follow-up with Dr. Jones as you have scheduled on May 25 at 2:30 PM. Return to the ER at anytime with worsening symptoms. Otherwise follow-up with your primary care physician in a few days and the life insurance underwriter as directed Coding Level of Care Code ED Head Of Transport Logistics for Chg Fwd Exam Comprehensive
[2021-05-11] MEDS: aspirin 81 mg Chew Tablet 324 MG PO (18:20)
[2021-05-11 18:23] VITALS: BP 129/69; PULSE 86; RESP 17; O2SAT 97
[2021-05-11 19:20] LABS: Basophils # 0.1 10^3/uL (0.0-0.1); Eosinophils # 0.1 10^3/uL (0.0-0.8); Eosinophils % 1.1 %; Hematocrit 34.5 % (37.0-47.0); Hemoglobin 10.4 g/dL (11.5-15.3); Lymphocytes # 3.1 10^3/uL (0.8-4.8); Lymphocytes % 32.2 %; Mean Corpuscular HGB Conc 30.1 g/dL (30.0-36.0); Mean Corpuscular Hemoglobin 23.9 pg (28.0-34.0); Mean Corpuscular Volume 79.1 fL (81-99); Mean Platelet Volume 9.4 fL (7.4-10.4); Monocytes # 0.6 10^3/uL (0.2-0.9); Monocytes % 6.1 %; Neutrophils # 5.69 10^3/uL (1.8-7.7); Neutrophils % 59.4 %; Nucleated Red Blood Cells % 0 %; Platelet Count 495 10^3/cmm (130-400); Red Blood Count 4.36 10^6/uL (4.1-5.3); Red Cell Distribution Width 18.3 % (12.1-15.1); White Blood Count 9.6 10^3/uL (4.0-10.0)
[2021-05-11 19:35] LABS: Add Urine Microscopic? NO; Charge for UA Resulting for Rev
[2021-05-11 19:42] LABS: Urine Appearance Clear (CLEAR); Urine Color Yellow (Yellow); pH Urine 6.5 (5-7)
[2021-05-11 19:43] LABS: Bilirubin Urine Neg (Negative); Blood Urine Neg (Negative); Glucose Urine UA Norm (Normal); Ketones Urine Negative (Negative); Leukocyte Esterase Urine Negative (Negative); Nitrate Urine Negative (Negative); Protein Urine Neg (Negative); Specific Gravity, Urine 1.015 (1.005-1.030); Urobilinogen Urine Norm (Negative)
[2021-05-11 19:48] LABS: Troponin(5th) Baseline 8 ng/L (0-10)
[2021-05-11 19:58] LABS: Alanine Aminotransferase 13 U/L (0-33); Alkaline Phosphatase 86 IU/L (35-105); Anion Gap 16.1 (5-19); Aspartate Amino Transferase 21 U/L (0-32); Blood Urea Nitrogen 12 mg/dL (8-23); Carbon Dioxide 25 mmol/L (22-29); Chloride 103 mmol/L (98-107); Globulin 2.4 g/dL (1.3-4.6); Glomerular Filtration Rate 62.8 mL/min (90-130); Glucose 87 mg/dL (65-115); NT Pro B Type Natriuretic Pept 333 pg/mL (0-125); Osmolality Calculated 289 mOsm/kg (285-295); Potassium 4.1 mmol/L (3.5-5.1); Sodium 140 mmol/L (136-145); Total Bilirubin 0.2 mg/dL (0.15-1.2); Total Protein 6.4 g/dL (6.6-8.7)
[2021-05-11 22:43] VITALS: BP 131/91; PULSE 91; RESP 16; TEMP 36.6; O2SAT 98
== END 2021-05-11 22:49 | disposition home or self-care (01) ==
PROVIDERS: Emergency Provider Family Medicine; PCP Family Medicine
DX: R07.9 Chest pain, unspecified (principal); Z79.82 Long term (current) use of aspirin; I10 Essential (primary) hypertension; F17.210 Nicotine dependence, cigarettes, uncomplicated
CPT/HCPCS: 71045; 80053; 81003; 83880; 84484; 85025; 93005; 99283

== ENCOUNTER → 2021-06-02 17:32 | Outpatient (BNVA) | payer BC, MEDICARE, SELFPAY | PROVIDERS: PCP Family Medicine; Visit Provider Urology | DX: C67.8 Malignant neoplasm of overlapping sites of bladder (principal) | CPT/HCPCS: 81003 ==

== ENCOUNTER → 2021-06-09 07:39 | Outpatient (BNVA) | payer BC, MEDICARE, SELFPAY | PROVIDERS: PCP Family Medicine; Visit Provider Urology | DX: C67.8 Malignant neoplasm of overlapping sites of bladder (principal) | CPT/HCPCS: 81003 ==

== ENCOUNTER → 2021-06-16 10:24 | Outpatient (BNVA) | payer BC, MEDICARE, SELFPAY | PROVIDERS: PCP Family Medicine; Visit Provider Urology | DX: C67.8 Malignant neoplasm of overlapping sites of bladder (principal) | CPT/HCPCS: 81003 ==

== ENCOUNTER 2021-07-05 16:38 | Emergency (ER) | payer BC, MEDICARE, SELFPAY ==
[2021-07-05 16:40] VITALS: BP 148/76; PULSE 87; RESP 19; TEMP 37.1; O2SAT 96; BMI 21.4
[2021-07-05 16:48] VITALS: BP 148/76; PULSE 87; RESP 17; TEMP 37.1; O2SAT 95
--- NOTE | 2021-07-05 16:48 | ECG_ITS ---
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: : 1955 Requested By: Levi Lockhart Order Number: [id number] Reading MD: HEATH ROSS Measurements Intervals [place] Rate: 83 P: 50 [place]: 137 QRS: -13 QRSD: 113 T: 90 QT: 380 QTc: 447 Interpretive Statements SINUS RHYTHM LEFT VENTRICULAR HYPERTROPHY AND ST-T CHANGE [VOLTAGE CRITERIA PLUS ST/T ABNORMALITY] POSSIBLE ANTERIOR MYOCARDIAL INFARCTION , OF INDETERMINATE AGE [30 ms Q WAVE IN V3/V4, OR R < 0.2 mV IN V4] Compared to ECG 05/11/2021 17:43:12 Myocardial infarct finding now present ST (T wave) deviation still present Electronically Signed On 07-05-2021 21:07:18 CDT by HEATH ROSS [id number]
--- NOTE | 2021-07-05 16:48 | XRR_ITS ---
PROCEDURE INFORMATION: Exam: XR Chest Exam date and time: 07/05/2021 4:48 PM Age: 66 years old Clinical indication: Sternal or substernal pain; Additional info: Chest pain TECHNIQUE: Imaging protocol: XR of the chest. Views: 1 view. COMPARISON: CR (CHEST, ) 05/11/2021 5:42 PM FINDINGS: Lungs: Unremarkable. No consolidation. Pleural spaces: Unremarkable. No pleural effusion. No pneumothorax. Heart/Mediastinum: Unremarkable. No cardiomegaly. Bones/joints: Unremarkable. XR/XR chest 1V portable [id number] IMPRESSION: No acute findings.
--- NOTE | 2021-07-05 17:20 | ED_ITS ---
Documented by User: Levi Bella DO 07/11/21 06:11 HPI - Chest Pain General: Chief Complaint: Chest Pain Stated Complaint: CHEST PAIN Time Seen by Provider: 07/05/21 16:40 History of Present Illness: HPI narrative: 66-year-old female presents emergency room via EMS complaining of chest pain. She had chest pain began around 3:00 safranin radiating to her back and her right arm and shoulder. She had previously had episodes like this. She has had a recent coronary angiogram that was negative. She was hospitalized in April of this year for chest pain the rule out was negative they did not do any further testing because she had had some kind of reaction to the Lexiscan sestamibi stress test did not feel an angiogram was indicated. Additionally she has history of cervical cancer and bladder cancer MD complaint: chest pain and chest discomfort Onset (ago): minute(s) Timing of current episode: episodic and now resolved Prior episodes: Yes Onset: during rest Pain location: substernal and left chest Pain radiation: right arm and back Quality: heaviness Relieving factors: nothing Exacerbating factors: nothing Associated symptoms: Deny abdominal pain, diaphoresis, dyspnea, fever(s), leg edema, nausea, palpitations, sense of impending doom, syncope or vomiting Treatment prior to arrival: none Review of Systems Const: Denies: fever(s) or diaphoresis Card: Denies: palpitations or syncope Resp: Denies: dyspnea GI: Denies: abdominal pain, nausea or vomiting PFSH ED PFSH: Medical History Aortic regurgitation Arnold-Chiari malformation, type I Burkitts lymphoma CAD (coronary artery disease) Cervical disc disease Chronic back pain Depression Fibromyalgia Hypercholesteremia Hypertension IBS (irritable bowel syndrome) Migraine aura without headache Other spondylosis with radiculopathy, cervical region Polymyalgia rheumatica Vitamin D deficiency Surgical History H/O hernia repair H/O tubal ligation H/O: hysterectomy History of ankle surgery Hx of section Hx of colonoscopy Hx of tonsillectomy Family History Family/Other Hypertension CAD (coronary artery disease) Cancer Mother , at age 83 Heart attack Father , unknown No problems noted. Denies family history of Anesthesia complication Bleeding disorder Social History Second hand smoke exposure: No Alcohol intake: never Desire information about alcohol rehabilitation?: No Desire information about substance/drug rehabilitation?: No Lives independently: Yes Housing: House Marital status: Current occupational status: disabled History of recent travel: No Current gender identity: Female Physical Exam Const: COMMON NORMALS: no acute distress GENERAL APPEARANCE: cooperative and comfortable ORIENTATION/CONSCIOUSNESS: Yes awake, Yes oriented to person, Yes oriented to place and Yes oriented to time HENMT: COMMON NORMALS: normocephalic, atraumatic and hearing grossly normal bilaterally HEAD & SCALP: normocephalic and atraumatic Neck/C-Spine: COMMON NORMALS: no JVD Lymph: LYMPHATIC: no lymphadenopathy noted and no lymphedema noted Resp: COMMON NORMALS: normal respiratory effort, No retractions, No use of accessory muscles and clear to auscultation bilaterally AUSCULTATION: clear to auscultation bilaterally Cardio: COMMON NORMALS: no JVD, regular rate, regular rhythm and No murmurs present (Cardio) RATE: regular rate RHYTHM: regular rhythm GI: COMMON NORMALS: Soft to palpation and No hepatosplenomegaly present AUSCULTATION: Yes normoactive bowel sounds PALPATION: Yes Soft to palpation, No Tenderness to palpation present (GI), No Guarding due to palpation present (GI) and Yes No hepatosplenomegaly present Extremity: COMMON NORMALS: normal to inspection, capillary refill normal, no clubbing, cyanosis or edema, no calf tenderness and no pedal edema Neuro: SENSORIUM/ORIENTATION: Yes oriented to person, Yes oriented to place and Yes oriented to time Skin: COMMON NORMALS: no rashes or lesions noted GENERAL SKIN EXAM: no rashes or lesions noted Course Vital Signs: Vital signs: Vital Signs Temperature 98.7 F 07/05/21 16:48 Pulse Rate 83 07/05/21 20:48 Respiratory Rate 18 07/05/21 20:48 Blood Pressure 146/69 07/05/21 20:48 Pulse Oximetry 92 07/05/21 20:48 MDM - Chest Pain MDM Narrative: Medical decision making narrative: Care turned Dr. Anderson at change of shift. See his notes for final diagnosis and disposition Lab Data: Labs: Lab Results 07/05/21 07/05/21 07/05/21 Range/Units 17:11 17:11 17:11 WBC 9.2 (4.0-10.0) 10^3/ uL RBC 4.40 (4.1-5.3) 10^6/u L Hgb 10.3 L (11.5-15.3) g/dL Hct 34.0 L (37.0-47.0) % MCV 77.3 L (81-99) fl MCH 23.4 L (28.0-34.0) pg MCHC 30.3 (30.0-36.0) g/dL RDW 18.2 H (12.1-15.1) % Plt Count 547 H (130-400) 10^3/c mm MPV 9.8 (7.4-10.4) fL Neut % (Auto) 47.7 % Lymph % (Auto) 40.7 % [place] % (Auto) 8.4 % Eos % (Auto) 2.1 % Baso % (Auto) 0.9 % Neut # (Auto) 4.40 (1.8-7.7) 10^3/u L Lymph # (Auto) 3.7 (0.8-4.8) 10^3/u L [place] # (Auto) 0.8 (0.2-0.9) 10^3/u L Eos # (Auto) 0.2 (0.0-0.8) 10^3/u L Baso # (Auto) 0.1 (0.0-0.1) 10^3/u L Nucleated RBC % (a uto) 0 % Nucleated RBCs # 0.0 /100WBC Sodium 139 (136-145) mmol/L Potassium 4.1 (3.5-5.1) mmol/L Chloride 103 (98-107) mmol/L Carbon Dioxide 24 (22-29) mmol/L Anion Gap 16.1 (5-19) BUN 14 (8-23) mg/dL Creatinine 0.9 (0.5-0.9) mg/dL GFR Calculation 62.6 L (90-130) mL/min Glucose 86 (65-115) mg/dL Calculated Osmolal ity 288 (285-295) mOsm/k g Calcium 9.2 (8.5-10.5) mg/dL Total Bilirubin 0.2 (0.15-1.2) mg/dL AST 14 (0-32) U/L ALT 8 (0-33) U/L Alkaline Phosphata se 91 (35-105) IU/L Troponin T Baselin e 7 (0-10) ng/L Troponin T 120 Min [place] (0-10) ng/L Delta Troponin T (0-10) ABS# NT-Pro-B Natriuret Pep 494 H (0-125) pg/mL Total Protein 6.3 L (6.6-8.7) g/dL Albumin 3.9 (3.5-5.2) g/dL Globulin 2.4 (1.3-4.6) g/dL 07/05/21 Range/Units 19:54 WBC (4.0-10.0) 10^3/ uL RBC (4.1-5.3) 10^6/u L Hgb (11.5-15.3) g/dL Hct (37.0-47.0) % MCV (81-99) fl MCH (28.0-34.0) pg MCHC (30.0-36.0) g/dL RDW (12.1-15.1) % Plt Count (130-400) 10^3/c mm MPV (7.4-10.4) fL Neut % (Auto) % Lymph % (Auto) % [place] % (Auto) % Eos % (Auto) % Baso % (Auto) % Neut # (Auto) (1.8-7.7) 10^3/u L Lymph # (Auto) (0.8-4.8) 10^3/u L [place] # (Auto) (0.2-0.9) 10^3/u L Eos # (Auto) (0.0-0.8) 10^3/u L Baso # (Auto) (0.0-0.1) 10^3/u L Nucleated RBC % (a uto) % Nucleated RBCs # /100WBC Sodium (136-145) mmol/L Potassium (3.5-5.1) mmol/L Chloride (98-107) mmol/L Carbon Dioxide (22-29) mmol/L Anion Gap (5-19) BUN (8-23) mg/dL Creatinine (0.5-0.9) mg/dL GFR Calculation (90-130) mL/min Glucose (65-115) mg/dL Calculated Osmolal ity (285-295) mOsm/k g Calcium (8.5-10.5) mg/dL Total Bilirubin (0.15-1.2) mg/dL AST (0-32) U/L ALT (0-33) U/L Alkaline Phosphata se (35-105) IU/L Troponin T Baselin e (0-10) ng/L Troponin T 120 Min [place] 6.76 (0-10) ng/L Delta Troponin T -0.24 L (0-10) ABS# NT-Pro-B Natriuret Pep (0-125) pg/mL Total Protein (6.6-8.7) g/dL Albumin (3.5-5.2) g/dL Globulin (1.3-4.6) g/dL Discharge Plan Discharge Patient Disposition: Home Clinical Impression: Chest pain Qualifiers: Chest pain type: unspecified Qualified Code(s): R07.9 - Chest pain, unspecified Condition: Stable Prescriptions: No Action dicyclomine 20 mg tablet See Rx Instructions .ROUTE .COMPLEX RF: 0 duloxetine 60 mg capsule,delayed release(DR/EC) 60 mg PO BID RF: 0 cyclobenzaprine 10 mg tablet 10 mg PO BID PRN (Reason: Muscle Spasm) RF: 0 lansoprazole 30 mg capsule,delayed release(DR/EC) 30 mg PO DAILY RF: 0 bupropion HCl 300 mg tablet extended release 24 hr 300 mg PO DAILY@1030 RF: 0 gabapentin 300 mg capsule 900 mg PO TID RF: 0 amlodipine 5 mg tablet 5 mg PO DAILY Qty: 30 RF: 5 acetaminophen [Tylenol Extra Strength] 500 mg Tablet 1,000 mg PO PRN RF: 0 nitroglycerin 0.4 mg tablet, sublingual 0.4 mg SUBLINGUAL Q5M PRN (Reason: CHEST PAINS) 30 Days Qty: 30 RF: 0 naproxen sodium [Aleve] 220 mg Capsule 220 mg PO BID PRN (Reason: Pain) RF: 0 aspirin 325 mg Tablet 325 mg PO ONCE RF: 0 hydroxyzine HCl 25 mg tablet 25 mg PO TID PRN (Reason: Anxiety) RF: 0 Discharge Orders: Discharge ED (Routine); Ordered 07/05/21 Ordered By: Archie Anderson Referrals: Erik Matt [Primary Care Provider] - 1-3 days Discharge Diet: Advance as tolerated Discharge Activity: Resume usual activity Patient Instructions: Chest Pain (ED) Coding Level of Care Code ED Confectionery Drops Machine Operator for Chg Fwd Exam Comprehensive Documented by User: Archie Anderson MD 07/05/21 20:43 HPI - Chest Pain General: Chief Complaint: Chest Pain Stated Complaint: CHEST PAIN Time Seen by Provider: 07/05/21 16:40 PFSH ED PFSH: Medical History Aortic regurgitation Arnold-Chiari malformation, type I Burkitts lymphoma CAD (coronary artery disease) Cervical disc disease Chronic back pain Depression Fibromyalgia Hypercholesteremia Hypertension IBS (irritable bowel syndrome) Migraine aura without headache Other spondylosis with radiculopathy, cervical region Polymyalgia rheumatica Vitamin D deficiency Surgical History H/O hernia repair H/O tubal ligation H/O: hysterectomy History of ankle surgery Hx of section Hx of colonoscopy Hx of tonsillectomy Family History Family/Other Hypertension CAD (coronary artery disease) Cancer Mother , at age 83 Heart attack Father , unknown No problems noted. Denies family history of Anesthesia complication Bleeding disorder Social History Second hand smoke exposure: No Alcohol intake: never Desire information about alcohol rehabilitation?: No Desire information about substance/drug rehabilitation?: No Lives independently: Yes Housing: House Marital status: Current occupational status: disabled History of recent travel: No Current gender identity: Female Course Vital Signs: Vital signs: Vital Signs Temperature 98.7 F 08/25/21 16:48 Pulse Rate 83 07/05/21 20:48 Respiratory Rate 18 07/05/21 20:48 Blood Pressure 146/69 07/05/21 20:48 Pulse Oximetry 92 07/05/21 20:48 MDM - Chest Pain MDM Narrative: Medical decision making narrative: Patient presents here with chest pain. She has no signs of acute coronary syndrome EKG x-ray and troponins here are all negative. She feels much improved and stable for discharge. She is to follow-up with her lead tinner and return if worsening. She understands and agrees to plan. Lab Data: Labs: Lab Results 07/05/21 07/05/21 07/05/21 Range/Units 17:11 17:11 17:11 WBC 9.2 (4.0-10.0) 10^3/ uL RBC 4.40 (4.1-5.3) 10^6/u L Hgb 10.3 L (11.5-15.3) g/dL Hct 34.0 L (37.0-47.0) % MCV 77.3 L (81-99) fl MCH 23.4 L (28.0-34.0) pg MCHC 30.3 (30.0-36.0) g/dL RDW 18.2 H (12.1-15.1) % Plt Count 547 H (130-400) 10^3/c mm MPV 9.8 (7.4-10.4) fL Neut % (Auto) 47.7 % Lymph % (Auto) 40.7 % [place] % (Auto) 8.4 % Eos % (Auto) 2.1 % Baso % (Auto) 0.9 % Neut # (Auto) 4.40 (1.8-7.7) 10^3/u L Lymph # (Auto) 3.7 (0.8-4.8) 10^3/u L [place] # (Auto) 0.8 (0.2-0.9) 10^3/u L Eos # (Auto) 0.2 (0.0-0.8) 10^3/u L Baso # (Auto) 0.1 (0.0-0.1) 10^3/u L Nucleated RBC % (a uto) 0 % Nucleated RBCs # 0.0 /100WBC Sodium 139 (136-145) mmol/L Potassium 4.1 (3.5-5.1) mmol/L Chloride 103 (98-107) mmol/L Carbon Dioxide 24 (22-29) mmol/L Anion Gap 16.1 (5-19) BUN 14 (8-23) mg/dL Creatinine 0.9 (0.5-0.9) mg/dL GFR Calculation 62.6 L (90-130) mL/min Glucose 86 (65-115) mg/dL Calculated Osmolal ity 288 (285-295) mOsm/k g Calcium 9.2 (8.5-10.5) mg/dL Total Bilirubin 0.2 (0.15-1.2) mg/dL AST 14 (0-32) U/L ALT 8 (0-33) U/L Alkaline Phosphata se 91 (35-105) IU/L Troponin T Baselin e 7 (0-10) ng/L Troponin T 120 Min [place] (0-10) ng/L Delta Troponin T (0-10) ABS# NT-Pro-B Natriuret Pep 494 H (0-125) pg/mL Total Protein 6.3 L (6.6-8.7) g/dL Albumin 3.9 (3.5-5.2) g/dL Globulin 2.4 (1.3-4.6) g/dL 07/05/ Range/Units 19:54 WBC (4.0-10.0) 10^3/ uL RBC (4.1-5.3) 10^6/u L Hgb (11.5-15.3) g/dL Hct (37.0-47.0) % MCV (81-99) fl MCH (28.0-34.0) pg MCHC (30.0-36.0) g/dL RDW (12.1-15.1) % Plt Count (130-400) 10^3/c mm MPV (7.4-10.4) fL Neut % (Auto) % Lymph % (Auto) % [place] % (Auto) % Eos % (Auto) % Baso % (Auto) % Neut # (Auto) (1.8-7.7) 10^3/u L Lymph # (Auto) (0.8-4.8) 10^3/u L [place] # (Auto) (0.2-0.9) 10^3/u L Eos # (Auto) (0.0-0.8) 10^3/u L Baso # (Auto) (0.0-0.1) 10^3/u L Nucleated RBC % (a uto) % Nucleated RBCs # /100WBC Sodium (136-145) mmol/L Potassium (3.5-5.1) mmol/L Chloride (98-107) mmol/L Carbon Dioxide (22-29) mmol/L Anion Gap (5-19) BUN (8-23) mg/dL Creatinine (0.5-0.9) mg/dL GFR Calculation (90-130) mL/min Glucose (65-115) mg/dL Calculated Osmolal ity (285-295) mOsm/k g Calcium (8.5-10.5) mg/dL Total Bilirubin (0.15-1.2) mg/dL AST (0-32) U/L ALT (0-33) U/L Alkaline Phosphata se (35-105) IU/L Troponin T Baselin e (0-10) ng/L Troponin T 120 Min [place] 6.76 (0-10) ng/L Delta Troponin T -0.24 L (0-10) ABS# NT-Pro-B Natriuret Pep (0-125) pg/mL Total Protein (6.6-8.7) g/dL Albumin (3.5-5.2) g/dL Globulin (1.3-4.6) g/dL Imaging Data^: CXR: Attestation: I personally reviewed and interpreted this imaging study as follows: Radiologist's impression: [address] [place] [address] XRay Report Signed Patient: Julia Arzola Unit #: [id number] : 1955 Age/Sex: 66 / F ADM Date: 07/05/21 Loc: ER Room/Bed: Attending Dr: Ordering Provider/Ordering MD: Levi Bella DO Date of Service: 07/05/21 Procedure(s): XR chest 1V portable [id number] Accession Number(s): [id number] Report Number: [id number] PROCEDURE INFORMATION: Exam: XR Chest Exam date and time: 07/05/2021 4:48 PM Age: 66 years old Clinical indication: Sternal or substernal pain; Additional info: Chest pain TECHNIQUE: Imaging protocol: XR of the chest. Views: 1 view. COMPARISON: CR (CHEST, ) 05/11/2021 5:42 PM FINDINGS: Lungs: Unremarkable. No consolidation. Pleural spaces: Unremarkable. No pleural effusion. No pneumothorax. Heart/Mediastinum: Unremarkable. No cardiomegaly. Bones/joints: Unremarkable. XR/XR chest 1V portable [id number] IMPRESSION: No acute findings. Dictated By: Ameya Correa MD Signed By: Ameya Correa MD Signed Date/Time: 07/05/211749 DD/ 47 EKG Data^: EKG 2: Attestation: I personally reviewed and interpreted this EKG as follows: EKG interpretation date: 07/05/21 EKG interpretation time: 19:02 Interpretation: nsr hr [address] or t wave abnormalities qrs 109 qtc 414 Discharge Plan Discharge Patient Disposition: Home Clinical Impression: Chest pain Qualifiers: Chest pain type: unspecified Qualified Code(s): R07.9 - Chest pain, unspecified Condition: Stable Prescriptions: No Action dicyclomine 20 mg tablet See Rx Instructions .ROUTE .COMPLEX RF: 0 duloxetine 60 mg capsule,delayed release(DR/EC) 60 mg PO BID RF: 0 cyclobenzaprine 10 mg tablet 10 mg PO BID PRN (Reason: Muscle Spasm) RF: 0 lansoprazole 30 mg capsule,delayed release(DR/EC) 30 mg PO DAILY RF: 0 bupropion HCl 300 mg tablet extended release 24 hr 300 mg PO DAILY@1030 RF: 0 gabapentin 300 mg capsule 900 mg PO TID RF: 0 amlodipine 5 mg tablet 5 mg PO DAILY Qty: 30 RF: 5 acetaminophen [Tylenol Extra Strength] 500 mg Tablet 1,000 mg PO PRN RF: 0 nitroglycerin 0.4 mg tablet, sublingual 0.4 mg SUBLINGUAL Q5M PRN (Reason: CHEST PAINS) 30 Days Qty: 30 RF: 0 naproxen sodium [Aleve] 220 mg Capsule 220 mg PO BID PRN (Reason: Pain) RF: 0 aspirin 325 mg Tablet 325 mg PO ONCE RF: 0 hydroxyzine HCl 25 mg tablet 25 mg PO TID PRN (Reason: Anxiety) RF: 0 Discharge Orders: Discharge ED (Routine); Ordered 07/05/21 Ordered By: Archie Anderson Referrals: Erik Matt [Primary Care Provider] - 1-3 days Discharge Diet: Advance as tolerated Discharge Activity: Resume usual activity Patient Instructions: Chest Pain (ED) Coding Level of Care Code ED Confectionery Drops Machine Operator for Chg Fwd Exam Comprehensive
[2021-07-05 17:22] LABS: Basophils # 0.1 10^3/uL (0.0-0.1); Basophils % 0.9 %; Eosinophils # 0.2 10^3/uL (0.0-0.8); Eosinophils % 2.1 %; Hemoglobin 10.3 g/dL (11.5-15.3); Lymphocytes # 3.7 10^3/uL (0.8-4.8); Lymphocytes % 40.7 %; Mean Corpuscular HGB Conc 30.3 g/dL (30.0-36.0); Mean Corpuscular Hemoglobin 23.4 pg (28.0-34.0); Mean Corpuscular Volume 77.3 fl (81-99); Mean Platelet Volume 9.8 fL (7.4-10.4); Monocytes # 0.8 10^3/uL (0.2-0.9); Monocytes % 8.4 %; Neutrophils % 47.7 %; Nucleated Red Blood Cells % 0 %; Platelet Count 547 10^3/cmm (130-400); Red Cell Distribution Width 18.2 % (12.1-15.1); White Blood Count 9.2 10^3/uL (4.0-10.0)
--- NOTE | 2021-07-05 17:39 | PC.PHAR ---
PT STATES THAT SHE STILL TAKES LIPITOR, BUT IT HAS NOT BEEN FILLED SINCE NOVEMBER AND IT WAS ONLY FOR 30 DAYS. ON THE PT'S DULOXITINE, SHE STATES SHE STILL HAS SOME BUT SHE SHOULD HAVE RUN OUT LAST MONTH.
[2021-07-05 17:51] LABS: Troponin(5th) Baseline 7 ng/L (0-10)
[2021-07-05 17:56] LABS: Alanine Aminotransferase 8 U/L (0-33); Albumin Level 3.9 g/dL (3.5-5.2); Alkaline Phosphatase 91 IU/L (35-105); Anion Gap 16.1 (5-19); Aspartate Amino Transferase 14 U/L (0-32); Blood Urea Nitrogen 14 mg/dL (8-23); Calcium 9.2 mg/dL (8.5-10.5); Carbon Dioxide 24 mmol/L (22-29); Chloride 103 mmol/L (98-107); Globulin 2.4 g/dL (1.3-4.6); Glomerular Filtration Rate 62.6 mL/min (90-130); Glucose 86 mg/dL (65-115); NT Pro B Type Natriuretic Pept 494 pg/mL (0-125); Osmolality Calculated 288 mOsm/kg (285-295); Potassium 4.1 mmol/L (3.5-5.1); Sodium 139 mmol/L (136-145); Total Bilirubin 0.2 mg/dL (0.15-1.2); Total Protein 6.3 g/dL (6.6-8.7)
[2021-07-05 18:04] VITALS: BP 151/73; PULSE 88; RESP 19; O2SAT 96
--- NOTE | 2021-07-05 18:48 | ECG_ITS ---
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1955 Requested By: Levi Lockhart Order Number: [id number] Reading MD: HEATH ROSS Measurements Intervals [place] Rate: 82 P: 55 MN: 137 QRS: -9 QRSD: 109 T: 90 QT: 375 QTc: 440 Interpretive Statements SINUS RHYTHM LEFT VENTRICULAR HYPERTROPHY AND ST-T CHANGE [VOLTAGE CRITERIA PLUS ST/T ABNORMALITY] POSSIBLE ANTERIOR MYOCARDIAL INFARCTION , OF INDETERMINATE AGE [30 ms Q WAVE IN V3/V4, OR R < 0.2 mV IN V4] Compared to ECG 07/05/2021 16:54:16 No significant changes Electronically Signed On 07-05-2021 21:08:54 CDT by HEATH ROSS [id number]
[2021-07-05 19:51] VITALS: BP 165/78; PULSE 83; RESP 25; O2SAT 92
[2021-07-05 20:16] LABS: Troponin 5 2HR 6.76 ng/L (0-10); Troponin 5 2HR Delta -0.24 ABS# (0-10)
[2021-07-05 20:48] VITALS: BP 146/69; PULSE 83; RESP 18; O2SAT 92
== END 2021-07-05 20:49 | disposition home or self-care (01) ==
PROVIDERS: Family Medicine; Emergency Provider Emergency Medicine; PCP Family Medicine
DX: R07.9 Chest pain, unspecified (principal); I25.10 Atherosclerotic heart disease of native coronary artery without angina pectoris; E78.00 Pure hypercholesterolemia, unspecified; I10 Essential (primary) hypertension; Z79.82 Long term (current) use of aspirin
CPT/HCPCS: 71045; 80053; 83880; 84484; 85025; 93005; 99283

== ENCOUNTER → 2021-08-01 14:37 | Outpatient (BNVA) | payer BC, MEDICARE, SELFPAY | PROVIDERS: PCP Family Medicine; Visit Provider Urology | DX: C67.8 Malignant neoplasm of overlapping sites of bladder (principal) | CPT/HCPCS: 81003 ==

== ENCOUNTER → 2021-12-07 13:08 | Outpatient (BNVA) | payer MEDICARE, SELFPAY | PROVIDERS: PCP Family Medicine; Visit Provider Urology | DX: C67.8 Malignant neoplasm of overlapping sites of bladder (principal) | CPT/HCPCS: 81003 ==

== ENCOUNTER → 2022-01-11 14:06 | Outpatient (BNVA) | payer MEDICARE, SELFPAY | PROVIDERS: PCP Family Medicine; Visit Provider Internal Medicine Cardiovascular Disease | DX: R07.9 Chest pain, unspecified (principal); I35.1 Nonrheumatic aortic (valve) insufficiency; I25.119 Atherosclerotic heart disease of native coronary artery with unspecified angina pectoris; I10 Essential (primary) hypertension; E78.00 Pure hypercholesterolemia, unspecified; F17.210 Nicotine dependence, cigarettes, uncomplicated; C67.9 Malignant neoplasm of bladder, unspecified | CPT/HCPCS: 81003; 99214 ==

== ENCOUNTER → 2022-01-18 15:09 | Outpatient (BNVA) | payer MEDICARE, SELFPAY | PROVIDERS: PCP Family Medicine; Visit Provider Urology | DX: C67.8 Malignant neoplasm of overlapping sites of bladder (principal) | CPT/HCPCS: 81003 ==

== ENCOUNTER → 2022-01-26 10:51 | Outpatient (BNVA) | payer MEDICARE, SELFPAY | PROVIDERS: PCP Family Medicine; Visit Provider Nurse Practitioner Family | DX: C67.8 Malignant neoplasm of overlapping sites of bladder (principal) | CPT/HCPCS: 81003 ==

== ENCOUNTER → 2022-03-16 10:30 | Outpatient (BNVA) | payer MEDICARE, SELFPAY | PROVIDERS: PCP Family Medicine; Visit Provider Urology | DX: C67.9 Malignant neoplasm of bladder, unspecified (principal); C67.8 Malignant neoplasm of overlapping sites of bladder | CPT/HCPCS: 52000; 81003 ==

== ENCOUNTER → 2022-05-10 15:42 | Outpatient (BNVA) | payer BC, SELFPAY | PROVIDERS: PCP Family Medicine; Visit Provider Nurse Practitioner Family | DX: C67.9 Malignant neoplasm of bladder, unspecified (principal) | CPT/HCPCS: 81003 ==

== ENCOUNTER → 2022-07-20 08:50 | Outpatient (BNVA) | payer MEDICARE, SELFPAY | PROVIDERS: PCP Family Medicine; Visit Provider Urology | DX: C67.8 Malignant neoplasm of overlapping sites of bladder (principal) | CPT/HCPCS: 52000 ==

== ENCOUNTER → 2022-08-29 13:37 | Outpatient (BNVA) | payer MEDICARE, SELFPAY | PROVIDERS: PCP Family Medicine; Visit Provider Internal Medicine Cardiovascular Disease | DX: R07.9 Chest pain, unspecified (principal); I35.1 Nonrheumatic aortic (valve) insufficiency; I25.119 Atherosclerotic heart disease of native coronary artery with unspecified angina pectoris; I10 Essential (primary) hypertension; E78.00 Pure hypercholesterolemia, unspecified; F17.210 Nicotine dependence, cigarettes, uncomplicated | CPT/HCPCS: 99214 ==

== ENCOUNTER → 2022-10-24 15:05 | Outpatient (BNVA) | payer MEDICARE, SELFPAY | PROVIDERS: PCP Family Medicine; Visit Provider Urology | DX: N30.90 Cystitis, unspecified without hematuria (principal); C67.8 Malignant neoplasm of overlapping sites of bladder; R31.0 Gross hematuria | CPT/HCPCS: 51798; 52000; 81003; 87086; 88112 ==

== ENCOUNTER → 2022-11-09 11:45 | Outpatient (BNVA) | payer MEDICARE, SELFPAY | PROVIDERS: PCP Family Medicine; Visit Provider Urology | DX: C67.9 Malignant neoplasm of bladder, unspecified (principal); C67.8 Malignant neoplasm of overlapping sites of bladder | CPT/HCPCS: 51720; J9030 ==

== ENCOUNTER → 2022-11-16 11:45 | Outpatient (BNVA) | payer MEDICARE, SELFPAY | PROVIDERS: PCP Family Medicine; Visit Provider Urology | DX: C67.8 Malignant neoplasm of overlapping sites of bladder (principal) | CPT/HCPCS: 51720; J9030 ==

== ENCOUNTER 2022-11-20 07:43 | Outpatient (CLI) | payer MEDICARE, SELFPAY ==
--- NOTE | 2022-11-20 07:49 | NMCV_ITS ---
NM meilssa perf SPECT r/s* [id number] [facility] Age: 67 Gender: F : 1955 Exam Date: 11/20/2022 08:59 Ordering Phys: Malka Jones MD ([email or web address]) Technologist: KAILASH Mccall Exam Location: [facility] Indications: CHEST PAIN STRESS TEST Please see separate stress test report in [facility] for full findings IMAGE PROTOCOL Rest/Stress 1 Radiopharmaceutical Dose (mCi) Administration Site Administered by Rest: Tc-99m 10.8 IV KAILASH Hernandez Sestamibi Stress:Tc-99m 32.7 IV KAILASH Hernandez Sestamirachel Rest: 20-Nov-2022 60 Discovery 630 Stress: 20-Nov-2022 30 Discovery 630 Images obtained in supine and prone position. Images obtained in supine and prone position. SPECT RESULTS Technical Quality: Excellent Raw Data Analysis: Normal Image Corrections: No attenuation or motion correction applied Summed Stress Score: 6 Summed Rest Score: 5 Summed Difference Score: 3 PERFUSION FINDINGS Small sized perfusion abnormality of mild severity of apical inferior and apical lateral lopez on supine stress images with improved tracer uptake in prone stress images. FUNCTIONAL RESULTS (calculated via Gated SPECT) Stress Image LV EF (%): 71 Stress EDV (mL):70 TID: 1.53 Stress ESV (mL):20 FUNCTIONAL FINDINGS: The left ventricle is normal in size. Transient Ischemia Dilatation of 1.5. The left ventricular ejection fraction is normal with a value of 71%. There is normal left ventricular wall thickening. IMPRESSIONS 1. Myocardial perfusion imaging is normal. Attenuation arttifact of apical inferior and apical lateral lopez. 2. Overall left ventricular systolic function is normal without regional wall motion abnormalities, LVEF=71%. 3. EKG portion of the study will be reported separately. 4. Scan indicates low risk for cardiac events. Malka Jones MD (Electronically Signed) Final Date: 20 November 2022 20:37 S
--- NOTE | 2022-11-20 07:49 | ECG_ITS ---
[facility] Test Date: 2022-11-20 Pat Name: Julia Arzola Department: Room: Gender: Female Run Lead: : 1955 Requested By: Malka Jones Order Number: [id number] Keller MD: Malka Jones M.D. Interpretive Statements NAME OF STUDY: LEXISCAN SESTAMIBI STRESS TEST INDICATION: Chest Pain; Shortness of Breath;CAD PROCEDURE: At the baseline, the blood pressure was 135/61 mm Hg with a heart rate of 73 bpm. The electrocardiogram showed sinus rhythm, normal axis. LVH and ST-T wave changes. ??? The Lexiscan was infused over a period of 20 seconds. A total of 0.4 milligrams of Lexiscan was infused. The stress phase was continued for a total of 5 minutes. Heart rate at the end of the stress phase was 86 bpm with a blood pressure of 118/61 mm Hg. The EKG at the peak infusion revealed no significant ST-T wave changes. ??? Sestamibi was injected 20 seconds after the Lexiscan infusion. ??? Blood pressure at the end of the recovery phase was 124/64 mm Hg with a heart rate of 85 beats per minute. ??? CONCLUSION: 1. No significant EKG changes with the LexiScan infusion. 2. No LexiScan induced chest pain or cardiac arrhythmia. 3. Normal blood pressure and heart rate response. 4. Sestamibi/sestamibi perfusion scan pending; see separate report. Electronically Signed On 12-02-2022 10:15:41 THROUGH OPERATOR by Malka Jones M.D. [id number]
[2022-11-20 08:11] VITALS: BMI 25.4
[2022-11-20] MEDS: regadenoson 0.4 Mg/5 ml Syringe IVP (09:30)
[2022-11-20 09:47] VITALS: BP 118/61; PULSE 86
== END 2022-11-20 07:44 | disposition home or self-care (01) ==
PROVIDERS: PCP Family Medicine; Visit Provider Internal Medicine Cardiovascular Disease
DX: R07.9 Chest pain, unspecified (principal); I25.10 Atherosclerotic heart disease of native coronary artery without angina pectoris
CPT/HCPCS: 36415; 78452; 93017; 96374; A9500; J2785

== ENCOUNTER → 2022-11-23 11:30 | Outpatient (BNVA) | payer MEDICARE, SELFPAY | PROVIDERS: PCP Family Medicine; Visit Provider Urology | DX: C67.9 Malignant neoplasm of bladder, unspecified (principal) | CPT/HCPCS: 51720; 81003; J9030 ==

== ENCOUNTER → 2023-05-29 13:44 | Outpatient (BNVA) | payer MEDICARE, SELFPAY | PROVIDERS: PCP Family Medicine; Visit Provider Internal Medicine Cardiovascular Disease | DX: R07.9 Chest pain, unspecified (principal); I35.1 Nonrheumatic aortic (valve) insufficiency; I25.119 Atherosclerotic heart disease of native coronary artery with unspecified angina pectoris; I10 Essential (primary) hypertension; E78.00 Pure hypercholesterolemia, unspecified; Z79.82 Long term (current) use of aspirin; F17.210 Nicotine dependence, cigarettes, uncomplicated | CPT/HCPCS: 99214 ==

== ENCOUNTER 2023-08-11 13:01 | Emergency (ER) | payer MEDICARE, SELFPAY ==
[2023-08-11] VITALS (51 sets, daily range): BP systolic 90–151; BP diastolic 49–97; PULSE 84–117; RESP 14–31; TEMP 37.1; O2SAT 75–100; BMI 26.2
--- NOTE | 2023-08-11 13:12 | ECG_ITS ---
[facility] Test Date: 2023-08-11 Pat Name: Julia Arzola Department: Room: Gender: Female Weight Calculator: : 1955 Requested By: Archie Anderson Order Number: [id number] Arianna MD: Joshua Banks M.D. Measurements Intervals [place] Rate: 94 P: 0 ME: 0 QRS: -10 QRSD: 112 T: 66 QT: 391 QTc: 490 Interpretive Statements SUPRAVENTRICULAR RHYTHM LEFT VENTRICULAR HYPERTROPHY AND ST-T CHANGE [VOLTAGE CRITERIA PLUS ST/T ABNORMALITY] POSSIBLE ANTEROSEPTAL MYOCARDIAL INFARCTION , OF INDETERMINATE AGE [30 ms Q WAVE IN V1-V4] Compared to ECG 07/05/2021 19:02:54 Supraventricular rhythm now present Sinus rhythm no longer present ST (T wave) deviation still present Myocardial infarct finding still present Electronically Signed On 08-11-2023 13:55:19 CDT by Joshua Banks M.D. [email or web address].[employer]/store/[id number]
--- NOTE | 2023-08-11 13:15 | CTR_ITS ---
PROCEDURE INFORMATION: Exam: CT Abdomen And Pelvis Without Contrast Exam date and time: 08/11/2023 1:59 PM Age: 68 years old Clinical indication: Abdominal pain; Other: Tony flank pain lower abd pain; Prior surgery; Surgery date: 6+ months; Surgery type: Hernia hysto; Additional info: Abd and flank pain, allergy to contrast changed to w/o per Dr pierre TECHNIQUE: Imaging protocol: Computed tomography of the abdomen and pelvis without contrast. Radiation optimization: All CT scans at this facility use at least one of these dose optimization techniques: automated exposure control; mA and/or kV adjustment per patient size (includes targeted exams where dose is matched to clinical indication); or iterative reconstruction. REPORTING DATA: Count of CT and Cardiac NM exams in prior 12 months: This patient has received [address] and 0 known cardiac nuclear medicine studies in the 12 months prior to the current study. COMPARISON: CT kidney stone [id number] 11/08/2020 10:27 AM RADIATION DOSE METRICS: Total DLP (mGy-cm): 347.18 FINDINGS: Lungs: Lung windows through the visualized lung bases demonstrate mild ill-defined ground-glass opacity within the mid to posterior lower right lung. Mild chronic anteromedial adhesions. No effusion. Diaphragm: Moderate chronic hiatal hernia. Liver: Small rounded 6 mm low-attenuation lesion in the dome of the liver is unchanged with prior exam, likely tiny cyst. Liver is otherwise unremarkable for unenhanced exam. Gallbladder and bile ducts: Normal. No calcified stones. No ductal dilation. Pancreas: Normal. No ductal dilation. Spleen: Normal. No splenomegaly. Adrenal glands: Normal. No mass. Kidneys and ureters: No urinary tract stone or obstructive uropathy or perinephric stranding. Kidneys appear unremarkable for unenhanced exam. Stomach and bowel: Sigmoid colon diverticulosis with equivocal minimal diverticulitis. Partial fluid content within distal small bowel and right colon, nonspecific. Scattered stool content more prominent in the distal colon. No abnormal mucosal thickening. Appendix: No CT findings of appendicitis. Intraperitoneal space: Unremarkable. No free air. No significant fluid collection. Vasculature: Atherosclerotic vascular calcification without aneurysmal dilatation of the abdominal aorta. Lymph nodes: Unremarkable. No enlarged lymph nodes. Urinary bladder: Unremarkable as visualized. Reproductive: Previous hysterectomy. Bones/joints: Chronic hemangioma L2 vertebra. Soft tissues: Previous right ventral abdominal wall hernia repair. CT/CT abdomen pelvis wo con [id number] IMPRESSION: 1. No urinary tract stone or obstructive uropathy or perinephric stranding. 2. Previous hysterectomy and right ventral abdominal wall hernia repair change. 3. Tiny hypodense lesion within the dome of the right lobe of the liver is unchanged with prior exam, likely tiny cyst. 4. Moderate hiatal hernia. 5. Sigmoid colon diverticulosis with equivocal minimal diverticulitis. 6. Atherosclerotic vascular calcification without aneurysmal dilatation of the abdominal aorta.
--- NOTE | 2023-08-11 13:17 | ED_ITS ---
HPI - General Adult General: Chief complaint: Shortness of Breath/Dyspnea Stated complaint: SOB/fever/vomiting Time Seen by Provider: 08/11/23 13:14 Source: patient and family (Bowels) Mode of arrival: ambulatory Limitations: no limitations History of Present Illness: This patient presented to the emergency department in somewhat of an anxious state. She was seen at triage and immediately brought back to the emergency department because of complaints of feeling breathless having abdominal pain, ba ck pain having 1 bout of emesis. It was somewhat difficult to get initial he history out of her she was very anxious however spouse soon arrived and provided more illuminating history. Currently she has been treated for urinary tract infection for the last several days and is also had some body aches fever and chills the last 24 hours. reports that he was sick few days ago with approximately 2 to 3 days of body aches chills and fever and he thought it might be due to his shingles shot. She has a history of coronary disease had heart attack without stent placement. She is also had Burkitt's lymphoma as well as bladder cancer. She still occasionally smokes cigarettes. He denies any history of kidney stones. She states that she is not having any diarrhea blood in her urine etc. She denies any chest pain per se. [facility] ED PFSH: Medical History Aortic regurgitation Arnold-Chiari malformation, type I Burkitts lymphoma CAD (coronary artery disease) Cervical disc disease Chronic back pain Depression Fibromyalgia Hypercholesteremia Hypertension IBS (irritable bowel syndrome) Migraine aura without headache Other spondylosis with radiculopathy, cervical region Polymyalgia rheumatica Vitamin D deficiency Surgical History H/O hernia repair H/O tubal ligation H/O: hysterectomy History of ankle surgery Hx of section Hx of colonoscopy Hx of tonsillectomy Family History Family/Other Hypertension CAD (coronary artery disease) Cancer Mother , at age 83 Heart attack Father , unknown No problems noted. Denies family history of Anesthesia complication Bleeding disorder Social History Smoking and tobacco status: former smoker Second hand smoke exposure: No Alcohol intake: current Alcohol intake frequency: holidays/special occasions only Desire information about alcohol rehabilitation?: No Substance/Drug Use: never Desire information about substance/drug rehabilitation?: No Lives independently: Yes Housing: House Marital status: Current occupational status: disabled Current gender identity: Female Physical Exam Narrative: EXAM NARRATIVE: Patient is alert but is quite anxious and is only able to answer simple questions in a yes or no answer. Const: COMMON NORMALS: average body habitus and patient oriented x3 GENERAL APPEARANCE: anxious ORIENTATION/CONSCIOUSNESS: Yes awake, Yes oriented to person and Yes oriented to place Neuro: COMMON NORMALS: patient oriented x3 SENSORIUM/ORIENTATION: Yes oriented to person and Yes oriented to place Course Reevaluation(s): Reevaluation #1: Patient states she is feeling some better. She is cold however the room temperature is also cold. Reviewed current findings and their implications with the patient and spouse. Her urinalysis is unrevealing for any signs of infection. Her CAT scan was reassuring without any evidence of obstruction, acute infection or other concerning pathology at this time. He does have a rosalina kocytosis but this is nonspecific and certainly could be related to possible infection versus demargination. Again her was sick with a viral type illness for a few days prior to her onset of her current symptoms so there may in fact be a connection. We will go ahead and check COVID and flu for completeness and get a chest x-ray to establish no others possible signs of infection. Time: 17:46 Reevaluation #2: She continues to look much better objectively and subjectively she feels better. Her COVID-19 and influenza and chest x-ray are also reassuring. She is taking p.o. fluids well and desires to be discharged. I discussed current findings their implications limitations and return precautions with both she and her spouse. Time: 19:15 Vital Signs: Vital signs: Vital Signs Temperature 98.7 F 08/11/23 13:09 Pulse Rate 93 08/11/23 18:44 Respiratory Rate 14 08/11/23 17:00 Blood Pressure 142/86 08/11/23 18:24 Pulse Oximetry 94 08/11/23 18:44 Oxygen Delivery Me thod Room Air 08/11/23 18:44 MDM - General Adult Medical Decision Making This patient presented to the emergency department initially with symptoms of feeling anxious and short of breath. She states she has been suffering fevers and chills over the past 24 hours and also having some abdominal discomfort. She was accompanied by her spouse who provided additional history and information for us Her clinical examination revealed her to be anxious and somewhat limited in her ability to give us much in the way history. She had some abdominal tenderness in addition to her increased respiratory rate and somewhat anxious and confused state. Patient upon her presentation and a broad-based work-up was done to evaluate for potential pathology to include pneumonia, urinary tract infection, intra-abdominal pathology etc. She received the benefit of IV fluids and close monitoring. Imaging was reassuring regarding her abdominal CT scan. She also had laboratories which were reassuring without any evidence of urinary tract infection. She did have a leukocytosis but nonspecific finding. Her EKGs and troponins were also reassuring without any evidence of ACS or acute FL. Additional illuminating history from the revealed that he had a viral illness approximately 3 to 4 days prior to the onset of her symptoms in which she had experienced fever and chills. No known exposure to infectious disease as there is no children or grandchildren in close proximity. A chest x-ray as well as COVID and influenza studies were obtained as well which were also reassu ring and negative. She continues to improve clinically and subjectively. She was taking oral fluid s well remained afebrile, no evidence of hypoxia etc. She does have a history of underlying anxiety as well as a history of irritable bowel syndrome. This may have been a contributing factor her to her presentation. This likely represents an is consistent with a viral illness and she looks clinically improved and was desirous to go home and there is no evidence at this time of an ongoing emergency medical condition. She voiced understanding of her return precautions. Lab Data I reviewed the patient's lab results. 08/11/23 13:25 08/11/23 13:25 Radiology Impressions Abdomen/Pelvis CT 08/11/23 13:15 IMPRESSION: 1. No urinary tract stone or obstructive uropathy or perinephric stranding. 2. Previous hysterectomy and right ventral abdominal wall hernia repair change. 3. Tiny hypodense lesion within the dome of the right lobe of the liver is unchanged with prior exam, likely tiny cyst. 4. Moderate hiatal hernia. 5. Sigmoid colon diverticulosis with equivocal minimal diverticulitis. 6. Atherosclerotic vascular calcification without aneurysmal dilatation of the abdominal aorta. Chest X-Ray 08/11/23 17:47 IMPRESSION: No acute cardiopulmonary abnormality in this patient with COPD. Laboratory Results WBC 18.38 10^3/uL (3.29-11.43) H 08/11/23 13:25 RBC 4.92 10^6/uL (3.85-5.65) 08/11/23 13:25 Hgb 11.60 g/dL (11.27-16.99) 08/11/23 13:25 Hct 37.7 % (36-47) 08/11/23 13:25 MCV 76.6 fl (85-98) L 08/11/23 13:25 MCH 23.6 pg (27-33) L 08/11/23 13:25 MCHC 30.8 g/dL (30-55) 08/11/23 13:25 RDW 20.6 % (12.1-15.1) H 08/11/23 13:25 Plt Count 366 10^3/cmm (157-399) 08/11/23 13:25 MPV 9.5 fL (7.4-10.4) 08/11/23 13:25 Neut % (Auto) 70.0 % 08/11/23 13:25 Lymph % (Auto) 22.6 % 08/11/23 13:25 [place] % (Auto) 5.0 % 08/11/23 13:25 Eos % (Auto) 1.7 % 08/11/23 13:25 Baso % (Auto) 0.3 % 08/11/23 13:25 Neut # (Auto) 12.86 10^3/uL (1.8-7.7) H 08/11/23 13:25 Lymph # (Auto) 4.2 10^3/uL (0.8-4.8) 08/11/23 13:25 [place] # (Auto) 0.9 10^3/uL (0.2-0.9) 08/11/23 13:25 Eos # (Auto) 0.3 10^3/uL (0.0-0.8) 08/11/23 13:25 Baso # (Auto) 0.1 10^3/uL (0.0-0.1) 08/11/23 13:25 Nucleated RBC % (auto) 0 % 08/11/23 13:25 Nucleated RBCs # 0.0 /100WBC 08/11/23 13:25 Sodium 135 mmol/L (136-145) L 08/11/23 13:25 Potassium 4.1 mmol/L (3.5-5.1) 08/11/23 13:25 Chloride 98 mmol/L (98-107) 08/11/23 13:25 Carbon Dioxide 19 mmol/L (22-29) L 08/11/23 13:25 Anion Gap 22.1 (5-19) H 08/11/23 13:25 BUN 17 mg/dL (8-23) 08/11/23 13:25 Creatinine 1.2 mg/dL (0.5-0.9) H 08/11/23 13:25 GFR Calculation 44.7 mL/min (90-130) L 08/11/23 13:25 Glucose 93 mg/dL (65-115) 08/11/23 13:25 Calculated Osmolality 281 mOsm/kg (285-295) L 08/11/23 13:25 Calcium 9.5 mg/dL (8.5-10.5) 08/11/23 13:25 Total Bilirubin 0.6 mg/dL (0.15-1.2) 08/11/23 13:25 AST 22 U/L (0-32) 08/11/23 13:25 ALT 12 U/L (0-33) 08/11/23 13:25 Alkaline Phosphatase 77 U/L (35-105) 08/11/23 13:25 Troponin T Baseline 7 ng/L (0-10) 08/11/23 13:25 Troponin T 120 Minute < 6.0 ng/L (0-10) 08/11/23 15:16 Delta Troponin T -1.0 ABS# (0-10) L 08/11/23 15:16 Total Protein 7.5 g/dL (6.6-8.7) 08/11/23 13:25 Albumin 4.1 g/dL (3.5-5.2) 08/11/23 13:25 Globulin 3.4 g/dL (1.3-4.6) 08/11/23 13:25 Lipase 29 U/L (13-60) 08/11/23 13:25 Urine Color Yellow (Yellow) 08/11/23 17:05 Urine Appearance Clear (CLEAR) 08/11/23 17:05 Urine pH 7 (5-7) 08/11/23 17:05 Ur Specific [place] 1.000 (1.005-1.030) L 08/11/23 17:05 Urine Protein Neg (Negative) 08/11/23 17:05 Urine Glucose (UA) Norm (Normal) 08/11/23 17:05 Urine Ketones Negative (Negative) 08/11/23 17:05 Urine Blood Neg (Negative) 08/11/23 17:05 Urine Nitrate Negative (Negative) 08/11/23 17:05 Urine Bilirubin Neg (Negative) 08/11/23 17:05 Urine Urobilinogen Norm mg/dL (Negative) 08/11/23 17:05 Ur Leukocyte Esterase Negative (Negative) 08/11/23 17:05 Influenza Type A Ag negative (Negative) 08/11/23 18:06 Influenza Type B Ag negative (Negative) 08/11/23 18:06 SARS-CoV-2 Ag (Rapid) negative (Negative) 08/11/23 18:06 All radiology interpretation(s) finalized by discharge EKG Data EKG 1: I personally reviewed and interpreted this EKG as follows: Interpretation: Review of initial EKG reveals a ventricular rate of 94 bpm. AL interval is indeterminate by computer but grossly appears normal. QRS duration is normal. Corrected QT interval is normal. She has normal R axis. She has loss of anterior forces consistent with possible anterior septal FL. This general EKG is unchanged changed from prior tracings within the our system. Computer generated interpretation: Abdomen/Pelvis CT 08/11/23 13:15 IMPRESSION: 1. No urinary tract stone or obstructive uropathy or perinephric stranding. 2. Previous hysterectomy and right ventral abdominal wall hernia repair change. 3. Tiny hypodense lesion within the dome of the right lobe of the liver is unchanged with prior exam, likely tiny cyst. 4. Moderate hiatal hernia. 5. Sigmoid colon diverticulosis with equivocal minimal diverticulitis. 6. Atherosclerotic vascular calcification without aneurysmal dilatation of the abdominal aorta. Chest X-Ray 08/11/23 17:47 IMPRESSION: No acute cardiopulmonary abnormality in this patient with COPD. Discharge Plan Discharge Patient Disposition: Home Clinical Impression: Acute viral syndrome Condition: Stable Prescriptions: No Action dicyclomine 20 mg tablet See Rx Instructions .ROUTE .COMPLEX Rx Instructions: 20 mg orally BEFORE MEALS AND AT BEDTIME duloxetine 60 mg capsule,delayed release(DR/EC) 60 mg PO BID cyclobenzaprine 10 mg tablet 10 mg PO BID PRN (Reason: Muscle Spasm) lansoprazole 30 mg capsule,delayed release(DR/EC) 30 mg PO DAILY bupropion HCl 300 mg tablet extended release 24 hr 300 mg PO DAILY@1030 gabapentin 300 mg capsule 900 mg PO TID atorvastatin 40 mg tablet 40 mg PO DAILY Qty: 90 3RF nitroglycerin 0.4 mg tablet, sublingual 0.4 mg SUBLINGUAL Q5M PRN (Reason: CHEST PAINS) 30 Days Qty: 30 6RF Rx Instructions: do not exceed 3 doses per episode isosorbide mononitrate 30 mg tablet extended release 24 hr 15 mg PO DAILY Qty: 45 2RF aspirin [Adult Low Dose Aspirin] 81 mg tablet,delayed release (DR/EC) 81 mg PO DAILY amlodipine 5 mg tablet 5 mg PO DAILY metoprolol succinate 25 mg tablet extended release 24 hr 12.5 mg PO DAILY varenicline [Chantix] 1 mg tablet 1 mg PO BID hydroxyzine HCl 25 mg tablet 25 mg PO TID PRN (Reason: Anxiety) ondansetron HCl 8 mg tablet 8 mg PO Q8H PRN (Reason: Nausea) albuterol sulfate 90 mcg/actuation HFA aerosol inhaler 2 inh INHALATION Q6H PRN (Reason: Shortness Of Breath) Discharge Orders: Discharge ED (Routine); Ordered 08/11/23 Ordered By: Chino Gonzalez Referrals: Mickey Matt DO [Primary Care Provider] - Discharge Diet: Advance as tolerated Discharge Activity: Increase activity as tolerated Patient Instructions: Opioid Safety, Pain Management Activity Restrictions/Additional Instructions: As we reviewed while you are in the emergency department your evaluation here did not determine any serious condition. You had no evidence of pneumonia, COVID-19 and influenza, heart failure, heart attack bowel obstruction kidney stone etc. Your presentation likely represents the same type of viral illness that her had which preceded your illness by a few days. That being said if you develop new or worsening or persistent or concerning symptoms of any kind you are welcome to return to the emergency department for reevaluation. We recommend you continue oral hydration with at least 2 quarts of fluid daily and advance to a regular diet as soon as you can tolerate it. Coding Level of Care Code ED Carpenter Maintenance for Zeke Low
[2023-08-11 13:34] LABS: Basophils # 0.1 10^3/uL (0.0-0.1); Basophils % 0.3 %; Eosinophils # 0.3 10^3/uL (0.0-0.8); Eosinophils % 1.7 %; Hematocrit 37.7 % (36-47); Lymphocytes # 4.2 10^3/uL (0.8-4.8); Lymphocytes % 22.6 %; Mean Corpuscular HGB Conc 30.8 g/dL (30-55); Mean Corpuscular Hemoglobin 23.6 pg (27-33); Mean Corpuscular Volume 76.6 fl (85-98); Mean Platelet Volume 9.5 fL (7.4-10.4); Monocytes # 0.9 10^3/uL (0.2-0.9); Neutrophils # 12.86 10^3/uL (1.8-7.7); Nucleated Red Blood Cells % 0 %; Platelet Count 366 10^3/cmm (157-399); Red Blood Count 4.92 10^6/uL (3.85-5.65); Red Cell Distribution Width 20.6 % (12.1-15.1); White Blood Count 18.38 10^3/uL (3.29-11.43)
[2023-08-11 13:55] LABS: Alanine Aminotransferase 12 U/L (0-33); Albumin Level 4.1 g/dL (3.5-5.2); Alkaline Phosphatase 77 U/L (35-105); Aspartate Amino Transferase 22 U/L (0-32); Blood Urea Nitrogen 17 mg/dL (8-23); Calcium 9.5 mg/dL (8.5-10.5); Carbon Dioxide 19 mmol/L (22-29); Chloride 98 mmol/L (98-107); Globulin 3.4 g/dL (1.3-4.6); Glomerular Filtration Rate 44.7 mL/min (90-130); Glucose 93 mg/dL (65-115); Lipase 29 U/L (13-60); Osmolality Calculated 281 mOsm/kg (285-295); Sodium 135 mmol/L (136-145); Total Bilirubin 0.6 mg/dL (0.15-1.2); Total Protein 7.5 g/dL (6.6-8.7)
[2023-08-11 14:03] LABS: Troponin(5th) Baseline 7 ng/L (0-10)
[2023-08-11] MEDS: ondansetron 2 mg/ML SDV 2 mL 4 MG IVP (14:10)
[2023-08-11] MEDS: LORazepam 2 mg/mL INJ 1 mL 0.5 MG IVP (14:10)
[2023-08-11] MEDS: sodium chloride 0.9% 1,000 ML 999 ML IV ×2 (14:11→16:07)
[2023-08-11 14:12] LABS: Anion Gap 22.1 (5-19); Potassium 4.1 mmol/L (3.5-5.1)
--- NOTE | 2023-08-11 15:11 | ECG_ITS ---
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 Measurements Intervals [place] Rate: 97 P: 49 NC: 138 QRS: -4 QRSD: 110 T: 77 QT: 371 QTc: 471 Interpretive Statements SINUS RHYTHM INCOMPLETE RIGHT BUNDLE BRANCH BLOCK [90+ ms QRS DURATION, TERMINAL R IN V1/V2, 40+ ms S IN I/aVL/V4/V5/V6] POSSIBLE ANTERIOR MYOCARDIAL INFARCTION , OF INDETERMINATE AGE [30 ms Q WAVE IN V3/V4, OR R < 0.2 mV IN V4] MODERATE T-WAVE ABNORMALITY, CONSIDER LATERAL ISCHEMIA [-0.1+ mV T-WAVE IN I/aVL/V5/V6] Compared to ECG 08/11/2023 13:06:28 Incomplete right bundle-branch block now present T-wave abnormality now present Possible ischemia now present Supraventricular rhythm no longer present Left ventricular hypertrophy no longer present ST (T wave) deviation no longer present Myocardial infarct finding still present Electronically Signed On 08-11-2023 20:34:19 CDT by Joshua Banks M.D. [email or web address] medical [email or web address] [id number]
[2023-08-11 15:59] LABS: Troponin 5 2HR < 6.0 ng/L (0-10)
[2023-08-11 17:21] LABS: Add Urine Microscopic? NO; Charge for UA Resulting for Rev
[2023-08-11 17:23] LABS: Bilirubin Urine Neg (Negative); Blood Urine Neg (Negative); Glucose Urine UA Norm (Normal); Ketones Urine Negative (Negative); Leukocyte Esterase Urine Negative (Negative); Nitrate Urine Negative (Negative); Protein Urine Neg (Negative); Urine Appearance Clear (CLEAR); Urine Color Yellow (Yellow); Urobilinogen Urine Norm (Negative); pH Urine 7 (5-7)
--- NOTE | 2023-08-11 17:47 | XRR_ITS ---
PROCEDURE INFORMATION: Exam: XR Chest Exam date and time: 08/11/2023 6:20 PM Age: 68 years old Clinical indication: Patient HX: Cough; Weakness; Copd; HX cervical/bladder cancer TECHNIQUE: Imaging protocol: Radiologic exam of the chest. Views: 1 view. COMPARISON: CR XR chest 1V portable [id number] 07/05/2021 4:48 PM FINDINGS: Tubes, catheters and devices: Overlying monitor leads. Lungs: Unremarkable. No consolidation. Minimal left basilar scarring. Pleural spaces: Unremarkable. No pleural effusion. No pneumothorax. Heart/Mediastinum: Unremarkable. No cardiomegaly. Bones/joints: Visualized osseous structures show no acute abnormality. Other findings: No significant change with prior exam. XR/XR chest 1V portable [id number] IMPRESSION: No acute cardiopulmonary abnormality in this patient with COPD.
[2023-08-11 18:35] LABS: Influenza A by IFA negative (Negative); Influenza B by IFA negative (Negative); SARS Covid-2 Antigen negative (Negative)
--- NOTE | 2023-08-11 19:16 | ECG_ITS ---
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 Measurements Intervals [place] Rate: 101 P: 56 RI: 139 QRS: 15 QRSD: 112 T: 93 QT: 359 QTc: 466 Interpretive Statements SINUS TACHYCARDIA SEPTAL MYOCARDIAL INFARCTION , OF INDETERMINATE AGE [40+ ms Q WAVE IN V1/V2] MODERATE T-WAVE ABNORMALITY, CONSIDER LATERAL ISCHEMIA [-0.1+ mV T-WAVE IN I/aVL/V5/V6] Compared to ECG 08/11/2023 15:11:18 Sinus rhythm no longer present Incomplete right bundle-branch block no longer present Myocardial infarct finding still present T-wave abnormality still present Possible ischemia still present Electronically Signed On 08-11-2023 20:34:13 CDT by Joshua Banks M.D. [id number]
== END 2023-08-11 19:24 | disposition home or self-care (01) ==
PROVIDERS: Emergency Provider Emergency Medicine; PCP Family Medicine
DX: B34.9 Viral infection, unspecified (principal); Z79.82 Long term (current) use of aspirin; Z11.52 Encounter for screening for COVID-19; K57.32 Diverticulitis of large intestine without perforation or abscess without bleeding; K57.30 Diverticulosis of large intestine without perforation or abscess without bleeding; K44.9 Diaphragmatic hernia without obstruction or gangrene; Z87.891 Personal history of nicotine dependence; I25.10 Atherosclerotic heart disease of native coronary artery without angina pectoris; Z85.72 Personal history of non-Hodgkin lymphomas; I10 Essential (primary) hypertension
CPT/HCPCS: 36415; 71045; 74176; 80053; 81003; 83690; 84484; 85025; 87426; 87804; 93005; 96361; 96374; 96375; 99285; J2060; J2405; J7030

== ENCOUNTER 2023-09-13 13:46 | Outpatient (CLI) | payer MEDICARE, SELFPAY ==
--- NOTE | 2023-09-13 13:51 | MM_ITS ---
WS: [id number] BILATERAL 3D TOMOSYNTHESIS DIGITAL SCREENING MAMMOGRAPHY WITH CAD CLINICAL INFORMATION: SCREENING HISTORY: Screening mammogram. No current complaints. COMPARISON: 2019 TECHNIQUE: Bilateral CC and MLO views. FINDINGS: The breasts are composed of heterogeneous fibroglandular density tissue, which can limit the detectio n of small underlying mass lesions. No suspicious mass, asymmetry, calcifications, or architectural d istortion. No evidence of malignancy. A few incidental punctate calcifications. IMPRESSION: MM/[place] [id number] BI-RADS: 2-Benign FOLLOW UP: 1 Year Follow-up Recommend return to annual screening mammography.
--- NOTE | 2023-09-13 14:00 | XR_ITS ---
WS: [id number] SCREENING DEXA SCAN [employer] CLINICAL INFORMATION: AGE RELATED OSTEOPOROSIS W/O FX; SCREENING COMPARISON: None. FINDINGS: The L1-L4 bone mineral density measures 0.868 g/cm2. This corresponds to a T score score of -2.6 and Z score of -0.6. Left femoral neck bone mineral density measures 0.773 g/cm2. This corresponds to a T score of -1.9 an d Z score of -0.2. Right femoral neck bone mineral density measures 0.717 g/cm2. This corresponds to a T score -2.3of an d Z score of -0.7. Mean femoral neck bone mineral density measures 0.745 g/cm2. This corresponds to a T score of -2.1 an d Z score of -0.5. IMPRESSION: Osteoporosis lumbar spine. Osteopenia femoral necks. Patient's FRAX calculated 10 year probability for major osteoporotic fracture is 25.3% and osteoporot ic hip fracture is 10.0%.
== END 2023-09-13 13:47 | disposition home or self-care (01) ==
LOC: RAD 13:47
PROVIDERS: PCP Family Medicine; Visit Provider Family Medicine
DX: Z12.31 Encounter for screening mammogram for malignant neoplasm of breast (principal); Z78.0 Asymptomatic menopausal state; M81.0 Age-related osteoporosis without current pathological fracture
CPT/HCPCS: 77063; 77067; 77080

== ENCOUNTER 2024-01-13 12:30 | Outpatient (CLI) | payer MEDICARE, SELFPAY ==
--- NOTE | 2024-01-13 13:30 | USCV_ITS ---
[facility] Age: 68 Gender: F : 1955 Exam Date: 01/13/2024 12:48 Ordering Phys: Layla Reid Technologist: CT [place] [facility] [place] Indication: cad BP: 124 / 70 HR: Rhythm: Sinus Technical Quality: Adequate MEASUREMENTS (Male / Female) Normal Values 2D ECHO LVOT Diameter 1.9 cm LV Ejection Fraction MOD 2C 52.7 % LV Ejection Fraction 2C AL 0.0 % LA Diameter 4.3 cm Aorta at Sinotubular Diameter 2.2 cm IVC Diameter 1.4 cm M-MODE LA Ao Ratio MM 1.5 AV Cusp Separation MM 1.8 cm DOPPLER AV Peak Velocity 145.0 cm/s LVOT Peak Velocity 116.0 cm/s AV Area Cont Eq vti 2.6 cm squared AV Area Cont Eq pk 2.3 cm squared MV Peak Velocity 133.0 cm/s MV Area PHT 3.2 cm squared Mitral E to A Ratio 0.7 TV Peak Velocity 242.5 cm/s TR Peak Velocity 270.0 cm/s TR Peak Gradient 29.2 mmHg TV Peak E Velocity 81.0 cm/s Right Atrial Pressure 3.0 mmHg Pulmonary Artery Systolic Pressu 32.2 mmHg PV Peak Velocity 93.0 cm/s FINDINGS Left Ventricle Left ventricle is normal in size. LV systolic function is normal with EF of 50 to 55%. No regional wall motion abnormalities. Grade 1 diastolic dysfunction Right Ventricle Normal in size and function Right Atrium Normal in size Left Atrium Normal in size Mitral Valve Structurally normal mitral valve. Mild to moderate mitral regurgitation. Aortic Valve Structurally normal aortic valve. No significant stenosis. Mild to moderate aortic regurgitation. Tricuspid Valve Mild tricuspid regurgitation. Pulmonary artery systolic pressure is normal. Pulmonic Valve Not well visualized Pericardium Normal Aorta Normal in size IVC Appears to be normal CONCLUSIONS LV systolic function is normal with EF of 50 to 55%. Mild hypokinesis of inferolateral wall. Grade 1 diastolic dysfunction. Mild to moderate mitral regurgitation. Mild to moderate aortic regurgitation. Mild tricuspid regurgitation. Compared to prior echocardiogram from 2020, no significant changes are seen Joshua Banks MD (Electronically Signed) Final Date: 27 January 2024 14:01 S
== END 2024-01-13 12:31 | disposition home or self-care (01) ==
LOC: RAD 12:30
PROVIDERS: PCP Family Medicine; Visit Provider Nurse Practitioner Family
DX: I08.3 Combined rheumatic disorders of mitral, aortic and tricuspid valves (principal); I25.119 Atherosclerotic heart disease of native coronary artery with unspecified angina pectoris; I10 Essential (primary) hypertension
CPT/HCPCS: 93306

== ENCOUNTER 2024-02-04 11:38 | Outpatient (CLI) | payer MEDICARE, SELFPAY ==
--- NOTE | 2024-02-04 11:47 | MR_ITS ---
WS: [id number] MRI BRAIN WITHOUT CONTRAST HISTORY: DIZZINESS COMPARISON: 07/06/2013 TECHNIQUE: Diffusion imaging, multiplanar T1, T2 and FLAIR imaging obtained. Normal diffusion imaging. No hemorrhage. Moderate symmetric atrophy and mild bilateral hippocampal at rophy. These findings have progressed since 2013. There is extensive T2 and FLAIR signal abnormality throughout the white matter. Both confluent and patchy signal abnormalities. Bilateral ischemic bolden es in the brandyn. No prior infarct. Ventricles and extra-axial spaces are normal. Mildly inferior displacement the cerebellar tonsils but no Chiari malformation. Similar to the study from 2013. Dural venous sinuses and t[place] of Son demonstrate no abnormality on this unenhanced studies. Paranasal sinuses: Clear. Mastoid air cells: Normal. Calvarium and scalp: Intact. IMPRESSION: 1. Moderate atrophy with no prior infarct or recent infarct. 2. Cerebral atrophy and hippocampal atrophy have progressed since 2013. 3. Advanced small vessel ischemic disease with significant progression since 2012. Bilateral progres sive ischemic changes in the brandyn.
== END 2024-02-04 11:39 | disposition home or self-care (01) ==
LOC: RAD 11:41
PROVIDERS: PCP Family Medicine; Visit Provider Nurse Practitioner Family
DX: R42 Dizziness and giddiness (principal); G31.9 Degenerative disease of nervous system, unspecified; I67.89 Other cerebrovascular disease
CPT/HCPCS: 70551

== ENCOUNTER 2024-03-02 09:53 | Outpatient (CLI) | payer MEDICARE, SELFPAY ==
--- NOTE | 2024-03-02 | ECG_ITS ---
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 Interpretive Statements NAME OF STUDY: LEXISCAN SESTAMIBI STRESS TEST INDICATION: CAD, PROCEDURE: At the baseline, the EKG revealed normal sinus rhythm with a poor R wave progression. Nonspecific IVCD. Diffuse nonspecific ST changes.. The baseline heart was 89 bpm with a blood pressue of 143/79 mm of Hg Lexiscan was infused over a period of 20 seconds. A total of 0.4 milligrams of Lexiscan was infused. The stress phase was continued for a total of 5 minutes. Heart rate at the end of the stress phase was 105 bpm with a blood pressure 129/62 mm of Hg. The EKG at the peak infusion revealed no significant changes. Sestamibi was injected 20 seconds after the Lexiscan infusion. Heart rate at the end of the recovery phase was 96 bpm with a blood pressure of 128/72 mm of Hg. CONCLUSION: 1. No significant EKG changes with the LexiScan infusion 2. No LexiScan induced chest pain or cardiac arrhythmia 3. Normal blood pressure and heart rate response 4. Sestamibi/sestamibi perfusion scan pending; see separate report. Electronically Signed On 03-09-2024 23:34:38 CDT by Elisabeth Jeffrey M.D. [id number]
[2024-03-02 10:46] VITALS: BMI 25.2
--- NOTE | 2024-03-02 10:47 | NMCV_ITS ---
NM melissa perf SPECT r/s* [id number] [facility] Age: 68 Gender: F : 1955 Exam Date: 03/02/2024 10:47 Ordering Phys: Mickey Matt DO Technologist: KAIALSH Mccall Exam Location: [facility] Indications: ATHEROSCLEROTIC HEART DISEASE, DIZZINESS STRESS TEST Please see separate stress test report in [facility] for full findings IMAGE PROTOCOL Rest/Stress 1 Lexiscan Day Radiopharmaceutical Dose (mCi) Administration Site Administered by Rest: Tc-99m 10.9 IV Praveena Carrillo, VOCATIONAL GUIDANCE COUNSELOR Sestamibi Stress:Tc-99m 32.8 IV Praveena Curtisrager, VOCATIONAL GUIDANCE COUNSELOR Sestamibi Rest: 02-Mar-2024 60 Discovery 630 Stress: 02-Mar-2024 30 Discovery 630 0.4mg Lexiscan. Images obtained in supine and prone position. SPECT RESULTS Technical Quality: Excellent Raw Data Analysis: Normal Image Corrections: No attenuation or motion correction applied Summed Stress Score: 7 Summed Rest Score: 2 Summed Difference Score: 5 PERFUSION FINDINGS Small moderate area of slightly decreased tracer uptake was noted in the mid and apical inferior, mid inferolateral, apical lateral, apical septal and the LV apex. Significant reversibility was noted in the inferior, apical lateral and LV apex, with the supine imaging. However with the prone imaging, no significant perfusion abnormalities were noted. FUNCTIONAL RESULTS (calculated via Gated SPECT) Stress Image LV EF (%): 76 Stress EDV (mL):54 TID: 0.88 Stress ESV (mL):13 FUNCTIONAL FINDINGS: Segmental wall motion analysis revealing no gross wall motion abnormalities IMPRESSIONS 1. Myocardial perfusion imaging revealing small to moderate area of minimal to moderately decreased tracer uptake involving the inferior, inferolateral and apical regions with significant reversibility, in this supine imaging, suggestive of myocardial scarring with ischemia in the distribution of the right coronary artery/circumflex artery/left and descending artery. However because of the inconsistency with the prone imaging the reliability is questionable. 2. Normal LV ejection fraction of 76%. 3. LV wall motion analysis revealing no gross wall motion abnormalities. 4. Normal LV volume Compared to the previous study from 11/20/2022, the transient ischemic dilatation ratio is currently normal . Otherwise no significant change. Clinical correlation is recommended Dr Elisabeth Jeffrey MD FACC (Electronically Signed) Final Date: 02 March 2024 15:30 S
[2024-03-02] MEDS: regadenoson 0.4 Mg/5 ml Syringe IVP (12:13)
[2024-03-02] MEDS: aminophylline 25 mg/mL SDV 10 mL IVP ×2 (12:23→12:25)
[2024-03-02 12:31] VITALS: BP 128/72; PULSE 96
== END 2024-03-02 09:54 | disposition home or self-care (01) ==
PROVIDERS: PCP Family Medicine; Visit Provider Family Medicine
DX: I25.10 Atherosclerotic heart disease of native coronary artery without angina pectoris (principal); R42 Dizziness and giddiness
CPT/HCPCS: 36415; 78452; 93017; 96374; A9500; J0280; J2785

== ENCOUNTER → 2024-03-04 10:52 | Outpatient (BNVA) | payer MEDICARE, SELFPAY | PROVIDERS: PCP Family Medicine; Visit Provider Nurse Practitioner Family | DX: I10 Essential (primary) hypertension (principal); I25.119 Atherosclerotic heart disease of native coronary artery with unspecified angina pectoris; Z87.891 Personal history of nicotine dependence | CPT/HCPCS: 99214 ==

== ENCOUNTER 2024-07-14 15:10 | Emergency (ER) | payer MEDICARE, SELFPAY ==
[2024-07-14] VITALS (7 sets, daily range): BP systolic 104–139; BP diastolic 52–65; PULSE 69–73; RESP 13–18; TEMP 36.4; O2SAT 90–96
--- NOTE | 2024-07-14 15:14 | ECG_ITS ---
[facility] Test Date: 2024-07-14 Pat Name: Julia Arzola Department: Room: Gender: Female [employer]: : 1955 Requested By: Levi Lockhart Order Number: [id number] Arianna MD: Joshua Banks M.D. Measurements Intervals [place] Rate: 66 P: 30 FL: 136 QRS: -17 QRSD: 105 T: 9 QT: 429 QTc: 451 Interpretive Statements SINUS RHYTHM LOW QRS VOLTAGE IN PRECORDIAL LEADS [QRS DEFLECTION < 1.0 mV IN CHEST LEADS] MODERATE VOLTAGE CRITERIA FOR LVH, CONSIDER NORMAL VARIANT [MEETS CRITERIA IN ONE OF: R(aVL), S(V1), R(V5), R(V5/V6)+S(V1)] Compared to ECG 08/11/2023 19:12:36 Low QRS voltage now present Sinus tachycardia no longer present Myocardial infarct finding no longer present T-wave abnormality no longer present Possible ischemia no longer present Electronically Signed On 07-14-2024 16:40:13 CDT by Joshua Banks M.D. [id number]
--- NOTE | 2024-07-14 15:15 | XRR_ITS ---
PROCEDURE INFORMATION: Exam: XR Chest Exam date and time: 07/14/2024 3:18 PM Age: 69 years old Clinical indication: Pain; Angina pectoris; Additional info: Chest pain TECHNIQUE: Imaging protocol: Radiologic exam of the chest. Views: 1 view. COMPARISON: CR XR chest 1V portable [id number] 08/11/2023 6:20 PM FINDINGS: Airway: Airways are patent. Lungs: No consolidations. Pleural spaces: No pleural effusions or pneumothorax. Heart/Mediastinum: Cardiomediastinal silhouette is magnified due to technique. Bones/joints: 5 mm calcification in the left rotator cuff, compatible with calcific tendinopathy. No acutely displaced fractures. Soft tissues: No acute soft tissue findings. XR/XR chest 1V portable [id number] IMPRESSION: No acute thoracic pathology.
[2024-07-14] MEDS: aspirin 81 mg Chew Tablet 324 MG PO (15:22)
[2024-07-14 15:43] LABS: Basophils # 0.1 10^3/uL (0.0-0.1); Basophils % 0.9 %; Eosinophils # 0.2 10^3/uL (0.0-0.8); Eosinophils % 1.7 %; Hematocrit 41.3 % (36-47); Lymphocytes # 3.4 10^3/uL (0.8-4.8); Lymphocytes % 38.3 %; Mean Corpuscular Hemoglobin 25.8 pg (27-33); Mean Platelet Volume 9.5 fL (7.4-10.4); Monocytes # 0.8 10^3/uL (0.2-0.9); Monocytes % 8.9 %; Neutrophils # 4.38 10^3/uL (1.8-7.7); Neutrophils % 49.9 %; Nucleated Red Blood Cells % 0 %; Platelet Count 399 10^3/cmm (157-399); Red Cell Distribution Width 18.7 % (12.1-15.1); White Blood Count 8.78 10^3/uL (3.29-11.43)
--- NOTE | 2024-07-14 15:46 | W.ED.CHESTPA ---
Documented by User: Levi Bella, 07/15/24 06:25 HPI - Chest Pain General: Chief Complaint: Chest Pain Stated Complaint: Chest pain Time Seen by Provider: 07/14/24 15:13 History of Present Illness: 69-year-old female presents emergency room with complaint of chest pain. She is at her doctor's office began having chest pain EMS was called she has no chest pain but if any of x-ray arrived she is chest pain-free on arrival here. Patient does have a history of COPD also has a history of coronary artery disease. She has been trying to stop smoking using Chantix cut back quite a bit usually she smokes a pack a day she is not normally prescribed oxygen. I came to the room to examine her she is at 88% on room air improved to the mid 90s with 2 L/min by nasal cannula she denies chest pain at this time Associated symptoms: Deny abdominal pain, dyspnea or fever(s) Related Data Home Medications Medication Instructions Recorded Confirmed bupropion HCl 300 mg 24 hr tablet, 300 mg PO DAILY@1030 04/04/20 03/04/24 extended release cyclobenzaprine 10 mg tablet 10 mg PO BID PRN Muscle Spasm 04/04/20 03/04/24 dicyclomine 20 mg tablet See Rx Instructions .Route .COMPLEX 04/04/20 03/04/24 duloxetine 60 mg capsule,delayed 60 mg PO BID 04/04/20 03/04/24 release lansoprazole 30 mg capsule,delayed 30 mg PO DAILY 04/04/20 03/04/24 release gabapentin 300 mg capsule 900 mg PO TID 01/13/21 03/04/24 hydroxyzine HCl 25 mg tablet 25 mg PO TID PRN Anxiety 07/05/21 03/04/24 aspirin 81 mg tablet,delayed 81 mg PO DAILY 05/29/23 03/04/24 release (Adult Low Dose Aspirin) varenicline 1 mg tablet (Chantix) 1 mg PO BID 05/29/23 03/04/24 albuterol sulfate 90 mcg/actuation 2 inh inhalation Q6H PRN Shortness 08/11/23 03/04/24 aerosol inhaler Of Breath ondansetron HCl 8 mg tablet 8 mg PO Q8H PRN Nausea 08/11/23 03/04/24 Previous Rx's Medication Instructions Recorded atorvastatin 40 mg tablet 40 mg PO DAILY #90 tabs 08/29/22 nitroglycerin 0.4 mg sublingual 0.4 mg sublingual Q5M PRN CHEST 08/29/22 tablet PAINS 30 days #30 tabs metoprolol succinate 25 mg 12.5 mg (1/2 x 25 mg) PO DAILY 10/01/23 tablet,extended release 24 hr #180 tabs isosorbide mononitrate 30 mg 15 mg (1/2 x 30 mg) PO DAILY #45 10/02/23 tablet,extended release 24 hr tabs amlodipine 5 mg tablet 5 mg PO DAILY #90 tabs 04/07/24 Allergies Allergy/AdvReac Type Severity Reaction Status Date / Time erythromycin base Allergy Mild ALGY-RASH Verified 03/04/24 11:23 Iodinated Contrast Media Allergy Mild ALGY-RASH; Verified 03/04/24 11:23 DIFFICULTY BREATHING Iodine and Iodide Containing Allergy Mild ALGY-RASH Verified 03/04/24 11:23 Produc meperidine [From Demerol] Allergy Mild ALGY-VOMITI Verified 03/04/24 11:23 NG;RASH morphine Allergy Mild ALGY-RASH;V Verified 03/04/24 11:23 OMITING Penicillins Allergy Mild ALGY-RASH Verified 03/04/24 11:23 Sulfa (Sulfonamide Allergy Mild ALGY-RASH Verified 03/04/24 11:23 Antibiotics) metronidazole [From Flagyl] Allergy Unknown UNKNOWN Verified 03/04/24 11:23 Review of Systems Const: Denies: fever(s) or chills Card: Reports: chest pain Resp: Denies: dyspnea GI: Denies: abdominal pain : Denies: dysuria, urinary frequency or urinary urgency Musc: Denies: neck pain or back pain Skin/Breast: Denies: rash PFSH ED PFSH: Medical History Aortic regurgitation CAD (coronary artery disease) Hypertension Depression IBS (irritable bowel syndrome) Vitamin D deficiency Chronic back pain Polymyalgia rheumatica Cervical disc disease Fibromyalgia Other spondylosis with radiculopathy, cervical region Arnold-Chiari malformation, type I Burkitts lymphoma Hypercholesteremia Migraine aura without headache Surgical History Hx of section History of ankle surgery H/O hernia repair H/O tubal ligation Hx of tonsillectomy H/O: hysterectomy Hx of colonoscopy Family History Family/Other Hypertension CAD (coronary artery disease) Cancer Mother , at age 83 Heart attack Father , unknown No problems noted. Denies family history of Anesthesia complication Bleeding disorder Social History Smoking and tobacco/nicotine status: former use of tobacco/nicotine Second hand smoke exposure: No Alcohol intake: current Alcohol intake frequency: holidays/special occasions only Substance/Drug Use: never Lives independently: Yes Housing: House Marital status: Current occupational status: disabled Current gender identity: Female Physical Exam Const: GENERAL APPEARANCE: cooperative ORIENTATION/CONSCIOUSNESS: Yes awake, Yes oriented to person, Yes oriented to place and Yes oriented to time HENMT: COMMON NORMALS: normocephalic, atraumatic and hearing grossly normal bilaterally HEAD & SCALP: normocephalic and atraumatic Resp: COMMON NORMALS: normal respiratory effort, No retractions, No use of accessory muscles and clear to auscultation bilaterally AUSCULTATION: clear to auscultation bilaterally Cardio: COMMON NORMALS: regular rate, regular rhythm and No murmurs present (Cardio) RATE: regular rate RHYTHM: regular rhythm GI: COMMON NORMALS: Soft to palpation and No hepatosplenomegaly present AUSCULTATION: Yes normoactive bowel sounds PALPATION: Yes Soft to palpation, No Tenderness to palpation present (GI), No Guarding due to palpation present (GI) and Yes No hepatosplenomegaly present Extremity: COMMON NORMALS: normal to inspection, capillary refill normal, no clubbing, cyanosis or edema, no calf tenderness and no pedal edema Neuro: SENSORIUM/ORIENTATION: Yes oriented to person, Yes oriented to place and Yes oriented to time Skin: COMMON NORMALS: no rashes or lesions noted GENERAL SKIN EXAM: no rashes or lesions noted Course Vital Signs: Vital signs: Vital Signs Temperature 97.6 F 07/14/24 15:15 Pulse Rate 71 07/14/24 19:23 Respiratory Rate 16 07/14/24 18:05 Blood Pressure 128/57 07/14/24 19:23 Pulse Oximetry 93 07/14/24 19:23 Oxygen Delivery Me thod Room Air 07/14/24 18:05 MDM - Chest Pain Medical Decision Making Care signed out to Dr. Rehman at change of shift. See final notes for diagnosis and disposition. Lab Data 07/14/24 15:35 07/14/24 15:35 Radiology Impressions Chest X-Ray 07/14/24 15:15 IMPRESSION: No acute thoracic pathology. Laboratory Results WBC 8.78 10^3/uL (3.29-11.43) 07/14/24 15:35 RBC 4.80 10^6/uL (3.85-5.65) 07/14/24 15:35 Hgb 12.40 g/dL (11.27-16.99) 07/14/24 15:35 Hct 41.3 % (36-47) 07/14/24 15:35 MCV 86.0 fl (85-98) 07/14/24 15:35 MCH 25.8 pg (27-33) L 07/14/24 15:35 MCHC 30.0 g/dL (30-55) 07/14/24 15:35 RDW 18.7 % (12.1-15.1) H 07/14/24 15:35 Plt Count 399 10^3/cmm (157-399) 07/14/24 15:35 MPV 9.5 fL (7.4-10.4) 07/14/24 15:35 Neut % (Auto) 49.9 % 07/14/24 15:35 Lymph % (Auto) 38.3 % 07/14/24 15:35 [place] % (Auto) 8.9 % 07/14/24 15:35 Eos % (Auto) 1.7 % 07/14/24 15:35 Baso % (Auto) 0.9 % 07/14/24 15:35 Neut # (Auto) 4.38 10^3/uL (1.8-7.7) 07/14/24 15:35 Lymph # (Auto) 3.4 10^3/uL (0.8-4.8) 07/14/24 15:35 [place] # (Auto) 0.8 10^3/uL (0.2-0.9) 07/14/24 15:35 Eos # (Auto) 0.2 10^3/uL (0.0-0.8) 07/14/24 15:35 Baso # (Auto) 0.1 10^3/uL (0.0-0.1) 07/14/24 15:35 Nucleated RBC % (auto) 0 % 07/14/24 15:35 Nucleated RBCs # 0.0 /100WBC 07/14/24 15:35 Sodium 136 mmol/L (136-145) 07/14/24 15:35 Potassium 4.2 mmol/L (3.5-5.1) 07/14/24 15:35 Chloride 101 mmol/L (98-107) 07/14/24 15:35 Carbon Dioxide 23 mmol/L (22-29) 07/14/24 15:35 Anion Gap 16.2 (5-19) 07/14/24 15:35 BUN 18 mg/dL (8-23) 07/14/24 15:35 Creatinine 1.1 mg/dL (0.5-0.9) H 07/14/24 15:35 GFR Calculation 49.2 mL/min (90-130) L 07/14/24 15:35 Glucose 103 mg/dL (65-115) 07/14/24 15:35 Calculated Osmolality 284 mOsm/kg (285-295) L 07/14/24 15:35 Calcium 9.1 mg/dL (8.5-10.5) 07/14/24 15:35 Total Bilirubin 0.2 mg/dL (0.15-1.2) 07/14/24 15:35 AST 19 U/L (0-32) 07/14/24 15:35 ALT 14 U/L (0-33) 07/14/24 15:35 Alkaline Phosphatase 71 U/L (35-105) 07/14/24 15:35 Troponin T Baseline < 6 ng/L (0-10) 07/14/24 15:35 Troponin T 120 Minute 6.00 ng/L (0-10) 07/14/24 17:34 Delta Troponin T 0.83385 ABS# (0-10) 07/14/24 17:34 Total Protein 6.6 g/dL (6.6-8.7) 07/14/24 15:35 Albumin 4.0 g/dL (3.5-5.2) 07/14/24 15:35 Globulin 2.6 g/dL (1.3-4.6) 07/14/24 15:35 Discharge Plan Discharge Patient Disposition: Home Clinical Impression: Chest pain Qualifiers: Chest pain type: unspecified Qualified Code(s): R07.9 - Chest pain, unspecified Condition: Stable Prescriptions: No Action dicyclomine 20 mg tablet See Rx Instructions .ROUTE .COMPLEX Rx Instructions: 20 mg orally BEFORE MEALS AND AT BEDTIME duloxetine 60 mg capsule,delayed release(DR/EC) 60 mg PO BID cyclobenzaprine 10 mg tablet 10 mg PO BID PRN (Reason: Muscle Spasm) lansoprazole 30 mg capsule,delayed release(DR/EC) 30 mg PO DAILY bupropion HCl 300 mg tablet extended release 24 hr 300 mg PO DAILY@1030 gabapentin 300 mg capsule 900 mg PO TID atorvastatin 40 mg tablet 40 mg PO DAILY Qty: 90 3RF nitroglycerin 0.4 mg tablet, sublingual 0.4 mg SUBLINGUAL Q5M PRN (Reason: CHEST PAINS) 30 Days Qty: 30 6RF Rx Instructions: do not exceed 3 doses per episode aspirin [Adult Low Dose Aspirin] 81 mg tablet,delayed release (DR/EC) 81 mg PO DAILY varenicline [Chantix] 1 mg tablet 1 mg PO BID metoprolol succinate 25 mg tablet extended release 24 hr 12.5 mg PO DAILY Qty: 180 0RF isosorbide mononitrate 30 mg tablet extended release 24 hr 15 mg PO DAILY Qty: 45 2RF amlodipine 5 mg tablet 5 mg PO DAILY Qty: 90 3RF hydroxyzine HCl 25 mg tablet 25 mg PO TID PRN (Reason: Anxiety) ondansetron HCl 8 mg tablet 8 mg PO Q8H PRN (Reason: Nausea) albuterol sulfate 90 mcg/actuation HFA aerosol inhaler 2 inh INHALATION Q6H PRN (Reason: Shortness Of Breath) Discharge Orders: Discharge ED (Routine); Ordered 07/14/24 Ordered By: Min Rehman Referrals: Mickey Matt DO [Primary Care Provider] - 1 week Patient Instructions: Chest Pain (ED) Activity Restrictions/Additional Instructions: Your evaluation ER did not show any acute cardiac cause of your chest pain. Your chest pain is felt to be noncardiac in nature at this time. If your chest pain returns or worsens please feel free to return to the ER for further evaluation and treatment otherwise please follow-up with your family practice physician within next 7 days Coding Level of Care Code ED Instrumentation Engineering Technician for Chg Fwd Documented by User: Min Rehman DO 07/15/24 00:14 HPI - Chest Pain General: Chief Complaint: Chest Pain Stated Complaint: Chest pain Time Seen by Provider: 07/14/24 15:13 Related Data Home Medications Medication Instructions Recorded Confirmed bupropion HCl 300 mg 24 hr tablet, 300 mg PO DAILY@1030 04/04/20 03/04/24 extended release cyclobenzaprine 10 mg tablet 10 mg PO BID PRN Muscle Spasm 04/04/20 03/04/24 dicyclomine 20 mg tablet See Rx Instructions .Route .COMPLEX 04/04/20 03/04/24 duloxetine 60 mg capsule,delayed 60 mg PO BID 04/04/20 03/04/24 release lansoprazole 30 mg capsule,delayed 30 mg PO DAILY 04/04/20 03/04/24 release gabapentin 300 mg capsule 900 mg PO TID 01/13/21 03/04/24 hydroxyzine HCl 25 mg tablet 25 mg PO TID PRN Anxiety 07/05/21 03/04/24 aspirin 81 mg tablet,delayed 81 mg PO DAILY 05/29/23 03/04/24 release (Adult Low Dose Aspirin) varenicline 1 mg tablet (Chantix) 1 mg PO BID 05/29/23 03/04/24 albuterol sulfate 90 mcg/actuation 2 inh inhalation Q6H PRN Shortness 08/11/23 03/04/24 aerosol inhaler Of Breath ondansetron HCl 8 mg tablet 8 mg PO Q8H PRN Nausea 08/11/23 03/04/24 Previous Rx's Medication Instructions Recorded atorvastatin 40 mg tablet 40 mg PO DAILY #90 tabs 08/29/22 nitroglycerin 0.4 mg sublingual 0.4 mg sublingual Q5M PRN CHEST 08/29/22 tablet PAINS 30 days #30 tabs metoprolol succinate 25 mg 12.5 mg (1/2 x 25 mg) PO DAILY 10/01/23 tablet,extended release 24 hr #180 tabs isosorbide mononitrate 30 mg 15 mg (1/2 x 30 mg) PO DAILY #45 10/02/23 tablet,extended release 24 hr tabs amlodipine 5 mg tablet 5 mg PO DAILY #90 tabs 04/07/24 Allergies Allergy/AdvReac Type Severity Reaction Status Date / Time erythromycin base Allergy Mild ALGY-RASH Verified 03/04/24 11:23 Iodinated Contrast Media Allergy Mild ALGY-RASH; Verified 03/04/24 11:23 DIFFICULTY BREATHING Iodine and Iodide Containing Allergy Mild ALGY-RASH Verified 03/04/24 11:23 Produc meperidine [From Demerol] Allergy Mild ALGY-VOMITI Verified 03/04/24 11:23 NG;RASH morphine Allergy Mild ALGY-RASH;V Verified 03/04/24 11:23 OMITING Penicillins Allergy Mild ALGY-RASH Verified 03/04/24 11:23 Sulfa (Sulfonamide Allergy Mild ALGY-RASH Verified 03/04/24 11:23 Antibiotics) metronidazole [From Flagyl] Allergy Unknown UNKNOWN Verified 03/04/24 11:23 PFSH ED PFSH: Medical History Aortic regurgitation CAD (coronary artery disease) Hypertension Depression IBS (irritable bowel syndrome) Vitamin D deficiency Chronic back pain Polymyalgia rheumatica Cervical disc disease Fibromyalgia Other spondylosis with radiculopathy, cervical region Arnold-Chiari malformation, type I Burkitts lymphoma Hypercholesteremia Migraine aura without headache Surgical History Hx of section History of ankle surgery H/O hernia repair H/O tubal ligation Hx of tonsillectomy H/O: hysterectomy Hx of colonoscopy Family History Family/Other Hypertension CAD (coronary artery disease) Cancer Mother , at age 83 Heart attack Father , unknown No problems noted. Denies family history of Anesthesia complication Bleeding disorder Social History (Reviewed 07/14/24 @ 15:48 by MIR Frias Smoking and tobacco/nicotine status: former use of tobacco/nicotine Second hand smoke exposure: No Alcohol intake: current Alcohol intake frequency: holidays/special occasions only Substance/Drug Use: never Lives independently: Yes Housing: House Marital status: Current occupational status: disabled Current gender identity: Female Course Vital Signs: Vital signs: Vital Signs Temperature 97.6 F 07/14/24 15:15 Pulse Rate 71 07/14/24 19:23 Respiratory Rate 16 07/14/24 18:05 Blood Pressure 128/57 07/14/24 19:23 Pulse Oximetry 93 07/14/24 19:23 Oxygen Delivery Me thod Room Air 07/14/24 18:05 MDM - Chest Pain Medical Decision Making Care signed out to Dr. Rehman at change of shift. See final notes for diagnosis and disposition. Care transitioned over to myself at shift change, lab work was reviewed, troponins were stable, patient be discharged home. Patient is been chest pain-free. Lab Data 07/14/24 15:35 07/14/24 15:35 Radiology Impressions Chest X-Ray 07/14/24 15:15 IMPRESSION: No acute thoracic pathology. Laboratory Results WBC 8.78 10^3/uL (3.29-11.43) 07/14/24 15:35 RBC 4.80 10^6/uL (3.85-5.65) 07/14/24 15:35 Hgb 12.40 g/dL (11.27-16.99) 07/14/24 15:35 Hct 41.3 % (36-47) 07/14/24 15:35 MCV 86.0 fl (85-98) 07/14/24 15:35 MCH 25.8 pg (27-33) L 07/14/24 15:35 MCHC 30.0 g/dL (30-55) 07/14/24 15:35 RDW 18.7 % (12.1-15.1) H 07/14/24 15:35 Plt Count 399 10^3/cmm (157-399) 07/14/24 15:35 MPV 9.5 fL (7.4-10.4) 07/14/24 15:35 Neut % (Auto) 49.9 % 07/14/24 15:35 Lymph % (Auto) 38.3 % 07/14/24 15:35 [place] % (Auto) 8.9 % 07/14/24 15:35 Eos % (Auto) 1.7 % 07/14/24 15:35 Baso % (Auto) 0.9 % 07/14/24 15:35 Neut # (Auto) 4.38 10^3/uL (1.8-7.7) 07/14/24 15:35 Lymph # (Auto) 3.4 10^3/uL (0.8-4.8) 07/14/24 15:35 [place] # (Auto) 0.8 10^3/uL (0.2-0.9) 07/14/24 15:35 Eos # (Auto) 0.2 10^3/uL (0.0-0.8) 07/14/24 15:35 Baso # (Auto) 0.1 10^3/uL (0.0-0.1) 07/14/24 15:35 Nucleated RBC % (auto) 0 % 07/14/24 15:35 Nucleated RBCs # 0.0 /100WBC 07/14/24 15:35 Sodium 136 mmol/L (136-145) 07/14/24 15:35 Potassium 4.2 mmol/L (3.5-5.1) 07/14/24 15:35 Chloride 101 mmol/L (98-107) 07/14/24 15:35 Carbon Dioxide 23 mmol/L (22-29) 07/14/24 15:35 Anion Gap 16.2 (5-19) 07/14/24 15:35 BUN 18 mg/dL (8-23) 07/14/24 15:35 Creatinine 1.1 mg/dL (0.5-0.9) H 07/14/24 15:35 GFR Calculation 49.2 mL/min (90-130) L 07/14/24 15:35 Glucose 103 mg/dL (65-115) 07/14/24 15:35 Calculated Osmolality 284 mOsm/kg (285-295) L 07/14/24 15:35 Calcium 9.1 mg/dL (8.5-10.5) 07/14/24 15:35 Total Bilirubin 0.2 mg/dL (0.15-1.2) 07/14/24 15:35 AST 19 U/L (0-32) 07/14/24 15:35 ALT 14 U/L (0-33) 07/14/24 15:35 Alkaline Phosphatase 71 U/L (35-105) 07/14/24 15:35 Troponin T Baseline < 6 ng/L (0-10) 07/14/24 15:35 Troponin T 120 Minute 6.00 ng/L (0-10) 07/14/24 17:34 Delta Troponin T 0.91405 ABS# (0-10) 07/14/24 17:34 Total Protein 6.6 g/dL (6.6-8.7) 07/14/24 15:35 Albumin 4.0 g/dL (3.5-5.2) 07/14/24 15:35 Globulin 2.6 g/dL (1.3-4.6) 07/14/24 15:35 All radiology interpretation(s) finalized by discharge Discharge Plan Discharge Patient Disposition: Home Clinical Impression: Chest pain Qualifiers: Chest pain type: unspecified Qualified Code(s): R07.9 - Chest pain, unspecified Condition: Stable Prescriptions: No Action dicyclomine 20 mg tablet See Rx Instructions .ROUTE .COMPLEX Rx Instructions: 20 mg orally BEFORE MEALS AND AT BEDTIME duloxetine 60 mg capsule,delayed release(DR/EC) 60 mg PO BID cyclobenzaprine 10 mg tablet 10 mg PO BID PRN (Reason: Muscle Spasm) lansoprazole 30 mg capsule,delayed release(DR/EC) 30 mg PO DAILY bupropion HCl 300 mg tablet extended release 24 hr 300 mg PO DAILY@1030 gabapentin 300 mg capsule 900 mg PO TID atorvastatin 40 mg tablet 40 mg PO DAILY Qty: 90 3RF nitroglycerin 0.4 mg tablet, sublingual 0.4 mg SUBLINGUAL Q5M PRN (Reason: CHEST PAINS) 30 Days Qty: 30 6RF Rx Instructions: do not exceed 3 doses per episode aspirin [Adult Low Dose Aspirin] 81 mg tablet,delayed release (DR/EC) 81 mg PO DAILY varenicline [Chantix] 1 mg tablet 1 mg PO BID metoprolol succinate 25 mg tablet extended release 24 hr 12.5 mg PO DAILY Qty: 180 0RF isosorbide mononitrate 30 mg tablet extended release 24 hr 15 mg PO DAILY Qty: 45 2RF amlodipine 5 mg tablet 5 mg PO DAILY Qty: 90 3RF hydroxyzine HCl 25 mg tablet 25 mg PO TID PRN (Reason: Anxiety) ondansetron HCl 8 mg tablet 8 mg PO Q8H PRN (Reason: Nausea) albuterol sulfate 90 mcg/actuation HFA aerosol inhaler 2 inh INHALATION Q6H PRN (Reason: Shortness Of Breath) Discharge Orders: Discharge ED (Routine); Ordered 07/14/24 Ordered By: Min Rehman Referrals: Mickey Matt DO [Primary Care Provider] - 1 week Patient Instructions: Chest Pain (ED) Activity Restrictions/Additional Instructions: Your evaluation ER did not show any acute cardiac cause of your chest pain. Your chest pain is felt to be noncardiac in nature at this time. If your chest pain returns or worsens please feel free to return to the ER for further evaluation and treatment otherwise please follow-up with your family practice physician within next 7 days Coding Level of Care Code ED Instrumentation Engineering Technician for Zeke Low
[2024-07-14 16:00] LABS: Alanine Aminotransferase 14 U/L (0-33); Alkaline Phosphatase 71 U/L (35-105); Anion Gap 16.2 (5-19); Aspartate Amino Transferase 19 U/L (0-32); Blood Urea Nitrogen 18 mg/dL (8-23); Calcium 9.1 mg/dL (8.5-10.5); Carbon Dioxide 23 mmol/L (22-29); Chloride 101 mmol/L (98-107); Creatinine Clr Calc Pharmacy 42.5132; Globulin 2.6 g/dL (1.3-4.6); Glomerular Filtration Rate 49.2 mL/min (90-130); Glucose 103 mg/dL (65-115); Osmolality Calculated 284 mOsm/kg (285-295); Potassium 4.2 mmol/L (3.5-5.1); Sodium 136 mmol/L (136-145); Total Bilirubin 0.2 mg/dL (0.15-1.2); Total Protein 6.6 g/dL (6.6-8.7)
[2024-07-14 16:02] LABS: Troponin(5th) Baseline < 6 ng/L (0-10)
--- NOTE | 2024-07-14 17:15 | ECG_ITS ---
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 Measurements Intervals [place] Rate: 69 P: 23 WA: 138 QRS: -21 QRSD: 105 T: 21 QT: 434 QTc: 468 Interpretive Statements SINUS RHYTHM BORDERLINE LEFT AXIS DEVIATION [QRS AXIS < -20] LEFT VENTRICULAR HYPERTROPHY AND ST-T CHANGE [VOLTAGE CRITERIA PLUS ST/T ABNORMALITY] Compared to ECG 07/14/2024 15:14:42 ST (T wave) deviation now present Electronically Signed On 07-15-2024 17:38:54 CDT by Elisabeth Jeffrey M.D. [id number]
[2024-07-14 18:02] LABS: Troponin 5 2HR Delta 0.00001 ABS# (0-10)
== END 2024-07-14 19:27 | disposition home or self-care (01) ==
PROVIDERS: Emergency Provider Family Medicine; PCP Family Medicine
DX: R07.9 Chest pain, unspecified (principal); Z79.82 Long term (current) use of aspirin; I25.10 Atherosclerotic heart disease of native coronary artery without angina pectoris; I10 Essential (primary) hypertension; J44.9 Chronic obstructive pulmonary disease, unspecified; F17.210 Nicotine dependence, cigarettes, uncomplicated
CPT/HCPCS: 36415; 71045; 80053; 84484; 85025; 93005; 99285

== ENCOUNTER 2024-09-30 13:19 | Outpatient (CLI) | payer MEDICARE, SELFPAY ==
--- NOTE | 2024-09-30 13:26 | MM_ITS ---
WS: [id number] BILATERAL 3D TOMOSYNTHESIS DIGITAL SCREENING MAMMOGRAPHY WITH CAD CLINICAL INFORMATION: SCREENING HISTORY: Screening mammogram. No current complaints. COMPARISON: 2022 TECHNIQUE: Bilateral CC and MLO views. FINDINGS: The breasts are composed of heterogeneous fibroglandular density tissue, which can limit the detectio n of small underlying mass lesions. No suspicious mass, asymmetry, calcifications, or architectural d istortion. No evidence of malignancy. A few tiny incidental punctate calcifications. MM/MM [facility] tomosynthesis [id number] IMPRESSION: DENSITY: The breasts are heterogeneously dense, which may obscure small masses. BI-RADS: 2 - Benign FOLLOW UP: 1 Year Follow-up Recommend return to annual screening mammography.
== END 2024-09-30 13:20 | disposition home or self-care (01) ==
PROVIDERS: PCP Family Medicine; Visit Provider Family Medicine
DX: Z12.31 Encounter for screening mammogram for malignant neoplasm of breast (principal); R92.333 Mammographic heterogeneous density, bilateral breasts
CPT/HCPCS: 77063; 77067

== ENCOUNTER 2025-06-18 12:35 | Emergency (ER) | payer MEDICARE, SELFPAY ==
--- OUTSIDE RECORDS SUMMARY | 2025-06-16 10:00 | XMS_ITS | Encounter Summary ---
Author Organization [facility] Address [address] [place] [address] Care Team Providers Care Tester [employer] Packages Name Role Phone Brandon Vanegas MD Primary Care Provider [phone] Reason for Visit * Reason Comments Diarrhea Sx started 2 weeks a go with no improvement Abdominal Pain Generalized Body Aches Cough Encounter Details Date Type Department Care Team (Late st Contact Info) Description 06/16/2025 10:00 AM CDT Office Visit [facility] Medicine [place] [address] [phone] Bela Cho FNP [address] [phone] Acute diarrhea (Primary Dx); Acute generalized abdominal pain; Irritable bowel syndrome with both constipation and diarrhea Social History Tobacco Use Types Packs/Day Years Used Date Smoking Tobacco: Every Day Cigarettes 0.3 67 Started: [birth year]06/1956; Last attempted to quit: 08/06/2023 Passive Smoke Exposure: Past Smokeless Tobacco: Never Comments:Smoking 1-2 cig's d aily, trying to quit. 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 Gender Identity Female 06/07/2023 9:55 AM CDT Sexual Orientation Not on file documented as of this encounter Last Filed Vital Signs Vital Sign Reading Time Taken Comments Blood Pressure 132/64 06/16/2025 10:58 AM CDT Pulse 119 06/16/2025 10:58 AM CDT Temperature 36.6 C (97.9 F) 06/16/2025 10:58 AM CDT Respiratory Rate 18 06/16/2025 10:5 8 AM CDT Oxygen Saturation 98% 06/16/2025 10: 58 AM CDT Inhaled Oxygen Concentration - - Weight 53.4 kg (117 lb 12.8 oz) 025 10:58 AM CDT Height 149.9 cm (4' 11 ) 06/16/2025 10: 58 AM CDT Body Mass Index 23.79 06/16/2025 10:58 AM CDT documented in this encounter Progress Notes * Bela Cho FNP - 06/16/2025 11:13 AM CDT HISTORY OF PRESENT ILLNESS: Julia Arzola is a 70 y.o. year-old female who presents for Chief Complaint Patient presents with Diarrhea Sx started 2 weeks ago with no improvement Abdominal Pain Generalized Body Aches Cough HPI Pt presents for f/u visit from 06/10/25 for recent worsening of chronic IBS. See that note. She was advised on use of loperamide prior to meals. She worked up to the max dosing of 16mg/day, but this is doing nothing for her diarrhea. She is still having trouble making it to the bathroom. She reportsher diarrhea was green but now it is yellow. She is down 4lbs since last visit. REVIEW OF SYSTEMS: Review of Systems Constitutional: Negative for fever. Gastrointestinal: Positive for abdominal pain, diarrhea and nausea. Negative for blood in stool, constipation, heartburn, melena and vomiting. Genitourinary: Negative. Skin: Negative for rash. Neurological: Negative for dizziness. Current Outpatient Medications on File Prior to Visit Medication Sig Dispense Refill DULoxetine (CYMBALTA) 60 mg Capsule, Delayed Release(E.C.) Take 1 capsule by mouth twice daily 180 Capsule 0 loperamide (IMODIUM) 2 mg capsule Take 1 - 2 cap PO 45 minutes before every meal. Max 16mg per day. gabapentin (NEURONTIN) 300 mg capsule TAKE 3 CAPSULES BY MOUTH THREE TIMES DAILY 270 Capsule 2 cyclobenzaprine (FLEXERIL) 10 mg tablet TAKE 1 TABLET BY MOUTH TWICE DAILY NEEDED FOR SPASM 60 Tablet 1 albuterol sulfate HFA 90 mcg/actuation aerosol inhaler INHALE 2 PUFFS BY MOUTH EVERY 6 HOURS NEEDED FOR SHORTNESS OF BREATH 9 Gram 0 lansoprazole (PREVACID) 30 mg Capsule, Delayed Release(E.C.) Take 1 capsule by mouth once daily 30 Capsule 2 buPROPion HCL (WELLBUTRIN XL) 300 mg Extended Release 24 hour tablet Take 1 tablet by mouth once daily 90 Tablet 1 donepeziL (ARICEPT) 5 mg tablet TAKE 1 TABLET BY MOUTH ONCE DAILY AT BEDTIME 30 Tablet 2 isosorbide mononitrate (IMDUR) 30 mg Extended Release 24 hour tablet TAKE 1/2 (ONE-HALF) TABLET BY MOUTH ONCE DAILY IN THE MORNING 45 Tablet 1 diclofenac sodium (VOLTAREN) 50 mg Tablet, Delayed Release (E.C.) Take 1 Tablet (50 mg) by mouth 2 times daily. 60 Tablet 2 nitroglycerin (NITROSTAT) 0.4 mg Tablet, Sublingual DISSOLVE ONE TABLET UNDER THE TONGUE EVERY 5 MINUTES NEEDED FOR CHEST PAIN. DO NOT EXCEED A TOTAL OF 3 DOSES IN 15 MINUTES 25 Tablet 0 metoprolol succinate (TOPROL XL) 25 mg Extended Release 24 hour tablet Take 0.5 Tablets (12.5 mg) by mouth daily. 45 Tablet 3 dicyclomine (BENTYL) 20 mg tablet TAKE 1 TABLET BY MOUTH ONCE DAILY BEFORE MEAL(S) AND 1 AT [id number] Tablet 0 hydrOXYzine HCL (ATARAX) 25 mg tablet Take 1-2 Tablets (25-50 mg) by mouth 3 times daily as needed for Anxiety or Insomnia. 180 Tablet 2 naloxone (NARCAN) 4 mg/spray [place], Non-Aerosol Call 911. Administer a single spray of NARCAN in one nostril. Repeat every 2-3 minutes as needed if no or minimal response. amLODIPine (NORVASC) 5 mg tablet Take 1 Tablet (5 mg) by mouth daily. 90 Tablet 1 aspirin (ECOTRIN EC) 81 mg Tablet, Delayed Release (E.C.) Take 81 mg by mouth daily. varenicline tartrate (CHANTIX) 1 mg Tablet Take 1 Tablet (1 mg) by mouth 2 times daily. (Patient not taking: Reported on 06/16/2025) 60 Tablet 11 fluticasone propionate (FLONASE) 50 mcg/spray [place], Suspension nasal inhaler Administer 2 Sprays in each nostril daily. (Patient not taking: Reported on 06/16/2025) 16 Gram 3 magnesium oxide (MAG-OX) 400 mg (241.3 mg magnesium) tablet Take 1 Tablet (400 mg) by mouth daily. (Patient not taking: Reported on 06/16/2025) 90 Tablet 1 ferrous sulfate 325 mg (65 mg iron) tablet Take 1 Tablet (325 mg) by mouth 2 times daily. (Patient not taking: Reported on 06/16/2025) 60 Tablet 1 Saccharomyces boulardii (Florastor) 250 mg Capsule Take 1 Capsule (250 mg) by mouth 2 times daily. (Patient not taking: Reported on 06/10/2025) 60 Capsule 0 CPAP / BIPAP supplies Resmed autoCPAP with EPAPmin=4cwp and EPAPmax=20cwp,Length of need: 99 months Mask Type: per patient comfort with headgear every 6 months, mask only every 3 months,as needed cushions per month. Tubing: heated 1 every 3 months, water chamber 1 every 6 months, chin strap 1 every6 months, filters disposable 2 per month, filters reusable 1 per 6 months,Efficacy data download and mask fitting. Please link efficiency data download to Dr. Espitia account. Diagnosis: G47.33. (Patientnot taking: Reported on 06/16/2025) 1 Each 0 meclizine (ANTIVERT) 12.5 mg tablet Take 1 Tablet (12.5 mg) by mouth 3 times daily as needed for Dizziness. (Patient not taking: Reported on 06/16/2025) 30 Tablet 1 traMADoL (ULTRAM) 50 mg tablet Take 2 Tablets (100 mg) by mouth every 8 hours as needed for Pain. (Patient not taking: Reported on 06/16/2025) 60 Tablet 0 No current facility-administered medications on file prior to visit. PAST MEDICAL/SURGICAL/SOCIAL HISTORY: Patient Active Problem List Diagnosis Date Noted Prediabetes 11/01/2024 CAD (coronary artery disease) 09/03/2023 Aortic regurgitation 09/03/2023 COPD (chronic obstructive pulmonary disease) ([facility]) 09/03/2023 Frail elderly 05/31/2023 Stage 3a chronic kidney disease ([facility]/HCC) 10/25/2022 Pseudophakia of both eyes 10/25/2022 Iron deficiency anemia 02/27/2022 Anxiety 07/31/2021 GERD (gastroesophageal reflux disease) Mixed hyperlipidemia Hypercholesteremia History of fracture of right ankle - w ORIF Jul 2020 02/06/2021 Chronic pain of right ankle 02/06/2021 Irritable bowel syndrome with both constipation and diarrhea 07/15/2020 Tobacco dependence 07/15/2020 Chronic bilateral low back pain with left-sided sciatica 07/15/2020 Recurrent major depressive disorder, in partial remission 07/15/2020 Essential hypertension 07/15/2020 S/P hysterectomy with oophorectomy 08/04/2011 Overview Note: DAVINCI TOTAL LAPAROSCOPIC HYSTERECTOMY/ Bilateral salpingoophorectomy Fibromyalgia 08/08/2009 Past Medical History: Diagnosis Date Arthritis Burkitt's lymphoma (CMS/HCC) Cancer (CMS/HCC) lymphoma Cancer of bladder (CMS/HCC) Cervical cancer (CMS/HCC) Chest pain DJD (degenerative joint disease) Fibromyalgia GERD (gastroesophageal reflux disease) Hypercholesteremia IBS (irritable bowel syndrome) per pt ibs Injury of back Injury of face and neck [place] (myocardial infarction) (CMS/HCC) x2 approx 1 year ago Past Surgical History: Procedure Laterality Date HX CATARACT REMOVAL Bilateral R 08/2022, L 09/2022 HX SECTION x 1 HX HYSTERECTOMY HX ORIF ANKLE FRACTURE 06/28/2020 Dr. Cristobal, [facility] HX SURGICAL OTHER 12/21/2011 MESH PLACEMENT performed by Kurt Stoddard MD at [facility] OR HX TONSILLECTOMY CA CYSTOURETHROSCOPY 08/03/2011 CYSTOSCOPY performed by ARIANA HART at [facility] OR SURGERY CA LAPAROSCOPY W TOTAL HYSTERECTOMY UTERUS 250 GM/< 08/03/2011 HYSTERECTOMY TOTAL DAVINCI LAPAROSCOPIC performed by ARIANA HART at [facility] OR SURGERY CA LAPAROSCOPY W/RMVL ADNEXAL STRUCTURES 08/03/2011 OOPHORECTOMY DAVINCI LAPAROSCOPIC performed by ARIANA HART at [facility] OR SURGERY CA LAPAROSCOPY W/RMVL ADNEXAL STRUCTURES 08/03/2011 SALPINGECTOMY DAVINCI LAPAROSCOPIC performed by ARIANA HART at [facility] OR SURGERY CA LAPS REPAIR HERNIA EXCEPT INCAL/INGUN REDUCIBLE 12/21/2011 HERNIA VENTRAL REPAIR LAPAROSCOPIC performed by Kurt Stoddard MD at [facility] MAIN OR CA LAPS SURG RETROPERITONEAL LYMPH NODE BX 1/SYSTEMS QA ANALYST in cervical region of neck CA ORAL SURGERY gums Social History Socioeconomic History Marital status: Tobacco Use Smoking status: Every Day Current packs/day: 0.00 Average packs/day: 0.3 packs/day for 67.0 years (16.8 ttl pk-yrs) Types: Cigarettes Start date: [birth year]/06/1956 Last attempt to quit: 08/06/2023 Years since quittin.8 Passive exposure: Past Smokeless tobacco: Never Tobacco comments: Smoking 1-2 cig's daily, trying to quit. Vaping Use Vaping status: Never Used Substance and Sexual Activity Alcohol use: Not Currently Drug use: Not Currently Sexual activity: Not Currently Partners: Male Comment: LMP : age 40 PHYSICAL EXAM: BP 132/64 Pulse (!) 119 Temp 97.9 ??F (36.6 ??C) (Temporal) Resp 18 Ht 4' 11 (1.499 m) Wt 53.4 kg (117 lb 12.8 oz) SpO2 98% BMI 23.79 kg/m?? Physical Exam Constitutional: General: She is awake. She is not in acute distress. Appearance: She is not ill-appearing or diaphoretic. HENT: Nose: Nose normal. Mouth/Throat: Lips: [place]. Mouth: Mucous membranes are moist. No oral lesions. Eyes: General: No scleral icterus. Cardiovascular: Rate and Rhythm: Normal rate and regular rhythm. Pulmonary: Effort: Pulmonary effort is normal. Breath sounds: Normal breath sounds. Abdominal: General: Abdomen is flat. Bowel sounds are normal. Palpations: Abdomen is soft. There is no hepatomegaly. Tenderness: There is generalized abdominal tenderness. There is no guarding or rebound. Skin: General: Skin is warm and dry. Coloration: Skin is not jaundiced or pale. Findings: No rash. Neurological: General: No focal deficit present. Mental Status: She is alert. Psychiatric: Behavior: Behavior normal. Behavior is cooperative. PROCEDURES: Procedures LABS: No results found for this visit on 06/16/25 (from the past week). ASSESSMENT/PLAN: Problem List Items Addressed This Visit Irritable bowel syndrome with both constipation and diarrhea Relevant Medications ondansetron (ZOFRAN ODT) 4 mg Tablet, Rapid Dissolve colestipoL (COLESTID) 1 gram tablet Other Visit Diagnoses Acute diarrhea - Primary Relevant Medications ondansetron (ZOFRAN ODT) 4 mg Tablet, Rapid Dissolve Other Relevant Orders STOOL CULTURE W/SHIGA TOXIN C. DIFFICILE DETECTION CBC WITH DIFFERENTIAL COMPREHENSIVE METABOLIC PANEL LIPASE POC URINALYSIS DIPSTICK AUTOMATED Acute generalized abdominal pain Relevant Medications ondansetron (ZOFRAN ODT) 4 mg Tablet, Rapid Dissolve Other Relevant Orders STOOL CULTURE W/SHIGA TOXIN C. DIFFICILE DETECTION CBC WITH DIFFERENTIAL COMPREHENSIVE METABOLIC PANEL LIPASE POC URINALYSIS DIPSTICK AUTOMATED Acute diarrhea; generalized abdominal pain-- Will proceed with diagnostics per above to assess for acute illness origins for acute worsening of chronic diarrhea/IBS. Will f/u by phone with results and further recommendations. Zofran provided for nausea per above. Advised on bland diet and use of Pedialyte for oral rehydration. Will assess need for imaging (e.g. US) with results review. Colonoscopy UTD. IBS-- Chronic, worsening per above. Possible new illness worsening chronic IBS symptoms. Evaluationper above. Imodium not effective. Will trial colestipol. FAY Mg documented in this encounter Plan of Treatment Upcoming Encounters Date Type Department Care Team (Late st Contact Info) Description 07/06/2025 1:40 PM CDT Office Visit [facility] Family Medicine [place] [address] [phone] Brandon Vanegas MD [address] [phone] 08/05/2025 4:30 PM CDT Appointment [facility] [address] [place] [address] Bryan Houser MD [address] [place] [address] Pending Results Name Type Priority Associated Diagnoses Date /Time STOOL CULTURE W/SHIGA TOXIN Microbiology Routine Acute diarrhea Acute generalized abdominal pain 06/18/2025 4:09 AM CDT C. DIFFICILE DETECTION Microbiology Routine Acute diarrhea Acute generalized abdominal pain 06/18/2025 4:51 AM CDT Scheduled Orders Name Type Priority Associated Diagnoses Orde r Schedule STOOL CULTURE W/SHIGA TOXIN Microbiology Routine Acute diarrhea Acute generalized abdominal pain Expected: 06/16/2025, Expires: 06/16/2026 C. DIFFICILE DETECTION Microbiology Routine Acute diarrhea Acute generalized abdominal pain Expected: 06/16/2025, Expires: 06/16/2026 POC URINALYSIS DIPSTICK AUTOMATED Point of Care Testing Routine Acute diarrhea Acute generalized abdominal pain Ordered: 06/16/2025 documented as of this encounter Procedures Procedure Name Priority Date/Time Associated Diagnosis Comments CBC WITH DIFFERENTIAL Routine 06/16/2025 11:32 AM CDT Acute diarrhea Acute generalized abdominal pain LIPASE Routine 06/16/2025 11:32 AM CDT Acute diarrhea Acute generalized abdominal pain COMPREHENSIVE METABOLIC PANEL Routine 06/16/2025 11:32 AM CDT Acute diarrhea Acute generalized abdominal pain documented in this encounter Results * LIPASE (06/16/2025 11:32 AM CDT) LIPASE 31 7 - 60 U/L [facility] Comment: Test Performed at: [facility] [address] [place] [phone] Merline Funez MD Blood 06/16/2025 11:3 2 AM CDT 06/16/2025 11:32 AM CDT us Bela APONTE CHEMISTRY ORDERABLES Final Res ult [facility] [phone] [facility] [address] * (ABNORMAL) COMPREHENSIVE METABOLIC PANEL (06/16/2025 11:32 AM CDT) GLUCOSE 103(H) 65 - 99 mg/dL [facility] Comment: Fasting reference interval For someone without known diabetes, a glucose value between 100 and 125 mg/dL is consistent with prediabetes and should be confirmed with a follow-up test. BUN 18 7 - 25 mg/dL [facility] CREATININE 1.26(H) 0.60 - 1.00 mg/dL [facility] GFR 46(L) > OR = 60 mL/min/1.7 3m2 [facility] BUN/CREAT RATIO 14 6 - 22 (calc) [facility] SODIUM 137 135 - 146 mmol/L [facility] POTASSIUM 4.3 3.5 - 5.3 mmol/L [facility] CHLORIDE 100 98 - 110 mmol/L [facility] CO2 23 20 - 32 mmol/L [facility] CALCIUM 10.5(H) 8.6 - 10.4 mg/dL [facility] TOTAL PROTEIN 7.9 6.1 - 8.1 g/dL [facility] ALBUMIN 4.6 3.6 - 5.1 g/dL [facility] GLOBULIN 3.3 1.9 - 3.7 g/dL (calc) [facility] ALBUMIN/GLOBULIN RATIO 1.4 1.0 - 2.5 (calc) [facility] BILIRUBIN TOTAL 0.3 0.2 - 1.2 mg/dL [facility] ALKALINE PHOSPHATASE 64 37 - 153 U/L [facility] AST 18 10 - 35 U/L [facility] ALT 12 6 - 29 U/L [facility] Comment: Test Performed at: [facility] [id number] [place] [address] Merline Funez MD Blood 06/16/2025 11:3 2 AM CDT 06/16/2025 11:32 AM CDT us Bela Cho DEHYDROGENATION CONVERTER OPERATOR CHEMISTRY ORDERABLES Final Res ult [facility] [phone] [facility] [address] [facility] [place] [address] * (ABNORMAL) CBC WITH DIFFERENTIAL (06/16/2025 11:32 AM CDT) WBC 10.5 3.8 - 10.8 Thousand/u L [facility] RBC 5.95(H) 3.80 - 5.10 Million/uL [facility] HEMOGLOBIN 16.1(H) 11.7 - 15.5 g/dL [facility] HEMATOCRIT 52.4(H) 35.0 - 45.0 % [facility] MCV 88.1 80.0 - 100.0 fL [facility] MCH 27.1 27.0 - 33.0 pg [facility] MCHC 30.7(L) 32.0 - 36.0 g/dL [facility] Comment: For adults, a slight decrease in the calculated MCHC value (in the range of 30 to 32 g/dL) is most likely not clinically significant; however, it should be interpreted with caution in correlation with other red cell parameters and the patient's clinical condition. RDW 14.1 11.0 - 15.0 % [facility] PLATELETS 530(H) 140 - 400 Thousand/u L [facility] MPV 9.3 7.5 - 12.5 fL [facility] NEUTROPHIL ABSOLUTE 5,933 1,500 - 7,800 cells/uL [facility] LYMPHOCYTE ABSOLUTE 3,350 850 - 3,900 cells/uL [facility] MONOCYTE ABSOLUTE 987(H) 200 - 950 cells/uL [facility] EOSINOPHIL ABSOLUTE 137 15 - 500 cells/uL [facility] BASOPHILS ABSOLUTE 95 0 - 200 cells/uL [facility] NEUTROPHIL 56.5 % [facility] LYMPHOCYTES 31.9 % [facility] MONOCYTE 9.4 % [facility] EOSINOPHILS 1.3 % [facility] BASOPHILS 0.9 % [facility] Comment: Test Performed at: [facility] [id number] [place] [address] Merline Funez MD Blood 06/16/2025 11:3 2 AM CDT 06/16/2025 11:32 AM CDT us Bela Marquis DEHYDROGENATION CONVERTER OPERATOR HEMATOLOGY ORDERABLES Final Re sult [facility] [phone] [facility] [address] [place] [address] documented in this encounter Visit Diagnoses Diagnosis Acute diarrhea- Primary Diarrhea Acute generalized abdominal pain Abdominal pain, generalized Irritable bowel syndrome with both constipation and diarrhea documented in this encounter Care Teams Tester [employer] Relationship Specialty Start Date End Date Brandon Vanegas MD [address] [place] [phone] PCP - General Family Practice 08/14/24 documented as of this encounter
--- OUTSIDE RECORDS SUMMARY | 2025-06-17 11:00 | XMS_ITS | Encounter Summary ---
Author Organization [facility] Address 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 Gender Identity Female 06/07/2023 9:55 AM CDT Sexual Orientation Not on file documented as of this encounter Plan of Treatment Upcoming Encounters Date Type Department Care Team ([facility] Contact Info) Description 07/06/2025 1:40 PM CDT Office Visit [address] [phone] Brandon Vanegas MD [address] [phone] 08/05/2025 4:30 PM CDT Appointment [facility] [address] [place] [address] Bryan Houser MD [address] [place] [phone] documented as of this encounter Visit Diagnoses Not on filedocumented in this encounter Care Teams Welding Production Supervisor Relationship Specialty Start Date End Date Brandon Vanegas MD [address] [place] [phone] PCP - General Family Practice 08/14/24 documented as of this encounter
--- OUTSIDE RECORDS SUMMARY | 2025-06-18 12:44 | XMS_ITS ---
Author Organization [facility] Address [address] [place] [address] Phone Care Team Providers Care Database Security Expert Name Role Phone Brandon Vanegas MD Primary Care Provider [phone] Active Problems Problem Noted Date Diagnosed Date Prediabetes 11/01/2024 CAD (coronary artery disease) 09/03/2023 Aortic regurgitation 09/03/2023 COPD (chronic obstructive pulmonary disease) Frail elderly 05/31/2023 Stage 3a chronic kidney disease 10/25/2022 Pseudophakia of both eyes 10/25/2022 Iron deficiency anemia 02/27/2022 Anxiety 07/31/2021 History of fracture of right ankle - w ORIF Jul 2020 02/06/2021 Chronic pain of right ankle 02/06/2021 Irritable bowel syndrome wit h both constipation and diarrhea 07/15/2020 Tobacco dependence 07/15/2020 Chronic bilateral low back pain with left-sided sciatica 07/15/2020 Recurrent major depressive disorder, in partial remission 07/15/2020 Essential hypertension 07/15/2020 S/P hysterectomy with oophorectomy 08/04/2011 Overview (03/09/2021): RUBIAINCI TOTAL LAPAROSCOPIC HYSTERECTOMY/ Bilateral salpingoophorectomy Fibromyalgia 08/08/2009 GERD (gastroesophageal reflux disease) Mixed hyperlipidemia Hypercholesteremia Current Treatment and Therapy Plans No current plan information found. Past Treatment and Therapy Plans No past plan information found. Lifetime Dose Tracking * Chemical Lifetime Dose Automatic Entry Manual Entr y Effective Dose 0.75 mSv 0.75 mSv 0 mSv Total DLP 30.45 DLP 30.45 DLP 0 DLP CTDIvol Max 1.02 mGy 1.02 mGy 0 mGy CTDIvol Min 1.02 mGy 1.02 mGy 0 mGy Resolved Problems Problem Noted Date Diagnosed Date Resolved Date Urinary bladder cancer 11/25/202010/29 Chest pain 05/25/2011 07/15/2020 Severe dysplasia of cervix (CRISTA III) 03/27/2011 07/15/2020 Disorders of sacrum 08/08/2009 07/15/20 20 [place] (myocardial infarction) 0 11/25/2020 Overview (03/08/2021): x2 approx 1 year ago Cervical cancer 11/25/2020 Burkitt's lymphoma DJD (degenerative joint disease) 07/15/2020
--- OUTSIDE RECORDS SUMMARY | 2025-06-18 12:45 | XMS_ITS | Encounter Summary ---
Author Organization [facility] Address 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 Gender Identity Female 06/07/2023 9:55 AM CDT Sexual Orientation Not on file documented as of this encounter Plan of Treatment Upcoming Encounters Date Type Department Care Team (Late st Contact Info) Description 07/06/2025 1:40 PM CDT Office Visit [facility] [address] [phone] Brandon Vanegas MD [address] [phone] 08/05/2025 4:30 PM CDT Appointment [facility] [address] [place] [phone] Bryan Houser MD [address] [place] [phone] documented as of this encounter Visit Diagnoses Diagnosis Pulmonary emphysema, unspecified emphysema type (CMS/HCC) documented in this encounter Care Teams Security Guards Dispatcher Relationship Specialty Start Date End Date Brandon Vanegas MD [address] [phone] PCP - General Family Practice 08/14/24 documented as of this encounter
--- OUTSIDE RECORDS SUMMARY | 2025-06-18 12:45 | XMS_ITS | Clinical Summary ---
Author Organization [facility] Address [address] [place] [address] Phone Care Team Providers Care Property Accountant Name Role Phone Brandon Vanegas MD Primary Care Provider [phone] Allergies Active Allergy Reactions Criticality Noted Date Comments Erythromycin Base Rash Low 05/10/2022 Fd And C Blue No.1 Hives High 08/08/2009 Iodinated Contrast Media Unknown Low 05/10/2022 Iodine Rash Low 05/04/2011 Meperidine Itching,Rash Low 08/08/2009 Metronidazole Nausea and Vomiting Low 03/27/2011 Morphine Hives,Nausea and Vomiting High 08/08/2009 Penicillins Nausea and Vomiting,Rash Low 08/03/2011 Sulfa (Sulfonamide Antibiotics) Rash Low 05/10/2022 Tetracycline Other (See Comments) 08/02/2011 Severe nausea and vomiting Medications aspirin (ECOTRIN EC) 81 mg Tablet, Delayed Release (E.C.) Take 81 mg by mouth daily. Active traMADoL (ULTRAM) 50 mg tabletIndicatio ns:Chronic bilateral low back pain with left-sided sciatica Take 2 Tablets (100 mg) by mouth every 8 hours as needed for Pain. 60 Tablet 09/03/20 Active Additional Information Patient not taking.Reported on 06/16/2025 amLODIPine (NORVASC) 5 mg tablet Take 1 Tablet (5 mg) by mouth daily. 90 Tablet 1 10/05/20 Active naloxone (NARCAN) 4 mg/spray [place], Non-Aerosol Call 911. Administer a single spray of NARCAN in one nostril. Repeat every 2-3 minutes as needed if no or minimal response. 10/02/20 23 Active meclizine (ANTIVERT) 12.5 mg tablet Take 1 Tablet (12.5 mg) by mouth 3 times daily as needed for Dizziness. 30 Tablet 1 05/11/20 24 Active Additional Information Patient not taking.Reported on 06/16/2025 CPAP / BIPAP supplies Resmed autoCPAP with EPAPmin=4cwp and EPAPmax=20cwp, Length of need: 99 months Mask Type: per patient comfort with headgear every 6 months, mask only every 3 months,as needed cushions per month. Tubing: heated 1 every 3 months, water chamber 1 every 6 months, chin strap 1 every 6 months, filters disposable 2 per month, filters reusable 1 per 6 months,Efficac y data download and mask fitting. Please link efficiency data download to Dr. Espitia account. Diagnosis: G47.33. 1 Each 06/15/20 Active Additional Information Patient not taking.Reported on 06/16/2025 Saccharomyces boulardii (Florastor) 250 mg CapsuleIndicati ons:Gastroesoph ageal reflux disease, unspecified whether esophagitis present Take 1 Capsule (250 mg) by mouth 2 times daily. 60 Capsule 07/23/20 24 Active Additional Information Patient not taking.Reported on 06/10/2025 hydrOXYzine HCL (ATARAX) 25 mg tablet Take 1-2 Tablets (25-50 mg) by mouth 3 times daily as needed for Anxiety or Insomnia. 180 Tablet 2 08/10/20 24 Active fluticasone propionate (FLONASE) 50 mcg/spray [place], Suspension nasal inhaler Administer 2 Sprays in each nostril daily. 16 Gram 3 09/17/20 24 Active Additional Information Patient not taking.Reported on 06/16/2025 magnesium oxide (MAG-OX) 400 mg (241.3 mg magnesium) tablet Take 1 Tablet (400 mg) by mouth daily. 90 Tablet 1 09/17/20 24 Active Additional Information Patient not taking.Reported on 06/16/2025 ferrous sulfate 325 mg (65 mg iron) tablet Take 1 Tablet (325 mg) by mouth 2 times daily. 60 Tablet 1 09/15/20 24 Active Additional Information Patient not taking.Reported on 06/16/2025 dicyclomine (BENTYL) 20 mg tabletIndicatio ns:Irritable bowel syndrome with both constipation and diarrhea TAKE 1 TABLET BY MOUTH ONCE DAILY BEFORE MEAL(S) AND 1 AT BEDTIME 270 Tablet 09/30/20 24 Active metoprolol succinate (TOPROL XL) 25 mg Extended Release 24 hour tablet Take 0.5 Tablets (12.5 mg) by mouth daily. 45 Tablet 3 12/16/19 25 Active nitroglycerin (NITROSTAT) 0.4 mg Tablet, Sublingual DISSOLVE ONE TABLET UNDER THE TONGUE EVERY 5 MINUTES NEEDED FOR CHEST PAIN. DO NOT EXCEED A TOTAL OF 3 DOSES IN 15 MINUTES 25 Tablet 01/07/20 25 Active varenicline tartrate (CHANTIX) 1 mg TabletIndicatio ns:Tobacco dependence Take 1 Tablet (1 mg) by mouth 2 times daily. 60 Tablet 11 02/04/20 25 Active Additional Information Patient not taking.Reported on 06/16/2025 diclofenac sodium (VOLTAREN) 50 mg Tablet, Delayed Release (E.C.)Indicatio ns:Chronic pain of right ankle,Chronic pain of left thumb Take 1 Tablet (50 mg) by mouth 2 times daily. 60 Tablet 2 02/04/20 25 Active isosorbide mononitrate (IMDUR) 30 mg Extended Release 24 hour tabletIndicatio ns:Aortic valve insufficiency, etiology of cardiac valve disease unspecified TAKE 1/2 (ONE-HALF) TABLET BY MOUTH ONCE DAILY IN THE MORNING 45 Tablet 1 03/01/20 25 Active donepeziL (ARICEPT) 5 mg tabletIndicatio ns:Dementia, unspecified dementia severity, unspecified dementia type, unspecified whether behavioral, psychotic, or mood disturbance or anxiety (CMS/HCC) TAKE 1 TABLET BY MOUTH ONCE DAILY AT BEDTIME 30 Tablet 2 04/12/20 25 Active buPROPion HCL (WELLBUTRIN XL) 300 mg Extended Release 24 hour tabletIndicatio ns:Recurrent major depressive disorder, in partial remission Take 1 tablet by mouth once daily 90 Tablet 1 04/21/20 25 Active lansoprazole (PREVACID) 30 mg Capsule, Delayed Release(E.C.)In dications:Gastr oesophageal reflux disease, unspecified whether esophagitis present Take 1 capsule by mouth once daily 30 Capsule 2 05/04/20 25 Active albuterol sulfate HFA 90 mcg/actuation aerosol inhalerIndicati ons:Pulmonary emphysema, unspecified emphysema type (CMS/HCC) INHALE 2 PUFFS BY MOUTH EVERY 6 HOURS NEEDED FOR SHORTNESS OF BREATH 9 Gram 05/27/20 25 Active cyclobenzaprine (FLEXERIL) 10 mg tabletIndicatio ns:Chronic bilateral low back pain with left-sided sciatica TAKE 1 TABLET BY MOUTH TWICE DAILY NEEDED FOR SPASM 60 Tablet 1 05/28/20 25 Active gabapentin (NEURONTIN) 300 mg capsuleIndicati ons:Chronic pain of right ankle,Chronic bilateral low back pain with left-sided sciatica TAKE 3 CAPSULES BY MOUTH THREE TIMES DAILY 270 Capsule 2 06/01/20 25 Active DULoxetine (CYMBALTA) 60 mg Capsule, Delayed Release(E.C.)In dications:Recur rent major depressive disorder, in partial remission Take 1 capsule by mouth twice daily 180 Capsule 06/10/20 25 Active loperamide (IMODIUM) 2 mg capsuleIndicati ons:Irritable bowel syndrome with both constipation and diarrhea Take 1 - 2 cap PO 45 minutes before every meal. Max 16mg per day. 06/10/20 25 Active ondansetron (ZOFRAN ODT) 4 mg Tablet, Rapid DissolveIndicat ions:Acute diarrhea,Acute generalized abdominal pain Take 1 Tablet (4 mg) by mouth every 8 hours as needed for Nausea/Emesis. Dissolve tablet on top of tongue, then swallow with saliva. 15 Tablet 06/16/20 25 025 Active colestipoL (COLESTID) 1 gram tabletIndicatio ns:Irritable bowel syndrome with both constipation and diarrhea Take 2 Tablets (2 Grams) by mouth 2 times daily with meals for 7 days. 28 Tablet 06/16/20 25 025 Active DULoxetine (CYMBALTA) 60 mg Capsule, Delayed Release(E.C.)In dications:Recur rent major depressive disorder, in partial remission Take 1 Capsule (60 mg) by mouth 2 times daily. 180 Capsule 01/07/20 25 025 Discontinued gabapentin (NEURONTIN) 300 mg capsuleIndicati ons:Chronic pain of right ankle,Chronic bilateral low back pain with left-sided sciatica TAKE 3 CAPSULES BY MOUTH THREE TIMES DAILY 270 Capsule 1 03/01/20 25 025 Discontinued cyclobenzaprine (FLEXERIL) 10 mg tabletIndicatio ns:Chronic bilateral low back pain with left-sided sciatica TAKE 1 TABLET BY MOUTH TWICE DAILY NEEDED FOR SPASM 60 Tablet 03/02/20 25 025 Discontinued albuterol sulfate HFA 90 mcg/actuation aerosol inhalerIndicati ons:Pulmonary emphysema, unspecified emphysema type (CMS/HCC) INHALE 2 PUFFS BY MOUTH EVERY 6 HOURS NEEDED FOR SHORTNESS OF BREATH 9 Gram 05/04/20 25 025 Discontinued Active Problems Problem Noted Date Diagnosed Date [...] S/P hysterectomy with oophorectomy 08/04/2011 Overview (03/09/2021): DAVINCI TOTAL LAPAROSCOPIC HYSTERECTOMY/ Bilateral salpingoophorectomy Fibromyalgia 08/08/2009 GERD (gastroesophageal reflux disease) Mixed hyperlipidemia Hypercholesteremia Resolved Problems Problem Noted Date Diagnosed Date Resolved Date Urinary bladder cancer 11/25/202010/29 Chest pain 05/25/2011 07/15/2020 Severe dysplasia of cervix (CRISTA III) 03/27/2011 07/15/2020 Disorders of sacrum 08/08/2009 07/15/20 20 RI (myocardial infarction) 0 11/25/2020 Overview (03/08/2021): x2 approx 1 year ago Cervical cancer 11/25/2020 Burkitt's lymphoma DJD (degenerative joint disease) 07/15/2020 Encounters Date Type Department Care Team Description 06/17/2025 11:00 AM CDT Procedure visit [address] [phone] 06/16/2025 10:00 AM CDT Office Visit [address] [phone] Bela Cho FNP Acute diarrhea (Primary Dx); Acute generalized abdominal pain; Irritable bowel syndrome with both constipation and diarrhea 06/14/2025 Patient Self-Triage [facility] [address] [place] [address] 06/11/[address] [phone] Brandon Vanegas MD Pulmonary emphysema, unspecified emphysema type (CMS/HCC) 06/10/2025 9:20 AM CDT Office Visit [address] [phone] Bela Cho FNP Irritable bowel syndrome with both constipation and diarrhea (Primary Dx) 06/10/[address] [phone] Mickey Matt DO Recurrent major depressive disorder, in partial remission 06/01/2025 External Device Data ST[facility] ABSTRACTION Provider, Abstract 06/01/2025 External Device Data [facility] ABSTRACTION Provider, Abstract 05/31/[address] [phone] Brandon Vanegas MD Chronic pain of right ankle; Chronic bilateral low back pain with left-sided sciatica 05/27/[address] [phone] Brielle Goddard, FUNERAL ASSISTANT Chronic bilateral low back pain with left-sided sciatica 05/26/2025 External Device Data [facility] ABSTRACTION Provider, Abstract 05/26/2025 External Device Data [facility] ABSTRACTION Provider, Abstract 05/26/[address] [phone] Mickey Matt DO Pulmonary emphysema, unspecified emphysema type ([facility]) 05/25/2025 External Device Data ST[place] ABSTRACTION Provider, Abstract 05/04/[address] [phone] Brandon Vanegas MD Gastroesophageal reflux disease, unspecified whether esophagitis present 05/04/[address] [phone] Mickey Matt DO Pulmonary emphysema, unspecified emphysema type ([facility]) 04/27/2025 External Device Data ST[facility] ABSTRACTION Provider, Abstract 04/21/[address] [phone] Mickey Matt DO Recurrent major depressive disorder, in partial remission 04/11/[address] [phone] Ngozi Barrios FNP Dementia, unspecified dementia severity, unspecified dementia type, unspecified whether behavioral, psychotic, or mood disturbance or anxiety ([facility]) (Primary Dx) 04/01/2025 Telephone [facility] Sleep [facility] [address] [facility] [address] [place] [phone] Magalie Espitia MD Sleep Problem 03/19/2025 Telephone [facility] Sleep [facility] [address] [facility] [address] [place] [phone] Magalie Espitia MD Sleep Problem from Last 3 Months Immunizations Immunization Administration Dates Next Due (ADACEL/BOOSTRIX)(10 YR UP) TDAP VACCINE, 0.5ML, IM 03/17/2025,12/15/2014 (Moderna Bivalent)(6 Mos Up) COVID-19 Vaccine - Emergency Use Authorization, MRNA(Pf) 50 Mcg/0.5 Ml Im Susp 09/10/2022 (PFIZER)(12 YR UP) COVID-19 VACCINE - EMERGENCY USE AUTHORIZATION, MRNA, [id number](PF) 30 MCG/0.3 ML IM SUSP 03/14/2021,02/18/2021 (PNEUMOVAX 23)(50 YRS UP) PN EUMOCOCCAL POLYSACCHARIDE (PPV23) 0.5 ML, IM 08/04/2011 (SHINGRIX)(50 YRS UP) ZOSTER VACCINE RECOMBINANT, 0.5 ML, IM 08/21/2023,2023 (SPIKEVAX) (12 YRS UP PRIMAR Y SERIES) COVID-19 VACCINE - MRNA-1273(PF) 100 MCG/0.5 ML IM SUSP 10/10/2021 (SPIKEVAX)(12 YRS AND UP)COV ID-19 VACCINE, MRNA, LNP-S(PF) 50 MCG/0.5 ML IM SUSPENCY USE AUTHORIZATION, RECOMBINANT-ADJ(PF) 5 MCG/0.5 ML IM SUSP 08/31/2023 (TWINRIX)(18 YRS UP) HEPATIT IS A AND HEPATITIS B VACCINE ADULT, 1 ML, IM 03/17/2025 INFLUENZA VACCINE HIGH DOSE QUADRIVALENT 65 YR UP PF IM 10/09/2024,2023,08/28/2022,07/21 Influenza Seasonal Unspecifi ed Formulation IM 08/31/2023 Influenza Vaccine High Dose 65+ Yrs IM ,07/21/2020 PNEUMOVAX (PPSV23) pneumococ cezar polysaccharide 23-valent Vaccine 09/10/2022 Pneumococcal 13-yajaira Conj Vac c Patient Supplied 07/21/2020 Family History Medical History Relation Name Comments Ovarian Cancer Maternal Aunt Heart Disease Maternal Grandfather Hypertension Maternal Grandfather Heart Disease Maternal Grandmother Hypertension Maternal Grandmother Heart Disease Mother Hypertension Mother Uterine Cancer Mother Relation Name Status Comments Maternal Aunt Maternal Grandfather Maternal Grandmother Mother Social History Tobacco Use Types Packs/Day Years Used Date Smoking Tobacco: Every Day Cigarettes 0.3 67 Started: 08/06/1956; Last attempted to quit: 08/06/2023 Passive Smoke Exposure: Past Smokeless Tobacco: Never Tobacco Cessation:Ready to Q uit: Not Asked; Counseling Given: Not Answered Comments:Smoking 1-2 cig's daily, trying to quit. 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 Gender Identity Female 06/07/2023 9:55 AM CDT Sexual Orientation Not on file Last Filed Vital Signs Vital Sign Reading [...] Mass Index 23.79 06/16/2025 10:58 AM CDT Plan of Treatment Upcoming Encounters Date Type Department Care Team (Late st Contact Info) Description 07/06/2025 1:40 PM CDT Office Visit [facility] [place] [address] [phone] Brandon Vanegas MD [address] [phone] 08/05/2025 4:30 PM CDT Appointment [facility] [address] [place] [address] Bryan Houser MD [address] [place] [phone] Health Maintenance Due Date Last Done Comments BREAST CANCER SCREENING 1995 FIT-DNA Q 3 years 2000 FIT/FOBT Q 1 year 2000 Flex Sig/CT Colonography Q 5 years 2000 RSV VACCINE (60+ or ) (1 - Risk 60-74 years 1-dose series) 2015 Medicare Advantage ([place]) Preventative Visit/Annual Wellness Visit 11/11/2024 04/28/2024, 05/31/2023, 05/31/2023 COVID-19 Vaccine (2023-2 5 season) 2025 10/09/2024, 08/31/2023, 09/10/2022, Additional history exists INFLUENZA VACCINE (#1) 2025 , 08/31/2023, 2023, Additional history exists OSTEOPOROSIS SCREENING 09/13/2028 09/13/2023 COLORECTAL SCREENING 11/25/2030 11/25/2020, 11/25/19 Colorectal Cancer Screening 11/25/2030 DTAP/TDAP/TD VACCINES (3 - T d or Tdap) 03/17/2035 03/17/2025, 12/15/2014 PNEUMOCOCCAL VACCINE 50+ YEARS Completed 1 , 07/21/2020, 08/04/2011 ZOSTER VACCINE Completed 08/21/2023, 2023 Medical Devices Implanted Type [employer] Laboratory Director Device Identifier Shelf Expiration Date Model / Serial / Lot Log [id number] - Mesh Bard Ventral Hernia - 1 - Mesh Ventralight 4x6in [id number] Implanted:Qty: 1 on 12/21/[address] [place] [id number]- [employer] 11/10/2013 [id number] / / [id number] Procedures Procedure Name Priority Date/Time Associated Diagnosis Comments LIPASE Routine 06/16/2025 11:32 AM CDT Acute diarrhea Acute generalized abdominal pain COMPREHENSIVE METABOLIC PANEL Routine 06/16/2025 11:32 AM CDT Acute diarrhea Acute generalized abdominal pain CBC WITH DIFFERENTIAL Routine 06/16/2025 11:32 AM CDT Acute diarrhea Acute generalized abdominal pain XR DEXA BONE DENSITY AXIAL 1 OR MORE SITES Routine 09/13/2023 10:46 AM CDT ENDOSCOPY, COLON, SCREENING 11/25/2020 12:00 AM 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 [facility] [address] * LIPASE (06/16/2025 11:32 AM CDT) Pathologist [facility] LIPASE 31 7 - 60 U/L [facility] Comment: Test Performed at: [facility] [address] [place] [address] Merline Funez MD Blood 06/16/2025 11:3 2 AM CDT 06/16/2025 11:32 AM CDT Bela THOMPSONP CHEMISTRY ORDERABLES Final Res ult Performing Organization Address [facility] Co de Phone Number [facility] [phone] [facility] [address] * (ABNORMAL) COMPREHENSIVE METABOLIC PANEL (06/16/2025 11:32 AM CDT) GLUCOSE 103(H) 65 - 99 mg/dL [facility] Comment: Fasting reference interval For someone [...] [facility] Comment: Test Performed at: [facility] [address] [place] [address] Merline Funez MD Blood 06/16/2025 11:3 2 AM CDT 06/16/2025 11:32 AM CDT Bela APONTE CHEMISTRY ORDERABLES Final Res ult [facility] [phone] [facility] [address] [place] [address] * XR DEXA BONE DENSITY AXIAL 1 OR MORE SITES (09/13/2023 10:46 AM CDT) Anatomical Region Laterality Modality Other Mickey Matt DO DIAGNOSTIC IMAGING ORDERABLES Final Result * ENDOSCOPY, COLON, SCREENING (11/25/2020 12:00 AM HARD TILE SETTER APPRENTICE) us Sgf Scanning GI PROCEDURE ORDERABLES Final Re sult from Last 3 Months or Most Recently Relevant to Health Maintenance Additional Health Concerns Infection Onset Date Last Indicated R/O C. diff 06/18/2025 06/18/2025 Insurance BCBS MEDICARE HMO Care Teams Property Accountant Relationship Specialty Start Date End Date Brandon Vanegas MD [address] [phone] PCP - General Family Practice 08/14/24
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
--- OUTSIDE RECORDS SUMMARY | 2025-06-18 12:45 | XMS_ITS | Encounter Summary ---
Author Organization [facility] Address 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 Gender Identity Female 06/07/2023 9:55 AM CDT Sexual Orientation Not on file documented as of this encounter Plan of Treatment Upcoming Encounters Date Type Department Care Team (Late Contact Info) Description 07/06/2025 1:40 PM CDT Office Visit [facility] Medicine [place] [address] [phone] Brandon Vanegas MD [address] [phone] 08/05/2025 4:30 PM CDT Appointment [facility] Neurology [facility] [address] [place] [address] Bryan Houser MD [address] [place] [phone] documented as of this encounter Visit Diagnoses Not on filedocumented in this encounter Care Teams Record Filing Clerk Relationship Specialty Start Date End Date Brandon Vanegas MD [address] [place] [phone] PCP - General Family Practice 08/14/24 documented as of this encounter
[2025-06-18 12:54] VITALS: BP 123/69; RESP 18; TEMP 36.7; BMI 25.4
[2025-06-18 14:01] LABS: Hematocrit 43.5 % (36-47); Hemoglobin 13.60 g/dL (11.27-16.99); Mean Corpuscular HGB Conc 31.3 g/dL (30-55); Mean Corpuscular Hemoglobin 26.7 pg (27-33); Mean Corpuscular Volume 85.3 fl (85-98); Nucleated Red Blood Cells % 0 %; Platelet Count 479 10^3/cmm (157-399); Red Blood Count 5.10 10^6/uL (3.85-5.65); White Blood Count 8.21 10^3/uL (3.29-11.43)
[2025-06-18 14:21] LABS: Alanine Aminotransferase 13 U/L (0-33); Albumin Level 3.7 g/dL (3.5-5.2); Alkaline Phosphatase 74 U/L (35-105); Anion Gap 23.5 (5-19); Aspartate Amino Transferase 22 U/L (0-32); Blood Urea Nitrogen 16 mg/dL (8-23); Calcium 9.7 mg/dL (8.5-10.5); Carbon Dioxide 17 mmol/L (22-29); Chloride 100 mmol/L (98-107); Creatinine Clr Calc Pharmacy 42.9369; Globulin 3.8 g/dL (1.3-4.6); Glucose 108 mg/dL (65-115); Lipase 21 U/L (13-60); Osmolality Calculated 286 mOsm/kg (285-295); Potassium 3.5 mmol/L (3.5-5.1); Sodium 137 mmol/L (136-145); Total Protein 7.5 g/dL (6.6-8.7)
[2025-06-18 15:05] VITALS: BP 155/81; PULSE 106; O2SAT 96
--- NOTE | 2025-06-18 15:16 | ED_ITS ---
HPI - Nausea/Vomiting/Diarrhea 2 General: Chief complaint: Nausea/Vomiting/Diarrhea Stated complaint: n/v/d, weakness Time Seen by Provider: 06/18/25 13:17 Source: patient and family Mode of arrival: ambulatory Limitations: no limitations History of Present Illness: Patient is a 70-year-old female presents to ED today along with her significant other for concerns of diarrhea over the past 2 weeks. Patient states she is having multiple episodes (10+) watery explosive diarrhea stools daily. She has had multiple episodes of fecal incontinence. Significant other is concern for dehydration. She has not had any significant abdominal pain over that time period-maybe some abdominal cramping prior to defecation. She has not had any recent antibiotic use. No poor food exposures. No sick contacts. She was recently seen by PCP Dr. Murillo and had blood work and stool samples performed but does not have the results of any of these. States she did have a few episodes of vomiting today but has not otherwise had any vomiting during the course of her illness. No fevers or body aches. MD elicited complaint: diarrhea Onset (ago): week(s) Description of diarrhea: watery Associated nausea: Yes Associated abdominal pain: Yes (Occasional) Location of pain: Diffuse Radiation: diffuse Pain consistency: intermittent Severity: mild Quality: cramping Exacerbating factors: other (eating/drinking) Relieving factors: none Associated symtoms: Reports nausea; Denies chest pain, dizziness, dysuria, fatigue, headache(s) or malaise Related Data Home Medications ?Medication ?Instructions ?Recorded ?Confirmed bupropion HCl 300 mg 24 hr tablet, 300 mg PO DAILY@103 0 04/04/20 03/04/24 extended release cyclobenzaprine 10 mg tablet 10 mg PO BID PRN Muscle S pasm 04/04/20 03/04/24 dicyclomine 20 mg tablet See Rx Instructions .Route . COMPLEX 04/04/20 03/04/24 duloxetine 60 mg capsule,delayed 60 mg PO BID 04/04/20 03/04/24 release lansoprazole 30 mg capsule,delayed 30 mg PO DAILY 03/1203/04/24 release gabapentin 300 mg capsule 900 mg PO TID 01/13/2103/04 hydroxyzine HCl 25 mg tablet 25 mg PO TID PRN Anxiety 07/05/21 03/04/24 aspirin 81 mg tablet,delayed 81 mg PO DAILY 05/29/23 0 03/04/24 release (Adult Low Dose Aspirin) varenicline tartrate 1 mg tablet 1 mg PO BID 05/29/23 03/04/24 (Chantix) albuterol sulfate 90 mcg/actuation 2 inh inhalation Q6 H PRN Shortness 08/11/23 03/04/24 aerosol inhaler Of Breath ondansetron HCl 8 mg tablet 8 mg PO Q8H PRN Nausea 12/0303/04/24 Previous Rx's ?Medication ?Instructions ?Recorded atorvastatin 40 mg tablet 40 mg PO DAILY #90 tabs 08/11 08/02 nitroglycerin 0.4 mg sublingual 0.4 mg sublingual Q5M PRN CHEST 08/29/22 tablet PAINS 30 days #30 tabs metoprolol succinate 25 mg 12.5 mg (1/2 x 25 mg) PO DA VIOLETTE 10/01/23 tablet,extended release 24 hr #180 tabs isosorbide mononitrate 30 mg 15 mg (1/2 x 30 mg) PO DA VIOLETTE #45 10/02/23 tablet,extended release 24 hr tabs amlodipine 5 mg tablet 5 mg PO DAILY #90 tabs 06/10 Allergies Allergy/AdvReac Type Severity Reaction Status Date / Time erythromycin base Allergy Mild ALGY-RASH Verified 03/04/24 11:23 Iodinated Contrast Media Allergy Mild ALGY-RASH; Verified 03/04/24 11:23 DIFFICULTY BREATHING Iodine and Iodide Containing Allergy Mild ALGY-RASH Verified 03/04/24 11:23 Produc meperidine (From Demerol) Allergy Mild ALGY-VOMITI Verified 03/04/24 11:23 NG;RASH morphine Allergy Mild ALGY-RASH;V Verified 03/04/24 11:23 OMITING Penicillins Allergy Mild ALGY-RASH Verified 03/04/24 11:23 Sulfa (Sulfonamide Allergy Mild ALGY-RASH Verified 03/04/24 11:23 Antibiotics) metronidazole (From Flagyl) Allergy Unknown UNKNOWN Verified 03/04/24 11:23 Review of Systems 2 Const: Denies: fever(s), chills, body aches, fatigue or malaise Card: Denies: chest pain Resp: Denies: dyspnea GI: Reports: abdominal pain, nausea, vomiting (today), diarrhea and GI cramping; Denies: hematemesis, heartburn, pain on defecation, rectal pain, hematochezia or melena : Denies: flank pain, dysuria or hematuria Musc: Denies: neck pain, back pain, extremity pain, extremity swelling, joint pain or joint swelling Skin/Breast: Denies: rash Neuro: Denies: headache(s), numbness in extremities, weakness in extremities, sensory changes or dizziness PFSH ED 2 PFSH: Medical History Aortic regurgitation CAD (coronary artery disease) Hypertension Depression IBS (irritable bowel syndrome) Vitamin D deficiency Chronic back pain Polymyalgia rheumatica Cervical disc disease Fibromyalgia Other spondylosis with radiculopathy, cervical region Arnold-Chiari malformation, type I Burkitts lymphoma Hypercholesteremia Migraine aura without headache Surgical History Hx of section History of ankle surgery H/O hernia repair H/O tubal ligation Hx of tonsillectomy H/O: hysterectomy Hx of colonoscopy Family History Family/Other Hypertension CAD (coronary artery disease) Cancer Mother , at age 83 Heart attack Father , unknown No problems noted. Denies family history of Anesthesia complication Bleeding disorder Social History Smoking and tobacco/nicotine status: former use of tobacco/nicotine Second hand smoke exposure: No Alcohol intake: current Alcohol intake frequency: holidays/special occasions only Substance/Drug Use: never Lives independently: Yes Housing: House Marital status: Current occupational status: disabled Current gender identity: Female Physical Exam 2 Const: COMMON NORMALS: no acute distress, average body habitus, patient oriented x3, no limitations, healthy appearing, alert and well nourished G ENERAL APPEARANCE: cooperative ORIENTATION/CONSCIOUSNESS: Yes awake, Yes oriented to person, Yes oriented to place and Yes oriented to time HENMT: FACE & SINUS: normal facial exam Resp: COMMON NORMALS: normal respiratory effort and clear to auscultation bilaterally AUSCULTATION: clear to auscultation bilaterally Cardio: COMMON NORMALS: regular rate and regular rhythm RATE: regular rate RHYTHM: regular rhythm GI: COMMON NORMALS: Normal to inspection, nondistended, normoactive bowel sounds present, Soft to palpation, No hepatosplenomegaly present and no masses INSPECTION: Yes normal to inspection AUSCULTATION: Yes normoactive bowel sounds PALPATION: Yes Soft to palpation, Yes Tenderness to palpation present (GI) (mild generalized discomfort-non surgical examination), No Guarding due to palpation present (GI), No Rigid due to palpation and Yes No hepatosplenomegaly present : COMMON NORMALS: Yes no CVA tenderness BLADDER/KIDNEY EXAM: Yes no CVA tenderness Back/Pelvis: COMMON NORMALS: no CVA tenderness Extremity: GENERAL: Yes normal exam except as noted Neuro: COMMON NORMALS: patient oriented x3, moves all extremities, no focal motor deficits and no sensory deficits noted SENSORIUM/ORIENTATION: Yes alert, Yes oriented to person, Yes oriented to place and Yes oriented to time Skin: COMMON NORMALS: no rashes or lesions noted GENERAL SKIN EXAM: no rashes or lesions noted Course 2 Vital Signs: Vital signs: Vital Signs Temperature 98.0 F 06/18/25 12:54 Pulse Rate 101 H 06/18/25 16:00 Respiratory Rate 18 06/18/25 12:54 Blood Pressure 145/60 06/18/25 16:00 Pulse Oximetry 92 06/18/25 16:00 Oxygen Delivery Me thod Room Air 06/18/25 16:00 MDM - Nausea/Vomiting/Diarrhea Medical Decision Making Patient is a nice 70-year-old female here for diarrhea x 2 weeks. She has not had any episodes of bloody stools. She is not complaining of abdominal pain. No systemic symptoms such as fevers or body aches. She has been here in the emergency department over 4 hours and has not been able to provide a stool sample. She did give stool sample to primary care office yesterday so we will await these results and she can follow-up with their office. Vital signs have remained stable during her stay. Her blood work showing a normal white count. Chemistry with a mildly low bicarb and elevated gap consistent with dehydration. Her creatinine is stable and at baseline. Urine is dark in appearance with 3+ consistent with her known dehydration. She was given a 20 mL/kg fluid bolus here in the emergency department and will be allowed discharge. Signs and symptoms that should prompt an emergency evaluation were discussed with patient who verbalized understanding. Differential Diagnosis Likely traveler's diarrhea, food poisoning, gastroenteritis, clostridium difficile infection and dehydration Medical Records I reviewed the patient's medical records. Lab Data I reviewed the patient's lab results. 06/18/25 13:51 06/18/25 13:51 Laboratory Results WBC 8.21 10^3/uL (3.29-11.43) 06/18/25 13:51 RBC 5.10 10^6/uL (3.85-5.65) 06/18/25 13:51 Hgb 13.60 g/dL (11.27-16.99) 06/18/25 13:51 Hct 43.5 % (36-47) 06/18/25 13:51 MCV 85.3 fl (85-98) 06/18/25 13:51 MCH 26.7 pg (27-33) L 06/18/25 13:51 MCHC 31.3 g/dL (30-55) 06/18/25 13:51 RDW 14.8 % (12.1-15.1) 06/18/25 13:51 Plt Count 479 10^3/cmm (157-399) H 06/18/25 13:51 MPV 9.7 fL (7.4-10.4) 06/18/25 13:51 Neut % (Auto) 60.7 % 06/18/25 13:51 Lymph % (Auto) 30.2 % 06/18/25 13:51 [place] % (Auto) 7.6 % 06/18/25 13:51 Eos % (Auto) 0.5 % 06/18/25 13:51 Baso % (Auto) 0.5 % 06/18/25 13:51 Neut # (Auto) 4.99 10^3/uL (1.8-7.7) 06/18/25 13:51 Lymph # (Auto) 2.5 10^3/uL (0.8-4.8) 06/18/25 13:51 [place] # (Auto) 0.6 10^3/uL (0.2-0.9) 06/18/25 13:51 Eos # (Auto) 0.0 10^3/uL (0.0-0.8) 06/18/25 13:51 Baso # (Auto) 0.0 10^3/uL (0.0-0.1) 06/18/25 13:51 Nucleated RBC % (auto) 0 % 06/18/25 13:51 Nucleated RBCs # 0.0 /100WBC 06/18/25 13:51 Sodium 137 mmol/L (136-145) 06/18/25 13:51 Potassium 3.5 mmol/L (3.5-5.1) 06/18/25 13:51 Chloride 100 mmol/L (98-107) 06/18/25 13:51 Carbon Dioxide 17 mmol/L (22-29) L 06/18/25 13:51 Anion Gap 23.5 (5-19) H 06/18/25 13:51 BUN 16 mg/dL (8-23) 06/18/25 13:51 Creatinine 1.1 mg/dL (0.5-0.9) H 06/18/25 13:51 GFR Calculation 49.1 mL/min (90-130) L 06/18/25 13:51 Glucose 108 mg/dL (65-115) 06/18/25 13:51 Calculated Osmolality 286 mOsm/kg (285-295) 06/18/25 13:51 Calcium 9.7 mg/dL (8.5-10.5) 06/18/25 13:51 Total Bilirubin 0.3 mg/dL (0.15-1.2) 06/18/25 13:51 AST 22 U/L (0-32) 06/18/25 13:51 ALT 13 U/L (0-33) 06/18/25 13:51 Alkaline Phosphatase 74 U/L (35-105) 06/18/25 13:51 Total Protein 7.5 g/dL (6.6-8.7) 06/18/25 13:51 Albumin 3.7 g/dL (3.5-5.2) 06/18/25 13:51 Globulin 3.8 g/dL (1.3-4.6) 06/18/25 13:51 Lipase 21 U/L (13-60) 06/18/25 13:51 Urine Color Dark yellow (Yellow) A 06/18/25 15:23 Urine Appearance Clear (CLEAR) 06/18/25 15:23 Urine pH 5.5 (5-7) 06/18/25 15:23 Ur Specific [place] 1.028 (1.005-1.030) 06/18/25 15:23 Urine Protein 2+ (Negative) A 06/18/25 15:23 Urine Glucose (UA) Negative (Normal) 06/18/25 15:23 Urine Ketones 3+ (Negative) H 06/18/25 15:23 Urine Blood Negative (Negative) 06/18/25 15:23 Urine Nitrate Negative (Negative) 06/18/25 15:23 Urine Bilirubin Negative (Negative) 06/18/25 15:23 Urine Urobilinogen 1.0 mg/dL (Negative) 06/18/25 15:23 Ur Leukocyte Esterase Negative (Negative) 06/18/25 15:23 Urine RBC 0-2 /hpf (0-2) 06/18/25 15:23 Urine WBC 0-5 /hpf (0-5) 06/18/25 15:23 Ur Squamous Epith Cells 0-5 /hpf (0-5) 06/18/25 15:23 Amorphous Sediment Not Reportable 06/18/25 15:23 Urine Bacteria None seen /hpf (NONE) 06/18/25 15:23 Hyaline Casts 1.21 /lpf 06/18/25 15:23 No radiology studies performed this visit Discharge Plan Discharge Patient Disposition: Home Clinical Impression: Diarrhea Qualifiers: Diarrhea type: unspecified type Qualified Code(s): R19.7 - Diarrhea, unspecified Condition: Stable Prescriptions: No Action dicyclomine 20 mg tablet See Rx Instructions .ROUTE .COMPLEX Rx Instructions: 20 mg orally BEFORE MEALS AND AT BEDTIME duloxetine 60 mg capsule,delayed release(DR/EC) 60 mg PO BID cyclobenzaprine 10 mg tablet 10 mg PO BID PRN (Reason: Muscle Spasm) lansoprazole 30 mg capsule,delayed release(DR/EC) 30 mg PO DAILY bupropion HCl 300 mg tablet extended release 24 hr 300 mg PO DAILY@1030 gabapentin 300 mg capsule 900 mg PO TID atorvastatin 40 mg tablet 40 mg PO DAILY Qty: 90 3RF nitroglycerin 0.4 mg tablet, sublingual 0.4 mg SUBLINGUAL Q5M PRN (Reason: CHEST PAINS) 30 Days Qty: 30 6RF Rx Instructions: do not exceed 3 doses per episode aspirin [Adult Low Dose Aspirin] 81 mg tablet,delayed release (DR/EC) 81 mg PO DAILY varenicline tartrate [Chantix] 1 mg tablet 1 mg PO BID metoprolol succinate 25 mg tablet extended release 24 hr 12.5 mg PO DAILY Qty: 180 0RF isosorbide mononitrate 30 mg tablet extended release 24 hr 15 mg PO DAILY Qty: 45 2RF amlodipine 5 mg tablet 5 mg PO DAILY Qty: 90 0RF Rx Instructions: MUST APPOINTMENT AND BE SEEN FOR FURTHER REFILLS hydroxyzine HCl 25 mg tablet 25 mg PO TID PRN (Reason: Anxiety) ondansetron HCl 8 mg tablet 8 mg PO Q8H PRN (Reason: Nausea) albuterol sulfate 90 mcg/actuation HFA aerosol inhaler 2 inh INHALATION Q6H PRN (Reason: Shortness Of Breath) Discharge Orders: Discharge ED (Routine); Ordered 06/18/25 Ordered By: Sima Childress Referrals: Mickey Matt DO [Primary Care Provider] Patient Instructions: Patient Portal & Leandro Instructions Activity Restrictions/Additional Instructions: As we discussed, you were given fluids here to help with dehydration. You need to continue to push fluids at home. You were not able to give a stool sample here. You did give stool samples to your primary care office yesterday-please reach out to them next week to see if they have results back. As we discussed, we need to see you back in the emergency department for onset of severe abdominal pain, bloody diarrhea, fevers, generally feeling worse or unwell, or any other concerns you may have. It was a pleasure to care for you here in the emergency department and I hope you begin to feel better soon. Print Language: Romanian Coding Level of Care Code ED Window Shade Estimator for Zeke Low
[2025-06-18 15:59] LABS: Glucose Urine UA Negative (Normal); Nitrate Urine Negative (Negative); Specific Gravity, Urine 1.028 (1.005-1.030)
[2025-06-18 16:00] VITALS: BP 145/60; PULSE 101; O2SAT 92
[2025-06-18 16:04] LABS: Add Urine Microscopic? YES; Universal Test for UA Present (0)
--- NOTE | 2025-06-18 16:17 | PC.NURSE ---
asked pt for stool sample, pt states she doesn't have to go.
[2025-06-18 16:26] LABS: UA Slide Review UA Slide Review Perf
--- NOTE | 2025-06-18 17:12 | PC.NURSE ---
pt had a loose stool upon leaving, collected and taken to lab.
[2025-06-18 17:17] VITALS: BP 153/68; PULSE 101; O2SAT 93
[2025-06-18 18:31] LABS: C.Diff PCR (Lab) NEGATIVE (Negative)
== END 2025-06-18 17:19 | disposition home or self-care (01) ==
PROVIDERS: Emergency Provider Physician Assistant; PCP Family Medicine
DX: R19.7 Diarrhea, unspecified (principal); Z79.82 Long term (current) use of aspirin; Z87.891 Personal history of nicotine dependence; I25.10 Atherosclerotic heart disease of native coronary artery without angina pectoris; I10 Essential (primary) hypertension
CPT/HCPCS: 36415; 80053; 81001; 82274; 83630; 83690; 85025; 87493; 96360; 96361; 99284; J7030